=== PATIENT | female | born 1955 | race Caucasian/White ===

== ENCOUNTER → 2018-05-28 16:39 | Outpatient (CLI) | payer OTHER, SELFPAY ==
--- NOTE | 2018-05-28 16:44 | MM_ITS ---
MM Dig screening mamm BI w/CAD ORDERING PHYSICIAN : [facility] PATIENT AGE: 62 years GENDER: Female COMPARISON: May 2016, May. From the scanning INDICATION: ITS.REASON: SCREENING Family history. Maternal aunt & paternal aunts , with breast cancer [id number]. TECHNIQUE: Standard CC and MLO images were obtained. R2 CAD reviewed. . Additional actually cc view both breast included. FINDINGS: . Moderately dense and heterogeneous breast pattern. Which decreases sensitivity of mammography. However no suspicious new areas of concern either breast. Ultrasound can be useful compliment/augment to mammography in breast of increased density and particularly helpful if any palpable areas encountered. RIGHT BREAST: No new areas of significant concern Nodularity at the deep right breast cc view appears stable as does appearance LEFT BREAST: No new areas of significant concern. Metallic markers from previous percutaneous biopsy towards the superior left breast, 12:30 position.,. MLO view with some minimal nodularity but no significant new areas of concern. Minor features seen on today's study similar to the 2015 exam, and can be followed. In this same area again noting 9 mm round ovoid density which is been present since at least 2013.. M2 thousand 7 the patient had a 9 mm fibroadenoma in this region which was biopsied. Also cysts are seen at the central breast. Thus with these features appearing fairly stable follow-up would be reasonable. No significant new areas of additional concern. It follow-up in one year recommended on left. IMPRESSION: ... Stable mammogram No new findings of significant concern. Moderately dense heterogeneous breast somewhat limit mammography, but with no new areas of concern. BI-RADS Category: 2 Benign Finding(s) RECOMMENDED FOLLOW-UP: 1YR 1 YEAR FOLLOW-UP (A letter has been sent to the patient regarding results of the study.)
== END ==
PROVIDERS: PCP Nurse Practitioner Family; Visit Provider Internal Medicine Adolescent Medicine
DX: Z12.31 Encounter for screening mammogram for malignant neoplasm of breast (principal)
CPT/HCPCS: 77067

== ENCOUNTER → 2019-06-11 16:16 | Outpatient (CLI) | payer OTHER, SELFPAY ==
--- NOTE | 2019-06-11 16:21 | MM_ITS ---
PROCEDURE: MM DIG SCREENING MAMM BI W/CAD CLINICAL INDICATION: There is a history of breast cancer patient's maternal aunt and paternal aunt. There been previous 2 biopsies left breast for benign disease. The patient was difficult to position for standard views COMPARISON: [facility] DIG MAMM-SCREEN ESCOBAR from 05/30/2015 [facility] DIG MAMM-SCREEN ESCOBAR from 06/21/2016 [facility] MM Dig screening mamm BI w/CAD from 05/28/2018 TECHNIQUE: Standard CC and MLO images were obtained. R2 CAD reviewed. FINDINGS: Moderate scattered fibroglandular densities are seen throughout both breast. There are 2 biopsy clips left breast. There are stable benign-appearing nodular densities deep within both breasts.. There is no new or suspicious lesion in either breast and no suspicious microcalcifications. IMPRESSION: Moderate breast density with no suspicious lesions seen BI-RAD Category: 2 Benign Finding(s) FOLLOW-UP: 1YR 1 Year Follow-up (A letter has been sent to the patient regarding results of the study.) Dictated by: Dr. Yao Green MD 06/18/2019 08:[address] Yao Green MD in [place] 06/18/2019 08:30
== END ==
PROVIDERS: PCP Nurse Practitioner; Visit Provider Internal Medicine Adolescent Medicine
DX: Z12.31 Encounter for screening mammogram for malignant neoplasm of breast (principal)
CPT/HCPCS: 77067

== ENCOUNTER → 2020-06-14 12:36 | Outpatient (CLI) | payer MEDICARE, SELFPAY ==
--- NOTE | 2020-06-14 12:38 | MM_ITS ---
PROCEDURE: MM DIG SCREENING MAMM BI W/CAD Digital Breast Tomosynthesis Included CLINICAL INDICATION: SCREENING There is a history of breast cancer patient's maternal aunt and paternal aunt. There has been 2 previous biopsies left breast for benign disease. COMPARISON: MG [facility] DIG MAMM-SCREEN ESCOBAR from 06/21/2016 MG [facility] MM Dig screening mamm BI w/CAD from 05/28/2018 MG MM DIG SCREENING MAMM BI W/CAD from 06/11/2019 TECHNIQUE: Standard CC and MLO images and 3D Tomosynthesis was obtained. R2 CAD reviewed. FINDINGS: Moderate diffuse fibroglandular densities are seen in the central portions of both breast. There are 2 biopsy clips left breast. There is faint arterial calcification in each breast. There are 2 stable benign-appearing nodular densities subareolar region left breast. There is no suspicious lesion and no suspicious microcalcifications. IMPRESSION: Moderate breast density with no suspicious lesions seen BI-RAD Category: 2 Benign Finding(s) FOLLOW-UP: 1YR 1 Year Follow-up (A letter has been sent to the patient regarding results of the study.) Dictated by: Dr. Yao Green MD 06/15/2020 14:29 Dr. Yao Green MD in [place] 06/15/2020 14:29
== END ==
PROVIDERS: PCP Nurse Practitioner; Visit Provider Nurse Practitioner
DX: Z12.31 Encounter for screening mammogram for malignant neoplasm of breast (principal)
CPT/HCPCS: 77063; 77067

== ENCOUNTER → 2020-08-08 08:46 | Outpatient (CLI) | payer MEDICARE, SELFPAY ==
--- NOTE | 2020-08-08 08:50 | XR_ITS ---
PROCEDURE: XR DEXA AXIAL SKELETON CLINICAL HISTORY: ASYMPTOMATIC MENOPAUSAL STATE COMPARISON: No exams were available for comparison FINDINGS: The right hip BMD is 0.874 with a T-score of 0.2. The left hip BMD is 0.861 with a T-score of 0.1. The lumbar spine BMD is 1.037 with a T-score of -0.1. IMPRESSION: This patient is considered normal according to the World Health Organization criteria. Fracture risk is low. Based on these results a follow-up exam is recommended in 2 year. Dictated by: Danny Mon MD 08/09/2020 04:34 Danny Mon MD in [place] 08/09/2020 06:56
== END ==
PROVIDERS: PCP Internal Medicine Adolescent Medicine; Visit Provider Internal Medicine Adolescent Medicine
DX: Z13.820 Encounter for screening for osteoporosis (principal); Z78.0 Asymptomatic menopausal state
CPT/HCPCS: 77080

== ENCOUNTER → 2020-12-19 12:32 | Outpatient (CLI) | payer MEDICARE, SELFPAY ==
--- NOTE | 2020-12-19 12:57 | CA_ITS ---
APPROVED REPORT EXAM: Comprehensive 2D, Doppler, and color-flow Echocardiogram Modeling Teacher: ARACELI Loredo, RVS Ht: 5 ft 8 in Wt: 200lbs BSA: 2.04 BP: 120/80 mmHg Indications: Murmur, Dizziness and Vertigo Echo Enhancing Agent Comments: Extremely difficult exam due to breathing variations 2D Dimensions IVSd 0.95 cm LVEF (Visual) 45.10 % PWd 0.75 cm LA Volume 37.40 mL LVDd 3.95 cm LA Volume Index 18.30 mL/m2 (M/F) 16-34 LVDs 3.08 cm LVOT 1.58 cm (M/F) 1.5-2.5 M-Mode Dimensions LA Diam 3.73 cm (1.9-4.0) LVDd 4.00 cm (3.5-5.7) Ao Diam 2.91 cm (2.0-3.7) LVDs 2.62 cm (3.5-5.7) EF (Teich) 64.10% EPSs 0.50 cm FS 34.50% EDV (Teich) 70.00 mL TAPSE 1.49 (<1.7) ESV (Teich) 25.10 mL LV Diastology E Decel Time 330.00 (160-240 msec) E/A Ratio 0.60 MED E' 6.20 (< 7 cm/sec) MED A' 11.30 cm/s E'/MED E' Ratio 11.15 (>14) LAT E' 7.90 (<10 cm/sec) LAT A' 10.50 cm/s E/LAT E' Ratio 8.75 (>14) Aortic Valve AoV Peak Neville. 222.00 (50-130 cm/s) AO Peak GR. 19.70 mmHg AO Mean GR. 9.90 (<5 mmHg) AO VTI 44.78 (18-25 cm) Mitral Valve MV E Max Neville. 69.00 (40-130 cm/s) MV A Velocity 116.00 (40-130 cm/s) E/A Ratio 0.60 MV Decel. Time 330.00 (160-240 ms) MV PHT 97.00 ms Tricuspid Valve TR P. Velocity 225.00 cm/s RAP Estimate 10.00 mmHg RVSP 30.30 mmHg Left Ventricle Left atrium is mildly enlarged, left ventricle is normal size, mild concentric left ventricular hypertrophy, visually estimated ejection fraction 55% with no regional wall motion abnormality, grade 1 diastolic dysfunction seen without tissue Doppler evidence of raise left atrial pressure. Right Ventricle Right atrium and right ventricle are normal size and contractility. Aortic Valve Aortic valve is minimally thickened and fibrosed, mean gradient across aortic valve is 10 mmHg, valve area is 1.8 cm by represents mild aortic stenosis, there is no aortic insufficiency. Mitral Valve Mitral valve grossly normal, there is trace mitral regurgitation. Tricuspid Valve Tricuspid grossly normal, there is trace tricuspid regurgitation, tricuspid regurgitation (inadequate for calculation of the right ventricular systolic pressure. Pulmonic Valve Pulmonic valve is poorly visualized. Great Vessels Aortic root is normal size. Pericardium No significant pericardial effusion noted. Conclusion 1. Normal left ventricular size, mild concentric left ventricular hypertrophy, visually estimated ejection fraction 55% with no regional wall motion abnormality, grade 1 diastolic dysfunction seen without tissue Doppler evidence of raise left atrial pressure. 2. Trace mitral and tricuspid regurgitation. 3. No significant pericardial effusion noted. 4. Minimally thickened and calcified aortic valve with mild aortic stenosis, there is no aortic insufficiency. Electronically signed by : Ryan Aceves, 12/19/2020 22:01:45
--- NOTE | 2020-12-19 12:57 | CA_ITS ---
APPROVED REPORT Intake Specialist: JOSE Laterality: Bilateral Study Quality: Good Indications: Dizziness and Vertigo Doppler Spectral Velocity Analysis ECA (R) 113.00/16.50 cm/s ECA (L) 131.10/14.60 cm/s dICA (R) 82.90/21.90 cm/s dICA (L) 131.10/44.60 cm/s Jhonatan (R) 64.20/17.60 cm/s Jhonatan (L) 103.70/34.30 cm/s pICA (R) 55.10/15.50 cm/s pICA (L) 72.80/18.80 cm/s dCCA (R) 72.80/19.70 cm/s dCCA (L) 75.90/25.10 cm/s pCCA (R) 106.20/12.00 cm/s pCCA (L) 93.60/19.80 cm/s Vert (R) 34.80/11.20 cm/s Vert (L) 42.80/18.80 cm/s ICA/CCA 1.10 ICA/CCA 1.70 Findings Duplex evaluation demonstrates stenosis of the right proximal internal carotid artery <20% with PSV <140 cm/sec, EDV <100 cm/sec, and IC/CC Ratio <4.0. Duplex evaluation demonstrates antegrade flow of the bilateral Vertebral Arteries. Duplex evaluation demonstrates stenosis of the left proximal internal carotid artery <20%. Conclusion Duplex evaluation demonstrates stenosis of the right proximal internal carotid artery <20% with PSV <140 cm/sec, EDV <100 cm/sec, and IC/CC Ratio <4.0. Duplex evaluation demonstrates antegrade flow of the bilateral Vertebral Arteries. Duplex evaluation demonstrates stenosis of the left proximal internal carotid artery <20%. Electronically signed by : Danny Mon MD 12/19/2020 16:31:24
== END ==
PROVIDERS: PCP Nurse Practitioner Family; Visit Provider Nurse Practitioner Family
DX: R01.1 Cardiac murmur, unspecified (principal); R42 Dizziness and giddiness
CPT/HCPCS: 93306; 93880

== ENCOUNTER → 2021-01-12 11:27 | Outpatient (CLI) | payer MEDICARE, SELFPAY ==
[2021-01-12 12:13] LABS: Chloride 102 mmol/L (98-107); Potassium 4.2 mmoL/L (3.5-5.1); Sodium 140 mmol/L (136-145)
[2021-01-12 12:16] LABS: Anion Gap 14.2 mEq/L (5-15); Blood Urea Nitrogen 15 mg/dl (7-17); Calcium 9.4 mg/dl (8.4-10.2); Carbon Dioxide 28 mmol/L (22.0-30.0); Estimated Glomerular Filt Rate 55 ml/min (>60); GFR (African American) 67 ML/MIN (>60); Glucose 70 mg/dl (74-100)
[2021-01-12 12:24] LABS: NT Pro Brain Natriuretic Pep. 193 pg/mL (0-125)
== END ==
PROVIDERS: Visit Provider Internal Medicine Cardiovascular Disease
DX: E78.5 Hyperlipidemia, unspecified (principal); I10 Essential (primary) hypertension; I35.0 Nonrheumatic aortic (valve) stenosis; R00.2 Palpitations; R01.1 Cardiac murmur, unspecified; R06.00 Dyspnea, unspecified; R06.83 Snoring; R07.9 Chest pain, unspecified; R40.0 Somnolence; R53.83 Other fatigue; R93.1 Abnormal findings on diagnostic imaging of heart and coronary circulation; R94.31 Abnormal electrocardiogram [ECG] [EKG]
CPT/HCPCS: 36415; 80048; 83880; 93270

== ENCOUNTER → 2021-01-24 06:12 | Outpatient (CLI) | payer SELFPAY ==
--- NOTE | 2021-01-24 06:13 | CT_ITS ---
PROCEDURE: CT HEART W CALCIUM SCORE CLINICAL HISTORY: eval for cad COMPARISON: No exams were available for comparison TECHNIQUE: Axial images obtained with sagittal and coronal reformats. All CT scans at the facility use one or more dose reduction, viz: automated exposure control, ma/kV adjustment per patient size (including targeted exams where dose is matched to indication, i.e. head), or iterative reconstruction technique. FINDINGS: Coronary artery calcium score is 4. Minimal calcific plaque burden with low cardiovascular disease risk. There is minimal thickening of the pericardium anteriorly suggesting small pericardial effusion. There is a small hernia. Centrilobular and paraseptal emphysematous changes are noted. There is some minimal ground-glass attenuation within the lingula IMPRESSION: Minimal calcific plaque burden with low cardiovascular disease risk Dictated by: Danny Mon MD 01/24/2021 10:40 Danny Mon MD in [place] 01/24/2021 10:40
== END ==
PROVIDERS: PCP Nurse Practitioner Family; Visit Provider Internal Medicine Cardiovascular Disease
DX: Z13.6 Encounter for screening for cardiovascular disorders (principal); R07.9 Chest pain, unspecified; R06.00 Dyspnea, unspecified; R93.1 Abnormal findings on diagnostic imaging of heart and coronary circulation; R94.31 Abnormal electrocardiogram [ECG] [EKG]; I10 Essential (primary) hypertension; E78.5 Hyperlipidemia, unspecified; R01.1 Cardiac murmur, unspecified; R53.83 Other fatigue
CPT/HCPCS: 75571

== ENCOUNTER → 2021-01-24 06:21 | Outpatient (CLI) | payer MEDICARE, SELFPAY ==
--- NOTE | 2021-01-24 06:23 | NM_ITS ---
APPROVED REPORT Exam: Nuclear Stress Test Indication: Chest pain, Palpitations, Fatigue, HTN, High cholesterol, Family history Patient Location: Outpatient Stress Tech: Mariela Gold MT Tech:Fanny Pittman, ARRT, RT (R)(N) Ht: 5 ft 8 in Wt: 204 lbs Bra Size: 38D HR: 59 bpm BP: 140/75 mmHg BSA: 2.06 m2 BMI: 31.0 History: Chest pain, Palpitations, Fatigue, HTN, High cholesterol, Family history Procedure: Patient received a 0.4 mg of intravenous Lexiscan, resting heart rate 59 bpm, resting blood pressure 140/75 mmHg, with Lexiscan maximum heart rate achived was 83 bpm which is Less than 85 % of the maximum predicted heart rate and blood pressure was 128/68 mmHg. With Lexiscan, patient denied any complaint of chest pain. Electrocardiogram Resting electrocardiogram shows sinus rhythm right bundle branch block, with Lexiscan there is less than 1.[address] segment depression noted from the baseline EKG. The EKG portion of the Lexiscan is nondiagnostic. Cardiac Stress and Resting SPECT Images: Cardiac Stress and Resting SPECT images were obtained using technetium 99m Myoview 31.6 mCi stress and 9.96 mCi at rest. Gated SPECT for analysis of segmental wall motion and calculation of the ejection fraction also done. Cardiac stress and rest SPECT images show uniform myocardial activity without segmental perfusion abnormality, computer derived ejection fraction is over 65% with no regional wall motion abnormality, right ventricle is normal size and contractility. Conclusion: 1. The EKG portion of the Lexiscan is nondiagnostic. 2. No scintigraphic evidence of reversible ischemia seen, computer derived ejection fraction is over 65% with no regional wall motion abnormality, right ventricle is normal size and contractility. 3. Normal Lexiscan Myoview study. Electronically signed by : Ryan Aceves, 01/24/2021 20:26:49
--- NOTE | 2021-01-24 06:23 | CA_ITS ---
APPROVED REPORT Exam: Pharmacologic Technologist: mandi manning, Ht: 5 ft 8 in Wt: 202 lbs BSA: 2.05 m2 HR: 59 bpm BP: 140/75 mmHg Indications: CP, SOB Medical History Medications: Lisinopril,,,,, Alprazolam,,,,, Asa,,,,, ZYRTEC,,,,, PaROXETINE,,,,, OxYbutynin,,,,, Pravastain,,,,, Allergies: Codeine Cardiac Risk Factors: HTN, Hyperlipidemia, FHX of CAD Stress Test Details Test: LEXISCAN HR Resting HR: 56 bpm Max Heart Rate (APMHR): 154.599240 bpm Max HR Achieved: 85 bpm Target HR (85% APMHR): 130.410608 bpm % of APMHR: 55.19 Recovery HR: 77 bpm BP Resting BP: 140/75 mmHg Max BP: 140/75 mmHg Recovery BP: 121.0/64.0 mmHg ECG Resting ECG: Sinus bradycardia, RBBB Clinical Exercise duration: 04:00 min Highest Stage Achieved: Stress ECG Conclusion No symptoms. No arrhythmia or ectopy. No significant ST changes. Unremarkable Lexiscan stress. Images reported separately. Test Summary REST 04:18 . . 56 . 140/ 75 . . Stage 1 01:00 . . 75 . . . . Stage 2 01:00 . . 83 . 128/ 68 . . Stage 3 01:00 . . 83 . 128/ 65 . . Stage 4 01:00 . . 81 . 125/ 69 . Stop exercise at 04:00 RECOVERY 01:00 . . 78 . 121/ 64 . . RECOVERY 02:00 . . 72 . 121/ 64 . . RECOVERY 03:00 . . 72 . 127/ 68 . . RECOVERY 03:21 . . 72 . 127/ 68 . . Electronically signed by : Ryan Aceves, 01/24/2021 20:07:10
--- NOTE | 2021-01-24 08:45 | HMH.ITSHM ---
Current Home Medications as stated by this patient Rebeca Armendariz or customer success representative. []PRAVASTATIN PAROXETINE OXYBUTYNIN OMEPRAZOLE MULTIVITAMINS LISINOPRIL LEVOTHYROXINE VITAMIN D3 CETIRIZINE ASA ALPRAZOLAM
== END ==
PROVIDERS: PCP Nurse Practitioner Family; Visit Provider Internal Medicine Cardiovascular Disease
DX: E78.5 Hyperlipidemia, unspecified (principal); I10 Essential (primary) hypertension; I35.0 Nonrheumatic aortic (valve) stenosis; R00.2 Palpitations; R01.1 Cardiac murmur, unspecified; R06.00 Dyspnea, unspecified; R06.83 Snoring; R07.9 Chest pain, unspecified; R40.0 Somnolence; R53.83 Other fatigue; R93.1 Abnormal findings on diagnostic imaging of heart and coronary circulation; R94.31 Abnormal electrocardiogram [ECG] [EKG]
CPT/HCPCS: 78452; 93017; A9502; J2785

== ENCOUNTER → 2021-02-10 09:07 | Outpatient (CLI) | payer MEDICARE, SELFPAY | PROVIDERS: Visit Provider Urology | DX: N34.2 Other urethritis (principal); Z01.812 Encounter for preprocedural laboratory examination; Z20.822 Contact with and (suspected) exposure to COVID-19 | CPT/HCPCS: U0003 ==

== ENCOUNTER 2021-02-13 10:58 | Day surgery (SDC) | payer MEDICARE, SELFPAY ==
[2021-02-13 11:24] VITALS: BP 138/82; PULSE 66; RESP 18; TEMP 36.9; O2SAT 97; BMI 31.4
[2021-02-13 12:24] VITALS: BP 142/81; PULSE 62; RESP 20; O2SAT 96
[2021-02-13 12:25] VITALS: RESP 20
--- NOTE | 2021-02-13 15:42 | HMH.OPNOTE ---
Date of procedure: 02/13/21 Pre-op Diagnosis:: Urethral pain Post-op Diagnosis:: Urethral stenosis Procedure performed:: Cystoscopy with urethral dilation Surgeon:: Albin Burnett MD Anesthesia: local Estimated blood loss (mL): 0 Clinical Note:: Patient is a 65-year-old white female with several week history of pain with and without urination. Recent evaluation in the office showed a normal urinalysis and postvoid residual was 0. She presents for cystoscopic evaluation. Operative findings:: Bladder was within normal limits. The urethra was stenotic and was dilated tolerated well. Operative note:: Patient taken to the cystoscopy suite after informed consent was obtained. She was placed into the frog-leg position on the stretcher and prepped and draped in the standard surgical fashion. 2% lidocaine placed into the urethra and after 5 minutes the flexible 16 Jorge passed into the urethra and into the bladder. The bladder was examined in a systematic fashion. There is no evidence of mucosal abnormalities, stones, trabeculation or cellule formation. The ureteral orifices were in their normal anatomic position with clear efflux of urine. The bladder neck and urethra were within normal limits. The patient was then dilated with a 22 [place] female sound and there was significant resistance to passage of the sound and some mild discomfort. The urethra was dilated with the subsequent 24 and 26 [place] sound with less resistance. Patient tolerated the procedure well there are no complications. I will see her back in 3 weeks in follow-up. A prescription for Pyridium was given. Condition: stable Disposition: same day Specimens:: None Complications:: None
== END 2021-02-13 12:33 | disposition home or self-care (01) ==
LOC: OUTP 11:00
PROVIDERS: PCP Nurse Practitioner Family; Visit Provider Urology
PROC: 0TJB8ZZ Inspection of Bladder, Via Natural or Artificial Opening Endoscopic (ICD-10-PCS; CPT 52000; principal; 2021-02-13 12:00)
DX: N35.92 Unspecified urethral stricture, female (principal); E78.5 Hyperlipidemia, unspecified; I10 Essential (primary) hypertension; R01.1 Cardiac murmur, unspecified; E07.9 Disorder of thyroid, unspecified; Z82.49 Family history of ischemic heart disease and other diseases of the circulatory system; Z80.9 Family history of malignant neoplasm, unspecified; Z88.6 Allergy status to analgesic agent; Z79.899 Other long term (current) drug therapy; Z79.82 Long term (current) use of aspirin
CPT/HCPCS: 52281

== ENCOUNTER 2021-02-23 13:47 | Emergency (ER) | payer MEDICARE, SELFPAY ==
[2021-02-23 13:55] VITALS: BP 107/79; PULSE 92; RESP 16; TEMP 37.7; O2SAT 98; BMI 31.1
--- NOTE | 2021-02-23 14:08 | HMH.EDGENADL ---
ED Disposition Clinical Impression: Dysuria, Perianal pruritus Disposition: Home, Self-Care Condition on Discharge: Good Instructions: DI for Urinary Tract Infection (UTI), DI for Urinary Tract Infection in Children Referrals: Amy Ricketts [Primary Care Provider] - 3 days Albin Burnett MD [Staff Physician] - 7-14 days Time of Disposition: 15:27 - Critical Care Critical Care Time: No Attestation: On 02/23/21, the high probability of a clinically significant, sudden or life threatening deterioration of the following system(s) required my full and direct attention, intervention and personal management. The time I documented below is in addition to time spent performing reported procedures but includes the following listed in this critical care notation. Medical Decision Making - Medical Records Medical records reviewed: Yes: I reviewed the patient's medical records. - Marco Inquiry Pt receiving controlled substance: No Vital Signs: 02/23/21 13:55 Temperature 99.9 F H Temperature Source Oral Pulse Rate [Radial] 92 H Respiratory Rate 16 Blood Pressure [Right Arm] 107/79 L Blood Pressure Mean [Right Arm] 88 Blood Pressure Position [Right Arm] Sitting 02 Sat by Pulse Oximetry 98 Oxygen Delivery Method Room Air - Lab Data Lab results reviewed: Yes: I reviewed the patient's lab results. Lab Results 02/23/21 14:55: Urine Color Yellow, Urine Appearance Clear, Urine pH 6.0, Ur Specific Hartman 1.020, Urine Protein Trace, Urine Glucose (UA) Negative, Urine Ketones Trace, Urine Blood Trace-i, Urine Nitrate Negative, Urine Bilirubin 1+ A, Urine Urobilinogen >=8.0, Ur Leukocyte Esterase 1+ A Orders (Tests/Meds): ORDERS Category Date Time Status Urinalysis and Microscopic Stat Lab 02/23/21 14:55 Results Urine Culture Stat Micro 02/23/21 14:55 Received Medical Decision Narrative: 65yo F evaluated for dysuria. Patient is in no acute distress on initial evaluation. Visual exam of the area reveals no cutaneous findings to explain her pruritus. Patient is providing a urine sample that will be sent to the lab. Urinalysis with 1+ leuk esterase but otherwise not remarkable. Patient on antibiotics at this time. We will encourage her to continue her antibiotics and follow-up with Dr. Burnett. She also has a CT scan scheduled for next week. Patient is appropriate and stable for discharge home. General Adult HPI - General Chief complaint: Urogenital-Female Stated complaint: wallace when urinates Time Seen by Provider: 02/23/21 14:08 Mode of Arrival: Ambulatory Limitations: No Limitations Description of Symptoms (Recalled from ER Triage Doc. by RN): TO ED PVT CAR WITH C/O BURING WITH URINATION AND PAIN AROUND RECTUM PT STATES CURRENTLY ON 3RD COURSE OF ANTIBIOTICS FOR UTI. PT STATES NO CHANGE IN SYMPTOMS. - History of Present Illness HPI narrative: 65yo F presents the emergency department secondary to ongoing dysuria and urogenital itching. Patient reports she has been seen by Dr. Quiñones and on her third round of antibiotics. She reports undergoing a cystoscopy with Dr. Burnett without definitive diagnosis. Patient denies any new symptoms or worsening of her current symptoms. No fever or systemic signs of illness. - Related Data Home Medications Medication Instructions Recorded Confirmed alprazolam 0.5 mg tablet 0.25 mg PO TID tab 01/12/21 02/21/21 aspirin 81 mg tablet,delayed 81 mg PO DAILY 01/12/21 02/21/21 release cetirizine 10 mg tablet 10 mg PO DAILY PRN 01/12/21 02/21/21 cholecalciferol (vitamin D3) 1,250 1,250 mcg PO WEEKLY cap 01/12/21 02/21/21 mcg (50,000 unit) capsule lisinopril 5 mg tablet 5 mg PO DAILY tab 01/12/21 02/21/21 uoeejjzyrbag-Ti-tsos-minerals 18 1 tab PO DAILY tab 01/12/21 02/21/21 mg-0.4 mg tablet oxybutynin chloride 5 mg tablet 5 mg PO DAILY tab 01/12/21 02/21/21 paroxetine HCl 20 mg tablet 20 mg PO DAILY tab 01/12/21 02/21/21 levothyroxine 50 mcg tablet 25 mcg
[2021-02-23 15:00] LABS: Microscopic, Urine URINE MICROSCOPIC (MICROSCOPIC)
[2021-02-23 15:13] LABS: Appearance,Urine CLEAR (Clear); Blood, Urine TRACE-I (Negative); Color,Urine YELLOW (Yellow); Glucose,Urine (UA) Negative (Negative); Ketones,Urine TRACE (Negative); Leukocyte Esterase,Urine 1+ (Negative); Nitrate,Urine Negative (Negative); Protein,Urine TRACE (Negative); Urobilinogen,Urine >=8.0 EU/dl (0.2)
[2021-02-23 15:22] LABS: Bilirubin,Urine 1+ (Negative)
[2021-02-23 15:27] LABS: Bacteria,Urine 1+ /lpf
[2021-02-23 16:04] VITALS: BP 118/78; PULSE 78; RESP 16; TEMP 36.6; O2SAT 98
== END 2021-02-23 16:06 | disposition home or self-care (01) ==
PROVIDERS: Emergency Provider Family Medicine; PCP Nurse Practitioner Family
DX: L29.0 Pruritus ani (principal); R30.0 Dysuria; F41.8 Other specified anxiety disorders; E78.5 Hyperlipidemia, unspecified; I10 Essential (primary) hypertension; Z87.891 Personal history of nicotine dependence; Z88.5 Allergy status to narcotic agent
CPT/HCPCS: 81001; 87086; 99281

== ENCOUNTER → 2021-02-28 08:22 | Outpatient (CLI) | payer MEDICARE, SELFPAY ==
[2021-02-28 08:49] LABS: Chloride 104 mmol/L (98-107); Sodium 141 mmol/L (136-145)
[2021-02-28 08:50] LABS: Albumin Level 3.8 g/dl (3.5-5.0); Potassium 3.7 mmoL/L (3.5-5.1)
[2021-02-28 08:52] LABS: Anion Gap 12.7 mEq/L (5-15); Blood Urea Nitrogen 9 mg/dl (7-17); Carbon Dioxide 28 mmol/L (22.0-30.0); Estimated Glomerular Filt Rate 63 ml/min (>60); GFR (African American) 76 ML/MIN (>60)
[2021-02-28 08:53] LABS: Calcium 8.8 mg/dl (8.4-10.2); Glucose 109 mg/dl (74-100); Phosphorous 3.4 mg/dl (2.5-4.5)
--- NOTE | 2021-02-28 09:01 | CT_ITS ---
PROCEDURE: CT ABDOMEN PELVIS W CON CLINICAL INDICATION: LOWER ABD PAIN COMPARISON: CT ABDPELW CT ABD PELVIS W/ CONTRAST from 05/02/2016 TECHNIQUE: IV Contrast: 75ML Isovue 370 Oral Contrast None Axial images obtained with sagittal and coronal reformats. All CT scans at the facility use one or more dose reduction, viz: automated exposure control, ma/kV adjustment per patient size (including targeted exams where dose is matched to indication, i.e. head), or iterative reconstruction technique. FINDINGS: LOWER THORAX: There is minimal thickening of the pericardium. Hiatal hernia ABDOMEN & PELVIS: There is mild splenomegaly at 14 cm. Prior cholecystectomy. The liver, pancreas, and adrenal glands have an unremarkable appearance. Small right renal cyst noted in the upper pole 5 mm. Kidneys have an otherwise unremarkable appearance. No renal or ureteral calculi. There is a small ventral abdominal wall hernia slightly toward the right 3 cm above the umbilicus. This contains fat within the hernia sac. No evidence of appendicitis. There is correa colonic diverticulosis. There is minimal haziness of the pericolic fat in the sigmoid region in the lower pelvic area anteriorly. No abscess or perforation. No free fluid or localized fluid collections. Mild degenerative changes of the hips and lumbar spine. IMPRESSION: Pancolonic diverticulosis with minimal haziness of the pericolic fat in the sigmoid region which could be due to mild or early diverticulitis. Please correlate with clinical parameters. No abscess or perforation. Other nonacute findings as described above including small ventral abdominal wall hernia containing fat, mild splenomegaly and hiatal hernia Dictated by: Danny Mon MD 03/01/2021 12:07 Danny Mon MD in [place] 03/01/2021 12:07
== END ==
PROVIDERS: PCP Nurse Practitioner Family; Visit Provider Nurse Practitioner Family
DX: R10.30 Lower abdominal pain, unspecified (principal)
CPT/HCPCS: 36415; 74177; 80069; Q9967

== ENCOUNTER → 2021-03-17 13:09 | Outpatient (CLI) | payer MEDICARE, SELFPAY | PROVIDERS: Visit Provider Internal Medicine Gastroenterology | DX: Z01.812 Encounter for preprocedural laboratory examination (principal); Z20.822 Contact with and (suspected) exposure to COVID-19; Z12.11 Encounter for screening for malignant neoplasm of colon | CPT/HCPCS: C9803; U0003; U0005 ==

== ENCOUNTER 2021-03-20 09:33 | Day surgery (SDC) | payer MEDICARE, SELFPAY ==
[2021-03-15 12:40] VITALS: BMI 31.0
[2021-03-20 09:49] VITALS: BP 139/79; PULSE 95; RESP 18; TEMP 36.4; O2SAT 97
--- NOTE | 2021-03-20 10:07 | HMH.ANESCL ---
[facility] Anesthesia Checklist - Patient Identification Patient Identification: Verbal (Name & ) - Structural Data Admitted From: Home Planned Operative Procedure/s: colonoscopy Consent for Planned Operative Procedure(s) Verified: Yes Verified Documents: Surgical Consent - NPO Status Verified Time NPO: 04:00 - Chart Verification Results Verified: None - Anesthesia Plan Anesthesia Risk discussed: Yes ASA Class: III Anesthesia Type: General [facility] History Medical History: Reports:: Anxiety, Depression, Heart Murmur, Hyperlipidemia, Hypertension, Palpitations, Urinary Tract Infection Denies:: Cancer, Diabetes Mellitus Type 1, Diabetes Mellitus Type 2, Internal Pacemaker, MRSA, Seizures *Have you ever received a pneumonia vaccine?: No *Have you received a flu vaccine this season?: Yes Other Medical History: Reports: Thyroid Disease Anesthesia experience/problems:: no problems Other Surgeries: Yes: Cholecystectomy, Colonoscopy, Thyroidectomy, Other. No: Pacemaker Amputation: No Fractures: No - *Social History Last grade of school completed: High school graduate Smoking Status: Never smoker Alcohol Intake: never Alcohol Intake Frequency:: 0-2 drinks per day Substance Use Type: denies use *Occupational Status:: retired Housing: house Household Members: none *Travel in the last 8 weeks: None - Psychiatric History Pschychiatric History:: Reports:: Anxiety, Depression Family Hx:: Cancer
[2021-03-20 11:07] VITALS: O2SAT 96
--- NOTE | 2021-03-20 11:36 | HMH.PROC ---
[facility] Procedure Note Procedure Note:: Colonoscopy Procedure Report: Colonoscopy with cold snare polypectomy Endoscopist: Tim Paulino II, MD Referring physician: JANE Barros Date of Procedure: March 20, 2021 Equipment: Olympus 190 variable stiffness pediatric colonoscope Sedation: MAC sedation Indication: Mrs. Armendariz is a 65-year-old female who is here for follow-up screening colonoscopy. The patient's last colonoscopy was in 1997. She reports no abdominal pain, weight loss, change in her bowel habits or rectal bleeding. She reports no family history of colon cancer. She does have some chronic rectal pain possibly associated with constipation. She does take MiraLAX when necessary. Procedure: Prior to the procedure, a history and physical exam was performed, and patient's medications and allergies were reviewed. The risks, benefits and alternatives of the sedation and procedure were discussed with the patient. All questions were answered and informed consent was obtained. The patient was brought to the procedure room. Patient identification and proposed procedure were verified by the physician and the nurse. The patient was placed in a left lateral decubitus position and the scope was passed under direct vision. Throughout the procedure, the patient's blood pressure, pulse, and oxygen saturations were monitored continuously. The colonoscopy was accomplished without difficulty. The patient tolerated the procedure well. Findings: On digital rectal examination there was normal rectal tone. There were no external hemorrhoids. The colonoscope was introduced through the anal canal to the rectum and advanced to the cecum. The ileocecal valve and appendiceal orifice were identified. The scope was advanced a short distance into the ileum which appeared grossly normal. The scope was then withdrawn into the colon. There were 4 colon polyps (cecum x1 (4 mm), descending x2 (3 and 5 mm) and sigmoid x1 (4 mm)) which were all removed via cold snare polypectomy. There were extensively scattered diverticuli throughout the colon but more predominantly in the descending and sigmoid colon (LEFT colon). The rectum itself was normal. Upon retroflexion within the rectum there were grade 1-2 internal hemorrhoids. The preparation was excellent throughout with [place] Preparation Score of 9. The cecal time was 12 minutes Impression: 1. Diminutive colonic polyps x4 2. Extensive pandiverticulosis 3. Grade 1-2 internal hemorrhoids Plan: I will follow up the polyp pathology and recommend repeat colonoscopy again in 5 years based upon the polyp histology. I would encourage a fiber bowel regimen on a long-term daily maintenance basis.
[2021-03-20 11:41] VITALS: BP 123/75; PULSE 79; RESP 12; TEMP 36.3; O2SAT 93
[2021-03-20 11:51] VITALS: BP 142/83; PULSE 77; RESP 16; O2SAT 94
[2021-03-20 12:01] VITALS: BP 147/80; PULSE 77; RESP 16; O2SAT 95
[2021-03-20 12:11] VITALS: BP 140/88; PULSE 75; RESP 16; TEMP 36.3; O2SAT 97
== END 2021-03-20 12:13 | disposition home or self-care (01) ==
LOC: OUTP 09:34
PROVIDERS: PCP Nurse Practitioner Family; Visit Provider Internal Medicine Gastroenterology
PROC: 0DJD8ZZ Inspection of Lower Intestinal Tract, Via Natural or Artificial Opening Endoscopic (ICD-10-PCS; CPT 45378; principal; 2021-03-20 10:30)
DX: Z12.11 Encounter for screening for malignant neoplasm of colon (principal); K63.5 Polyp of colon; K57.32 Diverticulitis of large intestine without perforation or abscess without bleeding; K64.0 First degree hemorrhoids; E78.5 Hyperlipidemia, unspecified; I10 Essential (primary) hypertension; F41.9 Anxiety disorder, unspecified; F32.9 Major depressive disorder, single episode, unspecified; R01.1 Cardiac murmur, unspecified; R00.2 Palpitations; Z87.440 Personal history of urinary (tract) infections; Z80.9 Family history of malignant neoplasm, unspecified
CPT/HCPCS: 45385; 88305

== ENCOUNTER 2021-05-09 16:00 | Emergency (ER) | payer MEDICARE, SELFPAY ==
[2021-05-09 16:01] VITALS: BP 141/79; PULSE 81; RESP 18; O2SAT 98; BMI 30.2
[2021-05-09 17:54] VITALS: BP 141/79; PULSE 81; RESP 18; O2SAT 98; BMI 30.1
--- NOTE | 2021-05-09 17:55 | PC.NURSE ---
Went to look for pt, not able to find at this time, will continue to look
[2021-05-09 18:19] LABS: Apearance,Urine Clear (Clear); Bilirubin,Urine 1+ (Negative); Blood, Urine 1+ (Negative); Color,Urine Orange (Yellow); Glucose,Urine (UA) 1+ (Negative); Ketones,Urine 15 (Negative); Protein,Urine 1+ (Negative); Specific Gravity, Urine 1.015 (1.005-1.030); Urobilinogen,Urine >=8 EU/dl (0.2)
[2021-05-09 18:20] LABS: UTC Leukocyte Esterase,Urine 3+ (Negative); UTC Nitrate,Urine Positive (Negative)
--- NOTE | 2021-05-09 18:42 | HMH.EDUTC ---
[facility] [place] Clinical Impression: UTI (urinary tract infection) Qualifiers: Urinary tract infection type: site unspecified Hematuria presence: with hematuria Qualified Code(s): N39.0 - Urinary tract infection, site not specified Disposition: Home, Self-Care Condition on Discharge: Good Instructions: Urinary Tract Infection, DI for Urinary Tract Infection (UTI), Phenazopyridine, Nitrofurantoin Additional Instructions: *Increase fluids. Water not Soda or Tea *Start antibiotic immediately and be sure to take as ordered for the FULL length of time although you should start to see improvement over the next 48 hours *Pyridium as needed Remember this medication will turn your urine Grady. This is normal but it will stain what ever it gets on *You should not use Pyridium for more than 48 hours. If so , follow up with your primary physician to review urine culture and ensure that antibiotic is adequate for infection *Be SURE to follow up anytime for new or worsening symptoms with your family doctor. AND in 48 hours for urine culture results with your family doctor, if you do not have a doctor then you may call back to the [facility] for urine culture results and further treatment. We do recommend that you choose and establish care with a Primary Care Physician. AND follow up with them in 10-14 days to repeat UA to ensure infection is resolved and blood no longer present *Be sure to let your PCP know that we sent urine cultures from the [facility] so they can follow up to ensure that you area the on the correct antibiotic Call your doctor office and make appointment for 48 hours (2 days from today) to follow up and get the results of your urine culture and further treatment Follow up with Family Doctor first of next week to discuss medication and further treatment Prescriptions: Nitrofurantoin Monohyd/M-Cryst [Macrobid 100 mg Capsule] 100 mg PO BID 7 Days #14 cap Transmission Status: Pending to [employer] # Phenazopyridine HCl [Pyridium 200mg Tablet] 200 pow PO TID #6 tab Transmission Status: Pending to [employer] # Referrals: Amy Ricketts [Primary Care Provider] - As needed Time of Disposition: 18:52 Medical Decision Making - Marco Inquiry Pt receiving controlled substance: No Marco was queried for this patient: No Vital Signs: 05/09/21 16:01 05/09/21 17:54 Pulse Rate [Radial] 81 81 Respiratory Rate 18 18 Blood Pressure [Right Arm] 141/79 H 141/79 H Blood Pressure Mean [Right Arm] 99 99 02 Sat by Pulse Oximetry 98 98 Oxygen Delivery Method Room Air Room Air - Lab Data Lab results reviewed: Yes: I reviewed the patient's lab results. Lab Results 05/09/21 18:13: Urine Color Grady, Urine Appearance Clear, Urine pH 5.0, Ur Specific [place] 1.015, Urine Protein 1+, Urine Glucose (UA) 1+, Urine Ketones 15, Urine Blood 1+, Urine Nitrate Positive A, Urine Bilirubin 1+ A, Urine Urobilinogen >=8, Ur Leukocyte Esterase 3+ A Orders (Tests/Meds): ORDERS Category Date Time Status Urine Culture Stat Micro 05/09/21 18:13 [place] [facility] [place] - General Stated complaint: burning/itching in private area Time Seen by Provider: 05/09/21 18:42 Mode of Arrival: Ambulatory Source of Information: Patient Limitations: No Limitations Description of Symptoms (Recalled from Triage Doc. by RN): per triage for decision: to ed per pvt car with c/o constant vaginal burning into rectum x 2 months states seen by dr randle 1 month ago and seen by pcp last week given meds with no relief of symptoms. HEENT Symptoms (Recalled from RN notes): No Resp Symptoms (Recalled from RN notes): No Skin Symptoms (Recalled from RN notes): No MS Symptoms (Recalled from RN notes): No Functional Status (Recalled from RN notes): na - History of Present Illness Provider Complaint: Patient states that she has been having this issue for a couple months and has been on several different antibiotics and it will clear up then come back S
[2021-05-09 18:54] VITALS: BP 141/79; PULSE 81; RESP 18; TEMP 36.7; O2SAT 98
== END 2021-05-09 18:56 | disposition home or self-care (01) ==
LOC: ER 16:16 → UTC 16:17
PROVIDERS: Emergency Provider Nurse Practitioner; PCP Nurse Practitioner Family
DX: N30.00 Acute cystitis without hematuria (principal); I10 Essential (primary) hypertension; F41.8 Other specified anxiety disorders; E78.5 Hyperlipidemia, unspecified; Z88.5 Allergy status to narcotic agent
CPT/HCPCS: G0463; 81003; 87086; 99203

== ENCOUNTER → 2021-06-20 13:18 | Outpatient (CLI) | payer MEDICARE, SELFPAY ==
--- NOTE | 2021-06-20 13:20 | MM_ITS ---
PROCEDURE INFORMATION: Exam: MG Bilateral Screening 3D Mammography Exam date and time: 06/20/2021 1:20 PM Age: 65 years old Clinical indication: Encounter for screening mammogram for malignant neoplasm of breast . Family history of breast carcinoma. TECHNIQUE: Imaging protocol: Bilateral screening tomosynthesis and 2D mammography including computer-aided detection (CAD) when performed. COMPARISON: 1. MG MM DIG SCREENING MAMM BI W/CAD 06/14/2020 1:06 PM 2. MG MM DIG SCREENING MAMM BI W/CAD 06/11/2019 4:27 PM 3. MG SCBI MM Dig screening mamm BI w/CAD 05/28/2018 5:06 PM FINDINGS: MAMMOGRAPHY: Breast composition: The breasts are heterogeneously dense, which may obscure small masses. Mass: No suspicious masses. Architectural distortion: No suspicious distortion. Calcifications: No suspicious calcifications. Asymmetric density: None. Skin thickening: None. Axillary adenopathy: None. IMPRESSION: No mammographic evidence of malignancy. Annual screening is recommended unless otherwise clinically indicated. ASSESSMENT: BI-RADS Category 1: Negative
== END ==
PROVIDERS: PCP Nurse Practitioner Family; Visit Provider Nurse Practitioner Family
DX: Z12.31 Encounter for screening mammogram for malignant neoplasm of breast (principal)
CPT/HCPCS: 77063; 77067

== ENCOUNTER 2021-07-10 14:25 | Emergency (ER) | payer MEDICARE, SELFPAY ==
[2021-07-10 14:26] VITALS: BP 161/71; PULSE 89; RESP 17; O2SAT 98; BMI 30.4
--- NOTE | 2021-07-10 15:03 | HMH.EDUROGF ---
ED Disposition Clinical Impression: Vaginitis Qualifiers: Chronicity: acute Qualified Code(s): N76.0 - Acute vaginitis Disposition: Home, Self-Care Condition on Discharge: Good Instructions: DI for Vaginal Yeast Infection Prescriptions: Fluconazole 150 mg PO ONCE #1 tab Transmission Status: Pending to [employer] Referrals: José Soriano MD [Primary Care Provider] - - Critical Care Critical Care Time: No Attestation: On 07/10/21, the high probability of a clinically significant, sudden or life threatening deterioration of the following system(s) required my full and direct attention, intervention and personal management. The time I documented below is in addition to time spent performing reported procedures but includes the following listed in this critical care notation. Medical Decision Making - Medical Records Medical records reviewed: Yes: I reviewed the patient's medical records. - Marco Inquiry Pt receiving controlled substance: No Vital Signs: 07/10/21 14:26 Pulse Rate [Apical] 89 Respiratory Rate 17 Blood Pressure [Right Arm] 161/71 H Blood Pressure Mean [Right Arm] 101 02 Sat by Pulse Oximetry 98 - Lab Data Lab Results 07/10/21 15:02: Urine Color Yellow, Urine Appearance Clear, Urine pH 5.5, Ur Specific [place] 1.025, Urine Protein Negative, Urine Glucose (UA) Negative, Urine Ketones Negative, Urine Blood Negative, Urine Nitrate Negative, Urine Bilirubin Negative, Urine Urobilinogen 0.2, Ur Leukocyte Esterase Trace, Urine RBC None, Urine WBC 3-5, Ur Squamous Epith Cells 5-10, Urine Bacteria None, Urine Yeast Occasional Orders (Tests/Meds): ED MEDICATIONS Discontinued Medications Generic Name Dose Route Start Last Admin Trade Name Davy PRN Reason Stop Dose Admin Ibuprofen 800 mg 07/10/21 14:57 07/10/21 15:24 Ibuprofen 400 Mg Tablet PO 07/10/21 14:58 800 mg ONCE ONE Administration - Reevaluation(s) Time: 15:59 Reevaluation #1: Patient does have some contamination of urine, however there are some yeast cells. Will provide one-time fluconazole. She is to maintain her CAVALRY OFFICER for further evaluation and treatment which is tomorrow. Given strict return precautions. Verbalized understanding. Medical Decision Narrative: 65-year-old female presented to the emergency department with vaginal burning. The patient symptoms are consistent with early menopause. She is nontoxic-appearing and hemodynamically stable. Patient actually has follow-up with her primary CAVALRY OFFICER tomorrow morning. Urinalysis will be obtained. Female Urogenital HPI - General Chief complaint: Urogenital-Female Stated complaint: vaginal burning Time Seen by Provider: 07/10/21 14:30 Mode of Arrival: Ambulatory Limitations: No Limitations Description of Symptoms (Recalled from ER Triage Doc. by RN): C/O burning in her vaginal area x 1 month. Pt states she has been to see Dr Ramos for this issue and was perscribed medication but is not helping. Denies painful urination or hematuria. - History of Present Illness HPI Narrative: This is a 65-year-old female presented to the emergency department with some vaginal burning. Patient has had the symptoms for the last month or so. She is following up with her CAVALRY OFFICER for this, however she is concerned if not getting any better. The patient was placed on estrogen suppositories as well as antifungal. She states that the antifungal resolved the itching, she is still having some burning.no diarrhea. She denies any dysuria or hematuria. She not having any headache or change in vision. No focal weakness. No fevers or chills. No abdominal pain or vomiting. No diarrhea. No rectal pain. No chest pain or shortness of breath. - Related Data Home Medications Medication Instructions Recorded Confirmed alprazolam 0.5 mg tablet 0.25 mg PO TID tab 01/12/21 06/13/21 aspirin 81 mg tablet,delayed 81 mg PO DAILY 01/12/21 06/13/21 release cetirizi
[2021-07-10 15:06] LABS: Microscopic, Urine URINE MICROSCOPIC (MICROSCOPIC)
[2021-07-10 15:20] LABS: Appearance,Urine CLEAR (Clear); Bilirubin,Urine Negative (Negative); Blood, Urine Negative (Negative); Color,Urine YELLOW (Yellow); Glucose,Urine (UA) Negative (Negative); Ketones,Urine Negative (Negative); Leukocyte Esterase,Urine TRACE (Negative); Nitrate,Urine Negative (Negative); PH,Urine 5.5 (5.0-8.5); Protein,Urine Negative (Negative); Specific Gravity, Urine 1.025 (1.005-1.030); Urobilinogen,Urine 0.2 EU/dl (0.2)
[2021-07-10 15:46] LABS: Yeast,Urine Occasional /lpf
[2021-07-10 16:04] VITALS: BP 166/70; PULSE 70; RESP 16; TEMP 36.8; O2SAT 98
== END 2021-07-10 16:07 | disposition home or self-care (01) ==
PROVIDERS: Emergency Provider Emergency Medicine; PCP Internal Medicine Adolescent Medicine
DX: N76.0 Acute vaginitis (principal); I10 Essential (primary) hypertension; E78.5 Hyperlipidemia, unspecified; F41.8 Other specified anxiety disorders; Z79.899 Other long term (current) drug therapy
CPT/HCPCS: 81001; 99281

== ENCOUNTER → 2021-09-14 19:32 | Outpatient (CLI) | payer MEDICARE, SELFPAY | PROVIDERS: PCP Specialist; Visit Provider Internal Medicine Adolescent Medicine | DX: G47.33 Obstructive sleep apnea (adult) (pediatric) (principal); G47.36 Sleep related hypoventilation in conditions classified elsewhere | CPT/HCPCS: 95810 ==

== ENCOUNTER → 2021-09-19 10:45 | Outpatient (CLI) | payer MEDICARE, SELFPAY ==
--- NOTE | 2021-09-19 10:48 | CA_ITS ---
APPROVED REPORT EXAM: Comprehensive 2D, Doppler, and color-flow Echocardiogram Consumer Loan Specialist: Nhung Corbin CRT Ht: 5 ft 8 in Wt: 196lbs BSA: 2.03 BP: 135/80 mmHg Indications: , Murmur, Palpitations, Hyperlipidemia, Hypertension/HDD 2D Dimensions LVOT 2.05 cm (M/F) 1.5-2.5 M-Mode Dimensions RVDd 3.13 cm (0.9-2.6) LA Diam 3.77 cm (1.9-4.0) LVDd 4.50 cm (3.5-5.7) Ao Diam 3.73 cm (2.0-3.7) LVDs 2.13 cm (3.5-5.7) IVSd 1.49 cm (0.6-1.1) PWd 0.64 cm (0.6-1.1) EF (Teich) 83.90% FS 52.70% EDV (Teich) 92.40 mL TAPSE 3.39 (<1.7) ESV (Teich) 14.90 mL LV Diastology E Decel Time 370.00 (160-240 msec) E/A Ratio 0.67 MED E' 5.70 (< 7 cm/sec) MED A' 12.20 cm/s E'/MED E' Ratio 10.47 (>14) LAT E' 9.10 (<10 cm/sec) LAT A' 10.60 cm/s E/LAT E' Ratio 6.56 (>14) Aortic Valve LVOT Max 201.00 (70-110 cm/s) LVOT VTI 45.66 cm AoV Peak Neville. 201.00 (50-130 cm/s) AO Peak GR. 16.20 mmHg AO Mean GR. 9.40 (<5 mmHg) AO VTI 42.41 (18-25 cm) KESHIA (VTI) 3.55 (2.5-4.5 cm2) Mitral Valve MV A Velocity 89.00 (40-130 cm/s) E/A Ratio 0.67 MV Decel. Time 370.00 (160-240 ms) Pulmonary Valve PV Peak Velocity 114.00 (50-150 cm/s) Tricuspid Valve TR P. Velocity 247.00 cm/s RAP Estimate 10.00 mmHg RVSP 34.30 mmHg Left Ventricle Left atrium is mildly enlarged, left ventricle is normal size, mild concentric left ventricular hypertrophy, estimated ejection fraction 55% with no regional wall motion abnormality, grade 1 diastolic dysfunction seen without tissue Doppler evidence of raise left atrial pressure. Right Ventricle Right atrium and right ventricle are normal size and contractility. Aortic Valve Aortic valve is thickened and calcified without significant aortic stenosis or aortic insufficiency. Mitral Valve Mitral valve grossly normal, there is trace mitral regurgitation. Tricuspid Valve Tricuspid valve grossly normal, there is trace tricuspid regurgitation, tricuspid regurgitation jet velocity is inadequate for calculation of the right ventricular systolic pressure. Pulmonic Valve Pulmonic valve is poorly visualized. Great Vessels Aortic root is normal size. Inferior vena cava is poorly visualized. Pericardium No significant pericardial effusion noted. Conclusion 1. Mildly enlarged left ventricle normal left ventricular size, mild concentric left ventricular hypertrophy, visually estimated ejection fraction 55% with no regional wall motion abnormality, grade 1 diastolic dysfunction seen without tissue Doppler evidence of raise left atrial pressure. 2. Thickened and calcified aortic valve without aortic stenosis or aortic insufficiency. 3. Trace mitral and tricuspid regurgitation. 4. No significant pericardial effusion. 5. Inferior vena cava is poorly visualized. Electronically signed by : Ryan Aceves MD 09/19/2021 21:05:36
== END ==
PROVIDERS: PCP Internal Medicine Adolescent Medicine; Visit Provider Internal Medicine Adolescent Medicine
DX: R01.1 Cardiac murmur, unspecified (principal)
CPT/HCPCS: 93306

== ENCOUNTER 2021-10-17 18:28 | Emergency (ER) | payer MEDICARE, SELFPAY ==
[2021-10-17 19:22] VITALS: BP 143/83; PULSE 76; RESP 18; TEMP 36.9; O2SAT 96; BMI 30.4
[2021-10-17 19:31] LABS: Apearance,Urine Turbid (Clear); Color,Urine Dark Yellow (Yellow); PH,Urine 5.5 (5.0-8.5)
[2021-10-17 19:32] LABS: Bilirubin,Urine Negative (Negative); Blood, Urine Negative (Negative); Glucose,Urine (UA) Negative (Negative); Ketones,Urine Negative (Negative); Protein,Urine Negative (Negative); UTC Nitrate,Urine Negative (Negative); Urobilinogen,Urine 0.2 EU/dl (0.2)
[2021-10-17 19:33] LABS: UTC Leukocyte Esterase,Urine Trace (Negative)
--- NOTE | 2021-10-17 20:21 | HMH.EDUTC ---
[facility] Disposition Clinical Impression: UTI (urinary tract infection) Qualifiers: Urinary tract infection type: site unspecified Hematuria presence: without hematuria Qualified Code(s): N39.0 - Urinary tract infection, site not specified Disposition: Home, Self-Care Condition on Discharge: Good Instructions: Urinary Tract Infection, Urine Culture, DI for Urinary Tract Infection (UTI) Additional Instructions: Drink plenty of fluids. Take tylenol or ibuprofen for pain or fever. Take the medications as directed. Follow up with your regular doctor. GO TO THE ER FOR ANY WORSENING SYMPTOMS The pyridium will make your urine turn orange, this is an expected side effect. It will stain your clothes if it comes into contact with them. We will culture the urine. That will tell what bacteria is causing your infection and which antibiotics will treat it best. Sometimes the first antibiotic we prescribe turns out to not work against different bacteria. So, make sure you follow up within 3 days if you are not getting better. Prescriptions: Nitrofurantoin Monohyd/M-Cryst [Macrobid 100 mg Capsule] 100 mg PO BID 5 Days #10 cap Transmission Status: Received by [employer] Phenazopyridine HCl [Pyridium 200mg Tablet] 200 pow PO TID #6 tab Transmission Status: Received by [employer] Referrals: José Soriano MD [Primary Care Provider] - Time of Disposition: 20:23 Medical Decision Making - Medical Records Medical records reviewed: No: I reviewed the patient's medical records. - Marco Inquiry Pt receiving controlled substance: No Vital Signs: 10/17/21 19:22 10/17/21 20:27 Temperature 98.4 F 98.4 F Temperature Source Oral Pulse Rate 76 Pulse Rate [Left Radial] 76 Respiratory Rate 18 16 Blood Pressure 143/83 H Blood Pressure [Right Arm] 143/83 H Blood Pressure Mean [Right Arm] 103 02 Sat by Pulse Oximetry 96 - Lab Data Lab results reviewed: Yes: I reviewed the patient's lab results. Lab Results 10/17/21 19:30: Urine Color Dark yellow, Urine Appearance Turbid, Urine pH 5.5, Ur Specific [place] 1.030, Urine Protein Negative, Urine Glucose (UA) Negative, Urine Ketones Negative, Urine Blood Negative, Urine Nitrate Negative, Urine Bilirubin Negative, Urine Urobilinogen 0.2, Ur Leukocyte Esterase Trace Orders (Tests/Meds): ED MEDICATIONS Discontinued Medications Generic Name Dose Route Start Last Admin Trade Name Davy PRN Reason Stop Dose Admin Ceftriaxone Sodium 1 gm 10/17/21 19:54 10/17/21 20:09 Ceftriaxone 1gm Vial IM 10/17/21 19:55 1 gm ONCE ONE Administration Lidocaine HCl 0 ml 10/17/21 19:54 10/17/21 20:09 Lidocaine 1% 5ml Pf Vial IM 10/17/21 19:55 2 ml ONCE ONE Administration ORDERS Category Date Time Status Urine Culture Stat Micro 10/17/21 19:30 Ordered [facility] HPI - General Stated complaint: Possible UTI Time Seen by Provider: 10/17/21 20:00 Mode of Arrival: Ambulatory Source of Information: Patient Description of Symptoms (Recalled from Triage Doc. by RN): burning in vagina. started a long time ago. she sees meli thomas. has a bacteria up inside, used cream and it is still burning and had exams. doctor does not know what is wrong with her. HEENT Symptoms (Recalled from RN notes): No Resp Symptoms (Recalled from RN notes): No Skin Symptoms (Recalled from RN notes): No MS Symptoms (Recalled from RN notes): No Functional Status (Recalled from RN notes): wnl - History of Present Illness Provider Complaint: She c/o dysuria and low back pain for the past 2 days. She states that she has a UTI and she request a rocephin shot. - Related Data Home Medications Medication Instructions Recorded Confirmed aspirin 81 mg tablet,delayed 81 mg PO DAILY 01/12/21 08/31/21 release cetirizine 10 mg tablet 10 mg PO DAILY PRN 01/12/21 08/31/21 lisinopril 5 mg tablet 5 mg PO DAILY tab 01/12/21 08/31/21 levothyroxine 50 mcg tablet 2
[2021-10-17 20:27] VITALS: BP 143/83; PULSE 76; RESP 16; TEMP 36.9
== END 2021-10-17 20:29 | disposition home or self-care (01) ==
PROVIDERS: Emergency Provider Nurse Practitioner Family; PCP Internal Medicine Adolescent Medicine
DX: N30.00 Acute cystitis without hematuria (principal); F41.8 Other specified anxiety disorders; I10 Essential (primary) hypertension; E03.9 Hypothyroidism, unspecified; Z88.5 Allergy status to narcotic agent; Z79.899 Other long term (current) drug therapy
CPT/HCPCS: 81003; 87086; 96372; 99213; G0463; J0696

== ENCOUNTER → 2022-02-15 06:15 | Outpatient (CLI) | payer MEDICARE, SELFPAY ==
[2022-02-15 18:57] LABS: Basophils # 0.1 K/mm3 (0-0.2); Basophils % 1.3 % (0.1-2.0); Eosinophils # 0.2 K/mm3 (0.0-0.4); Hematocrit 41.9 % (37.0-47.0); Hemoglobin 13.1 g/dL (12.2-16.2); Lymphocytes # 1.5 K/mm3 (0.7-4.5); Lymphocytes % 25.4 % (10-50); Mean Corpuscular HGB Conc 31.2 g/dL (31.8-35.4); Mean Corpuscular Hemoglobin 28.9 pg (27.0-31.2); Mean Corpuscular Volume 92.4 fl (81-99); Mean Platelet Volume 8.7 fl (7.4-10.4); Monocytes # 0.4 K/mm3 (0.1-1.0); Monocytes % 7.2 % (1.7-9.3); Neutrophils # 3.6 K/mm3 (1.8-7.8); Neutrophils % 62.1 % (37.0-80.0); Platelet Count 324 K/mm3 (142-424); Red Blood Count 4.54 M/mm3 (4.20-5.40); White Blood Count 5.8 K/mm3 (4.8-10.8)
[2022-02-15 19:22] LABS: Alanine Aminotransferase 26 U/L (12-78); Albumin Level 4.4 g/dl (3.5-5.0); Albumin/Globulin Ratio 1.2 (1.1-1.8); Alkaline Phosphatase 102 U/L (38-126); Anion Gap 12.2 mEq/L (5-15); Aspartate Amino Transferase 50 U/L (14-36); Bilirubin,Total 0.5 mg/dl (0.2-1.3); Blood Urea Nitrogen 9 mg/dl (7-17); Calcium 9.4 mg/dl (8.4-10.2); Carbon Dioxide 27 mmol/L (22.0-30.0); Chloride 104 mmol/L (98-107); Estimated Glomerular Filt Rate 62 ml/min (>60); GFR (African American) 76 ML/MIN (>60); Globulin 3.6 g/dL (1.3-3.2); Glucose 165 mg/dl (74-100); Potassium 4.2 mmoL/L (3.5-5.1); Sodium 139 mmol/L (136-145)
[2022-02-15 19:34] LABS: Hemoglobin A1C 5.8 % (4.0-6.0)
[2022-02-15 19:52] LABS: Thyroid Stimulating Hormone 2.27 uIU/mL (0.465-4.68)
[2022-02-15 20:11] LABS: Vitamin B12 377 pg/mL (239-931)
== END ==
PROVIDERS: PCP Internal Medicine Adolescent Medicine; Visit Provider Internal Medicine Adolescent Medicine
DX: R53.81 Other malaise (principal); R53.83 Other fatigue; R73.03 Prediabetes; G47.33 Obstructive sleep apnea (adult) (pediatric)
CPT/HCPCS: 80053; 82607; 83036; 84443; 85025

== ENCOUNTER → 2022-03-08 06:19 | Outpatient (CLI) | payer MEDICARE, SELFPAY | PROVIDERS: PCP Internal Medicine Adolescent Medicine; Visit Provider Internal Medicine Adolescent Medicine | DX: R34 Anuria and oliguria (principal) | CPT/HCPCS: 87086 ==

== ENCOUNTER 2022-03-24 03:52 | Emergency (ER) | payer MEDICARE, SELFPAY ==
[2022-03-24] VITALS (7 sets, daily range): BP systolic 115–150; BP diastolic 51–98; PULSE 72–96; RESP 16; TEMP 36.5–36.6; O2SAT 96–98; BMI 31.9
--- NOTE | 2022-03-24 04:10 | ECG_ITS ---
APPROVED REPORT Exam: Resting ECG HR:87 bpm ECG Measurements Heart Rate 87 AXES WI 160 P 1 QRSd 169 QRS -53 QT 427 T 42 QTc 471 Conclusion SINUS RHYTHM RIGHT BUNDLE BRANCH BLOCK [120+ ms QRS DURATION, UPRIGHT V1, 40+ ms S IN I/aVL/V4/V5/V6] LEFT ANTERIOR FASCICULAR BLOCK [QRS AXIS <= -45, QR IN I, RS IN II] ABNORMAL ECG UNCONFIRMED REPORT Electronically signed by : Charles Hopkins MD 03/29/2022 16:06:55
--- NOTE | 2022-03-24 04:19 | CT_ITS ---
PROCEDURE INFORMATION: Exam: CT Head Without Contrast Exam date and time: 03/24/2022 4:45 AM Age: 66 years old Clinical indication: Dizziness; Additional info: Dizziness, confusion, diaphoretic TECHNIQUE: Imaging protocol: Computed tomography of the head without contrast. Radiation optimization: All CT scans at this facility use at least one of these dose optimization techniques: automated exposure control; mA and/or kV adjustment per patient size (includes targeted exams where dose is matched to clinical indication); or iterative reconstruction. COMPARISON: US CA CAROTID DUPLEX BI 12/19/2020 1:03 PM FINDINGS: Brain: Normal. No hemorrhage. Unremarkable white matter. No mass effect. Cerebral ventricles: No ventriculomegaly. Paranasal sinuses: Visualized sinuses are unremarkable. No fluid levels. Mastoid air cells: Visualized mastoid air cells are well aerated. Orbital cavities: There is asymmetry of the lenses consistent with right intraocular lens prosthesis. Bones/joints: Unremarkable. No acute fracture. Soft tissues: Unremarkable. IMPRESSION: No acute intracranial process evident.
[2022-03-24 04:52] LABS: Basophils # 0.1 K/mm3 (0-0.2); Basophils % 1.2 % (0.1-2.0); Chloride 97 mmol/L (98-107); Eosinophils # 0.5 K/mm3 (0.0-0.4); Eosinophils % 4.7 % (0.1-12.0); Hematocrit 42.7 % (37.0-47.0); Lymphocytes # 1.6 K/mm3 (0.7-4.5); Lymphocytes % 13.5 % (10-50); Mean Corpuscular HGB Conc 32.8 g/dL (31.8-35.4); Mean Corpuscular Volume 88.5 fl (81-99); Mean Platelet Volume 7.3 fl (7.4-10.4); Microscopic, Urine URINE MICROSCOPIC (MICROSCOPIC); Monocytes # 0.7 K/mm3 (0.1-1.0); Monocytes % 5.6 % (1.7-9.3); Neutrophils # 8.6 K/mm3 (1.8-7.8); Platelet Count 371 K/mm3 (142-424); Potassium 3.8 mmoL/L (3.5-5.1); Red Blood Count 4.83 M/mm3 (4.20-5.40); Red Cell Distribution Width 14.8 % (11.5-17.5); Sodium 139 mmol/L (136-145); White Blood Count 11.5 K/mm3 (4.8-10.8)
[2022-03-24 04:53] LABS: Appearance,Urine CLEAR (Clear); Blood, Urine Negative (Negative); Color,Urine YELLOW (Yellow); Glucose,Urine (UA) Negative (Negative); Ketones,Urine Negative (Negative); Leukocyte Esterase,Urine Negative (Negative); Nitrate,Urine Negative (Negative); Protein,Urine Negative (Negative); Specific Gravity, Urine >= 1.030 (1.005-1.030); Urobilinogen,Urine 0.2 EU/dl (0.2)
[2022-03-24 04:55] LABS: Anion Gap 17.8 mEq/L (5-15); Blood Urea Nitrogen 14 mg/dl (7-17); Carbon Dioxide 28 mmol/L (22.0-30.0); Creatinine Clearance Estimated 82 mL/min (50-200); Estimated Glomerular Filt Rate 62 ml/min (>60); GFR (African American) 76 ML/MIN (>60)
[2022-03-24 04:56] LABS: Bilirubin,Urine Negative (Negative); Calcium 9.1 mg/dl (8.4-10.2); Glucose 160 mg/dl (74-100)
--- NOTE | 2022-03-24 05:21 | PC.NURSE ---
PT DENIES DIZZINESS AND NAUSEA AT THIS TIME. WCM.
[2022-03-24 05:30] LABS: Troponin I < 0.01 ng/ml (0.00-0.034)
--- NOTE | 2022-03-24 05:38 | PC.NURSE ---
NO COMPLAINTS VOICED. SPRITE PROVIDED. BLANKETS OFFERED. FRIEND REMAINS AT BEDSIDE.
--- NOTE | 2022-03-24 06:13 | PC.NURSE ---
PT UPDATED. PO FLUIDS ENCOURAGED. PT DENIES DIZZINESS, NAUSEA AT THIS TIME.
--- NOTE | 2022-03-24 06:58 | PC.NURSE ---
PT DENIES DIZZINESS/NAUSEA AT THIS TIME. NO ACUTE DISTRESS NOTED.
--- NOTE | 2022-03-24 07:15 | HMH.EDDIZZ ---
Discharge Plan Disposition Patient Disposition: Home, Self-Care Chief Complaint: Dizziness Prescriptions Prescriptions: No Action lisinopril 5 mg tablet 5 mg PO DAILY Label Comments: TAKE 1 TABLET 1 TIME EACH DAY cetirizine [Zyrtec] 10 mg tablet 10 mg PO DAILY PRN (Reason: allergies) aspirin [Adult Low Dose Aspirin] 81 mg tablet,delayed release (DR/EC) 81 mg PO DAILY alprazolam 0.5 mg tablet 0.25 mg PO HS Qty: 30 0RF cholecalciferol (vitamin D3) 1,250 mcg (50,000 unit) capsule 50,000 unit PO WEEKLY Label Comments: TAKE 1 CAPSULE 1 TIME EACH WEEK paroxetine HCl 20 mg tablet 20 mg PO DAILY levothyroxine 50 mcg tablet 50 mcg PO DAILY 90 Days Qty: 90 0RF amitriptyline 50 mg tablet 100 mg PO DAILY rosuvastatin 20 mg tablet 20 mg PO DAILY Qty: 30 3RF omeprazole 40 MG capsule,delayed release(DR/EC) 40 mg PO DAILY furosemide 20 mg tablet 20 mg PO DAILY estradiol [Estrace] 0.01 % (0.1 mg/gram) cream 1 appful VAGINAL QHS Referrals Follow up/Referrals: Charles Hopkins MD [Primary Care Provider] - See instructions Clinical Impressions Clinical Impression: Dizziness Instructions Patient Instructions: Dizziness, Nonvertigo Discharge ED Provider: Esa Atkinson HPI General Chief Complaint: Dizziness Stated Complaint: clamy,numb hands,dry hives Time Seen by Provider: 03/24/22 07:15 Mode of Arrival: Ambulatory Source of Information: Patient and Medical Record Limitations: No Limitations Description of Symptoms (Recalled from ER Triage Doc. by RN): DIZZINESS SINCE YESTERDAY; WORSE THIS MORNING. PT REPORTS SHE NOW IS HAVING NAUSEA AND DRY HEAVES. PT REPORTS THAT SHE ALSO BEGAN TO SWEAT WHILE SHE IS DIZZY-. PATIENTS FRIEND REPORTS THAT PATIENT WAS ALSO CONFUSED. PT IS CURRENTLY A&O X 4- GCS 15 NIH 0. History of Present Illness HPI Narrative: pt with episode of dizzyness this am with diaphoresis and no syncope but no chest pain or card arrthymia - no loc - MD complaint: dizziness Onset (ago): hour(s) Timing: sudden onset and now resolved Description: lightheadedness History of similar episodes: No History of trauma: No Severity: moderate Associated symptoms: confusion and diaphoresis Related Data Home Medications Medication Instructions Recorded Confirmed aspirin 81 mg tablet,delayed 81 mg PO DAILY heart health 01/12/21 03/24/22 release (Adult Low Dose Aspirin) cetirizine 10 mg tablet (Zyrtec) 10 mg PO DAILY PRN allergies 01/12/21 03/24/22 lisinopril 5 mg tablet 5 mg PO DAILY High blood pressure 01/12/21 03/24/22 omeprazole 40 mg capsule,delayed 40 mg PO DAILY GERD 02/13/21 03/24/22 release cholecalciferol (vitamin D3) 1,250 50,000 unit PO WEEKLY vitamin d 01/18/22 03/24/22 mcg (50,000 unit) capsule deficiency paroxetine HCl 20 mg tablet 20 mg PO DAILY depression 01/18/22 03/24/22 amitriptyline 50 mg tablet 100 mg PO DAILY Depression 02/23/22 03/24/22 estradiol 0.01% (0.1 mg/gram) 1 appful vaginal QHS Supplement 03/24/22 03/24/22 vaginal cream (Estrace) furosemide 20 mg tablet 20 mg PO DAILY FLUID PILL 03/24/22 03/24/22 Previous Rx's Medication Instructions Recorded levothyroxine 50 mcg tablet 50 mcg PO DAILY thyroid 90 days 02/22/22 #90 tabs alprazolam 0.5 mg tablet 0.25 mg PO HS anxiety #30 tabs 03/01/22 rosuvastatin 20 mg tablet 20 mg PO DAILY Cholesterol #30 tabs 03/02/22 Allergies Allergy/AdvReac Type Severity Reaction Status Date / Time codeine [CODEINE] Allergy Mild Verified 03/08/22 13:56 PFSH PFS Medical History Abnormal electrocardiogram [ECG] [EKG] Aortic stenosis Diastolic dysfunction Dysuria Family history of ischemic heart disease GERD (gastroesophageal reflux disease) Heart murmur HLD (hyperlipidemia) HTN (hypertension) Normal colonoscopy Perianal pruritus UTI (urinary tract infection) Vaginitis Surgical Histor
--- NOTE | 2022-03-24 07:19 | PC.NURSE ---
Dr. Atkinson would like to check status of holter monitor, Respiratory does not have any available at this time. notified
[2022-03-24 07:24] LABS: Troponin I < 0.01 ng/ml (0.00-0.034)
--- NOTE | 2022-03-24 07:30 | PC.NURSE ---
RT present to place holter monitor on pt.
--- NOTE | 2022-03-24 07:57 | PC.NURSE ---
Pt ambulated to bathroom at this time. Staff present for standby assist. No c/o dizziness voiced.
== END 2022-03-24 08:46 | disposition home or self-care (01) ==
PROVIDERS: Emergency Provider Emergency Medicine; PCP Internal Medicine Adolescent Medicine
DX: R42 Dizziness and giddiness (principal)
CPT/HCPCS: 70450; 80048; 81001; 84484; 85025; 93005; 93225; 93226; 96360; 99284

== ENCOUNTER → 2022-07-02 16:23 | Outpatient (CLI) | payer MEDICARE, SELFPAY ==
--- NOTE | 2022-07-02 16:30 | XR_ITS ---
PROCEDURE INFORMATION: Exam: XR Lumbosacral Spine Exam date and time: 07/02/2022 4:30 PM Age: 66 years old Clinical indication: Other: Paresthsia in groin per her md chahal; Additional info: Paresthesia in groin TECHNIQUE: Imaging protocol: Radiologic exam of the lumbosacral spine. Views: 2 or 3 views. COMPARISON: CT ABDOMEN PELVIS W CON 02/28/2021 10:15 AM FINDINGS: Bones/joints: There is moderate disc space narrowing with mild uncovertebral spurring at the lumbosacral junction. Mild disc space narrowing and uncovertebral spurring are present at the L2-L3 disc level. Minimal uncovertebral spurring noted at the other lumbar levels. No vertebral body compression or subluxation seen. Soft tissues: Unremarkable. Vasculature: Moderate atherosclerotic calcification noted in the distal aorta. IMPRESSION: Stable degenerative changes of the lumbar spine. No acute abnormality
== END ==
PROVIDERS: PCP Family Medicine; Visit Provider Family Medicine
DX: R10.2 Pelvic and perineal pain (principal)
CPT/HCPCS: 72100

== ENCOUNTER → 2022-08-21 10:40 | Outpatient (CLI) | payer MEDICARE, SELFPAY ==
[2022-08-21 11:59] LABS: Anion Gap 7.3 mEq/L (5-15); Blood Urea Nitrogen 16 mg/dl (7-17); Calcium 9.2 mg/dl (8.4-10.2); Carbon Dioxide 30 mmol/L (22.0-30.0); Chloride 105 mmol/L (98-107); Estimated Glomerular Filt Rate 71 ml/min (>60); GFR (African American) 86 ML/MIN (>60); Glucose 109 mg/dl (74-100); Potassium 4.3 mmoL/L (3.5-5.1); Sodium 138 mmol/L (136-145)
== END ==
PROVIDERS: PCP Family Medicine; Visit Provider Nurse Practitioner Obstetrics & Gynecology
DX: Z01.419 Encounter for gynecological examination (general) (routine) without abnormal findings (principal)
CPT/HCPCS: 36415; 80048

== ENCOUNTER → 2022-08-31 07:30 | Outpatient (CLI) | payer MEDICARE, SELFPAY ==
--- NOTE | 2022-08-31 07:31 | MM_ITS ---
PROCEDURE INFORMATION: Exam: MG Bilateral Screening 3D Mammography Exam date and time: 08/31/2022 9:20 AM Age: 67 years old Clinical indication: Screening. A maternal aunt and a paternal aunt had breast cancer. History of benign left needle biopsies. TECHNIQUE: Imaging protocol: Bilateral Screening tomosynthesis and 2D mammography including computer-aided detection (CAD) when performed. COMPARISON: 1. MG MM DIG SCREENING MAMM BI W/CAD 06/20/2021 1:15 PM 2. MG MM DIG SCREENING MAMM BI W/CAD 06/14/2020 1:06 PM 3. MG MM DIG SCREENING MAMM BI W/CAD 06/11/2019 4:27 PM 4. MG SCBI MM Dig screening mamm BI w/CAD 05/28/2018 5:06 PM FINDINGS: MAMMOGRAPHY: Breast composition: The breasts are heterogeneously dense, which may obscure small masses. Mass: No suspicious mass. Architectural distortion: None. Calcifications: No suspicious calcifications. Asymmetric density: None. Skin thickening: None. Axillary adenopathy: None. Other: Left biopsy clips. IMPRESSION: No mammographic evidence of malignancy. Annual screening is recommended unless otherwise clinically indicated. ASSESSMENT: BI-RADS Category 2: Benign
--- NOTE | 2022-08-31 07:31 | CT_ITS ---
FINAL REPORT TECHNIQUE: Pre-and postcontrast axial imaging of the abdomen and pelvis was obtained.This study was performed with techniques to keep radiation doses as low as reasonably achievable, (ALARA). Individualized dose reduction technique using automated exposure control or adjustment of mA and/or kV according to the patient's size were employed. CLINICAL HISTORY: Abd mass, poss hernia COMPARISON: 02/28/2021 FINDINGS: The lung bases are clear. The liver is homogeneous. The gallbladder is absent. The spleen, adrenal glands, and pancreas are unremarkable. There is no hydronephrosis or solid renal mass. On precontrast imaging, no renal stones are identified. Abdominal GI tract is unremarkable. There is no lymphadenopathy or ascites. There is a ventral hernia just to the right of the midline above the umbilicus containing only fat. Hernia defect measures 2.1 cm. Findings are unchanged from prior. The uterus and ovaries are unremarkable. The appendix is normal. There is diverticulosis without evidence of diverticulitis. There is no lymphadenopathy or ascites. No acute osseous abnormalities identified. IMPRESSION: No acute intra-abdominal or intrapelvic abnormality. Stable right paramidline supraumbilical hernia containing only fat. Reviewed, Interpreted and Dictated by Katya Jj MD Transcribed by Sandy Vasquez Authenticated and [facility]
== END ==
PROVIDERS: PCP Family Medicine; Visit Provider Nurse Practitioner Obstetrics & Gynecology
DX: R19.00 Intra-abdominal and pelvic swelling, mass and lump, unspecified site (principal); Z12.31 Encounter for screening mammogram for malignant neoplasm of breast
CPT/HCPCS: 74178; 77063; 77067; Q9967

== ENCOUNTER → 2022-11-12 06:36 | Outpatient (CLI) | payer MEDICARE, SELFPAY ==
--- NOTE | 2022-11-12 06:37 | NM_ITS ---
APPROVED REPORT Exam: Nuclear Stress Test Indication: chest pain..soa..fatigue..palpitations..syncope Patient Location: Outpatient Stress Tech: Char Carpenter [place] Tech:Josefa Coy KULWINDERCoby RT (R)(N)(M) Ht: 5 ft 8 in Wt: 214 lbs Bra Size: 40c HR: 72 bpm BP: 155/83 mmHg BSA: 2.10 m2 TID: 1.24 BMI: 32.5 History: chest pain, dyspnea, fatigue, palpitations, syncope Procedure: Patient received 0.4 mg of intravenous Lexiscan, resting heart rate 72 bpm, resting blood pressure 155/83 mmHg, with Lexiscan maximum heart rate achieved was 86 bpm which is 85 % of the maximum predicted heart rate and blood pressure was 142/72 mmHg. With Lexiscan, patient denied any complaint of chest pain. The patient was unable to lay on her abdomen for prone images. Cardiac Stress and Resting SPECT Images: Cardiac Stress and Resting SPECT images were obtained using technetium 99m Myoview 30.9 mCi stress and 10.22 mCi at rest. Resting and stress images demonstrate no reversible defects, consistent with normal perfusion. David images demonstrate normal global and regional left ventricular function. Left ventricular ejection fraction is calculated at 70%. Conclusion: No evidence of ischemia. David images demonstrate normal global and regional left ventricular function. Left ventricular ejection fraction is calculated at 70%. Electronically signed by : Lorenza Arteaga, 11/12/2022 23:11:21
--- NOTE | 2022-11-12 06:37 | CA_ITS ---
APPROVED REPORT Exam: Pharmacologic Technologist: Char Carpenter Ht: 5 ft 8 in Wt: 209 lbs BSA: 2.08 m2 HR: 77 bpm BP: 128/62 mmHg Indications: Chest pain Medical History Medications: Omeprazole,,,,, Alprazolam,,,,, Levothyroxine,,,,, Aspirin,,,,, Gabapentin,,,,, Albuterol,,,,, ZYRTEC,,,,, Magnesium,,,,, EstraCE,,,,, Hydroxyzine,,,,, Mirtazapine,,,,, Metronidazole,,,,, Stress Test Details Test: LEXISCAN HR Resting HR: 74 bpm Max Heart Rate (APMHR): 152 bpm Max HR Achieved: 88 bpm Target HR (85% APMHR): 129 bpm % of APMHR: 58 Recovery HR: 77 bpm BP Resting BP: 155/83 mmHg Max BP: 155/83 mmHg Recovery BP: 128.0/62.0 mmHg ECG Resting ECG: Right bundle branch block ST Change: none Clinical Exercise duration: 04:01 min Highest Stage Achieved: Exercise capacity: n/a METs Stress ECG Conclusion Symptoms: Generalized weakness, mild Arrhythmias/Ectopy: None ST-T Changes: None Conclusion: No ischemic changes after regadenoson administration. Test Summary REST . . . . . . . Resting REST 14:53 . . 74 . 155/ 83 . . Stage 1 . . . . . . . Myoview Injected Stage 1 01:00 . . 84 . . . . Stage 2 01:00 . . 87 . . . . Stage 3 01:00 . . 84 . 142/ 72 . . Stage 4 01:00 . . 84 . 137/ 71 . . Stage 4 01:01 . . 84 . 137/ 71 . Stop exercise at 04:01 RECOVERY 01:00 . . 79 . 121/ 73 . . RECOVERY 02:00 . . 79 . 134/ 68 . . RECOVERY 03:00 . . 81 . 134/ 68 . . RECOVERY 03:36 . . 79 . 128/ 62 . . Electronically signed by : Lorenza Arteaga, 11/12/2022 22:53:58
== END ==
PROVIDERS: PCP Family Medicine; Visit Provider Physician Assistant
DX: E78.2 Mixed hyperlipidemia (principal); I10 Essential (primary) hypertension; I35.0 Nonrheumatic aortic (valve) stenosis; R07.89 Other chest pain; R94.31 Abnormal electrocardiogram [ECG] [EKG]
CPT/HCPCS: 78452; 93017; A9502; J2785

== ENCOUNTER → 2022-12-10 10:39 | Outpatient (CLI) | payer MEDICARE, SELFPAY ==
[2022-12-10 11:08] LABS: Basophils % 0.6 % (0.1-2.0); Eosinophils # 0.1 K/mm3 (0.0-0.4); Eosinophils % 2.3 % (0.1-12.0); Hematocrit 40.2 % (37.0-47.0); Hemoglobin 12.6 g/dL (12.2-16.2); Lymphocytes # 1.3 K/mm3 (0.7-4.5); Lymphocytes % 21.1 % (10-50); Mean Corpuscular HGB Conc 31.3 g/dL (31.8-35.4); Mean Corpuscular Hemoglobin 27.9 pg (27.0-31.2); Mean Corpuscular Volume 89.3 fl (81-99); Mean Platelet Volume 7.3 fl (7.4-10.4); Monocytes # 0.4 K/mm3 (0.1-1.0); Monocytes % 5.8 % (1.7-9.3); Neutrophils # 4.3 K/mm3 (1.8-7.8); Neutrophils % 70.2 % (37.0-80.0); Platelet Count 314 K/mm3 (142-424); Red Cell Distribution Width 16.1 % (11.5-17.5); White Blood Count 6.2 K/mm3 (4.8-10.8)
[2022-12-10 12:02] LABS: Chloride 103 mmol/L (98-107); Potassium 3.8 mmoL/L (3.5-5.1); Sodium 139 mmol/L (136-145)
[2022-12-10 12:05] LABS: Alanine Aminotransferase 34 U/L (12-78); Albumin Level 4.2 g/dl (3.5-5.0); Albumin/Globulin Ratio 1.4 (1.1-1.8); Alkaline Phosphatase 114 U/L (38-126); Anion Gap 15.8 mEq/L (5-15); Aspartate Amino Transferase 40 U/L (14-36); Bilirubin,Total 0.7 mg/dl (0.2-1.3); Blood Urea Nitrogen 13 mg/dl (7-17); Calcium 9.3 mg/dl (8.4-10.2); Carbon Dioxide 24 mmol/L (22.0-30.0); Estimated Glomerular Filt Rate 55 ml/min (>60); GFR (African American) 67 ML/MIN (>60); Globulin 3.1 g/dL (1.3-3.2); Glucose 125 mg/dl (74-100); Total Protein,Serum 7.3 g/dl (6.3-8.2)
== END ==
PROVIDERS: PCP Family Medicine; Visit Provider Nurse Practitioner Obstetrics & Gynecology
DX: R10.2 Pelvic and perineal pain (principal)
CPT/HCPCS: 36415; 80053; 85025

== ENCOUNTER → 2022-12-18 19:06 | Outpatient (CLI) | payer MEDICARE, SELFPAY ==
[2022-12-18 17:34] LABS: Thyroid Stimulating Hormone 2.77 uIU/mL (0.465-4.68)
== END ==
PROVIDERS: PCP Family Medicine; Visit Provider Family Medicine
DX: E03.9 Hypothyroidism, unspecified (principal)
CPT/HCPCS: 84443

== ENCOUNTER 2023-02-05 07:33 | Day surgery (SDC) | payer MEDICARE, SELFPAY ==
[2023-02-01 16:46] VITALS: BMI 33.0
[2023-02-05] VITALS (7 sets, daily range): BP systolic 121–155; BP diastolic 55–98; PULSE 71–79; RESP 16–18; TEMP 36.5; O2SAT 95–100
== END 2023-02-05 10:40 | disposition home or self-care (01) ==
PROVIDERS: PCP Family Medicine; Visit Provider Ophthalmology
DX: H25.812 Combined forms of age-related cataract, left eye (principal)
CPT/HCPCS: 66984; V2632

== ENCOUNTER 2023-02-09 07:30 | Emergency (ER) | payer MEDICARE, SELFPAY ==
[2023-02-09 07:43] VITALS: BP 164/74; PULSE 82; RESP 16; TEMP 36.8; O2SAT 98; BMI 33.0
[2023-02-09 08:00] VITALS: BP 158/82; PULSE 77; O2SAT 96
--- NOTE | 2023-02-09 08:02 | HMH.EDGENADL ---
Discharge Plan Disposition Patient Disposition: Home, Self-Care Condition: Good Prescriptions Prescriptions: New cefadroxil 500 mg capsule 500 mg PO BID 5 Days Qty: 10 0RF prednisolone acetate [Pred Forte] 1 % drops,suspension 1 drp ophthalmic (eye) QID 4 Days Qty: 10 0RF No Action aspirin [Adult Low Dose Aspirin] 81 mg tablet,delayed release (DR/EC) 81 mg PO DAILY bumetanide 1 mg tablet 1 mg PO DAILY PRN (Reason: fluid retention) Qty: 30 2RF cholecalciferol (vitamin D3) 1,250 mcg (50,000 unit) capsule 50,000 unit PO WEEKLY Patient Comments: TAKE 1 CAPSULE 1 TIME EACH WEEK cetirizine [Zyrtec] 10 mg tablet 10 mg PO DAILY PRN (Reason: allergies) 30 Days Qty: 30 2RF ondansetron 4 mg tablet,disintegrating 4 mg PO Q8H PRN (Reason: nausea and vomiting) Qty: 30 0RF alprazolam 0.5 mg tablet 0.5 mg PO HS Qty: 30 2RF mirtazapine 15 mg tablet 15 mg PO HS 30 Days Qty: 30 1RF magnesium oxide 400 mg (241.3 mg magnesium) tablet 400 mg PO DAILY levothyroxine 50 mcg tablet See Rx Instructions .ROUTE .COMPLEX Rx Instructions: TAKE 1 TABLET BY MOUTH EVERY MORNING ON AN EMPTY STOMACH FOR THYROID gabapentin 300 mg capsule 300 mg PO HS Rx Instructions: Take 1 tablet at bedtime. omeprazole 20 mg capsule,delayed release(DR/EC) 20 mg PO BID estradiol [Estrace] 0.01 % (0.1 mg/gram) cream 1 appful VAGINAL QHS Referrals Follow up/Referrals: Catalino Zuñiga MD [Primary Care Provider] - See instructions Activity Restrictions/Add. Instructions Additional Instructions/Restrictions: You have been given a prescription for an antibiotic, please complete the entire antibiotic course as prescribed. Additionally, you have been given a prescription for steroid eyedrops to assist with inflammation. Plan to follow-up with ophthalmology next week as scheduled. You can take Tylenol, ibuprofen as needed for pain control at home. Plan to follow-up outpatient with gynecology in March as scheduled. Should she develop any vision changes, worsening eye pain, nausea, vomiting, fever recommend that you return to the emergency department for further evaluation. Clinical Impressions Clinical Impression: Irritation of left eye, Acute UTI History of cataract surgery Qualifiers: Laterality: left Qualified Code(s): Z98.42 - Cataract extraction status, left eye Discharge ED Provider: Braxton Nguyen I General Adult HPI General Chief complaint: Eye Problems Stated complaint: post eye surgery pain, trouble urinating Time Seen by Provider: 02/09/23 07:33 Mode of Arrival: Ambulatory Source of Information: Patient Limitations: No Limitations Description of Symptoms (Recalled from ER Triage Doc. by RN): Presents via POV d/t multiple complaints. 1. S/P left eye implant after cataract removal on 02/12. Pt awoke with redness and eye aching this morning. Denies vision changes. 2. Pt concerned that she is not urinating a normal output x 4-5 mon. +Budesemide. Denies urinary sx (dysuria, frequency, urgency, fever). Pt reports she saw PCP, Dr. Zuñiga, last month with routine labs. History of Present Illness HPI narrative: Patient is a 59-year-old female with history of left cataract, surgery 02/05, aortic stenosis, GERD, hypertension, hyperlipidemia, cystocele presenting to the emergency department with left-sided eye pain and redness today. History was conducted with the patient at bedside. Patient reports that she has been symptomatic yesterday with some right-sided eye pain, which has now resolved and pain is now present within the left eye. She also reports left eye redness which is new today. She denies any recent fever, chills, cough, congestion, runny nose, any recent injuries to the eye since the surgery. She denies being discharged with any pain medications. Denies any vision changes within the left eye. Denies associated headache, chest pain, shortness of
[2023-02-09 08:04] LABS: Microscopic, Urine URINE MICROSCOPIC (MICROSCOPIC)
[2023-02-09 08:20] LABS: Appearance,Urine SL CLOUDY (Clear); Bilirubin,Urine Negative (Negative); Blood, Urine Negative (Negative); Color,Urine YELLOW (Yellow); Glucose,Urine (UA) Negative (Negative); Ketones,Urine Negative (Negative); Leukocyte Esterase,Urine 1+ (Negative); Nitrate,Urine Negative (Negative); Protein,Urine Negative (Negative)
[2023-02-09 08:31] VITALS: BP 130/59; PULSE 78; O2SAT 97
[2023-02-09 08:31] LABS: Bacteria,Urine 2+ /lpf
--- NOTE | 2023-02-09 08:52 | PC.NURSE ---
voicemail left for dr. luna
--- NOTE | 2023-02-09 08:57 | PC.NURSE ---
LUIS HERNANDEZ speaking with Dr. Zambrano
[2023-02-09 09:11] VITALS: BP 148/73; PULSE 68; RESP 17; TEMP 36.8; O2SAT 98
== END 2023-02-09 09:14 | disposition home or self-care (01) ==
PROVIDERS: Emergency Provider Emergency Medicine; PCP Family Medicine
DX: H57.12 Ocular pain, left eye (principal); G89.18 Other acute postprocedural pain; N39.0 Urinary tract infection, site not specified; I10 Essential (primary) hypertension; E78.5 Hyperlipidemia, unspecified; I35.0 Nonrheumatic aortic (valve) stenosis; K21.9 Gastro-esophageal reflux disease without esophagitis; R01.1 Cardiac murmur, unspecified
CPT/HCPCS: 81001; 87086; 99283

== ENCOUNTER 2023-02-12 01:23 | Emergency (ER) | payer MEDICARE, SELFPAY ==
[2023-02-12 01:26] VITALS: BP 173/85; PULSE 84; RESP 18; TEMP 36.6; O2SAT 98; BMI 33.0
[2023-02-12 01:38] LABS: Bilirubin,Urine Negative (Negative); Blood, Urine Negative (Negative); Color,Urine YELLOW (Yellow); Glucose,Urine (UA) Negative (Negative); Ketones,Urine Negative (Negative); Leukocyte Esterase,Urine 1+ (Negative); Microscopic, Urine URINE MICROSCOPIC (MICROSCOPIC); Nitrate,Urine Negative (Negative); Protein,Urine Negative (Negative); Urobilinogen,Urine 0.2 EU/dl (0.2)
[2023-02-12 01:39] LABS: Appearance,Urine Slightly Cloudy (Clear)
--- NOTE | 2023-02-12 01:42 | PC.NURSE ---
in room at this time talking with patient.
--- NOTE | 2023-02-12 01:45 | PC.NURSE ---
Bladder scan completed on patient. 0 ml residual after urination and emptying bladder. MD notified.
[2023-02-12 01:50] LABS: Bacteria,Urine 1+ /lpf
[2023-02-12 02:01] VITALS: BP 159/74; PULSE 76; O2SAT 96
--- NOTE | 2023-02-12 02:02 | HMH.EDGENADL ---
Discharge Plan Disposition Patient Disposition: Home, Self-Care Chief Complaint: PAIN Prescriptions Prescriptions: No Action aspirin [Adult Low Dose Aspirin] 81 mg tablet,delayed release (DR/EC) 81 mg PO DAILY bumetanide 1 mg tablet 1 mg PO DAILY PRN (Reason: fluid retention) Qty: 30 2RF cholecalciferol (vitamin D3) 1,250 mcg (50,000 unit) capsule 50,000 unit PO WEEKLY Patient Comments: TAKE 1 CAPSULE 1 TIME EACH WEEK cetirizine [Zyrtec] 10 mg tablet 10 mg PO DAILY PRN (Reason: allergies) 30 Days Qty: 30 2RF ondansetron 4 mg tablet,disintegrating 4 mg PO Q8H PRN (Reason: nausea and vomiting) Qty: 30 0RF alprazolam 0.5 mg tablet 0.5 mg PO HS Qty: 30 2RF mirtazapine 15 mg tablet 15 mg PO HS 30 Days Qty: 30 1RF levothyroxine 50 mcg tablet 50 mcg PO DAILY 30 Days Qty: 30 2RF magnesium oxide 400 mg (241.3 mg magnesium) tablet 400 mg PO DAILY gabapentin 300 mg capsule 300 mg PO HS Rx Instructions: Take 1 tablet at bedtime. omeprazole 20 mg capsule,delayed release(DR/EC) 20 mg PO BID estradiol [Estrace] 0.01 % (0.1 mg/gram) cream 1 appful VAGINAL QHS cefadroxil 500 mg capsule 500 mg PO BID 5 Days Qty: 10 0RF prednisolone acetate [Pred Forte] 1 % drops,suspension 1 drp ophthalmic (eye) QID 4 Days Qty: 10 0RF Referrals Follow up/Referrals: Catalino Zuñiga MD [Primary Care Provider] - See instructions Activity Restrictions/Add. Instructions Additional Instructions/Restrictions: Use 2 g of estrogen cream intravaginally daily. Call your family doctor to establish care for this visit to the emergency department and schedule follow-up within 48 hours to ensure improvement. Follow-up with your primary medical assistant dermatology to discuss pessary placement. Maintain follow-up with outside hospital gynecology in order to further manage prolapse symptoms. Clinical Impressions Clinical Impression: Vaginal burning, Atrophic vaginitis, Cystocele with incomplete uterovaginal prolapse Discharge ED Provider: Eladio Benoit General Adult HPI General Chief complaint: PAIN Stated complaint: Lower back pain down legs, not urinating good Time Seen by Provider: 02/12/23 01:25 Mode of Arrival: Ambulatory Source of Information: Patient Limitations: No Limitations Description of Symptoms (Recalled from ER Triage Doc. by RN): Pain in left lower lumbar radiating into bilateral legs. Pt denies any loss of control of bladder or bowels. States she is has decreased urination and rates pain 7/10 History of Present Illness HPI narrative: This is a 67-year-old female with history of numerous UTIs, cystocele, vaginal prolapse requiring intermittent pessary, chronic vaginitis for over 3 years presenting with vaginal burning. 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 Mild to moderate in intensity, constant. She states that she went to the restroom just prior to arrival and it was slower than I think it should have been, so she came to the emergency department for further evaluation. Patient also says that when she stands up, she feels like things fall out, and she has to push them back in with her fingers. She states that she has been using a small amount of vaginal estrogen cream every 2 days and is unsure if this is helping. Came to the emergency department couple days prior to arrival and was diagnosed with UTI, thinks the antibiotic has helped quite a bit, but still having burning. Denies saddle anesthesia, lower extremity deficits, back pain, trauma, bowel symptoms, or any other concerns. Related Data Home Medications Medication Instructions Recorded Confirmed aspirin 81 mg tablet,delayed 81 mg PO DAILY [facility] 01/12/21 02/05/23 release (Adult Low Dose Aspirin) cholecalciferol (vitamin D3) 1,250 50,000 unit PO WEEKLY vitamin d 01/18/22 02/05/23 mcg (50,000 unit) capsule deficienc
[2023-02-12 02:42] VITALS: BP 164/74; PULSE 80; RESP 16; TEMP 36.6; O2SAT 98
== END 2023-02-12 02:44 | disposition home or self-care (01) ==
LOC: ER 02:12 → 2ND 02:50
PROVIDERS: Emergency Provider Emergency Medicine; PCP Family Medicine
DX: N81.10 Cystocele, unspecified (principal); N81.4 Uterovaginal prolapse, unspecified; N76.1 Subacute and chronic vaginitis; M79.604 Pain in right leg; M79.605 Pain in left leg; I10 Essential (primary) hypertension; E78.5 Hyperlipidemia, unspecified; R01.1 Cardiac murmur, unspecified; K21.9 Gastro-esophageal reflux disease without esophagitis
CPT/HCPCS: 81001; 87086; 87088; 87186; 99283

== ENCOUNTER → 2023-02-15 23:27 | Outpatient (CLI) | payer MEDICARE, SELFPAY ==
[2023-02-15 17:18] LABS: Basophils # 0.1 K/mm3 (0-0.2); Basophils % 0.8 % (0.1-2.0); Eosinophils # 0.2 K/mm3 (0.0-0.4); Eosinophils % 2.2 % (0.1-12.0); Hematocrit 42.9 % (37.0-47.0); Hemoglobin 14.1 g/dL (12.2-16.2); Lymphocytes # 2.1 K/mm3 (0.7-4.5); Lymphocytes % 22.8 % (10-50); Mean Corpuscular HGB Conc 32.7 g/dL (31.8-35.4); Mean Corpuscular Hemoglobin 28.9 pg (27.0-31.2); Mean Corpuscular Volume 88.3 fl (81-99); Mean Platelet Volume 8.1 fl (7.4-10.4); Monocytes # 0.8 K/mm3 (0.1-1.0); Monocytes % 8.7 % (1.7-9.3); Neutrophils # 6.1 K/mm3 (1.8-7.8); Neutrophils % 65.5 % (37.0-80.0); Platelet Count 395 K/mm3 (142-424); Red Blood Count 4.86 M/mm3 (4.20-5.40); Red Cell Distribution Width 15.6 % (11.5-17.5); White Blood Count 9.4 K/mm3 (4.8-10.8)
[2023-02-15 18:00] LABS: Alanine Aminotransferase 27 U/L (12-78); Albumin Level 4.4 g/dl (3.5-5.0); Albumin/Globulin Ratio 1.3 (1.1-1.8); Alkaline Phosphatase 123 U/L (38-126); Anion Gap 14.5 mEq/L (5-15); Aspartate Amino Transferase 43 U/L (14-36); Bilirubin,Total 1.1 mg/dl (0.2-1.3); Blood Urea Nitrogen 16 mg/dl (7-17); Calcium 9.6 mg/dl (8.4-10.2); Carbon Dioxide 23 mmol/L (22.0-30.0); Chloride 106 mmol/L (98-107); Estimated Glomerular Filt Rate 62 ml/min (>60); GFR (African American) 75 ML/MIN (>60); Globulin 3.4 g/dL (1.3-3.2); Glucose 64 mg/dl (74-100); Magnesium 2.2 mg/dl (1.6-2.3); Potassium 4.5 mmoL/L (3.5-5.1); Sodium 139 mmol/L (136-145); Total Protein,Serum 7.8 g/dl (6.3-8.2)
[2023-02-15 18:30] LABS: Thyroid Stimulating Hormone 3.96 uIU/mL (0.465-4.68)
[2023-02-15 19:05] LABS: Vitamin B12 367 pg/mL (239-931)
[2023-02-15 19:07] LABS: Folate 8.11 ng/mL
== END ==
PROVIDERS: PCP Family Medicine; Visit Provider Nurse Practitioner Family
DX: R20.2 Paresthesia of skin (principal); I51.89 Other ill-defined heart diseases; R73.03 Prediabetes; Z79.899 Other long term (current) drug therapy
CPT/HCPCS: 80053; 82607; 82746; 83735; 84443; 85025

== ENCOUNTER 2023-03-04 17:30 | Emergency (ER) | payer MEDICARE, SELFPAY ==
--- NOTE | 2023-03-04 17:57 | EXP.UTC ---
Discharge Plan Disposition Patient Disposition: Home, Self-Care Condition: Good Prescriptions Prescriptions: New phenazopyridine [Pyridium] 200 mg tablet 200 mg PO Q8H 2 Days Qty: 6 0RF ciprofloxacin HCl [Cipro] 500 mg tablet 500 mg PO BID 7 Days Qty: 14 0RF methylprednisolone 4 mg Tablets,Dose Pack 4 mg PO DIRECTED Qty: 21 0RF No Action aspirin [Adult Low Dose Aspirin] 81 mg tablet,delayed release (DR/EC) 81 mg PO DAILY losartan 50 mg tablet 50 mg PO DAILY Qty: 30 2RF fluconazole [Diflucan] 150 mg tablet 150 mg PO Q3D 0 Days Qty: 2 0RF Rx Instructions: may repeat second dose 72 hrs after first dose if symptoms persist paroxetine HCl [Paxil] 20 mg tablet 20 mg PO DAILY Qty: 30 1RF bumetanide 1 mg tablet 1 mg PO DAILY PRN (Reason: fluid retention) Qty: 30 2RF cholecalciferol (vitamin D3) 1,250 mcg (50,000 unit) capsule 50,000 unit PO WEEKLY Patient Comments: TAKE 1 CAPSULE 1 TIME EACH WEEK cetirizine [Zyrtec] 10 mg tablet 10 mg PO DAILY PRN (Reason: allergies) 30 Days Qty: 30 2RF ondansetron 4 mg tablet,disintegrating 4 mg PO Q8H PRN (Reason: nausea and vomiting) Qty: 30 0RF alprazolam 0.5 mg tablet 0.5 mg PO HS Qty: 30 2RF levothyroxine 50 mcg tablet 50 mcg PO DAILY 30 Days Qty: 30 2RF magnesium oxide 400 mg (241.3 mg magnesium) tablet 400 mg PO DAILY gabapentin 300 mg capsule 300 mg PO HS Rx Instructions: Take 1 tablet at bedtime. omeprazole 20 mg capsule,delayed release(DR/EC) 20 mg PO BID estradiol [Estrace] 0.01 % (0.1 mg/gram) cream 1 appful VAGINAL QHS prednisolone acetate [Pred Forte] 1 % drops,suspension 1 drp ophthalmic (eye) QID 4 Days Qty: 10 0RF Referrals Follow up/Referrals: Catalino Zuñiga MD [Primary Care Provider] - See instructions Activity Restrictions/Add. Instructions Additional Instructions/Restrictions: Drink plenty of fluids. Take tylenol or ibuprofen for pain or fever. Take the medications as directed. Follow up with your regular doctor. GO TO THE ER FOR ANY WORSENING SYMPTOMS The pyridium will make your urine turn orange, this is an expected side effect. It will stain your clothes if it comes into contact with them. We will culture the urine. That will tell what bacteria is causing your infection and which antibiotics will treat it best. Sometimes the first antibiotic we prescribe turns out to not work against different bacteria. So, make sure you follow up within 3 days if you are not getting better. Clinical Impressions Clinical Impression: UTI (urinary tract infection), Left sided sciatica Instructions Patient Instructions: Urinary Tract Infection, Urine Culture, Phenazopyridine Discharge ED Provider: José Ennis [facility] HPI General Stated complaint: nausea, uti, hip pain Time Seen by Provider: 03/04/23 17:57 History of Present Illness Provider Complaint: She is here with complaints of low back pain that radiates down her left leg. She denies any injury or fall. She states that this pain began about 5 days ago. She has had low back pain with sciatica before. She also c/o dysuria and urinary frequency for the past 2 days also. Related Data Home Medications Medication Instructions Recorded Confirmed aspirin 81 mg tablet,delayed 81 mg PO DAILY heart health 01/12/21 03/05/23 release (Adult Low Dose Aspirin) cholecalciferol (vitamin D3) 1,250 50,000 unit PO WEEKLY vitamin d 01/18/22 03/05/23 mcg (50,000 unit) capsule deficiency estradiol 0.01% (0.1 mg/gram) 1 appful vaginal QHS hormones 02/01/23 03/05/23 vaginal cream (Estrace) gabapentin 300 mg capsule 300 mg PO HS sleep 02/01/23 03/05/23 magnesium oxide 400 mg (241.3 mg 400 mg PO DAILY Supplement 02/01/23 03/05/23 magnesium) tablet omeprazole 20 mg capsule,delayed 20 mg PO BID gerd 02/01/23 03/05/23 release Previous Rx's Medication Instructions Record
[2023-03-04 18:02] VITALS: BP 137/51; PULSE 93; RESP 18; TEMP 36.8; O2SAT 100; BMI 33.0
[2023-03-04 18:03] LABS: Microscopic, Urine URINE MICROSCOPIC (MICROSCOPIC)
[2023-03-04 18:47] VITALS: BP 137/51; PULSE 93; RESP 18; TEMP 36.8
[2023-03-04 19:20] LABS: Appearance,Urine Slightly Cloudy (Clear); Color,Urine Yellow (Yellow); Specific Gravity, Urine <= 1.005 (1.005-1.030)
[2023-03-04 19:21] LABS: Bacteria,Urine 2+ /lpf; Bilirubin,Urine Negative (Negative); Blood, Urine Trace (Negative); Glucose,Urine (UA) Negative (Negative); Ketones,Urine Negative (Negative); Leukocyte Esterase,Urine 3+ (Negative); Nitrate,Urine Negative (Negative); Protein,Urine Negative (Negative); RBC,Urine Occasional #/hpf (0-3); Squamous Epithelial Cell,Urine 20-50 #/hpf (0-5)
== END 2023-03-04 19:07 | disposition home or self-care (01) ==
PROVIDERS: Emergency Provider Nurse Practitioner Family; PCP Family Medicine
DX: N39.0 Urinary tract infection, site not specified (principal); M54.32 Sciatica, left side; K21.9 Gastro-esophageal reflux disease without esophagitis; E78.5 Hyperlipidemia, unspecified; I11.0 Hypertensive heart disease with heart failure; I50.30 Unspecified diastolic (congestive) heart failure; I35.0 Nonrheumatic aortic (valve) stenosis
CPT/HCPCS: 81001; 87086; 96372; 99212; 99214; G0463; J0696

== ENCOUNTER → 2023-03-15 15:00 | Outpatient (CLI) | payer MEDICARE, SELFPAY | PROVIDERS: PCP Family Medicine; Visit Provider Family Medicine | DX: R30.0 Dysuria (principal) | CPT/HCPCS: 87086 ==

== ENCOUNTER → 2023-04-30 08:45 | Outpatient (CLI) | payer MEDICARE, SELFPAY ==
[2023-04-30 17:03] LABS: Chloride 106 mmol/L (98-107)
[2023-04-30 17:04] LABS: Potassium 4.4 mmoL/L (3.5-5.1); Sodium 138 mmol/L (136-145)
[2023-04-30 17:06] LABS: Alanine Aminotransferase 34 U/L (12-78); Anion Gap 9.4 mEq/L (5-15); Aspartate Amino Transferase 46 U/L (14-36); Blood Urea Nitrogen 10 mg/dl (7-17); Carbon Dioxide 27 mmol/L (22.0-30.0); Estimated Glomerular Filt Rate 71 ml/min (>60); GFR (African American) 86 ML/MIN (>60)
[2023-04-30 17:07] LABS: Albumin Level 4.2 g/dl (3.5-5.0); Albumin/Globulin Ratio 1.1 (1.1-1.8); Alkaline Phosphatase 65 U/L (38-126); Bilirubin,Total 0.7 mg/dl (0.2-1.3); Calcium 9.2 mg/dl (8.4-10.2); Chol/HDL Ratio 4.4 (1-3.5); Cholesterol 192 mg/dl (140-200); Globulin 3.8 g/dL (1.3-3.2); Glucose 121 mg/dl (74-100); HDL Cholesterol 44 mg/dl (40-60); Triglycerides 191 mg/dl (30-150); VLDL Cholesterol 38 mg/dL (0-40)
[2023-04-30 17:18] LABS: Direct LDL Cholesterol 104.03 mg/dL (100-129)
[2023-04-30 21:03] LABS: Hemoglobin A1C 5.2 % (4.0-6.0)
== END ==
PROVIDERS: PCP Family Medicine; Visit Provider Nurse Practitioner Family
DX: R73.03 Prediabetes (principal); E78.5 Hyperlipidemia, unspecified; I10 Essential (primary) hypertension
CPT/HCPCS: 80053; 80061; 83036

== ENCOUNTER → 2023-05-31 08:42 | Outpatient (CLI) | payer MEDICARE, SELFPAY ==
[2023-06-02 14:56] LABS: FSH 42.1 mIU/mL (25.8-134.8)
== END ==
PROVIDERS: PCP Family Medicine; Visit Provider Family Medicine
DX: R23.2 Flushing (principal)
CPT/HCPCS: 83001

== ENCOUNTER 2023-08-01 23:12 | Outpatient (CLI) | payer MEDICARE, SELFPAY | END 2023-08-01 23:59 | PROVIDERS: PCP Family Medicine; Visit Provider Family Medicine | DX: R30.0 Dysuria (principal); B96.89 Other specified bacterial agents as the cause of diseases classified elsewhere; M54.59 Other low back pain | CPT/HCPCS: 87086 ==

== ENCOUNTER 2023-08-22 18:42 | Outpatient (CLI) | payer MEDICARE, SELFPAY ==
[2023-08-22 16:25] LABS: Basophils % 0.7 % (0.1-2.0); Eosinophils # 0.1 K/mm3 (0.0-0.4); Eosinophils % 1.2 % (0.1-12.0); Hematocrit 40.9 % (37.0-47.0); Hemoglobin 13.3 g/dL (12.2-16.2); Lymphocytes # 1.7 K/mm3 (0.7-4.5); Lymphocytes % 28.2 % (10-50); Mean Corpuscular HGB Conc 32.6 g/dL (31.8-35.4); Mean Corpuscular Hemoglobin 29.4 pg (27.0-31.2); Mean Corpuscular Volume 90.3 fl (81-99); Mean Platelet Volume 8.1 fl (7.4-10.4); Monocytes # 0.6 K/mm3 (0.1-1.0); Monocytes % 10.4 % (1.7-9.3); Neutrophils # 3.5 K/mm3 (1.8-7.8); Neutrophils % 59.6 % (37.0-80.0); Platelet Count 295 K/mm3 (142-424); Red Blood Count 4.53 M/mm3 (4.20-5.40); Red Cell Distribution Width 15.4 % (11.5-17.5); White Blood Count 5.9 K/mm3 (4.8-10.8)
[2023-08-22 16:28] LABS: Anion Gap 11.1 mEq/L (5-15); Blood Urea Nitrogen 11 mg/dl (7-17); Calcium 9.4 mg/dl (8.4-10.2); Carbon Dioxide 32 mmol/L (22.0-30.0); Chloride 101 mmol/L (98-107); Estimated Glomerular Filt Rate 62 ml/min (>60); GFR (African American) 75 ML/MIN (>60); Glucose 81 mg/dl (74-100); Potassium 4.1 mmoL/L (3.5-5.1); Sodium 140 mmol/L (136-145)
== END 2023-08-22 23:59 ==
LOC: LAB.DROPOF 18:42
PROVIDERS: PCP Family Medicine; Visit Provider Family Medicine
DX: R60.9 Edema, unspecified (principal)
CPT/HCPCS: 80048; 85025

== ENCOUNTER 2023-09-02 13:09 | Outpatient (CLI) | payer MEDICARE, SELFPAY ==
--- NOTE | 2023-09-02 13:09 | MM_ITS ---
PROCEDURE INFORMATION: Exam: MG Bilateral Screening 3D Mammography Exam date and time: 09/02/2023 1:05 PM Age: 68 years old Clinical indication: Screening. A maternal aunt and a paternal aunt had breast cancer. History of benign left needle biopsies. TECHNIQUE: Imaging protocol: Bilateral Screening tomosynthesis and 2D mammography including computer-aided detection (CAD) when performed. COMPARISON: 1. MG MM DIG SCREENING MAMM BI W/CAD 08/31/2022 9:20 AM 2. MG MM DIG SCREENING MAMM BI W/CAD 06/20/2021 1:15 PM 3. MG MM DIG SCREENING MAMM BI W/CAD 06/14/2020 1:06 PM 4. MG MM DIG SCREENING MAMM BI W/CAD 06/11/2019 4:27 PM FINDINGS: MAMMOGRAPHY: Breast composition: The breasts are heterogeneously dense, which may obscure small masses. Mass: No suspicious mass. Architectural distortion: None. Calcifications: No suspicious calcifications. Asymmetric density: None. Skin thickening: None. Axillary adenopathy: None. IMPRESSION: No mammographic evidence of malignancy. Annual screening is recommended unless otherwise clinically indicated. ASSESSMENT: BI-RADS Category 1: Negative
== END 2023-09-02 23:59 ==
LOC: RAD 13:09
PROVIDERS: PCP Family Medicine; Visit Provider Family Medicine
DX: Z12.31 Encounter for screening mammogram for malignant neoplasm of breast (principal)
CPT/HCPCS: 77063; 77067

== ENCOUNTER 2023-09-19 01:08 | Emergency (ER) | payer MEDICARE, SELFPAY ==
[2023-09-19 01:09] VITALS: BP 143/87; PULSE 80; RESP 18; TEMP 36.7; O2SAT 96; BMI 32.5
--- NOTE | 2023-09-19 01:10 | HMH.EDGENADL ---
Discharge Plan Disposition Patient Disposition: Home, Self-Care Prescriptions Prescriptions: No Action aspirin [Adult Low Dose Aspirin] 81 mg tablet,delayed release (DR/EC) 81 mg PO DAILY cetirizine [Zyrtec] 10 mg tablet 10 mg PO DAILY PRN (Reason: allergies) 30 Days Qty: 30 2RF bumetanide 1 mg tablet 1 mg PO DAILY PRN (Reason: edema) Patient Comments: TAKE 1 TABLET 1 TIME EACH DAY NEEDED FOR FLUID RETENTION estradiol 0.01 % (0.1 mg/gram) cream 1 g vaginal estradiol 0.5 mg tablet 0.5 mg PO DAILY Qty: 30 2RF levothyroxine 50 mcg tablet 50 mcg PO DAILY 30 Days Qty: 30 2RF losartan 50 mg tablet 50 mg PO DAILY Qty: 30 2RF alprazolam 0.5 mg tablet 0.5 mg PO HS Qty: 30 2RF magnesium oxide 400 mg (241.3 mg magnesium) tablet 400 mg PO DAILY gabapentin 300 mg capsule 300 mg PO HS Rx Instructions: Take 1 tablet at bedtime. omeprazole 20 mg capsule,delayed release(DR/EC) 20 mg PO BID Referrals Follow up/Referrals: Catalino Zuñiga MD [Primary Care Provider] - See instructions Activity Restrictions/Add. Instructions Additional Instructions/Restrictions: Please follow-up with your primary care provider. Please return to the emergency department if you develop any new or worsening symptoms or become concerned for your health. Clinical Impressions Clinical Impression: Dysuria Back pain Qualifiers: Back pain location: low back pain Chronicity: chronic Back pain laterality: bilateral Instructions Patient Instructions: DI for Urinary Tract Infection (UTI), DI for Urinary Tract Infection in Children Discharge ED Provider: Flynn Contreras General Adult HPI General Chief complaint: Urogenital-Female Stated complaint: pain in back and legs, dizziness Time Seen by Provider: 09/19/23 01:10 History of Present Illness HPI narrative: 68-year-old female with history of anxiety, numerous medical comorbidities presents with multiple complaints. She reports that she started having low back pain with radiation down bilateral legs. She reports that this has happened before but this feels somewhat different. She denies any numbness, weakness, denies any urinary retention, bowel incontinence. She denies any recent trauma or illness. She denies any history of cancer. She denies any fever. Patient also reports some burning in her groin area, worse with urination. The symptoms have been going on on and off for months. She reports that she was treated for a urinary tract infection last month. Related Data Home Medications Medication Instructions Recorded Confirmed aspirin 81 mg tablet,delayed 81 mg PO DAILY heart health 01/12/21 08/22/23 release (Adult Low Dose Aspirin) gabapentin 300 mg capsule 300 mg PO HS sleep 02/01/23 08/22/23 magnesium oxide 400 mg (241.3 mg 400 mg PO DAILY Supplement 02/01/23 08/22/23 magnesium) tablet omeprazole 20 mg capsule,delayed 20 mg PO BID gerd 02/01/23 08/22/23 release bumetanide 1 mg tablet 1 mg PO DAILY PRN edema 07/22/23 08/22/23 estradiol 0.01% (0.1 mg/gram) 1 g vaginal 08/22/23 08/22/23 vaginal cream Previous Rx's Medication Instructions Recorded cetirizine 10 mg tablet (Zyrtec) 10 mg PO DAILY PRN allergies 30 12/28/22 days #30 tabs estradiol 0.5 mg tablet 0.5 mg PO DAILY #30 tabs 06/06/23 levothyroxine 50 mcg tablet 50 mcg PO DAILY hypothyroidism 30 06/17/23 days #30 tabs losartan 50 mg tablet 50 mg PO DAILY #30 tabs 06/17/23 alprazolam 0.5 mg tablet 0.5 mg PO HS anxiety #30 tabs 09/09/23 Allergies Allergy/AdvReac Type Severity Reaction Status Date / Time sulfamethoxazole Allergy Intermediate Hives Verified 09/19/23 01:24 [From Bactrim] trimethoprim [From Bactrim] Allergy Intermediate Hives Verified 09/19/23 01:24 codeine [CODEINE] Allergy Mild Gastrointestinal Verified 09/19/23 01:24 Upset PFSH [facility] Disclaimer: The information contained in this section may have been updated after the patient was seen, as this information can be updated by other users. Medical History Abnormal electrocardiogram [ECG] [EKG] Aortic stenosis Diastolic dysfunction Dysuria Family history of ischemic heart disease GERD (gastroesophageal reflux disease) Grief Heart murmur HLD (hyperlipidemia) Hot flashes HTN (hypertension) Normal colonoscopy Perianal pruritus UTI (urinary tract infection) Vaginitis Surgical History Hx laparoscopic cholecystectomy Hx of hysterectomy Family History Other No significant family history Social History Smoking Status: Never smoker second hand exposure: No alcohol intake: never substance use type: denies use current occupational status: retired Travel in the last 8 weeks: None household members: none housing: house current occupational exposures/hazards: No caffeine: Yes ROS Obtained: Yes All systems reviewed & no additional complaints except as documented Physical Exam General General appearance: alert and in no apparent distress Head Head exam: atraumatic and normocephalic Eye Eye exam: Present normal appearance, PERRL and EOMI ENT ENT exam: Present normal oropharynx and normal external ear exam Neck Neck exam: Present normal inspection and full ROM Chest Chest inspection: Present normal inspection and symmetric chest wall rise; Absent tenderness Respiratory Respiratory exam: Present normal lung sounds bilaterally; Absent respiratory distress Cardiovascular Cardiovascular exam: Present regular rate and normal rhythm Abdominal Exam Abdominal exam: Present soft; Absent distention, tenderness or guarding Extremities Exam Extremities exam: Present normal inspection; Absent edema or joint swelling Back Exam Back exam: Present normal inspection and tenderness (Mild tenderness over the SI joints bilaterally, no CVA tenderness) Neurological Exam Neurological exam: Present alert and oriented X3; Absent motor sensory deficit Psychiatric Psychiatric exam: Present normal affect and normal mood Skin Skin exam: Present warm, dry and normal color Lymphatic Lymphatic Findings: no adenopathy Medical Decision Making Medical Records Medical records reviewed: Yes I reviewed the patient's medical records. Marco Inquiry Pt receiving controlled substance: No Marco was queried for this patient: No Vital Signs: 09/19/23 01:09 09/19/23 02:37 Temperature 98.0 F 98.0 F Temperature Source Oral Oral Pulse Rate 84 Pulse Rate [Left] 80 Respiratory Rate 18 18 Blood Pressure 145/81 H Blood Pressure [Right Arm] 143/87 H Blood Pressure Mean [Right Arm] 105 Blood Pressure Source [Right Arm] Automatic Cuff Blood Pressure Position [Right Arm] Sitting 02 Sat by Pulse Oximetry 96 Oxygen Delivery Method Room Air Room Air Lab Data Lab results reviewed: Yes I reviewed the patient's lab results. Lab Results 09/19/23 01:19: Urine Color Yellow, Urine Appearance Clear, Urine pH 6.5, Ur Specific [place] <= 1.005, Urine Protein Negative, Urine Glucose (UA) Negative, Urine Ketones Negative, Urine Blood Negative, Urine Nitrate Negative, Urine Bilirubin Negative, Urine Urobilinogen 0.2, Ur Leukocyte Esterase Negative, Urine RBC None, Urine WBC Occasional, Ur Squamous Epith Cells 3-5, Urine Bacteria Trace Orders (Tests/Meds): ED MEDICATIONS Discontinued Medications Generic Name Dose Route Start Last Admin Trade Name Davy PRN Reason Stop Dose Admin Acetaminophen 1,000 mg 09/19/23 01:33 09/19/23 01:42 Acetaminophen 500mg Tab PO 09/19/23 01:34 1,000 mg ONCE ONE Administration Lidocaine 1 each 09/19/23 01:33 09/19/23 01:42 Lidocaine 5% Transdermal Patch TP 09/19/23 01:34 1 each ONCE ONE Administration ORDERS Category Date Time Status UA [Urinalysis and Microscopic] Stat Lab 09/19/23 01:19 Completed Medical Decision Narrative: 68-year-old female with extensive history as reported above presents with multiple complaints including back/leg pain, chronic burning with urination. History was obtained interactive discussion with patient, chart review. On arrival, patient is [afebrile, hemodynamically stable, satting appropriately, alert, oriented x4, GCS 15], moving all extremities spontaneously. Full physical exam performed and significant for mild SI tenderness bilaterally, no CVA tenderness, no abdominal tenderness, normal strength and sensation of the bilateral lower extremities, no reported urinary retention or bowel incontinence. Differential includes but is not limited to arthritis, sciatica, spinal cord pathology, UTI, pyelonephritis. Patient was given p.o. Tylenol, lidocaine patch for symptomatic management and correction of underlying abnormalities. Workup initiated including UA. On re-evaluation, patient [remains afebrile, HD stable.] Laboratory workup independently interpreted by me and significant for urine that is nitrite negative with no significant WBCs, 1+ bacteria. I reviewed the patient's prior urinary results, her most recent urine culture showed only mixed urogenital andrew.. Spinal imaging was considered, but deemed unnecessary due to history and physical exam. Given patient history, exam and workup, patient's presentation most likely represents acute on chronic dysuria without acute urinary tract infection, likely musculoskeletal back pain. We will await urine culture results to determine antibiotic necessity. Patient was discharged in stable condition with return precautions. Procedures Risk/Benefits of Procedure(s) Were Explained: Yes Critical Care Critical Care Time Critical Care Time: No
[2023-09-19 01:41] LABS: Appearance,Urine CLEAR (Clear); Bilirubin,Urine Negative (Negative); Blood, Urine Negative (Negative); Color,Urine YELLOW (Yellow); Glucose,Urine (UA) Negative (Negative); Ketones,Urine Negative (Negative); Leukocyte Esterase,Urine Negative (Negative); Microscopic, Urine URINE MICROSCOPIC (MICROSCOPIC); Nitrate,Urine Negative (Negative); PH,Urine 6.5 (5.0-8.5); Protein,Urine Negative (Negative); Specific Gravity, Urine <= 1.005 (1.005-1.030); Urobilinogen,Urine 0.2 EU/dl (0.2)
[2023-09-19] MEDS: ACETAMINOPHEN 500MG TAB 1000 MG PO (01:42)
[2023-09-19] MEDS: LIDOCAINE 5% TRANSDERMAL PATCH 1 EACH TP (01:42)
[2023-09-19 01:53] LABS: Bacteria,Urine Trace /lpf; WBC,Urine Occasional #/hpf (0-3)
[2023-09-19 02:37] VITALS: BP 145/81; PULSE 84; RESP 18; TEMP 36.7; O2SAT 95
== END 2023-09-19 02:37 | disposition home or self-care (01) ==
PROVIDERS: Emergency Provider Emergency Medicine; PCP Family Medicine
DX: R30.0 Dysuria (principal); M54.50 Low back pain, unspecified; M79.604 Pain in right leg; M79.605 Pain in left leg; R42 Dizziness and giddiness; I35.0 Nonrheumatic aortic (valve) stenosis; K21.9 Gastro-esophageal reflux disease without esophagitis; R01.1 Cardiac murmur, unspecified; E78.5 Hyperlipidemia, unspecified; I10 Essential (primary) hypertension
CPT/HCPCS: 81001; 99283

== ENCOUNTER 2023-10-22 18:00 | Outpatient (CLI) | payer MEDICARE, SELFPAY | END 2023-10-22 23:59 | disposition home or self-care (01) | LOC: LAB.DROPOF 10-23 07:52 | PROVIDERS: PCP Family Medicine; Visit Provider Family Medicine | DX: R30.0 Dysuria (principal) | CPT/HCPCS: 87086 ==

== ENCOUNTER 2023-10-29 18:00 | Outpatient (CLI) | payer MEDICARE, SELFPAY | END 2023-10-29 23:59 | disposition home or self-care (01) | LOC: LAB.DROPOF 10-30 12:56 | PROVIDERS: PCP Family Medicine; Visit Provider Family Medicine | DX: R33.9 Retention of urine, unspecified (principal); B96.89 Other specified bacterial agents as the cause of diseases classified elsewhere | CPT/HCPCS: 87086 ==

== ENCOUNTER 2023-12-09 16:08 | Outpatient (CLI) | payer MEDICARE, SELFPAY ==
[2023-12-09 15:54] LABS: Microscopic, Urine URINE MICROSCOPIC (MICROSCOPIC)
[2023-12-09 16:48] LABS: Appearance,Urine CLEAR (Clear); Bilirubin,Urine Negative (Negative); Blood, Urine Negative (Negative); Color,Urine YELLOW (Yellow); Glucose,Urine (UA) Negative (Negative); Ketones,Urine Negative (Negative); Leukocyte Esterase,Urine Negative (Negative); Nitrate,Urine Negative (Negative); Protein,Urine Negative (Negative); Specific Gravity, Urine 1.015 (1.005-1.030); Urobilinogen,Urine 0.2 EU/dl (0.2)
[2023-12-09 17:04] LABS: WBC,Urine Occasional #/hpf (0-3)
[2023-12-09 17:05] LABS: Bacteria,Urine Trace /lpf
[2023-12-19 14:27] LABS: Atopobium vaginae Low - 0 Score (.); BVAB2 Low - 0 Score (.); Candida albicans NAA Negative (Negative); Candida glabrata Negative (Negative); Chlamydia Trachomatis NAA Negative (Negative); HSV 1 NAA Negative (Negative); HSV 2 NAA Negative (Negative); Megasphaera 1 Low - 0 Score (.); Neisseria gonorrhoeae NAA Negative (Negative); Trich vag NAA Negative (Negative)
== END 2023-12-09 23:59 | disposition home or self-care (01) ==
LOC: LAB.DROPOF 16:09
PROVIDERS: PCP Urology; Visit Provider Urology
DX: N39.0 Urinary tract infection, site not specified (principal); N89.8 Other specified noninflammatory disorders of vagina
CPT/HCPCS: 81001; 87086; 87491; 87529; 87563; 87591; 87661; 87798; 87801

== ENCOUNTER 2024-01-06 13:13 | Outpatient (CLI) | payer MEDICARE, SELFPAY ==
--- NOTE | 2024-01-06 13:13 | US_ITS ---
FINAL REPORT CLINICAL HISTORY: .post void residual -- utis FINDINGS: RENAL ULTRASOUND Ultrasound images of the kidneys were obtained. The right kidney measures 11.3 cm in length. It is normal echogenicity. There is no hydronephrosis. The left kidney measures 11.8 cm in length. It is normal echogenicity. There is no hydronephrosis. The spleen measures at the upper limits of normal at 13 cm. IMPRESSION: Normal renal ultrasound. Borderline splenomegaly. Reviewed, Interpreted and Dictated by Wood Vaughn III, MD Transcribed by Telma Rob Authenticated and [facility]
--- NOTE | 2024-01-06 13:13 | US_ITS ---
FINAL REPORT CLINICAL HISTORY: UTI FINDINGS: ULTRASOUND URINARY BLADDER Limited sonographic images of the urinary bladder were obtained. The volume of the filled bladder is 371.44 mL. Postvoid bladder volume is 13.6 mL. Bilateral ureteral jets are noted. IMPRESSION: Small postvoid residual. Reviewed, Interpreted and Dictated by Wood Vaughn III, MD Transcribed by Telma Rob Authenticated and [facility]
== END 2024-01-06 23:59 | disposition home or self-care (01) ==
LOC: RAD 13:13
PROVIDERS: PCP Family Medicine; Visit Provider Urology
DX: N39.0 Urinary tract infection, site not specified (principal)
CPT/HCPCS: 76770; 76857

== ENCOUNTER 2024-01-24 10:24 | Outpatient (CLI) | payer MEDICARE, SELFPAY ==
--- NOTE | 2024-01-24 10:25 | CA_ITS ---
APPROVED REPORT EXAM: Comprehensive 2D, Doppler, and color-flow Echocardiogram Nylon Hot Wire Cutter: Nimco Oswald, ARACELI, RVS Ht: 5 ft 8 in Wt: 214lbs BSA: 2.10 BP: 127/75 mmHg Indications: Reported , DD, CP, Murmur, HTN, HLD, Abn EKG, GERD 2D Dimensions IVSd 0.93 cm F: 0.6-1.0 LVEF (Visual) 86.30 % PWd 0.76 cm F: 0.6 - 1.0 LA Volume 56.50 mL LVDd 5.54 cm F: 3.9 - 5.3 LA Volume Index [id number] mL/m2 (M/F) 16-34 LVDs 2.42 cm F: 2.2 - 3.5 EF AP4 57.40 % Left Atrium 3.33 cm F: 2.7 - 3.8 GL Strain -15.7 % M-Mode Dimensions LA Diam 3.85 cm (1.9-4.0) LVDd 5.11 cm (3.5-5.7) LVDs 2.99 cm (3.5-5.7) EF (Teich) 72.10% EPSs 0.36 cm FS 41.50% EDV (Teich) 124.40 mL ESV (Teich) 34.70 mL LV Diastology E Decel Time 260 (160-240 msec) E/A Ratio 0.99 MED A' 11.60 cm/s LAT A' 8.60 cm/s Aortic Valve KESHIA Index 1.20 cm2/m2 AoV Peak Neville. 267.0 (50-130 cm/s) AO Peak GR. 28.40 mmHg AO Mean GR. 17.30 (<5 mmHg) AO VTI 60.7 (18-25 cm) KESHIA (VTI) 2.57 (2.5-4.5 cm2) Mitral Valve MV A Velocity 98.0 (40-130 cm/s) E/A Ratio 0.99 Pulmonary Valve PV Peak Velocity 93.0 (50-150 cm/s) Tricuspid Valve TR P. Velocity 222.00 cm/s RAP Estimate 10.00 mmHg RVSP 29.70 mmHg Left Ventricle The left ventricle is normal size. The left ventricular systolic function is hyperdynamic. There is marked increase in LV wall thickness. IVSD 1.7 cm. There is LVOT obstruction present at rest (peak gradient at rest 45 mmHg) and with Valsalva (peak gradient with Valsalva 65 mmHg). No regional wall motion abnormalities are noted. Diastolic function is indeterminate. LVEF is 70%. Right Ventricle The right ventricle is normal size. The right ventricular systolic function is normal. Atria The left atrium size is normal. The right atrium size is normal. There is no Doppler evidence of interatrial shunt. Aortic Valve The aortic valve is mildly thickened. There is no aortic valvular stenosis. No aortic regurgitation. Mitral Valve Systolic anterior motion of the mitral valve leaflets is present. Septal contact is noted. No evidence of mitral valve stenosis. Trace mitral regurgitation. Tricuspid Valve The tricuspid valve leaflets are thin and pliable. Trace tricuspid regurgitation. There is insufficient TR jet to estimate RVSP. Pulmonic Valve The pulmonary valve is normal in structure. Trace pulmonic regurgitation. Great Vessels The aortic root is normal in size. The ascending aorta is not well-visualized. IVC is normal in size and collapses >50% with inspiration. Pericardium There is no pericardial effusion. Other Information Study Quality: Fair Conclusion Normal biventricular systolic function. Marked asymmetric increase in LV wall thickness (IVSd 1.7 cm) with presence of LVOT obstruction at rest (peak gradient 45 mmHg) and with Valsalva (peak gradient 65 mmHg). Systolic anterior motion (TOMMY) of the MV with septal contact. No significant valvular stenosis or regurgitation. Of note, the patient had previously reported to have aortic stenosis, however the increased gradient is likely due to LVOT obstruction, not valvular . 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 Further evaluation with cardiac MRI (HCM protocol) is recommended. Electronically signed by : Lorenza Arteaga MD 01/26/2024 23:46:31
== END 2024-01-24 23:59 | disposition home or self-care (01) ==
LOC: RT 10:25
PROVIDERS: PCP Nurse Practitioner Family; Visit Provider Physician Assistant
DX: I51.89 Other ill-defined heart diseases (principal); I35.0 Nonrheumatic aortic (valve) stenosis; R60.9 Edema, unspecified
CPT/HCPCS: 93306

== ENCOUNTER 2024-03-04 15:06 | Outpatient (CLI) | payer MEDICARE, SELFPAY | END 2024-03-04 23:59 | disposition home or self-care (01) | LOC: RT 15:09 | PROVIDERS: PCP Nurse Practitioner Family; Visit Provider Nurse Practitioner | DX: R00.0 Tachycardia, unspecified (principal) | CPT/HCPCS: 93270 ==

== ENCOUNTER 2024-03-24 13:53 | Outpatient (RCR) | payer MEDICARE, SELFPAY | END 2024-04-14 16:56 | disposition home or self-care (01) | LOC: PT 13:53 | PROVIDERS: Visit Provider Nurse Practitioner Family | DX: M72.2 Plantar fascial fibromatosis (principal) | CPT/HCPCS: 97163 ==

== ENCOUNTER 2024-05-18 10:47 | Outpatient (CLI) | payer MEDICARE, SELFPAY ==
--- NOTE | 2024-05-18 10:55 | CA_ITS ---
APPROVED REPORT EXAM: Comprehensive 2D, Doppler, and color-flow Echocardiogram Visual [employer] Instructor: Nadya Haskins RVT Ht: 5 ft 8 in Wt: 211lbs BSA: 2.09 BP: 131/64 mmHg Indications: HOCM,HTN,FATIGUE,HLD 2D Dimensions IVSd 1.88 cm F: 0.6-1.0 LVEF (Visual) 76.90 % PWd 1.51 cm F: 0.6 - 1.0 LA Volume 42.10 mL LVDd 3.12 cm F: 3.9 - 5.3 LA Volume Index 20.14 mL/m2 (M/F) 16-34 LVDs 1.74 cm F: 2.2 - 3.5 M-Mode Dimensions LA Diam 4.17 cm (1.9-4.0) TAPSE 2.43 (<1.7) LV Diastology E Decel Time 233 (160-240 msec) E/A Ratio 1.0 Aortic Valve KESHIA Index 0.71 cm2/m2 AoV Peak Neville. 310.0 (50-130 cm/s) AO Peak GR. 38.50 mmHg AO Mean GR. 22.10 (<5 mmHg) AO VTI 67.8 (18-25 cm) KESHIA (VTI) 1.52 (2.5-4.5 cm2) Mitral Valve MV E Max Neville. 104.0 (40-130 cm/s) MV A Velocity 101.0 (40-130 cm/s) E/A Ratio 1.03 MV PHT 68.0 ms Pulmonary Valve PV Peak Velocity 87.0 (50-150 cm/s) Left Ventricle Known history of HCM. The left ventricle is normal size. The left ventricular systolic function is hyperdynamic. There is marked increase in LV wall thickness. IVSD is 1.6 cm. There is presence of LVOT obstruction at rest. Resting peak gradient is 38 mmHg. Peak gradient with Valsalva maneuver is 55 mmHg. There is normal LV segmental wall motion. Diastolic function is indeterminate. LVEF is 70%. Right Ventricle The right ventricle is mildly dilated. The right ventricular systolic function is normal. Atria The left atrium is mildly dilated. The right atrium is mildly dilated. There is no Doppler evidence of interatrial shunt. Aortic Valve The aortic valve is mildly thickened. There is no aortic valvular stenosis. Trace aortic regurgitation. Mitral Valve There is systolic anterior motion of the mitral valve leaflets. Septal contact is present. The mitral valve leaflets are mildly thickened. Mild mitral regurgitation. No evidence of mitral valve stenosis. Tricuspid Valve The tricuspid valve leaflets are thin and pliable. Mild tricuspid regurgitation. RVSP is 15-20 mmHg. Pulmonic Valve The pulmonary valve is normal in structure. Trace pulmonic regurgitation. Great Vessels The aortic root is normal in size. The ascending aorta is normal in size. IVC is normal in size and collapses >50% with inspiration. Pericardium There is no pericardial effusion. Other Information Study Quality: Fair Conclusion Known history of HCM with resting LVOT obstruction. Hyperdynamic LV systolic function (LVEF 70%). Marked increase in LV wall thickness. IVSD is 1.6 cm. TOMMY with septal contact. LVOT obstruction at rest (peak gradient 38 mmHg ) and with Valsalva maneuver (peak gradient 55 mmHg). Mild RV dilation with normal RV function. Mild MR, mild TR. Electronically signed by : Lorenza Arteaga MD 05/25/2024 00:25:58
== END 2024-05-18 23:59 | disposition home or self-care (01) ==
LOC: RT 10:49
PROVIDERS: PCP Physician Assistant Surgical; Visit Provider Physician Assistant
DX: I42.1 Obstructive hypertrophic cardiomyopathy (principal)
CPT/HCPCS: 93306

== ENCOUNTER 2024-05-25 10:38 | Outpatient (CLI) | payer MEDICARE, SELFPAY | END 2024-05-25 23:59 | disposition home or self-care (01) | LOC: RT 10:41 | PROVIDERS: PCP Nurse Practitioner Family; Visit Provider Physician Assistant | DX: I48.0 Paroxysmal atrial fibrillation (principal); I42.1 Obstructive hypertrophic cardiomyopathy | CPT/HCPCS: 93270 ==

== ENCOUNTER 2024-06-03 08:48 | Outpatient (CLI) | payer MEDICARE, SELFPAY ==
--- NOTE | 2024-06-03 08:52 | CA_ITS ---
APPROVED REPORT EXAM: Limited 2D Echocardiogram Road Passenger Firer: Nadya Haskins RVT Ht: 5 ft 8 in Wt: 215lbs BSA: 2.11 BP: 175/67 mmHg Indications: HOCM,RECHECK LVOT GRADIENTS SINCE MED INCREASE,HTN M-Mode Dimensions RVDd 3.01 cm (0.9-2.6) LVDd 4.90 cm (3.5-5.7) LVDs 2.93 cm (3.5-5.7) IVSd 1.36 cm (0.6-1.1) PWd 0.76 cm (0.6-1.1) EF (Teich) 70.70% FS 40.20% EDV (Teich) 112.80 mL ESV (Teich) 33.00 mL Aortic Valve KESHIA Index 0.91 cm2/m2 AoV Peak Neville. 243.0 (50-130 cm/s) AO Peak GR. 23.60 mmHg AO Mean GR. 14.60 (<5 mmHg) AO VTI 57.0 (18-25 cm) KESHIA (VTI) 1.97 (2.5-4.5 cm2) Other Information Study Quality: Fair Conclusion This is a limited TTE to evaluate for LVOT gradients. Limited windows were obtained. The left ventricle is normal in size. There is marked increase LV wall thickness. The LV systolic function is hyperdynamic. There is systolic anterior motion (TOMMY) with septal contact. There is LVOT obstruction present at rest, with resting peak gradient of 38-40 mmHg. LVEF is 70%. Compared to prior study from 05/15/2024, the LVOT gradient is overall unchanged. Electronically signed by : Lorenza Arteaga MD 06/04/2024 11:21:31
== END 2024-06-03 23:59 | disposition home or self-care (01) ==
LOC: RT 08:49
PROVIDERS: PCP Nurse Practitioner Family; Visit Provider Physician Assistant
DX: I42.1 Obstructive hypertrophic cardiomyopathy (principal); I35.0 Nonrheumatic aortic (valve) stenosis; I48.0 Paroxysmal atrial fibrillation; I11.9 Hypertensive heart disease without heart failure; R94.31 Abnormal electrocardiogram [ECG] [EKG]
CPT/HCPCS: 93308

== ENCOUNTER 2024-07-29 14:32 | Outpatient (CLI) | payer MEDICARE, SELFPAY ==
--- NOTE | 2024-07-29 14:42 | XR_ITS ---
FINAL REPORT TECHNIQUE: Bone densitometry calculations of the lumbar spine and left hip were obtained. CLINICAL HISTORY: SCREENING COMPARISON: 08/08/2020 FINDINGS: Using L1-4, the bone mineral density of the spine is 1.075 g/cm2, corresponding to T-score of 0.3. Using the left hip, the bone mineral density of the femoral neck is 0.825 g/cm2, corresponding to a T-score of -0.2. Using the right hip, the bone mineral density of the femoral neck is 0.923 g/cm?, corresponding to a T-score of 0.7. NOTE: T-score: Standard deviation compared with peak bone mass of young adult mean. *Following the recommendations of the International Society of Bone densitometry, classification of hip BMD is based on the lower of two T-scores; total hip or femoral neck. IMPRESSION: Normal bone mineral density of the lumbar spine and bilateral hips. Reviewed, Interpreted and Dictated by Kan Farris MD Transcribed by Tequila Medina Authenticated and . [facility]
== END 2024-07-29 23:59 | disposition home or self-care (01) ==
LOC: RAD 14:35
PROVIDERS: PCP Nurse Practitioner Family; Visit Provider Nurse Practitioner Family
DX: Z13.820 Encounter for screening for osteoporosis (principal)
CPT/HCPCS: 77080

== ENCOUNTER 2024-08-21 12:39 | Outpatient (CLI) | payer MEDICARE, SELFPAY ==
--- NOTE | 2024-08-21 12:42 | CA_ITS ---
APPROVED REPORT EXAM: Limited 2D Echocardiogram Dust Sampler: Nadya Haskins RVT Ht: 5 ft 8 in Wt: 213lbs BSA: 2.10 BP: 135/64 mmHg Indications: HOCM,EVALUATE LVOT,PT ON MED FOR HOCM,HTN,HLD,FATIGUE 2D Dimensions IVSd 2.13 cm F: 0.6-1.0 LVEF (Visual) 70.60 % PWd 1.67 cm F: 0.6 - 1.0 LVDd 2.79 cm F: 3.9 - 5.3 LVDs 1.72 cm F: 2.2 - 3.5 M-Mode Dimensions LA Diam 4.19 cm (1.9-4.0) LV Diastology E Decel Time 250 (160-240 msec) E/A Ratio 0.7 Aortic Valve KESHIA Index 0.85 cm2/m2 AoV Peak Neville. 279.0 (50-130 cm/s) AO Peak GR. 31.20 mmHg AO Mean GR. 19.90 (<5 mmHg) AO VTI 62.6 (18-25 cm) KESHIA (VTI) 1.82 (2.5-4.5 cm2) Mitral Valve MV E Max Neville. 66.0 (40-130 cm/s) MV A Velocity 98.0 (40-130 cm/s) E/A Ratio 0.68 MV PHT 73.0 ms Other Information Study Quality: Fair Conclusion This is a limited TTE to evaluate for LVOT obstruction in the setting of known obstructive HCM (with ongoing up titration of pharmacologic therapy). Limited windows were obtained. The left ventricle is normal in size. There is increased LV wall thickness. There is systolic anterior motion present. Septal contact is noted. There is LVOT obstruction present at rest with peak gradient measuring up to 45-50 mmHg. With Valsalva, LVOT gradient further increases to up to 85-90 mmHg. Compared to prior study from 05/2024, the LVOT gradient is overall unchanged. In the setting of unchanged LVOT gradient, further management with either myosin inhibitor (e.g. mavacamten) vs. early referral for septal reduction therapies (e.g. alcohol septal ablation or myectomy) is suggested. Electronically signed by : Lorenza Arteaga MD 08/24/2024 00:12:32
== END 2024-08-21 23:59 | disposition home or self-care (01) ==
LOC: RT 12:40
PROVIDERS: PCP Nurse Practitioner Family; Visit Provider Internal Medicine
DX: I42.1 Obstructive hypertrophic cardiomyopathy (principal)
CPT/HCPCS: 93308

== ENCOUNTER 2024-09-04 15:04 | Outpatient (CLI) | payer MEDICARE, SELFPAY ==
--- NOTE | 2024-09-04 15:09 | MM_ITS ---
PROCEDURE INFORMATION: Exam: MG Bilateral Screening 3D Mammography Exam date and time: 09/04/2024 3:13 PM Age: 69 years old Clinical indication: Screening examination TECHNIQUE: Imaging protocol: Bilateral Screening tomosynthesis and 2D mammography including computer-aided detection (CAD) when performed. COMPARISON: 1. MG MM DIG SCREENING MAMM BI W/CAD 09/02/2023 1:05 PM 2. MG MM DIG SCREENING MAMM BI W/CAD 08/31/2022 9:20 AM FINDINGS: MAMMOGRAPHY: Breast composition: The breasts are heterogeneously dense, which may obscure small masses. Mass: Questioned 0.6 cm mass lower outer right breast middle depth. Architectural distortion: None. Calcifications: No suspicious calcifications. Asymmetric density: None. Skin thickening: None. Axillary adenopathy: None. IMPRESSION: Questioned subcentimeter right breast mass.Recommend right breast diagnostic mammogram including spot compression views of the right breast in the CC and MLO projections, a full 90 degree lateral view, and right breast ultrasound for further evaluation. ASSESSMENT: BI-RADS Category 0: Incomplete- Need Additional Imaging Evaluation.
== END 2024-09-04 23:59 | disposition home or self-care (01) ==
LOC: RAD 15:04
PROVIDERS: PCP Nurse Practitioner Family; Visit Provider Nurse Practitioner Family
DX: Z12.31 Encounter for screening mammogram for malignant neoplasm of breast (principal)
CPT/HCPCS: 77063; 77067

== ENCOUNTER 2024-09-16 14:17 | Outpatient (CLI) | payer MEDICARE, SELFPAY ==
--- NOTE | 2024-09-16 14:23 | MM_ITS ---
PROCEDURE INFORMATION: Exam: US Right Breast, Complete MG Right Diagnostic Breast Tomosynthesis Exam date and time: 09/16/2024 2:59 PM Age: 69 years old Clinical indication: Patient recalled on the basis of a screening mammogram for further evaluation; Right breast; mass TECHNIQUE: Imaging protocol: Complete ultrasound of all four quadrants of the right breast and the retroareolar regions, including ultrasound of the axilla when performed. Right Diagnostic tomosynthesis and 2D mammography including computer-aided detection (CAD) when performed. Unilateral or bilateral exam. COMPARISON: MG MM DIG MAMM DX UNILAT RT CAD 09/16/2024 2:48 PM FINDINGS: MAMMOGRAPHY: Breast composition: The breast is heterogeneously dense, which may obscure small masses (based on the most recent screening mammogram report). Breast mammogram findings: Digital diagnostic spot compression views of the right breast and 90 degree lateral view of the right breast demonstrate a fat containing an apparent intramammary lymph node in the posterior right lateral breast measuring 0.4 cm in greatest dimension. ULTRASOUND: Breast ultrasound findings: Sonographic images of the right breast including the retroareolar region, all 4 quadrants and the axilla do not demonstrate any solid masses. Few scattered subcentimeter cysts are noted. No architectural distortion or acoustical shadowing. No skin thickening or axillary adenopathy. IMPRESSION: No mammographic or sonographic evidence of malignancy. Annual bilateral mammographic screening is recommended unless otherwise clinically indicated. ASSESSMENT: BI-RADS Category 2: Benign.
== END 2024-09-16 23:59 | disposition home or self-care (01) ==
LOC: RAD 14:18
PROVIDERS: PCP Nurse Practitioner Family; Visit Provider Nurse Practitioner Family
DX: R92.8 Other abnormal and inconclusive findings on diagnostic imaging of breast (principal)
CPT/HCPCS: 76641; 77061; 77065; G0279

== ENCOUNTER 2024-11-11 08:51 | Outpatient (CLI) | payer MEDICARE, SELFPAY ==
--- NOTE | 2024-11-11 08:58 | CA_ITS ---
APPROVED REPORT EXAM: Comprehensive 2D, Doppler, and color-flow Echocardiogram Civil Attorney: Erica Cabrera RT(R) Ht: 5 ft 8 in Wt: 217lbs BSA: 2.12 BP: 150/72 mmHg Indications: abn EKG, PAF, HTN, hyperlipidemia, family history of HD, DD, alcohol ablation 10/09/24, HOCM, AICD placed after ablation AV block, LVOT obstruction 2D Dimensions LVEF (Zelaya's) 58.30 % F: 54 - 74 LV Volume 123.40 mL F: 46 - 106 LV Volume Index 58.2 mL/m2 F: 29 - 61 LA Volume 30.30 mL LA Volume Index 14.29 mL/m2 (M/F) 16-34 EF AP4 59.70 % EF AP2 54.0 % EF BP 58.3 % GL Strain -17.2 % M-Mode Dimensions RVDd 4.12 cm (0.9-2.6) LA Diam 4.17 cm (1.9-4.0) LVDd 4.59 cm (3.5-5.7) LVDs 3.31 cm (3.5-5.7) IVSd 0.98 cm (0.6-1.1) PWd 0.98 cm (0.6-1.1) EF (Teich) 54.00% FS 27.90% EDV (Teich) 96.80 mL ESV (Teich) 44.50 mL LV Diastology E Decel Time 227 (160-240 msec) E/A Ratio 1.0 Aortic Valve KESHIA Index 1.14 cm2/m2 AoV Peak Neville. 177.0 (50-130 cm/s) AO Peak GR. 12.50 mmHg AO Mean GR. 6.10 (<5 mmHg) AO VTI 40.1 (18-25 cm) KESHIA (VTI) 2.48 (2.5-4.5 cm2) Mitral Valve MV E Max Neville. 103.0 (40-130 cm/s) MV A Velocity 107.0 (40-130 cm/s) E/A Ratio 0.96 MV PHT 66.0 ms Tricuspid Valve TR P. Velocity 214.00 cm/s Left Ventricle Known history of HCM. The left ventricle is normal size. The left ventricular systolic function is normal. The left ventricular ejection fraction is within the normal range. There is increased LV wall thickness. There is no evidence of LVOT obstruction at rest or with Valsalva. There is hypokinesis of the basal septal LV wall, consistent with prior history of alcohol septal ablation. Diastolic function is indeterminate. LVEF is 65-70%. Right Ventricle The right ventricle is mildly dilated. The right ventricular systolic function is normal. Atria The left atrium is mildly dilated. The right atrium is mildly dilated. There is no Doppler evidence of interatrial shunt. Aortic Valve Aortic valve is mildly thickened. There is no aortic valvular stenosis. Trace aortic regurgitation. Mitral Valve The mitral valve is normal in structure. Cordal TOMMY is present. No evidence of valvular TOMMY or septal contact. No evidence of mitral valve stenosis. Mild to moderate mitral regurgitation. Tricuspid Valve The tricuspid valve leaflets are thin and pliable. Mild tricuspid regurgitation. RVSP is 20-25 mmHg. Pulmonic Valve The pulmonary valve is normal in structure. Trace pulmonic regurgitation. Great Vessels The aortic root is normal in size. IVC is normal in size and collapses >50% with inspiration. Pericardium There is no pericardial effusion. Other Information Study Quality: Fair Conclusion Known history of HCM, s/p alcohol septal ablation [ASA] (10/09/2024). Normal biventricular systolic function (LVEF 65-70%). Cordal TOMMY. No valvular TOMMY or septal contact. No evidence of LVOT obstruction at rest or with Valsalva. Mild RV dilation. Mild to moderate MR. Mild TR. Compared to prior study pre-ASA from 08/21/2024, the basal septal thickness is thinner. The resolution of LVOT obstruction at rest and with Valsalva is new. Electronically signed by : Lorenza Arteaga MD 11/14/2024 22:02:57
== END 2024-11-11 23:59 | disposition home or self-care (01) ==
LOC: RT 08:51
PROVIDERS: PCP Nurse Practitioner Family; Visit Provider Internal Medicine
DX: I08.1 Rheumatic disorders of both mitral and tricuspid valves (principal); I42.1 Obstructive hypertrophic cardiomyopathy; I48.0 Paroxysmal atrial fibrillation; E78.5 Hyperlipidemia, unspecified; R94.31 Abnormal electrocardiogram [ECG] [EKG]; R93.1 Abnormal findings on diagnostic imaging of heart and coronary circulation; Z95.810 Presence of automatic (implantable) cardiac defibrillator; Z98.890 Other specified postprocedural states
CPT/HCPCS: 93306

== ENCOUNTER 2024-12-02 14:53 | Outpatient (CLI) | payer MEDICARE, SELFPAY ==
[2024-12-02 15:35] LABS: Basophils # 0.1 K/mm3 (0-0.2); Basophils % 1.1 % (0.1-2.0); Eosinophils # 0.2 Kmm3 (0.0-0.4); Eosinophils % 2.4 % (0.1-12.0); Hematocrit 39.6 % (37.0-47.0); Hemoglobin 12.1 g/dL (12.2-16.2); Immature Granulocytes # 0.01 10^3uL; Immature Granulocytes % 0.2 %; Lymphocytes # 1.8 K/mm3 (0.7-4.5); Lymphocytes % 28.8 % (10-50); Mean Corpuscular HGB Conc 30.6 g/dL (31.8-35.4); Mean Corpuscular Hemoglobin 27.8 pg (27.0-31.2); Mean Platelet Volume 9.9 fl (7.4-10.4); Monocytes # 0.6 K/mm3 (0.1-1.0); Monocytes % 9.6 % (1.7-9.3); Neutrophils # 3.7 K/mm3 (1.8-7.8); Neutrophils % 57.9 % (37.0-80.0); Nucleated Red Blood Cells # 0 10^3/uL; Nucleated Red Blood Cells % 0 %; Platelet Count 315 K/mm3 (142-424); Red Blood Count 4.35 M/mm3 (4.20-5.40); Red Cell Distribution Width 15.4 % (11.5-17.5); Red Cell Distribution Width-SD 51.4 fL; White Blood Count 6.4 K/mm3 (4.8-10.8)
[2024-12-02 16:14] LABS: Alanine Aminotransferase 20 U/L (12-78); Albumin Level 4.6 g/dl (3.5-5.0); Alkaline Phosphatase 80 U/L (38-126); Anion Gap 11.3 mEq/L (5-15); Aspartate Amino Transferase 31 U/L (14-36); Bilirubin,Direct 0.2 mg/dl (0.0-0.4); Bilirubin,Indirect 0.5 mg/dL (0.0-0.9); Bilirubin,Total 0.7 mg/dl (0.2-1.3); Bilirubin,Unconjugated 0.5 mg/dL (0.0-1.1); Blood Urea Nitrogen 13 mg/dl (7-17); Calcium 9.5 mg/dl (8.4-10.2); Carbon Dioxide 30 mmol/L (22.0-30.0); Chloride 105 mmol/L (98-107); Chol/HDL Ratio 3.3 (1-3.5); Cholesterol 150 mg/dl (140-200); Estimated Glomerular Filt Rate 62 ml/min (>60); GFR (African American) 75 ML/MIN (>60); Glucose 93 mg/dl (74-100); HDL Cholesterol 45 mg/dl (40-60); Potassium 4.3 mmoL/L (3.5-5.1); Sodium 142 mmol/L (136-145); Total Protein,Serum 7.7 g/dl (6.3-8.2); Triglycerides 146 mg/dl (30-150); VLDL Cholesterol 29 mg/dL (0-40)
[2024-12-02 16:25] LABS: Direct LDL Cholesterol 67.29 mg/dL (100-129)
[2024-12-02 16:30] LABS: Free T4 (Free Thyroxine) 1.03 ng/dl (0.78-2.19)
[2024-12-02 16:45] LABS: Thyroid Stimulating Hormone 3.38 uIU/mL (0.465-4.68)
== END 2024-12-02 23:59 | disposition home or self-care (01) ==
LOC: LAB 14:54
PROVIDERS: PCP Nurse Practitioner Family; Visit Provider Internal Medicine
DX: I10 Essential (primary) hypertension (principal); R53.83 Other fatigue; R42 Dizziness and giddiness
CPT/HCPCS: 36415; 80048; 80061; 80076; 83735; 84439; 84443; 85025

== ENCOUNTER 2024-12-15 10:12 | Outpatient (CLI) | payer MEDICARE, SELFPAY ==
--- OUTSIDE RECORDS SUMMARY | 2024-10-21 14:11 | XMS_ITS | Encounter Summary ---
Author Organization Healthcare Address [address] [place] [address] Care Team Providers Care Slipper Maker Name Role Phone Caryn Guevara APRN Primary Care Provider Encounter Details Date Type Department Care Team (Latest Contact Info) Description 10/21/2024 2:11 PM EDT - 10/21/2024 11:59 PM EDT Hospital Encounter Cardiac Imaging [address] [place] [address] Pacemaker Discharge Disposition: Home or Self Care Social History Tobacco Use Types Packs/Day Years Used Date Smoking Tobacco: Never Smokeless Tobacco: Never Alcohol Use Standard Drinks/Week Comments Never 0 (1 standard drink = 0.6 oz pur e alcohol) Humiliation, Afraid, Rape, and Kick questionnair e Answer Date Recorded Within the last year, have y ou been afraid of your partner or ex-partner? No 10/12/2024 Within the last year, have y ou been humiliated or emotionally abused in other ways by your partner or ex-partner? No Within the last year, have y ou been kicked, hit, slapped, or otherwise physically hurt by your partner or ex-partner? No 10/12/2024 Within the last year, have y ou been raped or forced to have any kind of sexual activity by your partner or ex-partner? No 10/12/2024 PHQ-2 Answer Date Recorded Patient Health Questionnaire-2 Score 0 09/09/2024 Hunger Vital Sign Answer Date Recorded Within the past 12 months, y ou worried that your food would run out before you got the money to buy more. Never true 10/13/19 25 Within the past 12 months, t he food you bought just didn't last and you didn't have money to get more. Never true 10/12/2024 PRAPARE - Transportation Answer Date Re corded In the past 12 months, has l ack of transportation kept you from medical appointments or from getting medications? No 09/29 In the past 12 months, has l ack of transportation kept you from meetings, work, or from getting things needed for daily living? No 10/12/2024 PHQ-9 Answer Date Recorded Patient Health Questionnaire-9 Score 0 09/09/2024 Housing Stability Vital Sign Answer Jose e Recorded In the last 12 months, was t here a time when you were not able to pay the mortgage or rent on time? No 10/12/2024 Number of Times Moved in the Last Year Not on fi le 10/12/2024 At any time in the past 12 m [facility], were you homeless or living in a intermediate (including now)? No 10/12/2024 Utilities Answer Date Recorded In the past 12 months has th e electric, gas, oil, or water company threatened to shut off services in your home? No 10/12/2024 Comments Unknown Sex and Gender Information Value Date Recorded Sex Assigned at Not on file Legal Sex Female 7:41 PM EDT Gender Identity Not on file Sexual Orientation Not on file documented as of this encounter Medications at Time of Discharge ALPRAZolam (Xanax) 0.5 MG tablet 1 tablet. 09/07/2024 aspirin 81 MG EC tablet Take 1 tablet by mouth daily. atorvastatin (Lipitor) 20 MG tablet 1 tablet. 07/16/2024 cetirizine (ZyrTEC) 10 MG tablet Take 1 tablet by mouth daily as needed for allergies. DULoxetine (Cymbalta) [address] capsule Take 1 capsule by mouth daily. 04/09/2024 estradiol (Estrace) 1 MG tablet Take 1 tablet by mouth daily. 08/27/2024 fluticasone (Flonase) 50 MCG/ACT nasal spray SPRAY 1 TIME IN EACH NOSTRIL 1 TIME EACH DAY 02/14/2024 lactase (Lactaid) 3000 units tablet Take by mouth every morning. levothyroxine (Synthroid, Levoxyl) 50 MCG tablet Take 1 tablet by mouth daily. 06/19/2024 losartan (Cozaar) 50 MG tablet take 1 tablet 1 time each day 06/20/2024 Melatonin 10 MG chewable tablet Chew 10 mg nightly. memantine (Namenda) 5 MG tablet take 1 tablet 2 times each day 06/10/2024 METAMUCIL FIBER PO Take by mouth. Probiotic Product (ALIGN DUALBIOTIC PO) Take by mouth. spironolactone (Aldactone) 25 MG tablet Take 1 tablet by mouth. MWF 06/01/2024 clopidogrel (Plavix) 75 MG tablet Take 1 tablet by mouth daily. 41 tablet 10/14/2024 11/11/2024 metoprolol succinate XL (Toprol-XL) 50 MG 24 hr tablet Take 1 tablet by mouth daily. Do not crush or chew. 30 tablet 10/14/2024 11/11/2024 documented as of this encounter Plan of Treatment Upcoming Encounters Date Type Department Care Team (Late st Contact Info) Description 01/13/2025 2:30 PM EDT Office Visit [facility] [address] [place] [address] Patrice Gómez MD [address] [place] [address] documented as of this encounter Procedures Procedure Name Priority Date/Time Associated Diagnosis Comments CARDIAC DEVICE CHECK - INCISION CHECK Routine 10/21/2024 3:44 PM EDT Pacemaker documented in this encounter Results * Cardiac Device Check - Incision Check (10/21/2024 3:44 PM EDT) Anatomical Region Laterality Modality Other Narrative 10/21/2024 4:46 PM EDT Patient in the device clinic for an incision check. Incision appears well healed with well approximated wound edges. Wound care and restrictions discussed with patient who verbalized understanding. Direct device clinic contact information shared with patient today. Patient welcome back in device clinic as needed. Home monitor verified to be working. us Patrice Gómez MD CV IMPLANTABLE CARDIAC DEVICE P ROCEDURES Final Result documented in this encounter Visit Diagnoses Diagnosis Pacemaker Cardiac pacemaker in situ documented in this encounter Additional Health Concerns Assessment Noted Time PHQ-9 Depression Total Score: 0 09/10/19 25 8:35 AM EDT A fall risk assessment has been complete d for the patient 09/09/2024 8:22 AM EDT A Body Mass Index follow-up plan has been documented for the patient 10/13/2024 2:34 PM EDT documented as of this encounter Care Teams Slipper Maker Relationship Specialty Start Date End Date Caryn Guevara APRN [address] [place] [address] PCP - General 09/09/24 documented as of this encounter
--- OUTSIDE RECORDS SUMMARY | 2024-12-15 10:16 | XMS_ITS | Encounter Summary ---
Author Organization Healthcare Address [address] [place] [address] Care Team Providers Care Oil Refinery Operator Name Role Phone Caryn Guevara APRN Primary Care Provider [phone] Encounter Details Date Type Department Care Team (Late st Contact Info) Description 10/12/2024 Lab Requisition [facility] [address] [place] [address] Alberto Ford MD [address] [facility] [address] [place] [address] Encounter for general adult medical examination without abnormal findings Social History Tobacco Use Types Packs/Day Years [...] the money to buy more. Never true 04/14/20 25 Within the past 12 months, t [...] any time in the past 12 m [facility], were you homeless or living in a longterm (including now)? No 10/12/2024 Utilities Answer Date [...] on file documented as of this encounter Plan of Treatment Upcoming Encounters Date Type Department Care Team (Late st Contact Info) Description 01/13/2025 2:30 PM EDT Office Visit [facility] [place] [facility] [address] [place] [address] Patrice Gómez MD [address] [place] [address] documented as of this encounter Procedures Procedure Name Priority Date/Time Associated Diagnosis Comments MULTI DRUG RESISTANCE TEST Routine 10/12/2024 Encounter for general adult medical examination without abnormal findings documented in this encounter Results * Multi Drug Resistance Test (10/12/2024) Culture No growth at day 1 10/13/2024 8:58 AM EDT [facility] Swab (Nares and Ayanna Rectal) 10/12/2024 10/12/2024 12:04 PM EDT us Alberto Ford MD LAB MICROBIOLOGY - GEN ERAL ORDERABLES Final Result [facility] [address] [place] [address] documented in this encounter Visit Diagnoses Diagnosis Encounter for general adult medical examination without abnormal findings documented in this encounter Additional Health Concerns Assessment Noted Time PHQ-9 Depression Total Score: 0 09/10/19 8:35 AM EDT A fall risk assessment has been complete d for the patient 09/09/2024 8:22 AM EDT A Body Mass Index follow-up plan has been documented for the patient 10/13/2024 2:34 PM EDT documented as of this encounter Care Teams Oil Refinery Operator Relationship Specialty Start Date End Date Caryn Guevara, WORKFORCE MANAGEMENT COORDINATOR [address] [place] [address] PCP - General 09/09/24 documented as of this encounter
--- OUTSIDE RECORDS SUMMARY | 2024-12-15 10:16 | XMS_ITS | Referral Summary ---
Author Organization [facility] Address [address] [place] [address] Care Team Providers Care Wireline Supervisor Name Role Phone Catalino Zuñiga MD Primary Care Provider [phone] Allergies Active Allergy Reactions Criticality Noted Date Comments Codeine Other (See Comments) 03/07/2023 Disoriented Medications ALPRAZolam (XANAX) 0.5 MG tablet Take 1 tablet (0.5 mg total) by mouth nightly. 3 Active gabapentin (NEURONTIN) 300 MG capsule Take 1 capsule (300 mg total) by mouth nightly. 3 Active levothyroxine (SYNTHROID, LEVOTHROID) 50 MCG tablet Take 1 tablet (50 mcg total) by mouth Every morning on an empty stomach. 3 Active losartan (COZAAR) 50 MG tablet Take 1 tablet (50 mg total) by mouth in the morning. 3 Active estradioL (ESTRACE) 0.01 % (0.1 mg/gram) vaginal cream Place 2 g vaginally daily. Active bumetanide (BUMEX) 1 MG tablet Take 1 tablet (1 mg total) by mouth daily as needed. 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 Anxiety 05/07/2023 Hyperlipidemia 05/07/2023 Overview (05/07/2023): hx of Hypertension 05/07/2023 MORALES on CPAP 05/07/2023 Overview (05/07/2023): occasional use Sleep apnea 05/07/2023 Thyroid disease 05/07/2023 Uterine prolapse 05/07/2023 Resolved Problems Problem Noted Date Diagnosed Date Resolved Date Heart murmur 05/07/2023 05/07/2023 Overview (05/07/2023): no chest pain Social History Tobacco Use Types Packs/Day Years Used Date Smoking Tobacco: Former Cigarettes Q uit: 1997 Smokeless Tobacco: Never Alcohol Use Standard Drinks/Week Comments Never 0 (1 standard drink = 0.6 oz pur e alcohol) PRAPARE - Transportation Answer Date Re corded In the past 12 months, has l ack of transportation kept you from medical appointments or from getting medications? No 05/07/2023 Lack of Transportation (Non-Medical) Not on file 05/07/2023 Housing Stability Vital Sign Answer Jose e Recorded In the last 12 months, was t here a time when you were not able to pay the mortgage or rent on time? No 05/07/2023 In the last 12 months, how many places have you lived? 1 05/07/2023 In the last 12 months, was t here a time when you did not have a steady place to sleep or slept in a intermediate (including now)? No 05/07/2023 Interpersonal Safety Answer Date Record ed Family or friends hurt you Not on file 07/18 Family or friends insult you Not on file Family or friends threaten you Not on file 0 07/18/2023 Family or friends scream or curse at you Not on file 07/18/2023 Housing Stability Answer Date Recorded Living situation today Not on file Living situation problems Not on file 2023 Food Insecurity Answer Date Recorded Food run out past 12 months Not on file 07/01 Food did not last past 12 months Not on file 07/18/2023 Employment Answer Date Recorded Help finding and keeping a job Not on file 0 07/18/2023 Family and Community Support Answer Joes e Recorded Help with Day to Day Activities Not on file 07/18/2023 Feeling Lonely or Isolated Not on file 07/18 Educational Attainment Answer Date James rded Speak language other than Singaporean at home Not on file 07/18/2023 Want help with school or training Not on file 07/18/2023 Depression Answer Date Recorded PHQ-2 Risk Not on file 07/18/2023 Disabilities Answer Date Recorded Difficulty concentrating Not on file 024 Difficulty doing errands alone Not on file 0 07/18/2023 Substance Use Answer Date Recorded Used prescription meds for non-medical reasons N ot on file 07/18/2023 Used illegal drugs past 12 months Not on file 07/18/2023 Comments No Sex and Gender Information Value Date Recorded Sex Assigned at Not on file Legal Sex Female 5:40 PM CDT Gender Identity Not on file Sexual Orientation Not on file Last Filed Vital Signs Vital Sign Reading Time Taken Comments Blood Pressure 134/84 05/09/2023 8:00 AM EST Pulse 68 05/09/2023 8:00 AM EST Temperature 36.7 C (98 F) 05/09/2023 8:00 AM EST Respiratory Rate 18 05/09/2023 8:00 AM EST Oxygen Saturation 95% 05/09/2023 8:00 AM EST Inhaled Oxygen Concentration - - Weight 97.1 kg (214 lb) 05/07/2023 10:29 AM EST Height 172.7 cm (5' 8 ) 05/07/2023 10:29 AM EST Body Mass Index 32.54 05/07/2023 10:29 AM EST Plan of Treatment Not on file Insurance [employer] MEDICARE HMO Advance Directives For more information, please contact: [phone] * Full Code (Latest Code Status on File) Date Activated Date Inactivated Comments 05/07/2023 12:58 PM 05/09/2023 11:38 AM * Full Code Date Activated Date Inactivated Comments 05/07/2023 9:16 AM 05/07/2023 12:58 PM Care Teams Wireline Supervisor Relationship Specialty Start Date End Date Catalino Zuñiga MD [address] [place] [address] PCP - General Family Medicine 03/07/23
--- OUTSIDE RECORDS SUMMARY | 2024-12-15 10:16 | XMS_ITS | Clinical Summary ---
Author Organization [employer] [facility] [employer] Address [address] [place] [address] Care Team Providers Care Marble Coper Name Role Phone Catalino Zuñiga MD Primary Care Provider [phone] Allergies Active Allergy Reactions Criticality Noted Date [...] place to sleep or slept in a usp (including now)? No 05/07/2023 Interpersonal Safety Answer [...] 0 07/18/2023 Family and Community Support Answer Jose e Recorded Help with Day to Day Activities Not on file 07/18/2023 Feeling Lonely or Isolated Not on file 07/18 Educational Attainment Answer Date James rded Speak language other than Togolese at home Not on file 07/18/2023 Want [...] 05/07/2023 10:29 AM EST Plan of Treatment Health Maintenance Due Date Last Done Comments CT Colonography 1954 Colonoscopy 1955 Colorectal Cancer Screening 1954 DXA SCAN 1954 FOBT/FIT 1954 Fit-DNA (Cologuard) 1955 Sigmoidoscopy 1954 Depression Screening (12+) 1966 Hepatitis C Screening 1972 Shingles Vaccine (Zoster) (1 of 2) 2004 Breast Cancer Screening 06/01/2019 06/01/2017, 06/01 DTAP/TDAP/TD VACCINES (3 - T d or Tdap) 03/15/2020 03/15/2010, 03/20/1999 Medicare Initial AWV G0438 12/31/2023 COVID-19 VACCINE (2023-2 5 season) 2024 03/20/2022, 01/19/2022, 03/02/2021, Additional history exists Tobacco Cessation Counseling and Screening (12+) 05/07/2024 05/07/2023 Falls Risk Screening 07/01/2024 Influenza Vaccine (Season Ended) 2025 04/16/2023, 03/22/2021, 04/22/2020, Additional history exists Respiratory Syncytial Virus (RSV) Adult or (1 - 1-dose 75+ series) 2029 Pneumococcal 50+ years Completed 04/29/2023 Insurance [employer] MEDICARE HMO Advance Directives For more information, please contact: [phone] * Full Code (Latest Code Status on File) Date Activated Date Inactivated Comments 05/07/2023 12:58 PM 05/09/2023 11:38 AM * Full Code Date Activated Date Inactivated Comments 05/07/2023 9:16 AM 05/07/2023 12:58 PM Care Teams Marble Coper Relationship Specialty Start Date End Date Catalino Zuñiga MD [address] [place] [address] PCP - General Family Medicine 03/07/23
--- OUTSIDE RECORDS SUMMARY | 2024-12-15 10:16 | XMS_ITS | Encounter Summary ---
Author Organization [facility] Address [address] [place] [address] Care Team Providers Care Eligibility Technician Name Role Phone Catalino Zuñiga MD Primary Care Provider Ryann Caryn Bartlett IVANA Primary Care Provider [phone] Encounter Details Date Type Department Care Team (Late st Contact Info) Description 02/19/[address] [facility] [address] [place] [address] Raymon Abel MD [address] [place] [address] Social History Tobacco Use Types Packs/Day Years Used Date Smoking Tobacco: Never Assessed Comments Unknown Sex and Gender Information Value Date Recorded Sex Assigned at Not on file Legal Sex Female 7:41 PM EDT Gender Identity Not on file Sexual Orientation Not on file documented as of this encounter Functional Status * Calculated C-SSRS Risk Score (Lifetime/Recent) Answer Date of Assessment Author No Risk Indicated 02/19/2023 3:35 AM EDT Rossy Glover RN * Question Answer Date of Assessment Author 1. Wish to be (Past 1 Month) No 02/19/2023 3:35 AM EDT Rossy Glover RN 2. Non-Specific Active Suici chapincito Thoughts (Past 1 Month) No 02/19/2023 3:35 AM EDT Sonia Glover RN 6. Suicidal Behavior (Lifetime) No 3:35 AM EDT Rossy Glover RN documented as of this encounter Plan of Treatment Upcoming Encounters Date Type Department Care Team (Late st Contact Info) Description 01/13/2025 2:30 PM EDT Office Visit [facility] [address] [place] [address] Patrice Gómez MD [address] [place] [address] documented as of this encounter Visit Diagnoses Not on filedocumented in this encounter Care Teams Eligibility Technician Relationship Specialty Start Date End Date Catalino Zuñiga MD PCP - General Family Medicine 02/19/23 09/08/24 Caryn Guevara, IVANA [address] [place] [address] PCP - General 09/09/24 documented as of this encounter
--- OUTSIDE RECORDS SUMMARY | 2024-12-15 10:16 | XMS_ITS | Clinical Summary ---
Author Organization [facility] Address [address] [place] [address] Phone Care Team Providers Care Metal Window Frame Maker Name Role Phone Unavailable Primary Care Provider Unavailabl e Social History Tobacco Use Types Packs/Day Years Used Date Smoking Tobacco: Never Assessed Comments Unknown Sex and Gender Information Value Date Recorded Sex Assigned at Not on file Legal Sex Female 12:00 PM EST Gender Identity Not on file Sexual Orientation Not on file Plan of Treatment Health Maintenance Due Date Last Done Comments Annual Wellness Exam 1957 Hepatitis C Screening 1972 DTaP/TDaP/Td (1 - Tdap) 1973 Cologuard 1999 Colon Cancer Screening 1999 Colonoscopy 1999 FIT 1999 Sigmoidoscopy 1999 Virtual Colonography 1999 Pneumococcal Vaccine 50+ (1 of 1 - PCV) 2004 Zoster (1 of 2) 2004 Breast Cancer Screening 06/01/2019 06/01/2017 Bone Density Screening 2019 COVID-19 Vaccine (2023-2 5 season) 2024 Influenza Vaccine (Season Ended) 2025 Hepatitis B Vaccine Aged Out No longe r eligible based on patient's age to complete this topic Meningococcal B Vaccine Aged Out No l onger eligible based on patient's age to complete this topic Procedures Procedure Name Priority Date/Time Associated Diagnosis Comments MM MOBILE MAMMO DIGITAL SCREEN W CAD ESCOBAR Routine 06/01/2017 12:28 PM EST Encounter for screening mammogram for malignant neoplasm of breast from Last 3 Months or Most Recently Relevant to Health Maintenance Results * MM MOBILE MAMMO DIGITAL SCREEN W CAD ESCOBAR (06/01/2017 12:28 PM EST) Anatomical Region Laterality Modality Breast Mammography 06/05/2017 8:43 AM EST Impressions 06/06/2017 7:19 AM EST : Negative ([id number]) ~ RECOMMENDATION: Routine screening mammogram in 1 year. ~ DISCLAIMER * Any patient with a palpable abnormality, unexplained by breast imaging, should be managed on clinical basis by the attending physician. * Breast imaging has a false negative rate of 15%. * The patient was notified by mail of the results of this examination. *The patient's information was entered into a reminder system with a target due date for the next mammogram. The mammogram was reviewed by a Radiologist and CAD. Narrative 06/06/2017 7:19 AM EST Procedure:MM MOBILE MAMMO DIGITAL SCREEN W CAD ESCOBAR ~ Reason for exam: screening, asymptomatic. ~ MM MOBILE MAMMO DIGITAL SCREEN W CAD ESCOBAR Bilateral CC and MLO view(s) were taken. The breast tissue is heterogeneously dense. This may lower the sensitivity of mammography. There are multiple less than 1 cm benign-appearing round densities with obscured margins in the 12 o'clock left breast, there are associated with biopsy clips from prior biopsy. These are stable from outside films. ~ Compared with prior studies, the most recent being outside studies from [facility] dated 06-21-16, 05-30-15 and 04-20-14. ~ Lory Rahman APRN IMG MAMMOGRAPHY ORDERABLES Final Result from Last 3 Months or Most Recently Relevant to Health Maintenance Insurance [facility] [id number]
--- OUTSIDE RECORDS SUMMARY | 2024-12-15 10:16 | XMS_ITS | Encounter Summary ---
Author Organization [employer] [facility] [employer] Address [address] [place] [address] Care Team Providers Care Hand Drawer In Helper Name Role Phone Catalino Zuñiga MD Primary Care Provider [phone] Reason for Referral * Other (Routine) - Closed Specialty Diagnoses / Procedures Referred By Marisabel t Referred To Contact Diagnoses Essential hypertension Procedures ECG 12 lead Devan Horner MD [address] [place] [address] [place] [address] Phone: tel: fax: Referral ID Status Reason Start Date Expiration Date Visits Re quested Visits Authorized [id number] Closed 05/06/2023 11/02/2023 1 1 * Diagnostic X-Ray (Routine) - Closed Specialty Diagnoses / Procedures Referred By Marisabel fontanez Referred To Contact Diagnoses Essential hypertension Procedures XR chest 2 views Devan Horner MD [address] [place] [address] [place] [address] Phone: tel: fax: Referral ID Status Reason Start Date Expiration Date Visits Re quested Visits Authorized [id number] Closed 05/06/2023 11/02/2023 1 1 Encounter Details Date Type Department Care Team (Late st Contact Info) Description 05/06/2023 Surgery Prep [facility] Surgery [address] [place] [phone] Devan Horner MD [address] [place] [address] [address] [place] [id number] Incompetence of pubocervical tissue (Primary Dx); Essential hypertension Social History Tobacco Use Types Packs/Day Years [...] place to sleep or slept in a long term (including now)? No 05/07/2023 Comments No Sex and Gender Information Value Date Recorded Sex Assigned at Not on file Legal Sex Female 5:40 PM CDT Gender Identity Not on file Sexual Orientation Not on file COVID-19 Exposure Response Date Recorded In the last 10 days, have yo u been in contact with someone who was confirmed or suspected to have Coronavirus/COVID-19? No / Unsure 05/07/2023 10:10 AM EST documented as of this encounter Plan of Treatment Not on file documented as of this encounter Procedures Procedure Name Priority Date/Time Associated Diagnosis Comments TYPE AND SCREEN ([place] BKR) Routine 05/06/2023 10:52 AM EST Incompetence of pubocervical tissue documented in this encounter Results * Type and Screen (05/06/2023 10:52 AM EST) ABO/Rh A POSITIVE 05/06/2023 11:07 AM EST [facility] [place] Antibody Screen NEGATIVE 05/06/2023 11:07 AM [facility] ([place]) HISTCHK HIST CHECK PERFORMED 05/06/2023 11:07 AM [facility] ([place]) Blood Venipuncture / Unknown 05/06/2023 10:52 AM EST 05/06/2023 11:04 AM EST us Devan Horner MD [facility] TEST ORDERABLES Edited Result - Final [facility] ([place]) [address] [place] [address], [facility] [phone] * (ABNORMAL) Basic Metabolic Panel (05/06/2023 10:52 AM EST) Sodium 139 136 - 145 meq/L 05/06/2023 11:07 AM [facility] Potassium 4.0 3.5 - 5.1 meq/L 05/06/2023 11:07 AM [facility] Chloride 105 98 - 107 meq/L 05/06/2023 11:07 AM [facility] CO2 29 21 - 32 meq/L 05/06/2023 11:07 AM [facility] Anion Gap 9(L) 11 - 22 05/06/2023 11:07 AM [facility] BUN 8 7 - 18 mg/dL 05/06/2023 11:07 AM [facility] Creatinine 1.01 0.55 - 1.10 mg/dL 05/06/2023 11:07 AM [facility] BUN/Creatinine 8 05/06/2023 11:07 AM [facility] Glucose 108(H) 70 - 99 mg/dL 05/06/2023 11:07 AM [facility] Calcium 9.1 8.5 - 10.1 mg/dL 05/06/2023 11:07 AM [facility] Osmolality Calc 276.4 11:07 AM [facility] eGFR (mL/min/1.73m2) >60 >=60 mL/min/1.7 3m2 05/06/2023 11:07 AM [facility] Comment:eGFR of <60 suggests chronic kidney disease if found over a 3 month period of time. eGFR <15 indicates renal failure. Blood Venipuncture / Unknown 05/06/2023 10:52 AM EST 05/06/2023 10:56 AM EST us Devan Horner MD LAB BLOOD ORDERABLES Final Resu lt [facility] [address] [phone] * (ABNORMAL) CBC with automated diff (05/06/2023 10:52 AM EST) WBC 4.7(L) 4.8 - 10.8 K/ L 05/06/2023 11:16 AM [facility] RBC 4.66 3.50 - 5.20 M/ L 05/06/2023 11:16 AM [facility] Hemoglobin 13.5 11.7 - 15.8 GM/DL 05/06/2023 11:16 AM [facility] Hematocrit 41.8 35.0 - 47.0 % 05/06/2023 11:16 AM [facility] MCV 90 81 - 101 fL 05/06/2023 11:16 AM [facility] MCH 29.0 27.0 - 34.0 pg 05/06/2023 11:16 AM [facility] MCHC 32.3 32.0 - 36.0 GM/DL 05/06/2023 11:16 AM [facility] RDW 15.4(H) 11.5 - 14.5 % 05/06/2023 11:16 AM [facility] Platelets 271 150 - 400 K/CU MM 05/06/2023 11:16 AM [facility] MPV 9.7 9.4 - 12.4 fL 05/06/2023 11:16 AM [facility] Nucleated Red Blood Cell 0.0 0 - 0.2 % 05/06/2023 11:16 AM [facility] % Neutros 52 37 - 80 % 05/06/2023 11:16 AM [facility] % Lymphs 30 10 - 50 % 05/06/2023 11:16 AM [facility] % Monos 12 5 - 13 % 05/06/2023 11:16 AM [facility] % Eos 5 0 - 7 % 05/06/2023 11:16 AM [facility] % Baso 1 0 - 3 % 05/06/2023 11:16 AM [facility] NRBC Absolute 0.00 0 - 0.12 K/ul 05/06/2023 11:16 AM [facility] # Neutros 2.46 2.00 - 6.90 K/ L 05/06/2023 11:16 AM [facility] # Lymphs 1.41 0.60 - 3.40 K/ L 05/06/2023 11:16 AM [facility] # Monos 0.55 0.00 - 0.90 K/ L 05/06/2023 11:16 AM [facility] # Eos 0.25 0.00 - 0.70 K/ L 05/06/2023 11:16 AM [facility] # Baso 0.04 0.00 - 0.20 K/ L 05/06/2023 11:16 AM [facility] Immature Granulocytes-Re lative 0.20(H) 0.00 - 0.00 % 05/06/2023 11:16 AM [facility] # IG 0.01(H) 0.00 - 0.00 K/uL 05/06/2023 11:16 AM [facility] Blood Venipuncture / Unknown 05/06/2023 10:52 AM EST 05/06/2023 10:57 AM [facility] - 05/06/2023 11:16 AM EST When CBC w/ Auto Diff is ordered the lab will add a Manual Differential as a quality check at no additional charge if: Lymphocytes greater than seventy five percent with normal or increased WBC Monocytes greater than Fifteen percent Basophil greater than four percent Bands >10% or several immature myeloids are seen on scan Blast? Flag noted Atypical Lymph flag noted us Devan Horner MD LAB BLOOD ORDERABLES Final Resu lt [facility] [address] [place] [address] [phone] * XR chest 2 views (05/06/2023 10:33 AM EST) Anatomical Region Laterality Modality Chest X-Ray 05/06/2023 11:3 4 AM EST Impressions 05/06/2023 12:04 PM EST No acute cardiopulmonary process. Images reviewed, interpreted, and dictated by Kan Farris MD Narrative 05/06/2023 12:04 PM EST Name: REBECA HERRERA : 1955 TWO VIEW CHEST HISTORY: Preop. COMPARISON: None. FINDINGS: The heart is normal in size. The mediastinum is unremarkable. The lungs are clear. There is no pneumothorax. The osseous structures are unremarkable. Procedure Note Kan Farris MD - 05/06/2023 Name: REBECA HERRERA : 1955 TWO VIEW CHEST HISTORY: Preop. COMPARISON: None. FINDINGS: The heart is normal in size. The mediastinum is unremarkable. The lungs are clear. There is no pneumothorax. The osseous structures are unremarkable. IMPRESSION: No acute cardiopulmonary process. Images reviewed, interpreted, and dictated by Kan Farris MD us Devan Horner MD IMG DIAGNOSTIC IMAGING ORDERABL ES Final Result documented in this encounter Visit Diagnoses Diagnosis Incompetence of pubocervical tissue- Primary Essential hypertension Unspecified essential hypertension Essential hypertension Unspecified essential hypertension documented in this encounter Care Teams Hand Drawer In Helper Relationship Specialty Start Date End Date Catalino Zuñiga MD [address] [place] [address] PCP - General Family Medicine 03/07/23 documented as of this encounter
--- OUTSIDE RECORDS SUMMARY | 2024-12-15 10:17 | XMS_ITS | Clinical Summary ---
Author Organization [facility] Address [address] [place] [address] Care Team Providers Care Events Manager Name Role Phone Caryn Guevara APRN Primary Care Provider [phone] Allergies Active Allergy Reactions Criticality Noted Date Comments Codeine Dizziness Low 02/19/2023 Medications aspirin 81 MG EC tablet Take 1 tablet by mouth daily. Active ALPRAZolam (Xanax) 0.5 MG tablet 1 tablet. 09/07/2024 Active atorvastatin (Lipitor) 20 MG tablet 1 tablet. 07/16/2024 Active DULoxetine (Cymbalta) [address] capsule Take 1 capsule by mouth daily. 04/09/2024 Active estradiol (Estrace) 1 MG tablet Take 1 tablet by mouth daily. 08/27/2024 Active fluticasone (Flonase) 50 MCG/ACT nasal spray SPRAY 1 TIME IN EACH NOSTRIL 1 TIME EACH DAY 02/14/2024 Active levothyroxine (Synthroid, Levoxyl) 50 MCG tablet Take 1 tablet by mouth daily. 06/19/2024 Active losartan (Cozaar) 50 MG tablet take 1 tablet 1 time each day 06/20/2024 Active memantine (Namenda) 5 MG tablet take 1 tablet 2 times each day 06/10/2024 Active spironolactone (Aldactone) 25 MG tablet Take 1 tablet by mouth. MWF 06/01/2024 Active Melatonin 10 MG chewable tablet Chew 10 mg nightly. Active METAMUCIL FIBER PO Take by mouth. Active lactase (Lactaid) 3000 units tablet Take by mouth every morning. Active Probiotic Product (ALIGN DUALBIOTIC PO) Take by mouth. Active cetirizine (ZyrTEC) 10 MG tablet Take 1 tablet by mouth daily as needed for allergies. Active clopidogrel (Plavix) 75 MG tablet Take 1 tablet by mouth daily. 90 tablet 11/11/2024 Active metoprolol succinate XL (Toprol-XL) 50 MG 24 hr tablet Take 1 tablet by mouth daily. Do not crush or chew. 90 tablet 11/11/2024 Active Active Problems Problem Noted Date Diagnosed Date HOCM (hypertrophic obstructive cardiomyopathy) 0 09/09/2024 Encounters Date Type Department Care Team Description [facility] [place] [facility] [address] 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 [address] [place] [address] Patrice Gómez MD Pacemaker (Multi) Insertion [22889 (CPT )] 10/12/2024 Lab Requisition [facility] [address] [place] [address] Alberto Ford MD Encounter for general adult medical examination without abnormal findings 10/11/2024 Travel 10/09/2024 10:30 AM EDT - 10/09/2024 12:30 PM EDT 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 [address] [place] [address] Patrice Gómez MD Septal Ablation w/Alcohol and Temporary Pacemaker Insertion [06565 (CPT )] 10/09/2024 8:44 AM EDT - 10/13/2024 3:12 PM EDT Hospital Encounter [facility] Inpatient [address] [place] [address] Patrice Gómez MD Haigh, Peter J, MD HOCM (hypertrophic obstructive cardiomyopathy) ([facility]) Discharge Disposition: Home or Self Care 10/09/2024 Travel 09/18/2024 7:30 AM EDT - 09/18/2024 11:59 PM EDT Hospital Encounter Cardiac Imaging [address] [place] [address] HOCM (hypertrophic obstructive cardiomyopathy) ([facility]) Discharge Disposition: Home or Self Care 09/18/2024 Telephone [place] [facility] [place] [facility] [address] [place] [address] Patrice Gómez MD 09/18/2024 Travel from Last 3 Months Immunizations Immunization Administration Dates Next Due Influenza, High-dose, Split Virus, Trivalent, Injectable, preservative free 04/09/2024 Influenza, high-dose, quadrivalent 04/16/2023 Influenza, injectable, quadrivalent 04/22/2020,1 Influenza, injectable, quadrivalent, preservativ e free 05/08/2022,04/14/2019 Influenza, recombinant, quad rivalent, injectable, preservative free 03/22/2021 Influenza, seasonal, injectable 04/26/2016 Pneumococcal 20-frida Conj Vaccine 04/29/2023 Rsvpref, Recombinant, Protein Subunit, Adjuvent 04/09/2024 TD (adult), 2 Lf tetanus tox oid, preservative free, adsorbed 03/20/1999 Tdap 07/15/2024,03/15/2010 Zoster, Recombinant 07/15/2024,04/23/2024 Family History Medical History Relation Name Comments Heart disease Father Relation Name Status Comments Father Social History Tobacco Use Types Packs/Day Years Used Date Smoking Tobacco: Never Smokeless Tobacco: Never Tobacco Cessation:Counseling Given: Not Answered Alcohol Use Standard Drinks/Week Comments Never 0 [...] any time in the past 12 [facility], were you homeless or living in a [facility] (including now)? No 10/12/2024 Utilities Answer Date [...] Sign Reading Time Taken Comments Blood Pressure 124/60 10/13/2024 1:00 PM EDT Pulse 78 10/13/2024 1:00 PM EDT Temperature 36.8 C (98.2 F) 10/13/2024 8:00 AM EDT Respiratory Rate 12 10/13/2024 1:00 PM EDT Oxygen Saturation 95% 10/13/2024 1:00 PM EDT Inhaled Oxygen Concentration - - Weight 97.5 kg (214 lb 15.2 oz) 10/13/2024 5:58 AM EDT Height 172.7 cm (5' 8 ) 10/09/2024 9:13 AM EDT Body Mass Index 32.68 10/09/2024 9:13 AM EDT Plan of Treatment Upcoming Encounters Date Type Department Care Team (Late st Contact Info) Description 01/13/2025 2:30 PM EDT Office Visit [place] [facility] [place] [address] [place] [address] Patrice Gómez MD [address] [place] [address] Health Maintenance Due Date Last Done Comments [facility]-Bone Density Scan 1954 [facility]-Hepatitis C Screening 1955 [facility]-Medicare Annual Wellness (AWV) 1955 [facility]-/Child/Adol SDOH Screenings 1954 CT Colonography 1999 Colonoscopy 1999 FIT-DNA 1999 FIT 1999 FOBT 1999 Sigmoidoscopy 1999 [facility]-Colorectal Cancer Screening 1999 [facility]-Breast Cancer Screening 06/01/2019 06/01/2017 [id number] Vaccine ( season) 2024 03/20/2022, 01/19/2022, 03/02/2021, Additional history exists [facility]- SDOH Screenings 04/13/2025 [facility]-Adult SDOH Screenings 04/13/2025 10/12/2024 [facility]-Depression Screening 09/09/2025 09/09/2024, 08/29 [facility]-DTaP,Tdap,and Td Vaccines (3 - Td or Tdap) 07/15/2034 07/15/2024, 03/15/2010, 03/20/1999 [facility]-Pneumococcal Vaccine: 50+ Years Completed 04/29/2023 [facility]-Influenza Vaccine Completed 04/09/2024 , 04/16/2023, 05/08/2022, Additional history exists [facility]-RSV Vaccine: 60+ Years or Completed 04/09/2024 [facility]-Zoster Vaccines Completed 07/15/2024, [facility]-Obesity Intervention Completed 09/09/2024, 08/29 HPV Vaccines Aged Out No longer eligi ble based on patient's age to complete this topic [facility]-HIB Vaccines Aged Out No longer e ligible based on patient's age to complete this topic [facility]-Hepatitis A Vaccines Aged Out No longer eligible based on patient's age to complete this topic [facility]-IPV Vaccines Aged Out No longer e ligible based on patient's age to complete this topic [facility]-Rotavirus Vaccines Aged Out No lo nger eligible based on patient's age to complete this topic Medical Devices Implanted Type Area Librarian Special Library Device Identifier Shelf Expiration Date Model / Serial / Lot Pacemaker Icd Hollis - [id number] Implanted:Qty: 1 on 10/12/2024 by Patrice Gómez MD at [facility] [employer] [facility]-[id number] 05/30/2026 [id number] / [id number] / [id number] Lead Pacing Ultipace 52cm - [id number] Implanted:Qty: 1 on 10/12/2024 by Patrice Gómez MD at [facility] [employer] [facility]-[id number] 07/31/2027 [id number] / [id number] / [id number] Lead Defib Durata Sj4 7122q/65 - [id number] Implanted:Qty: 1 on 10/12/2024 by Patrice Gómez MD at [facility] [employer] [facility]-[id number] 06/30/2027 [id number]/65 / [id number] / [id number] Procedures Procedure Name Priority Date/Time Associated Diagnosis Comments CARDIAC DEVICE CHECK - INCISION CHECK Routine 10/21/2024 3:44 PM EDT Pacemaker XR CHEST 1 VIEW Routine 10/13/2024 8:52 AM EDT PACEMAKER (MULTI) INSERTION Routine 10/12/2024 2:56 PM EDT HOCM (hypertrophic obstructive cardiomyopathy) (CMS/HCC) BASIC METABOLIC PANEL, PLASMA Routine 10/12/2024 8:30 AM EDT CBC WITH AUTO DIFFERENTIAL Routine 10/12/2024 8:30 AM EDT MULTI DRUG RESISTANCE TEST Routine 10/12/2024 Encounter for general adult medical examination without abnormal findings MAGNESIUM, PLASMA Routine 10/11/2024 9:0 3 AM EDT COMPREHENSIVE METABOLIC PANEL, PLASMA Routine 10/11/2024 9:03 AM EDT CBC WITH AUTO DIFFERENTIAL Routine 10/11/2024 9:03 AM EDT BLOOD CULTURE (AEROBIC/ANAEROBIC SET) Routine 10/11/2024 9:03 AM EDT BLOOD CULTURE (AEROBIC/ANAEROBIC SET) Routine 10/11/2024 9:03 AM EDT URINALYSIS MICROSCOPIC FOR UA REFLEX Routine 10/11/2024 9:02 AM EDT URINE MARQUEZ PANEL Routine 10/11/2024 9:0 2 AM EDT URINALYSIS WITH REFLEX MICROSCOPIC Routine 10/11/2024 9:02 AM EDT URINALYSIS WITH REFLEX MICROSCOPIC AND CULTURE Routine 10/11/2024 9:02 AM EDT XR CHEST 1 VIEW Routine 10/11/2024 9:00 AM EDT BASIC METABOLIC PANEL, PLASMA Routine 10/10/2024 1:28 AM EDT CBC W/O DIFFERENTIAL Routine 10/10/2024 1:28 AM EDT ECG ADULT STAT 10/09/2024 5:53 PM EDT SEPTAL ABLATION W/ALCOHOL AND TEMPORARY PACEMAKER INSERTION Routine 10/09/2024 4:09 PM EDT HOCM (hypertrophic obstructive cardiomyopathy) (CMS/HCC) PROTHROMBIN TIME(PT) / INR Routine 10/09/2024 4:02 PM EDT APTT Routine 10/09/2024 4:02 PM EDT GRICELDA AURIS SURVEILLANCE BY PCR Routine 10/09/2024 3:57 PM EDT MULTI DRUG RESISTANCE TEST Routine 10/09/2024 3:57 PM EDT ECHO, ADULT TRANSTHORACIC LIMITED W/ CONTRAST Routine 10/09/2024 1:50 PM EDT POCT ACT UNSOLICITED RESULTS Routine 10/09/2024 12:59 PM EDT MAGNESIUM, PLASMA Add-On 10/09/2024 12: 02 PM EDT BASIC METABOLIC PANEL, PLASMA STAT 10/09/2024 12:02 PM EDT CBC W/O DIFFERENTIAL STAT 10/09/2024 12:02 PM EDT POCT CREATININE ISTAT UNSOLICITED RESULTS Routine 10/09/2024 9:24 AM EDT ECHO, ADULT EXERCISE STRESS TEST Routine 09/18/2024 8:32 AM EDT HOCM (hypertrophic obstructive cardiomyopathy) (CMS/HCC) from Last 3 Months Results * Cardiac Device Check - Incision [...] IMPLANTABLE CARDIAC DEVICE P ROCEDURES Final Result * XR Chest 1 View (10/13/2024 8:52 AM EDT) Only the most recent of2 resultswithin the time period is included. Anatomical Region Laterality Modality Chest Digital Radiogra phy Impressions 10/13/2024 10:27 AM EDT Interval placement of left sided AICD, otherwise stable exam. No pneumothorax. CRITICAL RESULT: No. COMMUNICATION: Per this written report. By electronically signing this report, I, the attending physician, attest that I have personally reviewed the images/data for the above examination(s) and agree with the final edited report. Drafted by MARITZA Garcia on 10/13/2024 10:11 AM Final report signed by Truong Macedo MD on 10/13/2024 10:27 AM Narrative 10/13/2024 10:27 AM EDT CLINICAL INDICATION: s/p pacemaker TECHNIQUE: XR CHEST 1 VIEW COMPARISON: October 11, 2024 FINDINGS: Interval placement left-sided AICD and removal of previously seen transvenous pacer. Cardiac silhouette and mediastinal contours are stable. No pneumothorax. No new pulmonary opacities. Procedure Note Truong Macedo MD - 10/13/2024 CLINICAL INDICATION: s/p pacemaker TECHNIQUE: XR CHEST 1 VIEW COMPARISON: October 11, 2024 FINDINGS: Interval placement left-sided AICD and removal of previously seentransvenous pacer. Cardiac silhouette and mediastinal contours arestable. No pneumothorax. No new pulmonary opacities. IMPRESSION: Interval placement of left sided AICD, otherwise stable exam. Nopneumothorax. CRITICAL RESULT: No. COMMUNICATION: Per this written report. By electronically signing this report, I, the attending physician, attestthat I have personally reviewed the images/data for the aboveexamination(s) and agree with the final edited report. Drafted by MARITZA Garcia on 10/13/2024 10:11 AM Final report signed by Truong Macedo MD on 10/13/2024 10:27 AM Patrice Gómez MD IMG XR PROCEDURES Final Result * PACEMAKER (MULTI) INSERTION (10/12/2024 2:56 PM EDT) Anatomical Region Laterality Modality Cardiac Electrop hysiology Narrative 10/13/2024 3:59 PM EDT CONCLUSIONS: 1. Successful dual chamber ICD implant. RECOMMENDATIONS: 1. Wound inspection and device interrogation in 1-2 weeks. Procedure Details PROCEDURES PERFORMED: 1. Permanent dual chamber ICD implant. INDICATIONS: 1. 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 PROCEDURE DESCRIPTION: The procedure, risks, benefits and alternatives were discussed and informed consent was obtained. The patient was taken to the electrophysiology laboratory in the fasting state and sedated with intravenous midazolam and fentanyl. The anterior chest was prepped, draped and anesthetized with 1% lidocaine. The left axillary vein was punctured and two guidewires were inserted. An incision was made below the puncture and a subcutaneous pocket was formed between the fat and the pectoralis fascia. The guidewires were tunneled to the pocket and sheaths were placed. The RV lead was inserted and positioned on the apical RV septum. The fixation screw was extended. The RA pace-sense lead was positioned in the RA appendage and the fixation screw was extended. Sensing, pacing and impedance values were measured and found to be acceptable. The sheaths were removed and the leads were anchored to the pectoralis fascia. The pulse generator was connected and the system was placed into the pocket. The pulse generator was anchored to the chest wall. The pocket was irrigated with antibiotic solution and the wound was closed in three layers. Dermabond was applied as a sterile dressing. Fluoroscopy was performed to confirm proper lead positions and absence of complications. All sponge and needle counts were correct. The temporary pacing catheter was removed from the right neck. Sedation was discontinued and the patient was observed until awake. Final device programming was performed. The patient was returned to recovery in stable condition with no complications. CONCLUSIONS: 1. Successful dual chamber ICD implant. RECOMMENDATIONS: 1. Wound inspection and device interrogation in 1-2 weeks. us Patrice Gómez MD CV ELECTROPHYSIOLOGY PROCEDURES Final Result * (ABNORMAL) CBC and differential (10/12/2024 8:30 AM EDT) Only the most recent of2 resultswithin the time period is included. WBC Count 7.93 3.70 - 10.30 10*3/uL LAB HEMATOLOGY METHOD 10/12/2024 8:55 AM EDT [facility] RBC Count 4.27 3.90 - 5.20 10*6/uL LAB HEMATOLOGY METHOD 10/12/2024 8:55 AM EDT [facility] HGB 12.5 11.2 - 15.7 g/dL LAB HEMATOLOGY METHOD 10/12/2024 8:55 AM EDT [facility] HCT 38.1 34.0 - 45.0 % LAB HEMATOLOGY METHOD 10/12/2024 8:55 AM EDT [facility] Platelet Count 251 155 - 369 10*3/uL LAB HEMATOLOGY METHOD 10/12/2024 8:55 AM EDT [facility] MCV 89 79 - 98 fL LAB HEMATOLOGY METHOD 10/12/2024 8:55 AM EDT [facility] MCH 29.3 26.0 - 32.0 pg LAB HEMATOLOGY METHOD 10/12/2024 8:55 AM EDT [facility] MCHC 32.8 30.7 - 35.5 g/dL LAB HEMATOLOGY METHOD 10/12/2024 8:55 AM EDT [facility] RDW 15.1(H) 11.5 - 14.5 % LAB HEMATOLOGY METHOD 10/12/2024 8:55 AM EDT [facility] MPV 9.6 8.8 - 12.5 fL LAB HEMATOLOGY METHOD 10/12/2024 8:55 AM EDT [facility] nRBC 0.0 <=0.0 per 100 WBCs LAB HEMATOLOGY METHOD 10/12/2024 8:55 AM EDT [facility] Differential Type Automated LAB HEMATOLOGY METHOD 10/12/2024 8:55 AM EDT [facility] Neutrophils % 63 % LAB HEMATOLOGY METHOD 10/12/2024 8:55 AM EDT [facility] Lymphocytes % 22 % LAB HEMATOLOGY METHOD 10/12/2024 8:55 AM EDT [facility] Monocytes % 11 % LAB HEMATOLOGY METHOD 10/12/2024 8:55 AM EDT [facility] Eosinophils % 3 % LAB HEMATOLOGY METHOD 10/12/2024 8:55 AM EDT [facility] Basophils % 1 % LAB HEMATOLOGY METHOD 10/12/2024 8:55 AM EDT [facility] Immature Granulocytes % 0 % LAB HEMATOLOGY METHOD 10/12/2024 8:55 AM EDT [facility] Neutrophils Absolute 4.99 1.60 - 6.10 10*3/uL LAB HEMATOLOGY METHOD 10/12/2024 8:55 AM EDT [facility] Lymphocytes Absolute 1.74 1.20 - 3.90 10*3/uL LAB HEMATOLOGY METHOD 10/12/2024 8:55 AM EDT [facility] Monocytes Absolute 0.89 0.30 - 0.90 10*3/uL LAB HEMATOLOGY METHOD 10/12/2024 8:55 AM EDT [facility] Eosinophils Absolute 0.24 0.00 - 0.50 10*3/uL LAB HEMATOLOGY METHOD 10/12/2024 8:55 AM EDT [facility] Basophils Absolute 0.04 0.00 - 0.10 10*3/uL LAB HEMATOLOGY METHOD 10/12/2024 8:55 AM EDT [facility] Immature Granulocytes Absolute 0.03 0.00 - 0.06 10*3/uL LAB HEMATOLOGY METHOD 10/12/2024 8:55 AM EDT [facility] Blood Venous blood specimen / Unknown Venipuncture / Unknown 10/12/2024 8:30 AM EDT 10/12/2024 8:46 AM EDT Narrative [facility] - 10/12/2024 8:55 AM EDT Therapeutic decision making should be based on absolute values, rather than percentages. us Rick Verdin MD LAB BLOOD ORDERABLES Final Resu lt [facility] [address] [place] [address] * (ABNORMAL) Basic Metabolic Panel, Plasma (10/12/2024 8:30 AM EDT) Only the most recent of3 resultswithin the time period is included. Glucose, Plasma 108(H) 74 - 99 mg/dL 10/12/2024 9:16 AM EDT [facility] BUN, Plasma 11 8 - 23 mg/dL 10/12/2024 9:16 AM EDT [facility] Creatinine, Plasma 0.72 0.60 - 1.10 mg/dL 10/12/2024 9:16 AM EDT [facility] BUN/Creatinine Ratio 15 10/12/2024 9:16 AM EDT [facility] Sodium, Plasma 138 136 - 145 mmol/L 10/12/2024 9:16 AM EDT [facility] Potassium, Plasma 4.1 3.6 - 4.9 mmol/L 10/12/2024 9:16 AM EDT [facility] Chloride, Plasma 105 97 - 107 mmol/L 10/12/2024 9:16 AM EDT [facility] CO2, Plasma 23 22 - 29 mmol/L 10/12/2024 9:16 AM EDT [facility] Anion Gap 10 6 - 16 mmol/L 10/12/2024 9:16 AM EDT [facility] Total Calcium, Plasma 8.8(L) 8.9 - 10.2 mg/dL 10/12/2024 9:16 AM EDT [facility] eGFRcr 90.1 mL/min/1.7 3m*2 10/12/2024 9:16 AM EDT [facility] Comment:Reported eGFRcr in m L/min/1.73m2 is based the CKD-EPI 2020 equation that does not use a race coefficient. Blood Venous blood specimen / Unknown Venipuncture / Unknown 10/12/2024 8:30 AM EDT 10/12/2024 8:45 AM EDT us Rick Verdin MD LAB BLOOD ORDERABLES Final Resu lt [facility] [address] [place] [address] * Multi Drug Resistance Test (10/12/2024) Only the most recent of2 resultswithin the time period is included. Culture No growth at day 1 10/13/2024 8:58 AM EDT [facility] Swab (Nares and Ayanna Rectal) 10/12/2024 10/12/2024 12:04 PM EDT us Alberto Ford MD LAB MICROBIOLOGY - GEN ERAL ORDERABLES Final Result Performing Organization Address City/[facility]/ZIP Co de Phone Number [facility] [address] [place] [address] * Blood Culture (Aerobic/Anaerobet Set) (10/11/2024 9:03 AM EDT) Only the most recent of2 resultswithin the time period is included. Culture No growth at day 5 ADAL 10/16/2024 11:02 AM EDT [facility] Blood Structure of left hand / Unknown Venipuncture / Unknown 10/11/2024 9:03 AM EDT 10/11/2024 9:49 AM EDT us Rick Verdin MD LAB MICROBIOLOGY - GENERAL ORDE RABLES Final Result Performing Organization Address [facility] [place] [address] * Magnesium, Plasma (10/11/2024 9:03 AM EDT) Only the most recent of2 resultswithin the time period is included. Magnesium, Plasma 2.3 1.9 - 2.4 mg/dL 10/11/2024 9:46 AM EDT [facility] Blood Venous blood specimen / Unknown Venipuncture / Unknown 10/11/2024 9:03 AM EDT 10/11/2024 9:17 AM EDT us Rick Verdin MD LAB BLOOD ORDERABLES Final Resu lt Performing Organization Address City/[facility]/[place] [address] * (ABNORMAL) Comprehensive Metabolic Panel, Plasma (10/11/2024 9:03 AM EDT) [facility] Signature Glucose, Plasma 113(H) 74 - 99 mg/dL 10/11/2024 9:46 AM EDT [facility] BUN, Plasma 12 8 - 23 mg/dL 10/11/2024 9:46 AM EDT [facility] Creatinine, Plasma 0.77 0.60 - 1.10 mg/dL 10/11/2024 9:46 AM EDT [facility] BUN/Creatinine Ratio 16 10/11/2024 9:46 AM EDT [facility] Sodium, Plasma 139 136 - 145 mmol/L 10/11/2024 9:46 AM EDT [facility] Potassium, Plasma 3.8 3.6 - 4.9 mmol/L 10/11/2024 9:46 AM EDT [facility] Chloride, Plasma 105 97 - 107 mmol/L 10/11/2024 9:46 AM EDT [facility] CO2, Plasma 23 22 - 29 mmol/L 10/11/2024 9:46 AM EDT [facility] Anion Gap 11 6 - 16 mmol/L 10/11/2024 9:46 AM EDT [facility] Total Calcium, Plasma 8.4(L) 8.9 - 10.2 mg/dL 10/11/2024 9:46 AM EDT [facility] Total Protein 6.6 6.3 - 7.9 g/dL 10/11/2024 9:46 AM EDT [facility] Albumin, Plasma 3.8 3.5 - 5.2 g/dL 10/11/2024 9:46 AM EDT [facility] AST, Plasma 104(H) 10 - 35 U/L 10/11/2024 9:46 AM EDT [facility] ALT, Plasma 23 10 - 35 U/L 10/11/2024 9:46 AM EDT [facility] Alkaline Phosphatase, Plasma 95 46 - 142 U/L 10/11/2024 9:46 AM EDT [facility] Total Bilirubin, Plasma 1.0 0.2 - 1.1 mg/dL 10/11/2024 9:46 AM EDT [facility] eGFRcr 83.1 mL/min/1.7 3m*2 10/11/2024 9:46 AM EDT [facility] Comment:Reported eGFRcr in m L/min/1.73m2 is based the CKD-EPI 2020 equation that does not use a race coefficient. Blood Venous blood specimen / Unknown Venipuncture / Unknown 10/11/2024 9:03 AM EDT 10/11/2024 9:17 AM EDT us Rick Verdin MD LAB BLOOD ORDERABLES Final Resu lt Performing Organization Address [facility] de Phone Number [facility] [address] [place] [address] * Urine Marquez Panel (10/11/2024 9:02 AM EDT) Extra Reflex urine culture not indicated 10/11/2024 11:01 AM EDT [facility] Urine Urine specimen obtained by clean catch procedure / Unknown Non-blood Collection / Unknown 10/11/2024 9:02 AM EDT 10/11/2024 9:47 AM EDT us Rick Verdin MD LAB URINE ORDERABLES Final Resu lt Performing Organization Address [facility] de Phone Number [facility] [address] [place] [address] * Urinalysis Microscopic Examination (10/11/2024 9:02 AM EDT) Urine Urine specimen obtained by clean catch procedure / Unknown Non-blood Collection / Unknown 10/11/2024 9:02 AM EDT 10/11/2024 9:17 AM EDT us Rick Verdin MD LAB URINE ORDERABLES Final Resu lt Performing Organization Address [facility] [facility] Co de Phone Number [facility] [address] [place] [address] * (ABNORMAL) Urinalysis with reflex microscopic (Culture NOT Included) (10/11/2024 9:02 AM EDT) Color, Urine Yellow LAB URINALYSIS - AUTOMATED METHOD 10/11/2024 9:30 AM EDT [facility] Clarity, Urine Clear LAB URINALYSIS - AUTOMATED METHOD 10/11/2024 9:30 AM EDT [facility] Spec [place], Urine 1.027 1.005 - 1.030 LAB URINALYSIS - AUTOMATED METHOD 10/11/2024 9:30 AM EDT [facility] pH, Urine 5.5 5.0 - 8.0 LAB URINALYSIS - AUTOMATED METHOD 10/11/2024 9:30 AM EDT [facility] Protein, Urine Trace(A) Negative mg/dL LAB URINALYSIS - AUTOMATED METHOD 10/11/2024 9:30 AM EDT [facility] Glucose, Urine Negative Negative mg/dL LAB URINALYSIS - AUTOMATED METHOD 10/11/2024 9:30 AM EDT [facility] Ketones, Urine Trace(A) Negative mg/dL LAB URINALYSIS - AUTOMATED METHOD 10/11/2024 9:30 AM EDT [facility] Blood, Urine Large(A) Negative LAB URINALYSIS - AUTOMATED METHOD 10/11/2024 9:30 AM EDT [facility] Bilirubin, Urine Negative Negative LAB URINALYSIS - AUTOMATED METHOD 10/11/2024 9:30 AM EDT [facility] Urobilinogen, Urine 1.0 0.2 to 1.0 mg/dL LAB URINALYSIS - AUTOMATED METHOD 10/11/2024 9:30 AM T [facility] Leukocytes, Urine Small(A) Negative LAB URINALYSIS - AUTOMATED METHOD 10/11/2024 9:30 AM EDT [facility] Nitrite, Urine Negative Negative LAB URINALYSIS - AUTOMATED METHOD 10/11/2024 9:30 AM T [facility] RBC, Urine 31 - 50(A) 0 to 3 /HPF LAB URINALYSIS - AUTOMATED METHOD 10/11/2024 9:30 AM T [facility] WBC, Urine 6 - 10(A) 0 to 5 /HPF LAB URINALYSIS - AUTOMATED METHOD 10/11/2024 9:30 AM EDT [facility] Squamous Epithelial Cells 0 - 2 0 to 5 /HPF LAB URINALYSIS - AUTOMATED METHOD 10/11/2024 9:30 AM EDT [facility] Hyaline Casts 0 - 2 0 to 5 /LPF LAB URINALYSIS - AUTOMATED METHOD 10/11/2024 9:30 AM EDT [facility] Bacteria, Urine Negative Negative LAB URINALYSIS - AUTOMATED METHOD 10/11/2024 9:30 AM EDT [facility] Urine Urine specimen obtained by clean catch procedure / Unknown Non-blood Collection / Unknown 10/11/2024 9:02 AM EDT 10/11/2024 9:17 AM EDT us Rick Verdin MD LAB URINE ORDERABLES Final Resu lt [facility] [address] [place] [address] * (ABNORMAL) CBC W/O Differential (10/10/2024 1:28 AM EDT) Only the most recent of2 resultswithin the time period is included. WBC Count 10.11 3.70 - 10.30 10*3/uL LAB HEMATOLOGY METHOD 10/10/2024 1:43 AM EDT [facility] RBC Count 3.90 3.90 - 5.20 10*6/uL LAB HEMATOLOGY METHOD 10/10/2024 1:43 AM EDT [facility] HGB 11.3 11.2 - 15.7 g/dL LAB HEMATOLOGY METHOD 10/10/2024 1:43 AM EDT [facility] HCT 35.1 34.0 - 45.0 % LAB HEMATOLOGY METHOD 10/10/2024 1:43 AM EDT [facility] Platelet Count 283 155 - 369 10*3/uL LAB HEMATOLOGY METHOD 10/10/2024 1:43 AM EDT [facility] MCV 90 79 - 98 fL LAB HEMATOLOGY METHOD 10/10/2024 1:43 AM EDT [facility] MCH 29.0 26.0 - 32.0 pg LAB HEMATOLOGY METHOD 10/10/2024 1:43 AM EDT [facility] MCHC 32.2 30.7 - 35.5 g/dL LAB HEMATOLOGY METHOD 10/10/2024 1:43 AM EDT [facility] RDW 15.2(H) 11.5 - 14.5 % LAB HEMATOLOGY METHOD 10/10/2024 1:43 AM EDT [facility] MPV 9.7 8.8 - 12.5 fL LAB HEMATOLOGY METHOD 10/10/2024 1:43 AM EDT [facility] nRBC 0.0 <=0.0 per 100 WBCs LAB HEMATOLOGY METHOD 10/10/2024 1:43 AM EDT [facility] Blood Venous blood specimen / Unknown Venipuncture / Unknown 10/10/2024 1:28 AM EDT 10/10/2024 1:33 AM EDT Rick Verdin MD LAB BLOOD ORDERABLES Final Resu lt [facility] [address] [place] [address] * ECG Adult (10/09/2024 5:53 PM EDT) EKG DIAGNOSIS CLASS Abnormal MUSE ECG Ventricular Rate 80 BPM MUSE ECG Atrial Rate 79 BPM MUSE ECG QRSD Interval 176 ms MUSE ECG QT Interval 488 ms MUSE ECG QTC Interval 562 ms MUSE ECG R [place] -80 degrees MUSE ECG T Wave [place] 101 degrees MUSE ECG Diagnosis Ventricular-p aced rhythm MUSE ECG Diagnosis Abnormal ECG MUSE ECG Diagnosis MUSE ECG Diagnosis Confirmed by Valente Evans ([id number]) on 10/10/2024 7:32:03 PM MUSE ECG 10/09/2024 5:53 PM EDT 10/10/2024 7:32 PM EDT us Rick Verdin MD ECG ORDERABLES Final Result MUSE ECG * SEPTAL ABLATION W/ALCOHOL AND TEMPORARY PACEMAKER INSERTION (10/09/2024 4:09 PM EDT) Anatomical Region Laterality Modality Other Narrative 10/10/2024 10:54 AM EDT CONCLUSIONS: 1. Mild diffuse coronary atherosclerosis with no hemodynamically significant obstructions. 2. Hypertrophic cardiomyopathy with severe PVC provoked left ventricular outflow tract obstruction. 3. Successful alcohol septal ablation with near complete resolution of left ventricular outflow tract gradient. 4. 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 Continue temporary pacing via right internal jugular pacing wire RECOMMENDATIONS: 1. Observation in the CCU. Assess need for permanent pacing after 24 hours 2. Continue beta-sanjeev therapy. 3. Dual anti-platelet therapy for 4-6 weeks, followed by single anti-platelet therapy with low-dose aspirin 4. Post ablation echocardiogram. 5. Follow-up in the cardiology outpatient clinic in 4-6 weeks with echocardiogram at that time. 6. Results and recommendations were communicated to the inpatient CCU Team. Procedure Details PROCEDURES PERFORMED: 1. Selective coronary arteriography. 2. Transseptal left heart catheterization. 3. Alcohol septal ablation. 4. Insertion of temporary transvenous pacing catheter. INDICATIONS: 1. Hypertrophic cardiomyopathy with severe, symptomatic left ventricular outflow tract obstruction. PROCEDURE DESCRIPTION: The procedure risks benefits and alternatives were discussed and informed consent was obtained. The patient was taken to the catheterization laboratory in the fasting state. A timeout protocol was observed. Sterile conditions were maintained. The right and left femoral areas and the right neck were prepped and draped. Local anesthesia was obtained with 1% lidocaine. Percutaneous vascular access was obtained under ultrasound guidance. Sheaths were placed in the right and left common femoral veins and the right common femoral artery. Selective coronary arteriography was performed using 6 [place] FR4 catheters. Diffuse noncritical coronary artery disease was identified. A temporary transvenous pacing catheter was placed via the left common femoral vein. A 10 [place] intracardiac echo (ICE) catheter was inserted. Transseptal puncture was performed under ICE guidance. The patient with anticoagulated with unfractionated heparin and ACT levels were maintained above 300 seconds. Baseline left ventricular-aortic pressure gradient data were recorded. Pressure gradient 200 mmHg with left ventricular systolic pressure is in excess of 300 mmHg (Excess of 350 mmHg after provocation PVC) were recorded. A large 1st septal real estate financial analyst artery was accessed with a 6 [place] EBU 3.5 guide catheter, a 0.014 in whisper guidewire, and a 2.0 x 8 mm balloon. Cardioplegia solution was infused during monitoring of the pressure gradient and transthoracic echocardiogram. This indicated a marked reduction in gradient and good localization to the basal interventricular septum, with intact atrioventricular conduction. The vessel was then ablated with 1.6 mL alcohol. The pressure gradient was reduced to less than 10 mmHg as determined by transthoracic echocardiography and intracardiac pressure recordings. AV block ensued during alcohol injection. The temporary transvenous pacemaker was moved to the right internal jugular vein for temporary pacing. The femoral sheaths were removed. The arterial puncture site was closed with a Perclose suture. The venous puncture sites were closed with perclose suture. Sedation was discontinued and the patient was observed until stable. He was returned to recovery in good condition with no apparent complications. CONCLUSIONS: 1. Mild diffuse coronary atherosclerosis with no hemodynamically significant obstructions. 2. Hypertrophic cardiomyopathy with severe PVC provoked left ventricular outflow tract obstruction. 3. Successful alcohol septal ablation with near complete resolution of left ventricular outflow tract gradient. 4. 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 Continue temporary pacing via right internal jugular pacing wire RECOMMENDATIONS: 1. Observation in the CCU. Assess need for permanent pacing after 24 hours 2. Continue beta-sanjeev therapy. 3. Dual anti-platelet therapy for 4-6 weeks, followed by single anti-platelet therapy with low-dose aspirin 4. Post ablation echocardiogram. 5. Follow-up in the cardiology outpatient clinic in 4-6 weeks with echocardiogram at that time. 6. Results and recommendations were communicated to the inpatient CCU Team. Hemodynamic Data Pressures Phase: Resting Aortic AO: 90/65 (75) mmHg us Patrice Gómez MD CV CARDIAC CATH PROCEDURES Hillary cano Result * (ABNORMAL) APTT (10/09/2024 4:02 PM EDT) aPTT 88(H) 25 - 35 sec LAB COAGULATION METHOD 10/09/2024 4:51 PM EDT [facility] Blood Venous blood specimen / Unknown Venipuncture / Unknown 10/09/2024 4:02 PM EDT 10/09/2024 4:11 PM EDT us Rick Verdin MD LAB BLOOD ORDERABLES Final Resu lt [facility] [address] [place] [address] * Protime-INR (10/09/2024 4:02 PM EDT) Prothrombin Time 14.1 12.0 - 14.3 sec LAB COAGULATION METHOD 10/09/2024 4:51 PM EDT [facility] INR 1.1 0.9 - 1.1 LAB COAGULATION METHOD 10/09/2024 4:51 PM EDT [facility] Blood Venous blood specimen / Unknown Venipuncture / Unknown 10/09/2024 4:02 PM EDT 10/09/2024 4:11 PM EDT Narrative [facility] - 10/09/2024 4:51 PM EDT OPTIMAL INR RANGES FOR PATIENT ON ORAL ANTICOAGULANT THERAPY Prevention of venous thromboembolism INR 2.0 to 3.0 In patients with heart disease: Atrial fibrillation INR 2.0 to 3.0 Valvular heart disease INR 2.0 to 3.0 Tissue heart valves INR 2.0 to 3.0 Mechanical prosthetic valves INR 2.5 to 3.5 Prevention of recurrent MS INR 2.5 to 3.5 us Rick Verdin MD LAB BLOOD ORDERABLES Final Resu lt Performing Organization Address [facility]/ZIP Co de Phone Number [facility] [address] [place] [address] * Gricelda auris Surveillance by PCR (10/09/2024 3:57 PM EDT) Gricelda auris PCR Result Not Detected Not Detected 10/11/2024 7:06 AM EDT [facility] Swab (Axilla and Groin) Non-blood Collection / Unknown 10/09/2024 3:57 PM EDT 10/09/2024 4:24 PM EDT Narrative [facility] - 10/11/2024 7:06 AM EDT This PCR assay was developed and its performance characteristics determined by [facility] as appropriate for clinical purposes. This assay has not been cleared or approved by the FDA, but is performed in a CLIA regulated laboratory that is qualified to perform high-complexity testing. us Rick Verdin MD LAB MICROBIOLOGY - GENERAL ORDE [facility] Final Result Performing Organization Address [facility]/[place] [address] * ECHO, ADULT TRANSTHORACIC LIMITED W/ CONTRAST (10/09/2024 1:50 PM EDT) Pathologist [facility] BSA 2.17 m2 HARSH ISCV Height 172.7 HARSH ISCV Weight 98.0 HARSH ISCV Anatomical Region Laterality Modality Echocardiography Narrative 10/09/2024 4:11 PM EDT Pericardium: No pericardial effusion. Left Ventricle Patient underwent alcohol septal ablation today. Peak gradient at rest prior to ablation of 38 mmHg. No appreciable flow acceleration afterwards, but unable to measure a gradient. Proximal septal is echobright after ablation (normal finding). Pericardium No pericardial effusion. Study Details A limited transthoracic echocardiogram using limited 2D imaging was performed. During the study the apical and parasternal view was captured. Definity contrast was used during the study. Height: 172.7 cm. Weight: 98.0 kg. BSA: 2.11 m2. us Patrice Gómez MD CV ECHO PROCEDURES Final Result * POCT ACT (10/09/2024 12:59 PM EDT) [facility] ACT (Low Range) 289 65 - 400 seconds 10/13/2024 11:34 AM EDT [facility] Box Press Operator ID Bala Wilson 10/13/2024 11:34 AM EDT HEALTHCARE LAB ACT Device ID [id number] 10/13/2024 11:34 AM EDT [facility] Comment 10/13/2024 11:34 AM EDT [facility] Comment: ACT performed by staff at point of care. Results are reported immediately to the physician or primary caregiver. The activated clotting time is performed on patients with diverse clinical characteristics and treatment histories. Therefore, expected values are variable and results must be interpreted in the context of each individual patient. Whole Blood Venous blood specimen / Unknown 10/09/2024 12:59 PM EDT 10/13/2024 11:34 AM EDT us Patrice Gómez MD LAB POINT OF CARE TE ST DOCKED DEVICE UNSOLICITED RESULTS Final Result [facility] [address] [facility] [address] [place] [address] * POCT creatinine (10/09/2024 9:24 AM EDT) Pathologist [facility] Creatinine, Point of Care 1.0 0.6 - 1.1 mg/dL 10/09/2024 9:28 AM EDT HEALTHCARE LAB POCT eGFR 61 mL/min/1. 73m*2 10/09/2024 9:28 AM EDT HEALTHCARE LAB Box Press Operator ID Elizabeth Putnam 10/09/2024 9:28 AM EDT HEALTHCARE LAB Device ID [id number] 10/09/2024 9:28 AM EDT HEALTHCARE LAB Comment 10/09/2024 9:28 AM EDT [facility] Comment:Testing performed on i-STAT at the point of care. Reported eGFRcr in mL/min/1.73m2 is based the CKD-EPI 2020 equation that does not use a race coefficient. Blood Venous blood specimen / Unknown 10/09/2024 9:24 AM EDT 10/09/2024 9:28 AM EDT us Patrice Gómez MD LAB POINT OF CARE TE ST DOCKED DEVICE UNSOLICITED RESULTS Final Result [facility]ALTH[facility] [address] LAB [address] [place] [address] * ECHO, ADULT EXERCISE STRESS TEST (09/18/2024 8:32 AM EDT) Pathologist [facility] Target HR 128 bpm ISCV MUSE MPHR 150 bpm ISCV MUSE Exercise duration (min) 2 min ISCV MUSE % of Max Predicted HR 81 % ISCV MUSE Peak HR 122 bpm ISCV MUSE Exercise duration (sec) 42 sec ISCV MUSE Peak METS 4.6 METS ISCV MUSE Pressure Product 31,720.0 ISCV MUSE Resting HR 64 bpm ISCV MUSE Resting SPO2 94 ISCV MUSE Peak SPO2 94 ISCV MUSE Baseline Systolic BP 141 ISCV MUSE Baseline Diastolic BP 62 ISCV MUSE Peak BP Systolic 260 mmHg ISCV MUSE Peak BP Diastolic 46 mmHg ISCV MUSE Recovery One Min HR 110 bpm ISCV MUSE BSA 2.11 m2 ISCV MUSE Height 172.7 ISCV MUSE Weight 98.0 ISCV MUSE Anatomical Region Laterality Modality Echocardiography , Echocardiography Addenda Addendum by Patrice Matt MD on 09/18/2024 11:21 AM EDT The study is an abnormal exercise stress echocardiogram with no evidence of myocardial ischemia at the HR achieved but with evidence of LVOT obstruction. An LVOT gradient of ~85 mmHg was obtained during pre-exercise imaging. A LVOT gradient of ~118 mmHg was obtained during post-exercise imaging. Mild to moderate mitral valve regurgitation was obtained during both pre and post exercise imaging. Poor exercise tolerance (4.6 METs). Study Details A limited transthoracic echocardiogram using limited 2D, color flow Doppler and limited spectral Doppler imaging was performed. A stress echocardiogram was performed. Height: 172.7 cm. Weight: 98.0 kg. BSA: 2.11 m2. Stress Findings An exercise stress test was performed. The exercise stress test using a Brandon protocol was performed. The patient exercised for 2 min and 42 sec. Reached stage 1 of the protocol. Achieved a peak of 4.6 METS. The patient had a maximal heart rate of 122 bpm (81% of the MPHR: 150 bpm). The patient's baseline blood pressure was 141/62, and changed to 260/46 with peak exercise. The patient did not reach target heart rate. The heart rate recovery at 1 minute is abnormal (=<12bpm). The patient had hypertensive BP response to exercise. Overall, the patient's functional capacity was poor for their age and gender.The patient experienced no chest pain, discomfort, or anginal equivalent. The test was stopped because the patient experienced fatigue. Stress ECG Baseline ECG: The baseline ECG shows normal sinus rhythm, right bundle branch block and normal axis. Baseline ECG shows no ST segment deviation. Stress and Recovery ECG: ST segment changes occurred that did not meet ischemic criteria. A rare premature atrial contraction presented during stress. Arrhythmias during recovery were rare premature atrial contractions and a single premature ventricular contraction. ECG Conclusion: No ischemic ST segment changes occurred with stress. The stress test was performed under direct supervision of the reading rubber down. Study Impression The study is an abnormal exercise stress echocardiogram with no evidence of myocardial ischemia but with evidence of LVOT obstruction. An LVOT gradient of ~85 mmHg was obtained during pre-exercise imaging. A LVOT gradient of ~118 mmHg was obtained during post-exercise imaging. Mild to moderate mitral valve regurgitation was obtained during both pre and post exercise imaging. Echo Baseline Stress The left ventricular cavity is small. The left ventricular systolic function is hyperdynamic at baseline. The baseline-stress echo showed normal wall motion. Echo Peak Stress The left ventricular cavity is small at peak-stress. The left ventricular systolic function is hyperdynamic at peak stress. The peak-stress echo showed normal wall motion which was hyperdynamic compared to baseline. Study Recommendation There is no recent study available for direct [id number] comparison. Wall Scoring Baseline Score Index: 1.00 The left ventricular wall motion is globally hyperkinetic. Wall Scoring Peak Stress Score Index: 1.00 The left ventricular wall motion is globally hyperkinetic. us Patrice Gómez MD CV ECHO PROCEDURES Edited Resul t - Final from Last 3 Months Insurance [facility] MEDICARE Advance Directives * Full Code (Latest Code Status on File) Date Activated Date Inactivated Comments 10/09/2024 1:49 PM 10/13/2024 5:12 PM Care Teams Events Manager Relationship Specialty Start Date End Date Caryn Guevara APRN [address] [place] [address] PCP - General 09/09/24
--- OUTSIDE RECORDS SUMMARY | 2024-12-15 10:17 | XMS_ITS | Encounter Summary ---
Author Organization Healthcare Address [address] [place] [address] Care Team Providers Care Board Finisher Name Role Phone Caryn Guevara CAROUSEL ATTENDANT Primary Care Provider [phone] Reason for Visit * Reason Onset Date Comments Med Refill 11/11/2024 Encounter Details Date Type Department Care Team (Late st Contact Info) Description 11/11/2024 Refill [facility] [place] [address] [facility] [place] [address] Patrice Gómez MD [address] [place] [address] Social History Tobacco Use Types Packs/Day Years [...] any time in the past 12 m [facility], were you homeless or living in a fci (including now)? No 10/12/2024 Utilities Answer Date [...] Description 01/13/2025 2:30 PM EDT Office Visit [facility] [place] [address] [facility] [place] [address] Patrice Gómez MD [address] [place] [address] documented as of this encounter Visit Diagnoses Not on filedocumented in this encounter Additional Health Concerns Assessment Noted Time PHQ-9 Depression Total Score: 0 09/10/19 25 8:35 AM EDT A fall risk assessment has been complete d for the patient 09/09/2024 8:22 AM EDT A Body Mass Index follow-up plan has been documented for the patient 10/13/2024 2:34 PM EDT documented as of this encounter Care Teams Board Finisher Relationship Specialty Start Date End Date Caryn Guevara APRN [address] [place] [address] PCP - General 09/09/24 documented as of this encounter
--- OUTSIDE RECORDS SUMMARY | 2024-12-15 10:17 | XMS_ITS | Encounter Summary ---
Author Organization Healthcare Address [address] [place] [address] Care Team Providers Care Manager Of Care Name Role Phone Caryn Guevara APRN Primary Care Provider Encounter Details Date Type Department Care Team (Latest Contact Info) Description 10/21/2024 Travel Social History Tobacco Use Types Packs/Day Years [...] any time in the past 12 m [facility], were you homeless or living in a group home (including now)? No 10/12/2024 Utilities Answer Date [...] Description 01/13/2025 2:30 PM EDT Office Visit [facility] [place] [address] [facility] [place] [address] Patrice Gómez MD [address] [place] [id number] documented as of this encounter Visit Diagnoses [...] documented as of this encounter Care Teams Manager Of Care Relationship Specialty Start Date End Date Caryn Guevara APRN [address] [place] [address] PCP - General 09/09/24 documented as of this encounter
[2024-12-15 11:42] LABS: Basophils # 0.1 K/mm3 (0-0.2); Basophils % 0.7 % (0.1-2.0); Eosinophils # 0.2 Kmm3 (0.0-0.4); Eosinophils % 2.6 % (0.1-12.0); Hematocrit 37.2 % (37.0-47.0); Hemoglobin 11.9 g/dL (12.2-16.2); Immature Granulocytes # 0.02 10^3uL; Immature Granulocytes % 0.3 %; Lymphocytes # 1.5 K/mm3 (0.7-4.5); Lymphocytes % 21.2 % (10-50); Mean Corpuscular Hemoglobin 28.7 pg (27.0-31.2); Mean Corpuscular Volume 89.6 fl (81-99); Mean Platelet Volume 9.4 fl (7.4-10.4); Monocytes # 0.6 K/mm3 (0.1-1.0); Monocytes % 8.5 % (1.7-9.3); Neutrophils # 4.6 K/mm3 (1.8-7.8); Neutrophils % 66.7 % (37.0-80.0); Nucleated Red Blood Cells # 0 10^3/uL; Nucleated Red Blood Cells % 0 %; Platelet Count 294 K/mm3 (142-424); Red Blood Count 4.15 M/mm3 (4.20-5.40); Red Cell Distribution Width 15.1 % (11.5-17.5); Reticulocyte % (Auto) 2.1 % (0.9-3.2); White Blood Count 6.9 K/mm3 (4.8-10.8)
[2024-12-15 12:06] LABS: Lactate Dehydrogenase 266 U/L (313-618)
[2024-12-15 12:50] LABS: Iron 61 ug/dL (37-170)
[2024-12-15 12:57] LABS: Vitamin B12 462 pg/mL (239-931)
[2024-12-15 12:59] LABS: Total Iron Binding Capacity 365 ug/dL (265-497)
[2024-12-15 13:26] LABS: Ferritin 70.4 ng/ml (11.1-264)
[2024-12-16 11:33] LABS: Haptoglobin 123 mg/dL (37-355)
== END 2024-12-15 23:59 | disposition home or self-care (01) ==
LOC: LAB 10:12
PROVIDERS: PCP Nurse Practitioner Family; Visit Provider Internal Medicine Medical Oncology
DX: D64.9 Anemia, unspecified (principal)
CPT/HCPCS: 36415; 82607; 82728; 82746; 83010; 83540; 83550; 83615; 85025; 85044; 86880

== ENCOUNTER 2024-12-30 14:31 | Outpatient (CLI) | payer MEDICARE, SELFPAY ==
--- NOTE | 2024-12-30 14:30 | CA_ITS ---
FINAL REPORT TECHNIQUE: extremity venous duplex was performed with augmentation and compression. CLINICAL HISTORY: Left lower extremity edema FINDINGS: Proper flow is seen throughout the deep venous system. There is no evidence of deep venous thrombosis. IMPRESSION: No evidence of left lower extremity deep venous thrombosis or SVT. Reviewed, Interpreted and Dictated by Kan Farris MD Transcribed by Melvi White Authenticated and [facility]
--- OUTSIDE RECORDS SUMMARY | 2024-12-30 14:35 | XMS_ITS | Encounter Summary ---
Author Organization Healthcare Address [address] [place] [address] Care Team Providers Care Silverware Washer Name Role Phone Catalino Zuñiga MD Primary Care Provider Caryn Robertson APRN Primary Care Provider [phone] Encounter Details Date Type Department Care Team (Late st Contact Info) Description 02/19/2023 Ophth Exam [facility] [address] [place] [address] Raymon Abel MD [address] [place], [place] [id number] Social History Tobacco Use Types Packs/Day Years [...] 6. Suicidal Behavior (Lifetime) No 3:35 AM APRILT Rossy Glover RN documented as of this encounter Plan of Treatment Upcoming Encounters Date Type Department Care Team (Late st Contact Info) Description 01/13/2025 2:30 PM EDT Office Visit [facility] [place] [address] [facility] [place] [address] Patrice Gómez MD [address] [place] [address] documented as of this encounter Visit Diagnoses Not on filedocumented in this encounter Care Teams Silverware Washer Relationship Specialty Start Date End Date Catalino Zuñiga MD PCP - General Family Medicine 02/19/23 09/08/24 Caryn Guevara APRN [address] [place] [address] PCP - General 09/09/24 documented as of this encounter
--- OUTSIDE RECORDS SUMMARY | 2024-12-30 14:35 | XMS_ITS | Clinical Summary ---
Author Organization [facility] Address [address] [place] [address] Phone Care Team Providers Care Rubber Tile Floor Layer Name Role Phone Unavailable Primary Care Provider [...] Impressions 06/06/2017 7:19 AM EST : Negative ([id number]) ~ RECOMMENDATION: Routine screening mammogram in 1 [...] the most recent being outside studies from [facility] dated 06-21-16, 05-30-15 and 04-20-14. ~ Lory Rahman APRN IMG MAMMOGRAPHY ORDERABLES Final Result from Last 3 Months or Most Recently Relevant to Health Maintenance Insurance [facility] [id number]
--- OUTSIDE RECORDS SUMMARY | 2024-12-30 14:35 | XMS_ITS | Encounter Summary ---
Author Organization [employer] ([place], [place], [place], [place]) Address [address] [place] [address] Care Team Providers Care Lokie Engineer Name Role Phone Catalino Zuñiga MD Primary Care Provider [phone] Reason for Referral * Other (Routine) - Closed Specialty Diagnoses / Procedures Referred By Contac t Referred To Contact Diagnoses Essential hypertension Procedures ECG 12 lead Devan Horner MD [address] [place] [address] [place] [address] Phone: tel: fax: Referral ID Status Reason Start Date Expiration Date Visits Re quested Visits Authorized [id number] Closed 05/06/2023 11/02/2023 1 1 * Diagnostic X-Ray (Routine) - Closed Specialty Diagnoses / Procedures Referred By Contorlando fontanez Referred To Contact Diagnoses Essential hypertension Procedures XR chest 2 views Devan Horner MD [address] [place] [address] [address] [place] [address] Phone: tel: fax: Referral ID Status Reason Start Date Expiration Date Visits Re quested Visits Authorized [id number] Closed 05/06/2023 11/02/2023 1 1 Encounter Details Date Type Department Care Team (Late st Contact Info) Description 05/06/2023 Surgery [facility] BENEFITS ANALYST Surgery [address] [place] [id number] Devan Horner MD [address] [place] [address] [place] [address] [place] [address] Incompetence of pubocervical tissue (Primary Dx); Essential [...] of Transportation (Non-Medical) Not on file 05/07/2023 Comments No Sex and Gender Information [...] Date/Time Associated Diagnosis Comments TYPE AND SCREEN ([place] B[facility]) Routine 05/06/2023 10:52 AM EST Incompetence of pubocervical tissue documented in this encounter Results * Type and Screen (05/06/2023 10:52 AM EST) ABO/Rh A POSITIVE 05/06/2023 11:07 AM EST [facility] BLOOD [facility] ([place] Antibody Screen NEGATIVE 05/06/2023 11:07 AM EST [facility] BLOOD [facility] [place] HISTCHK HIST CHECK PERFORMED 05/06/2023 11:07 AM EST [facility] ([place]) Blood Venipuncture / Unknown 05/06/2023 10:52 AM EST 05/06/2023 11:04 AM EST us Devan Horner MD [facility] BLOOD BANK TEST ORDERABLES Edited Result - Final [facility] - [facility]LOOD [facility]ANK ([place]) [address] [place] [address], [facility] [phone] * (ABNORMAL) Basic Metabolic Panel (05/06/2023 10:52 AM EST) Sodium 139 136 - 145 meq/L 05/06/2023 11:07 AM [facility] Potassium 4.0 3.5 - 5.1 meq/L 05/06/2023 11:07 AM [facility] Chloride 105 98 - 107 meq/L 05/06/2023 11:07 AM [facility] CO2 29 21 - 32 meq/L 05/06/2023 11:07 AM [facility] Anion Gap 9(L) 05/06/2023 11:07 AM [facility] BUN 8 7 - 18 mg/dL 05/06/2023 11:07 AM [facility] Creatinine 1.01 0.55 - 1.10 mg/dL 05/06/2023 11:07 AM [facility] BUN/Creatinine 8 05/06/2023 11:07 AM [facility] Glucose 108(H) 70 - 99 mg/dL 05/06/2023 11:07 AM [facility] Calcium 9.1 8.5 - 10.1 mg/dL 05/06/2023 11:07 AM [facility] Osmolality Calc 276.4 11:07 AM [facility] eGFR (mL/min/1.73m2) >60 >=60 mL/min/1.7 3m2 05/06/2023 11:07 AM [facility] Comment:eGFR of <60 suggests chronic kidney disease if found over a 3 month period of time. eGFR <15 indicates renal failure. Blood Venipuncture / Unknown 05/06/2023 10:52 AM EST 05/06/2023 10:56 AM EST us Devan Horner MD LAB BLOOD ORDERABLES Final Resu lt [facility] [address] [id number], [facility] [phone] * (ABNORMAL) CBC with automated diff (05/06/2023 10:52 AM EST) WBC 4.7(L) 4.8 - 10.8 K/ L 05/06/2023 11:16 AM [facility] RBC 4.66 3.50 - 5.20 M/ L 05/06/2023 11:16 AM [facility] Hemoglobin 13.5 11.7 - 15.8 GM/DL 05/06/2023 11:16 AM [facility] Hematocrit 41.8 35.0 - 47.0 % 05/06/2023 11:16 AM [facility] MCV 90 81 - 101 fL 05/06/2023 11:16 AM [facility] MCH 29.0 27.0 - 34.0 pg 05/06/2023 11:16 AM [facility] MCHC 32.3 32.0 - 36.0 GM/DL 05/06/2023 11:16 AM [facility] RDW 15.4(H) 11.5 - 14.5 % 05/06/2023 11:16 AM [facility] Platelets 271 150 - 400 K/CU MM 05/06/2023 11:16 AM [facility] MPV 9.7 9.4 - 12.4 fL 05/06/2023 11:16 AM [facility] Nucleated Red Blood Cell 0.0 0 - 0.2 % 05/06/2023 11:16 AM [facility] % Neutros 52 37 - 80 % 05/06/2023 11:16 AM [facility] % Lymphs 30 10 - 50 % 05/06/2023 11:16 AM [facility] % Monos 12 5 - 13 % 05/06/2023 11:16 AM EST [facility] % Eos 5 0 - 7 % 05/06/2023 11:16 AM [facility] % Baso 1 0 - 3 % 05/06/2023 11:16 AM [facility] NRBC Absolute 0.00 0 - 0.12 K/ul 05/06/2023 11:16 AM [facility] # Neutros 2.46 2.00 - 6.90 K/ L 05/06/2023 11:16 AM [facility] # Lymphs 1.41 0.60 - 3.40 K/ L 05/06/2023 11:16 AM [facility] # Monos 0.55 0.00 - 0.90 K/ L 05/06/2023 11:16 AM [facility] # Eos 0.25 0.00 - 0.70 K/ L 05/06/2023 11:16 AM [facility] # Baso 0.04 0.00 - 0.20 K/ L 05/06/2023 11:16 AM [facility] Immature Granulocytes-Re lative 0.20(H) 0.00 - 0.00 % 05/06/2023 11:16 AM [facility] # IG 0.01(H) 0.00 - 0.00 K/uL 05/06/2023 11:16 AM [facility] Blood Venipuncture / Unknown 05/06/2023 10:52 AM EST 05/06/2023 10:57 AM EST Narrative [facility] - 05/06/2023 11:16 AM EST When [...] MD LAB BLOOD ORDERABLES Final Resu lt [facility] [address] [id number], [facility] [phone] * XR chest 2 views (05/06/2023 10:33 [...] hypertension documented in this encounter Care Teams Lokie Engineer Relationship Specialty Start Date End Date Catalino Zuñiga MD [address] [place] [address] [place] [address] PCP - General Family Medicine 03/07/23 documented as of this encounter
--- OUTSIDE RECORDS SUMMARY | 2024-12-30 14:35 | XMS_ITS | Clinical Summary ---
Author Organization [employer] ([place], [place], [place], [place]) Address [address] [place] [address] Care Team Providers Care Vice President Regulatory Name Role Phone Catalino Zuñiga MD Primary Care Provider [phone]- [phone] Allergies Active Allergy Reactions Criticality Noted Date [...] of Transportation (Non-Medical) Not on file 05/07/2023 Food Insecurity Answer Date Recorded Food run [...] Date James rded Speak language other than French at home Not on file 07/18/2023 Want help with school or training Not on file 07/18/2023 Substance Use Answer Date Recorded Used [...] Medicare Initial AWV [id number] 12/31/2023 COVID-19 VACCINE (6 - 2023-2 5 season) 2024 03/20/2022, 01/19/2022, 03/02/2021, Additional history exists Tobacco Cessation Counseling and Screening (12+) 05/07/2024 05/07/2023 Falls Risk Screening 07/01/2024 Influenza Vaccine (Season Ended) 2025 04/16/2023, 03/22/2021, 04/22/2020, Additional history exists Respiratory Syncytial Virus (RSV) Adult or (1 - 1-dose 75+ series) 2029 Pneumococcal 50+ years Completed 04/29/2023 Insurance [place] [id number] [employer] MED[employer] HMO Advance Directives For more information, please contact: [phone] * Full Code (Latest Code Status on File) Date Activated Date Inactivated Comments 05/07/2023 12:58 PM 05/09/2023 11:38 AM * Full Code Date Activated Date Inactivated Comments 05/07/2023 9:16 AM 05/07/2023 12:58 PM Care Teams Vice President Regulatory Relationship Specialty Start Date End Date Catalino Zuñiga MD [address] [place] [address] PCP - General Family Medicine 03/07/23
--- OUTSIDE RECORDS SUMMARY | 2024-12-30 14:35 | XMS_ITS | Encounter Summary ---
Author Organization [facility] Address [address] [place] [address] Care Team Providers Care Mold Technician Name Role Phone Caryn Guevara BUFFING AND SUEDING MACHINE OPERATOR Primary Care Provider [phone] Encounter Details Date Type Department Care Team (Late st Contact Info) Description 10/12/2024 Lab Requisition [facility] [address] [place] [address] Alberto Ford MD [address] [facility] [address] [place] [address] Encounter for general adult medical [...] any time in the past 12 m [facility], were you homeless or living in a usp (including now)? No 10/12/2024 Utilities Answer Date [...] Description 01/13/2025 2:30 PM EDT Office Visit [facility] [address] [facility] [place] [address] Patrice Gómez MD [address] [place] [address] documented as of this encounter Procedures Procedure Name Priority Date/Time Associated Diagnosis Comments MULTI DRUG RESISTANCE TEST Routine 10/12/2024 Encounter for general adult medical examination without abnormal findings documented in this encounter Results * Multi Drug Resistance Test (10/12/2024) Culture No growth at day 1 10/13/2024 8:58 AM EDT [facility] Swab (Nares and Ayanna Rectal) 10/12/2024 10/12/2024 12:04 PM EDT us Alberto Ford MD LAB MICROBIOLOGY - GEN ERAL ORDERABLES Final Result [facility] [address] [place] [address] documented in this encounter Visit Diagnoses Diagnosis [...] documented as of this encounter Care Teams Mold Technician Relationship Specialty Start Date End Date Caryn Guevara, IVANA [address] [place] [address] PCP - General 09/09/24 documented as of this encounter
--- OUTSIDE RECORDS SUMMARY | 2024-12-30 14:35 | XMS_ITS | Referral Summary ---
Author Organization [employer] ([place], [place], [place], [place]) Address [address] [place] [address] Care Team Providers Care Manager In Training Name Role Phone Catalino Zuñiga MD Primary Care Provider [phone]- [phone] Allergies Active Allergy Reactions Criticality Noted Date [...] Date James rded Speak language other than [place] at home Not on file 07/18/2023 Want [...] Advance Directives For more information, please contact: [phone] * Full Code (Latest Code Status on File) Date Activated Date Inactivated Comments 05/07/2023 12:58 PM 05/09/2023 11:38 AM * Full Code Date Activated Date Inactivated Comments 05/07/2023 9:16 AM 05/07/2023 12:58 PM Care Teams Manager In Training Relationship Specialty Start Date End Date Catalino Zuñiga MD [address] [place] [address] PCP - General Family Medicine 03/07/23
--- OUTSIDE RECORDS SUMMARY | 2024-12-30 14:36 | XMS_ITS | Clinical Summary ---
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 [place] [address] Patrice Gómez MD 10/21/2024 2:11 PM EDT - 10/21/2024 11:59 PM EDT Hospital Encounter Cardiac Imaging [address] [place] [address] Pacemaker Discharge Disposition: Home or Self Care 10/21/2024 Travel 10/14/2024 Telephone Cardiac Imaging [address] [place] [address] Estrella Danya 10/13/2024 Travel 10/12/2024 12:45 PM EDT Anesthesia Event Cardiac Rn Documentation [address] [place] [id number] Yeison Love MD Ash, Emily L, CRNA, [facility] 10/12/2024 11:42 AM EDT - 10/12/2024 1:42 PM EDT Surgery Cardiac Rn Documentation [address] [place] [address] Patrice Gómez MD Pacemaker (Multi) Insertion [[id number] (CPT )] 10/12/2024 Lab Requisition [facility] [address] [place] [address] Alberto Ford MD Encounter for general adult medical examination without abnormal findings 10/11/2024 Travel 10/09/2024 10:30 AM EDT - 10/09/2024 12:30 PM EDT Surgery Cardiac Rn Documentation [address] [place] [address] Patrice Gómez MD Septal Ablation w/Alcohol and Temporary Pacemaker Insertion [[id number] (CPT )] 10/09/2024 8:44 AM EDT - 10/13/2024 3:12 PM EDT Hospital Encounter [facility] A Inpatient [address] [place] [address] Patrice Gómez MD Haigh, Peter J, MD HOCM (hypertrophic obstructive cardiomyopathy) ([facility]) Discharge Disposition: Home or Self Care 10/09/2024 Travel from Last 3 Months Immunizations Immunization [...] any time in the past 12 m [facility], were you homeless or living in a fpc (including now)? No 10/12/2024 Utilities Answer Date [...] Description 01/13/2025 2:30 PM EDT Office Visit [facility] [place] [facility] [address] [place] [address] Patrice Gómez MD [address] [place] [address] Health Maintenance Due Date Last Done Comments [facility]-Bone Density Scan 1954 [facility]-Hepatitis C Screening 1954 [facility]-Medicare Annual Wellness (AWV) 1955 [facility]-Infant/Child/Adol SDOH Screenings 1954 CT Colonography 1999 Colonoscopy 1999 FIT-DNA 1999 FIT 1999 FOBT 1999 Sigmoidoscopy 1999 [facility]-Colorectal Cancer Screening 1999 [facility]-Breast Cancer Screening 06/01/2019 06/01/2017 [id number] Vaccine ( season) 2024 03/20/2022, 01/19/2022, 03/02/2021, Additional history exists [facility]-Influenza Vaccine (#1) 03/01/202504/09, 04/16/2023, 05/08/2022, Additional history exists [facility]- SDOH Screenings 04/13/2025 [facility]-Adult SDOH Screenings 04/13/2025 10/12/2024 [facility]-Depression Screening 09/09/2025 09/09/2024, 08/29 [facility]-DTaP,Tdap,and Td Vaccines (3 - Td or Tdap) 07/15/2034 07/15/2024, 03/15/2010, 03/20/1999 [facility]-Pneumococcal Vaccine: 50+ Years Completed 04/29/2023 [facility]-RSV Vaccine: 60+ Years or Completed 04/09/2024 [...] this topic Medical Devices Implanted Type Area Plaster Molder Device Identifier Shelf Expiration Date Model / Serial / Lot Pacemaker Icd [address] - [id number] Implanted:Qty: 1 on 10/12/2024 by Patrice Gómez MD at [facility] [employer] [facility]-[id number] 05/30/2026 [id number] / [id number] / [id number] Lead Pacing Ultipace 52cm - [id number] Implanted:Qty: 1 on 10/12/2024 by Patrice Gómez MD at [facility] [employer] [facility]-[id number] 07/31/2027 [id number] / [id number] / [id number] Lead Defib Durata Sj4 [id number]/65 - [id number] Implanted:Qty: 1 on 10/12/2024 by Patrice Gómez MD at [facility] [employer] [facility]-[id number] 06/30/2027 [id number]/65 / [id number] / [id number] Procedures Procedure Name Priority Date/Time Associated Diagnosis [...] AM EDT URINE MARQUEZ PANEL Routine 10/11/2024 9:02 AM EDT URINALYSIS WITH REFLEX MICROSCOPIC Routine [...] UNSOLICITED RESULTS Routine 10/09/2024 9:24 AM EDT from Last 3 Months Results * Cardiac [...] of2 resultswithin the time period is included. Pathologist [facility] WBC Count 7.93 3.70 - 10.30 10*3/uL LAB HEMATOLOGY METHOD 10/12/2024 8:55 AM EDT [facility] RBC Count 4.27 3.90 - 5.20 10*6/uL LAB HEMATOLOGY METHOD 10/12/2024 8:55 AM EDT [facility] HGB 12.5 11.2 - 15.7 g/dL LAB HEMATOLOGY METHOD 10/12/2024 8:55 AM EDT [facility] HCT 38.1 34.0 - 45.0 % LAB HEMATOLOGY METHOD 10/12/2024 8:55 AM EDT [facility] Platelet Count 251 155 - 369 10*3/uL LAB HEMATOLOGY METHOD 10/12/2024 8:55 AM EDT [facility] MCV 89 79 - 98 fL LAB HEMATOLOGY METHOD 10/12/2024 8:55 AM EDT [facility] MCH 29.3 26.0 - 32.0 pg LAB HEMATOLOGY METHOD 10/12/2024 8:55 AM EDT [facility] MCHC 32.8 30.7 - 35.5 g/dL LAB HEMATOLOGY METHOD 10/12/2024 8:55 AM EDT [facility] RDW 15.1(H) 11.5 - 14.5 % LAB HEMATOLOGY METHOD 10/12/2024 8:55 AM EDT [facility] MPV 9.6 8.8 - 12.5 fL LAB HEMATOLOGY METHOD 10/12/2024 8:55 AM EDT [facility] nRBC 0.0 <=0.0 per 100 WBCs LAB HEMATOLOGY METHOD 10/12/2024 8:55 AM EDT [facility] Differential Type Automated LAB HEMATOLOGY METHOD 10/12/2024 8:55 AM EDT [facility] Neutrophils % 63 % LAB HEMATOLOGY METHOD 10/12/2024 8:55 AM EDT [facility] Lymphocytes % 22 % LAB HEMATOLOGY METHOD 10/12/2024 8:55 AM EDT [facility] Monocytes % 11 % LAB HEMATOLOGY METHOD 10/12/2024 8:55 AM EDT [facility] Eosinophils % 3 % LAB HEMATOLOGY METHOD 10/12/2024 8:55 AM EDT [facility] Basophils % 1 % LAB HEMATOLOGY METHOD 10/12/2024 8:55 AM EDT [facility] Immature Granulocytes % 0 % LAB HEMATOLOGY METHOD 10/12/2024 8:55 AM EDT [facility] Neutrophils Absolute 4.99 1.60 - 6.10 10*3/uL LAB HEMATOLOGY METHOD 10/12/2024 8:55 AM EDT [facility] Lymphocytes Absolute 1.74 1.20 - 3.90 10*3/uL LAB HEMATOLOGY METHOD 10/12/2024 8:55 AM EDT [facility] Monocytes Absolute 0.89 0.30 - 0.90 10*3/uL LAB HEMATOLOGY METHOD 10/12/2024 8:55 AM EDT [facility] Eosinophils Absolute 0.24 0.00 - 0.50 10*3/uL LAB HEMATOLOGY METHOD 10/12/2024 8:55 AM EDT [facility] Basophils Absolute 0.04 0.00 - 0.10 10*3/uL LAB HEMATOLOGY METHOD 10/12/2024 8:55 AM EDT [facility] Immature Granulocytes Absolute 0.03 0.00 - 0.06 10*3/uL LAB HEMATOLOGY METHOD 10/12/2024 8:55 AM EDT [facility] Blood Venous blood specimen / Unknown Venipuncture / Unknown 10/12/2024 8:30 AM EDT 10/12/2024 8:46 AM EDT Narrative [facility] - 10/12/2024 8:55 AM EDT Therapeutic decision making should be based on absolute values, rather than percentages. us Rick Verdin MD LAB BLOOD ORDERABLES Final Resu lt [facility] [address] [place] [address] * (ABNORMAL) Basic Metabolic Panel, Plasma (10/12/2024 8:30 AM EDT) Only the most recent of3 resultswithin the time period is included. Glucose, Plasma 108(H) 74 - 99 mg/dL 10/12/2024 9:16 AM EDT [facility] BUN, Plasma 11 8 - 23 mg/dL 10/12/2024 9:16 AM EDT [facility] Creatinine, Plasma 0.72 0.60 - 1.10 mg/dL 10/12/2024 9:16 AM EDT [facility] BUN/Creatinine Ratio 15 10/12/2024 9:16 AM EDT [facility] Sodium, Plasma 138 136 - 145 mmol/L 10/12/2024 9:16 AM EDT [facility] Potassium, Plasma 4.1 3.6 - 4.9 mmol/L 10/12/2024 9:16 AM EDT [facility] Chloride, Plasma 105 97 - 107 mmol/L 10/12/2024 9:16 AM EDT [facility] CO2, Plasma 23 22 - 29 mmol/L 10/12/2024 9:16 AM EDT [facility] Anion Gap 10 6 - 16 mmol/L 10/12/2024 9:16 AM EDT [facility] Total Calcium, Plasma 8.8(L) 8.9 - 10.2 mg/dL 10/12/2024 9:16 AM EDT [facility] eGFRcr 90.1 mL/min/1.7 3m*2 10/12/2024 9:16 AM EDT [facility] Comment:Reported eGFRcr in m L/min/1.73m2 is based the CKD-EPI 2020 equation that does not use a race coefficient. Blood Venous blood specimen / Unknown Venipuncture / Unknown 10/12/2024 8:30 AM EDT 10/12/2024 8:45 AM EDT us Rick Verdin MD LAB BLOOD ORDERABLES Final Resu lt Performing Organization Address City/[facility]/ZIP Co de Phone Number [facility] [address] [place] [address] * Multi Drug Resistance Test (10/12/2024) Only the most recent of2 resultswithin the time period is included. Culture No growth at day 1 10/13/2024 8:58 AM EDT [facility] Swab (Nares and Ayanna Rectal) 10/12/2024 10/12/2024 12:04 PM EDT us Alberto Ford MD LAB MICROBIOLOGY - GEN ERAL ORDERABLES Final Result Performing Organization Address City/[facility]/ZIP Co de Phone Number [facility] [address] [place] [address] * Blood Culture (Aerobic/Anaerobet Set) (10/11/2024 9:03 AM EDT) Only the most recent of2 resultswithin the time period is included. [facility] Culture No growth at day 5 ADAL 10/16/2024 11:02 AM EDT [facility] Blood Structure of left hand / Unknown Venipuncture / Unknown 10/11/2024 9:03 AM EDT 10/11/2024 9:49 AM EDT Rick Verdin MD LAB MICROBIOLOGY - [facility]AL [facility]DE [facility] Final Result Performing Organization Address City/[facility]/ZIP Co de Phone Number [facility] [address] [place] [address] * Magnesium, Plasma (10/11/2024 9:03 AM EDT) Only the most recent of2 resultswithin the time period is included. [facility] Magnesium, Plasma 2.3 1.9 - 2.4 mg/dL 10/11/2024 9:46 AM EDT [facility] Blood Venous blood specimen / Unknown Venipuncture / Unknown 10/11/2024 9:03 AM EDT 10/11/2024 9:17 AM EDT us Rick Verdin MD LAB BLOOD ORDERABLES Final Resu lt [facility] [address] [place] [address] * (ABNORMAL) Comprehensive Metabolic Panel, Plasma (10/11/2024 9:03 AM EDT) Glucose, Plasma 113(H) 74 - 99 mg/dL 10/11/2024 9:46 AM EDT [facility] BUN, Plasma 12 8 - 23 mg/dL 10/11/2024 9:46 AM EDT [facility] Creatinine, Plasma 0.77 0.60 - 1.10 mg/dL 10/11/2024 9:46 AM EDT [facility] BUN/Creatinine Ratio 16 10/11/2024 9:46 AM EDT [facility] Sodium, Plasma 139 136 - 145 mmol/L 10/11/2024 9:46 AM EDT [facility] Potassium, Plasma 3.8 3.6 - 4.9 mmol/L 10/11/2024 9:46 AM EDT [facility] Chloride, Plasma 105 97 - 107 mmol/L 10/11/2024 9:46 AM EDT [facility] CO2, Plasma 23 22 - 29 mmol/L 10/11/2024 9:46 AM EDT [facility] Anion Gap 11 6 - 16 mmol/L 10/11/2024 9:46 AM EDT [facility] Total Calcium, Plasma 8.4(L) 8.9 - 10.2 mg/dL 10/11/2024 9:46 AM EDT [facility] Total Protein 6.6 6.3 - 7.9 g/dL 10/11/2024 9:46 AM EDT [facility] Albumin, Plasma 3.8 3.5 - 5.2 g/dL 10/11/2024 9:46 AM EDT [facility] AST, Plasma 104(H) 10 - 35 U/L 10/11/2024 9:46 AM EDT [facility] ALT, Plasma 23 10 - 35 U/L 10/11/2024 9:46 AM EDT [facility] Alkaline Phosphatase, Plasma 95 46 - 142 U/L 10/11/2024 9:46 AM EDT [facility] Total Bilirubin, Plasma 1.0 0.2 - 1.1 mg/dL 10/11/2024 9:46 AM EDT [facility] eGFRcr 83.1 mL/min/1.7 3m*2 10/11/2024 9:46 AM EDT [facility] Comment:Reported eGFRcr in m L/min/1.73m2 is based the CKD-EPI 2020 equation that does not use a race coefficient. Blood Venous blood specimen / Unknown Venipuncture / Unknown 10/11/2024 9:03 AM EDT 10/11/2024 9:17 AM EDT us Rick Verdin MD LAB BLOOD ORDERABLES Final Resu lt Performing Organization Address [facility] Co de Phone Number [facility] [address] [place] [address] * Urine Marquez Panel (10/11/2024 9:02 AM EDT) Extra Reflex urine culture not indicated 10/11/2024 11:01 AM EDT [facility] Urine Urine specimen obtained by clean catch procedure / Unknown Non-blood Collection / Unknown 10/11/2024 9:02 AM EDT 10/11/2024 9:47 AM EDT us Rick Verdin MD LAB URINE ORDERABLES Final Resu lt Performing Organization Address [facility] Co de Phone Number [facility] [address] [place] [address] * Urinalysis Microscopic Examination (10/11/2024 9:02 AM EDT) Urine Urine specimen obtained by clean catch procedure / Unknown Non-blood Collection / Unknown 10/11/2024 9:02 AM EDT 10/11/2024 9:17 AM EDT us Rick Verdin MD LAB URINE ORDERABLES Final Resu lt Performing Organization Address [facility] de Phone Number [facility] [address] [place] [address] * (ABNORMAL) Urinalysis with reflex microscopic (Culture NOT Included) (10/11/2024 9:02 AM EDT) Color, Urine Yellow LAB URINALYSIS - AUTOMATED METHOD 10/11/2024 9:30 AM EDT [facility] Clarity, Urine Clear LAB URINALYSIS - AUTOMATED METHOD 10/11/2024 9:30 AM EDT [facility] Spec [place], Urine 1.027 1.005 - 1.030 LAB URINALYSIS - AUTOMATED METHOD 10/11/2024 9:30 AM EDT [facility] pH, Urine 5.5 5.0 - 8.0 LAB URINALYSIS - AUTOMATED METHOD 10/11/2024 9:30 AM EDT [facility] Protein, Urine Trace(A) Negative mg/dL LAB URINALYSIS - AUTOMATED METHOD 10/11/2024 9:30 AM EDT [facility] Glucose, Urine Negative Negative mg/dL LAB URINALYSIS - AUTOMATED METHOD 10/11/2024 9:30 AM EDT [facility] Ketones, Urine Trace(A) Negative mg/dL LAB URINALYSIS - AUTOMATED METHOD 10/11/2024 9:30 AM EDT [facility] Blood, Urine Large(A) Negative LAB URINALYSIS - AUTOMATED METHOD 10/11/2024 9:30 AM EDT [facility] Bilirubin, Urine Negative Negative LAB URINALYSIS - AUTOMATED METHOD 10/11/2024 9:30 AM EDT [facility] Urobilinogen, Urine 1.0 0.2 to 1.0 mg/dL LAB URINALYSIS - AUTOMATED METHOD 10/11/2024 9:30 AM EDT [facility] Leukocytes, Urine Small(A) Negative LAB URINALYSIS - AUTOMATED METHOD 10/11/2024 9:30 AM EDT [facility] Nitrite, Urine Negative Negative LAB URINALYSIS - AUTOMATED METHOD 10/11/2024 9:30 AM EDT [facility] RBC, Urine 31 - 50(A) 0 to 3 /HPF LAB URINALYSIS - AUTOMATED METHOD 10/11/2024 9:30 AM EDT [facility] WBC, Urine 6 - 10(A) 0 to 5 /HPF LAB URINALYSIS - AUTOMATED METHOD 10/11/2024 9:30 AM T [facility] Squamous Epithelial Cells 0 - 2 0 to 5 /HPF LAB URINALYSIS - AUTOMATED METHOD 10/11/2024 9:30 AM EDT [facility] Hyaline Casts 0 - 2 0 to 5 /LPF LAB URINALYSIS - AUTOMATED METHOD 10/11/2024 9:30 AM EDT [facility] Bacteria, Urine Negative Negative LAB URINALYSIS - AUTOMATED METHOD 10/11/2024 9:30 AM T [facility] Urine Urine specimen obtained by clean catch procedure / Unknown Non-blood Collection / Unknown 10/11/2024 9:02 AM EDT 10/11/2024 9:17 AM EDT us Rick Verdin MD LAB URINE ORDERABLES Final Resu lt [facility] [address] [place] [address] * (ABNORMAL) CBC W/O Differential (10/10/2024 1:28 AM EDT) Only the most recent of2 resultswithin the time period is included. WBC Count 10.11 3.70 - 10.30 10*3/uL LAB HEMATOLOGY METHOD 10/10/2024 1:43 AM EDT [facility] RBC Count 3.90 3.90 - 5.20 10*6/uL LAB HEMATOLOGY METHOD 10/10/2024 1:43 AM EDT [facility] HGB 11.3 11.2 - 15.7 g/dL LAB HEMATOLOGY METHOD 10/10/2024 1:43 AM EDT [facility] HCT 35.1 34.0 - 45.0 % LAB HEMATOLOGY METHOD 10/10/2024 1:43 AM EDT [facility] Platelet Count 283 155 - 369 10*3/uL LAB HEMATOLOGY METHOD 10/10/2024 1:43 AM EDT [facility] MCV 90 79 - 98 fL LAB HEMATOLOGY METHOD 10/10/2024 1:43 AM EDT [facility] MCH 29.0 26.0 - 32.0 pg LAB HEMATOLOGY METHOD 10/10/2024 1:43 AM EDT [facility] MCHC 32.2 30.7 - 35.5 g/dL LAB HEMATOLOGY METHOD 10/10/2024 1:43 AM EDT [facility] RDW 15.2(H) 11.5 - 14.5 % LAB HEMATOLOGY METHOD 10/10/2024 1:43 AM EDT [facility] MPV 9.7 8.8 - 12.5 fL LAB HEMATOLOGY METHOD 10/10/2024 1:43 AM EDT [facility] nRBC 0.0 <=0.0 per 100 WBCs LAB HEMATOLOGY METHOD 10/10/2024 1:43 AM EDT [facility] Blood Venous blood specimen / Unknown Venipuncture / Unknown 10/10/2024 1:28 AM EDT 10/10/2024 1:33 AM EDT us Rick Verdin MD LAB BLOOD ORDERABLES Final Resu lt [facility] [address] [place] [address] * ECG Adult (10/09/2024 5:53 PM EDT) EKG DIAGNOSIS CLASS Abnormal MUSE ECG Ventricular Rate 80 BPM MUSE ECG Atrial Rate 79 BPM MUSE ECG QRSD Interval 176 ms MUSE ECG QT Interval 488 ms MUSE ECG QTC Interval 562 ms MUSE ECG R Pel[place] -80 degrees MUSE ECG T Wave Pelican 101 degrees MUSE ECG Diagnosis Ventricular-p aced rhythm MUSE ECG Diagnosis Abnormal ECG MUSE ECG Diagnosis MUSE ECG Diagnosis Confirmed by Valente Evans ([id number]) on 10/10/2024 7:32:03 PM MUSE ECG 10/09/2024 5:53 PM EDT 10/10/2024 7:32 PM EDT us Rick Verdin MD ECG ORDERABLES Final Result Performing Organization Address City/[facility]/ZIP Co de Phone Number MUSE ECG * SEPTAL ABLATION W/ALCOHOL AND [...] Selective coronary arteriography was performed using 6 Greek FR4 catheters. Diffuse noncritical coronary artery disease was identified. A temporary transvenous pacing catheter was placed via the left common femoral vein. A 10 Greek intracardiac echo (ICE) catheter was inserted. Transseptal [...] PVC) were recorded. A large 1st septal department chairperson artery was accessed with a 6 Greek EBU 3.5 guide catheter, a 0.014 in [...] LAB COAGULATION METHOD 10/09/2024 4:51 PM EDT [facility] Blood Venous blood specimen / Unknown Venipuncture / Unknown 10/09/2024 4:02 PM EDT 10/09/2024 4:11 PM EDT us Rick Verdin MD LAB BLOOD ORDERABLES Final Resu lt [facility] [address] [place] [address] * Protime-INR (10/09/2024 4:02 PM EDT) Prothrombin Time 14.1 12.0 - 14.3 sec LAB COAGULATION METHOD 10/09/2024 4:51 PM EDT [facility] INR 1.1 0.9 - 1.1 LAB COAGULATION METHOD 10/09/2024 4:51 PM EDT [facility] Blood Venous blood specimen / Unknown Venipuncture / Unknown 10/09/2024 4:02 PM EDT 10/09/2024 4:11 PM EDT Narrative [facility] - 10/09/2024 4:51 PM EDT OPTIMAL INR RANGES FOR PATIENT ON ORAL ANTICOAGULANT THERAPY Prevention of venous thromboembolism INR 2.0 to 3.0 In patients with heart disease: Atrial fibrillation INR 2.0 to 3.0 Valvular heart disease INR 2.0 to 3.0 Tissue heart valves INR 2.0 to 3.0 Mechanical prosthetic valves INR 2.5 to 3.5 Prevention of recurrent [place] INR 2.5 to 3.5 Rick Verdin MD LAB BLOOD ORDERABLES Final Resu lt Performing Organization Address [facility] [place] [address] * Gricelda auris Surveillance by PCR (10/09/2024 3:57 PM EDT) Pathologist [facility] Gricelda auris PCR Result Not Detected Not Detected 10/11/2024 7:[address] [facility] Swab (Axilla and Groin) Non-blood Collection / Unknown 10/09/2024 3:57 PM EDT 10/09/2024 4:24 PM EDT Narrative [facility] - 10/11/2024 7:06 AM EDT This PCR assay was developed and its performance characteristics determined by [facility] as appropriate for clinical purposes. This assay has not been cleared or approved by the FDA, but is performed in a CLIA regulated laboratory that is qualified to perform high-complexity testing. Rick eVrdin MD LAB MICROBIOLOGY - GENERAL ORDE [facility] Final Result Performing Organization Address [facility] [place] [address] * ECHO, ADULT TRANSTHORACIC LIMITED W/ CONTRAST (10/09/2024 1:50 PM EDT) Pathologist [facility] BSA 2.17 m2 HARSH ISCV Height 172.7 [...] * POCT ACT (10/09/2024 12:59 PM EDT) ACT (Low Range) 289 65 - 400 seconds 10/13/2024 11:34 AM EDT [facility] Kindergarten Instructional Assistant ID Bala Wilson 10/13/2024 11:34 AM EDT HEALTHCARE LAB ACT Device ID [id number] 10/13/2024 11:34 AM EDT [facility]ALTH[facility]ARE [facility] Comment 10/13/2024 11:34 AM EDT [facility] Comment: ACT performed by staff at [...] 12:59 PM EDT 10/13/2024 11:34 AM EDT Patrice Gómez MD LAB POINT OF CARE TE ST DOCKED DEVICE UNSOLICITED RESULTS Final Result Performing Organization Address City/State/[facility] Co de Phone Number [facility] [address] LAB [address] [place] [address] * POCT creatinine (10/09/2024 9:24 AM EDT) Creatinine, Point of Care 1.0 0.6 - 1.1 mg/dL 10/09/2024 9:28 AM EDT [facility] POCT eGFR 61 mL/min/1. 73m*2 10/09/2024 9:28 AM EDT [facility] Kindergarten Instructional Assistant ID Elizabeth Putnam 10/09/2024 9:28 AM EDT [facility] Device ID [id number] 10/09/2024 9:28 AM EDT [facility] Comment 10/09/2024 9:28 AM EDT [facility] Comment:Testing performed on i-STAT at the point of care. Reported eGFRcr in mL/min/1.73m2 is based the CKD-EPI 2020 equation that does not use a race coefficient. Blood Venous blood specimen / Unknown 10/09/2024 9:24 AM EDT 10/09/2024 9:28 AM EDT us Patrice Gómez MD LAB POINT OF CARE TE ST DOCKED DEVICE UNSOLICITED RESULTS Final Result [facility] [address] [place], [place] [id number] [place] [address] LAB [address] [place] [address] from Last 3 Months Insurance [facility] MEDICARE Advance Directives * Full Code (Latest Code Status on File) Date Activated Date Inactivated Comments 10/09/2024 1:49 PM 10/13/2024 5:12 PM Care Teams [employer] Relationship Specialty Start Date End Date Caryn Guevara APRN [address] [place] [address] PCP - General 09/09/24
--- OUTSIDE RECORDS SUMMARY | 2024-12-30 14:36 | XMS_ITS | Encounter Summary ---
Author Organization Healthcare Address [address] [place] [address] Care Team Providers Care Table Maker Name Role Phone Caryn Guevara IVANA Primary Care Provider [phone] Reason for Visit * Reason Onset Date Comments Med Refill 11/11/2024 Encounter Details Date Type Department Care Team (Late st Contact Info) Description 11/11/2024 Refill [facility] [place] [address] [facility] [place] [address] Patrice Gómez MD [address] [place] [id number] Social History Tobacco Use Types Packs/Day Years [...] any time in the past 12 m [facility], were you homeless or living in a penitentiary (including now)? No 10/12/2024 Utilities Answer Date [...] Description 01/13/2025 2:30 PM EDT Office Visit [facility] [place] [address] [facility] [address] [facility] [place] [address] Patrice Gómez MD [address] [place] [address] documented as of this encounter Visit Diagnoses [...] documented as of this encounter Care Teams Table Maker Relationship Specialty Start Date End Date Caryn Guevara APRN [address] [place] [address] PCP - General 09/09/24 documented as of this encounter
== END 2024-12-30 23:59 | disposition home or self-care (01) ==
LOC: RT 14:32
PROVIDERS: PCP Nurse Practitioner Family; Visit Provider Internal Medicine
DX: I42.1 Obstructive hypertrophic cardiomyopathy (principal); I10 Essential (primary) hypertension; I48.0 Paroxysmal atrial fibrillation; E78.2 Mixed hyperlipidemia; R60.0 Localized edema
CPT/HCPCS: 93971

== ENCOUNTER 2025-02-02 16:42 | Emergency (ER) | payer MEDICARE, SELFPAY ==
--- OUTSIDE RECORDS SUMMARY | 2024-10-03 17:30 | XMS_ITS ---
Author Organization [facility] Address [address] [place] [address] Care Team Providers Care Pet Resort Concierge Name Role Phone Charles Hopkins Primary Care [...] Active Encounters Encounter Location Date Provider Diagnosis [facility] [address] [place] [address] 10/03/2024 Provider Migration Plan Of Treatment Medication Medication Name Sig Start Date Stop Date Notes Levothyroxine Sodium 50 MCG 1 tab(s) ora lly once a day; Duration: 30 day(s) Progress Notes * Rebeca BURKETT CDOB:[birth year] (69 yo F)Acc No.[id number]:10/03/2024 Patient: Sterling FEROZLUISRebeca Provider: Leisa pollock Migration :1955 A ge:69 Y S ex:Female Date:10/03/2024 Address:[address] [place] [phone] Pcp:Charles Hopkins Subjective: * Chief Complaints: * [...] Electronic signature of Jay staley Migration on 02/02/2025 at 04:50 PM EDT Sign off status: Pending * Provider: Leisa pollock Migration Date: 0 10/03/2024 Generated for Demetrius kirby/Miya/Drew on: 0 02/02/2025 04:50 PM EDT
--- OUTSIDE RECORDS SUMMARY | 2025-01-13 14:30 | XMS_ITS | Encounter Summary ---
Author Organization Healthcare Address [address] [place] [address] Care Team Providers Care Security Associate Name Role Phone Caryn Guevara IVANA Primary Care Provider [phone] Reason for Visit * Reason Comments Follow-up Encounter Details Date Type Department Care Team (Late st Contact Info) Description 01/13/2025 2:30 PM EDT Office Visit [facility] [place] [address] [facility] [place] [address] Patrice Gómez MD [address] [place] [address] HOCM (hypertrophic obstructive cardiomyopathy) (CMS/HCC) (Primary Dx); AV block, complete (CMS/HCC) Social History Tobacco Use Types Packs/Day Years [...] Date Recorded Patient Health Questionnaire-2 Score 0 01/13/2025 Hunger Vital Sign Answer Date Recorded Within [...] Date Recorded Patient Health Questionnaire-9 Score 0 01/13/2025 Housing Stability Vital Sign Answer Jose e Recorded In the last 12 months, was t here a time when you were not able to pay the mortgage or rent on time? No 10/12/2024 Number of Times Moved in the Last Year Not on fi le 10/12/2024 At any time in the past 12 m [facility], were you homeless or living in a halfway (including now)? No 10/12/2024 Utilities Answer Date [...] on file documented as of this encounter Last Filed Vital Signs Vital Sign Reading Time Taken Comments Blood Pressure 114/71 01/13/2025 2:12 PM EDT Pulse 66 01/13/2025 2:12 PM EDT Temperature - - Respiratory Rate - - Oxygen Saturation 95% 01/13/2025 2:12 PM EDT Inhaled Oxygen Concentration - - Weight 101 kg (223 lb 5.2 oz) 01/13/2025 2:12 PM EDT Height 172.7 cm (5' 8 ) 01/13/2025 2:12 PM EDT Body Mass Index 33.96 01/13/2025 2:12 PM EDT documented in this encounter Functional Status * Over the past 2 weeks, how often have you been bothered by any of the following problems? Question Answer Date of Assessment Author Little interest or pleasure in doing things Not at all 01/13/2025 2:12 PM EDT Avelina Lindsay Feeling down, depressed, or hopeless Not at all 01/13/2025 2:12 PM EDT Avelina Lindsay Patient Health Questionnaire -2 Score 0 01/13/2025 2:12 PM EDT Avelina Lindsay * Question Answer Date of Assessment Author Trouble falling or staying asleep, or sleeping too much Not at all 01/13/2025 2:12 PM EDT Avelina Lindsay Feeling tired or having atif le energy Not at all 01/13/2025 2:12 PM EDT Avelina Lindsay Poor appetite or overeating Not at all 01/13/2025 2: 12 PM EDT Avelina Lindsay Feeling bad about yourself - or that you are a failure or have let yourself or your family down Not at all 01/13/2025 2:12 PM EDT Avelina Davey Trouble concentrating on thi ngs, such as reading the newspaper or watching television Not at all 01/13/2025 2:12 PM EDT Avelina Lindsay Moving or speaking so slowly that other people could have noticed? Or the opposite - being so fidgety or restless that you have been moving around a lot more than usual. Not at all 01/13/2025 2:12 PM Avelina Field Thoughts that you would be better off or hurting yourself in some way Not at all 01/13/2025 2:12 PM EDT Avelina Lindsay Patient Health Questionnaire -9 Score 0 01/13/2025 2:12 PM APRILT Avelina Lindsay * If you checked off any problems on this questionnaire so far, Question Answer Date of Assessment Author How difficult have these problems made it for you to do your work, take care of things at home, or get along with other people? Not difficult at all 01/13/2025 2:12 PM EDT Avelina Lindsay documented as of this encounter Miscellaneous Notes * Patient Instructions - Loreto Serrano APRN - 01/13/2025 2:30 PM EDT Continue aspirin and clopidogrel (Plavix) through 04/10/25. Then, STOP clopidogrel and continue lowdose aspirin 81mg indefinitely. * Progress Notes - Loreto Serrano APRN - 01/13/2025 2:30 PM EDT Images from the original note were not included. Cardiology Clinic Note Date of Visit 01/13/25 Patient Rebeca Armendariz [address] [id number] PCP Caryn Guevara, IVANA SUBJECTIVE History of Present Illness Today Dr. Gómez and I saw Rebeca Armendariz, a 69 y.o. female at the [facility] [place] for follow up after hospitalization. PMH: HOCM s/p alcohol septal ablation 10/09/24 c/b AVB now s/p PPM 10/12/24, HTN, HLD, and GERD. Ms. Armendariz reports that she feels much better since her alcohol septal ablation. She has not experienced chest pain, dyspnea, dizziness/lightheadedness or syncope. She continues to follow closely with Dr. Arteaga in [place] and last saw them last week. He lowered her metoprolol at that time due to reports of fatigue. Problem List[1] Past Medical History Past Medical History[2] Past Surgical History Surgical History[3] Family History Family History[4] Social History Social History[5] Current Medications Current Medications[6] Allergies Allergies[7] The following portions of the chart were reviewed this encounter and updated as appropriate: Tobacco Allergies Meds Problems Med Hx Surg Hx Fam Hx Review of Systems 14 Point ROS reviewed and is otherwise negative except as per HPI. OBJECTIVE Vitals Visit Vitals BP 114/71 Pulse 66 Ht 1.727 m (5' 8 ) Wt 101 kg (223 lb 5.2 oz) SpO2 95% BMI 33.96 kg/m?? Physical Exam Physical Exam Vitals reviewed. Constitutional: General: She is not in acute distress. Appearance: She is obese. HENT: Head: Normocephalic. Neck: Vascular: No carotid bruit. Cardiovascular: Rate and Rhythm: Normal rate and regular rhythm. Pulses: Normal pulses. Heart sounds: S1 normal and S2 normal. No murmur heard. No gallop. Pulmonary: Effort: Pulmonary effort is normal. No respiratory distress. Breath sounds: Normal breath sounds. Musculoskeletal: Right lower leg: No edema. Left lower leg: No edema. Skin: General: Skin is warm and dry. Neurological: Mental Status: She is alert and oriented to person, place, and time. Psychiatric: Mood and Affect: Mood normal. Behavior: Behavior normal. Diagnostics Echo, Adult Transthoracic (TTE) Limited Result Date: 10/09/2024 Pericardium: No pericardial effusion. Device Interrogation Overview [employer]ist: Nichole[employer] Device type: dual chamber pacemaker Device mode: DDD Lower rate: 60 Upper rate: 120 Battery: 8.5 years RA % pacin % Pacin.75 Volts @ 0.5 ms Sensin.1 mV Impedance: 480 Ohms RV % pacin % Pacin.625 Volts @ 0.5 ms Sensing: >12.0 mV Impedance: 500 Ohms Shock impedance: 65 Ohms Charge time: 8 sec Tachy Rx VT1: 150 VT2: 181 VF: 240 Episodes Multiple SVT, longest 5 minutes Changes: Yes Enabled VIP and morphology Notes I personally performed and interpreted the results of this device interrogation with [email or web address] rep. Lab Review Lab Results Component Value Date/Time WBC 7.93 10/12/2024 0830 RBC 4.27 10/12/2024 0830 HGB 12.5 10/12/2024 0830 HCT 38.1 10/12/2024 0830 Lab Results Component Value Date/Time GLUCOSE 108 (H) 10/12/2024 0830 BUN 11 10/12/2024 0830 CREATININE 0.72 10/12/2024 0830 NA 138 10/12/2024 0830 K 4.1 10/12/2024 0830 CL 105 10/12/2024 0830 Lab Results Component Value Date/Time AST 104 (H) 10/11/2024 0903 ALT 23 10/11/2024 0903 ALKPHOS 95 10/11/2024 0903 No results found for: CHOL , LDL , LDLCALC , HDL , TRIG No results found for: HGBA1C No results found for: TSH , FREET4 ASSESSMENT AND PLAN Visit Diagnoses and Orders 1. HOCM (hypertrophic obstructive cardiomyopathy) (CMS/HCC) 2. AV block, complete (CMS/HCC) Discussion Summary The patient's cardiac evaluation was discussed with Dr. Gómez who agrees with the plan. HOCM with LVOT obstruction - s/p alcohol septal ablation 10/09/24 c/b AVB s/p ICD 10/12/24 -CMR 01/2024 revealed EF 69%, asymmetric increase in LVH up to 16 mm in the basal septal wall, TOMMY of MV leaflets with septal contact is present, LVOT obstruction at rest is likely present, no CMR evidence of myocardial scarring, infarction, or necrosis - TTE 10/2024 showed EF 65-70% and no evidence of LVOT obstruction at rest or with Valsalva, chordalSAM and LAE - Negative genetic testing - Continues on metoprolol succinate 25mg - Continue DAPT through 04/10/25, then ASA lifelong - Continue routine follow up with local rodent exterminator AVB - following alcohol septal ablation - s/p dual chamber ICD 10/12/24 - Device interrogated today showing reduced device utilization. [email or web address] rep enable VIP and morphology monitoring - Will transfer remote monitoring to local rodent exterminator LE edema - minimal LE edema noted on exam - Continues on spironolactone 25mg - Advised patient to avoid added salt, elevate legs when possible and wear compression socks - Follow up with local rodent exterminator Continue routine follow up with local cardiology. Follow up with Dr. Dalia QUINTERO. Jessica Serrano APRN I personally spent a total of 35 minutes on this encounter. This time includes face to face with patient, counseling, discussion and/or coordination of care, and documentation. [1] Patient Active Problem List Diagnosis HOCM (hypertrophic obstructive cardiomyopathy) (CMS/HCC) [2] Past Medical History: Diagnosis Date Hypertension [3] History reviewed. No pertinent surgical history. [4] Family History Problem Relation Name Age of Onset Heart disease Father [5] Social History Tobacco Use Smoking status: Never Smokeless tobacco: Never Substance Use Topics Alcohol use: Never Drug use: Never [6] Current Outpatient Medications: ALPRAZolam (Xanax) 0.5 MG tablet, 1 tablet. (Patient taking differently: Take 1 tablet by mouth at night as needed for sleep or anxiety.), Disp: , Rfl: aspirin 81 MG EC tablet, Take 1 tablet by mouth daily., Disp: , Rfl: clopidogrel (Plavix) 75 MG tablet, Take 1 tablet by mouth daily., Disp: 90 tablet, Rfl: 0 estradiol (Estrace) 0.1 MG/GM vaginal cream, Insert 2 g into the vagina daily., Disp: , Rfl: estradiol (Estrace) 1 MG tablet, Take 1 tablet by mouth daily., Disp: , Rfl: fluticasone (Flonase) 50 MCG/ACT nasal spray, SPRAY 1 TIME IN EACH NOSTRIL 1 TIME EACH DAY, Disp: ,Rfl: levothyroxine (Synthroid, Levoxyl) 50 MCG tablet, Take 1 tablet by mouth daily., Disp: , Rfl: losartan (Cozaar) 50 MG tablet, take 1 tablet 1 time each day, Disp: , Rfl: memantine (Namenda) 5 MG tablet, take 1 tablet 2 times each day (Patient taking differently: Take 2tablets by mouth daily.), Disp: , Rfl: metoprolol succinate XL (Toprol-XL) 25 MG 24 hr tablet, Take 1 tablet by mouth daily., Disp: , Rfl: omeprazole (PriLOSEC) [address] capsule, Take 1 capsule by mouth as needed., Disp: , Rfl: rosuvastatin (Crestor) 5 MG tablet, Take 1 tablet by mouth nightly., Disp: , Rfl: spironolactone (Aldactone) 25 MG tablet, Take 1 tablet by mouth. [facility], Disp: , Rfl: traZODone (Desyrel) 50 MG tablet, Take 1 tablet by mouth nightly., Disp: , Rfl: cetirizine (ZyrTEC) 10 MG tablet, Take 1 tablet by mouth daily as needed for allergies. (Patient not taking: Reported on 01/13/2025), Disp: , Rfl: lactase (Lactaid) 3000 units tablet, Take by mouth every morning. (Patient not taking: Reported on 01/13/2025), Disp: , Rfl: metoprolol succinate XL (Toprol-XL) 50 MG 24 hr tablet, Take 1 tablet by mouth daily. Do not crush or chew. (Patient not taking: Reported on 01/13/2025), Disp: 90 tablet, Rfl: 0 Probiotic Product (ALIGN DUALBIOTIC PO), Take by mouth. (Patient not taking: Reported on 01/13/2025), Disp: , Rfl: [7] Allergies Allergen Reactions Codeine Dizziness documented in this encounter Plan of Treatment Not on file documented as of this encounter Visit Diagnoses Diagnosis HOCM (hypertrophic obstructive cardiomyopathy) (CMS/HCC)- Primary Hypertrophic obstructive cardiomyopathy AV block, complete (CMS/HCC) documented in this encounter Additional Health Concerns Assessment Noted Time PHQ-9 Depression Total Score: 0 01/14/20 2:12 PM EDT A fall risk assessment has been complete d for the patient 01/13/2025 2:13 PM EDT A Body Mass Index follow-up plan has been documented for the patient 01/13/2025 3:29 PM EDT documented as of this encounter Care Teams Security Associate Relationship Specialty Start Date End Date Caryn Guevara APRN [address] [place] [address] PCP - General 09/09/24 documented as of this encounter
--- OUTSIDE RECORDS SUMMARY | 2025-01-13 16:25 | XMS_ITS | Encounter Summary ---
Author Organization Healthcare Address [address] [place] [address] Care Team Providers Care Note Taker Name Role Phone Caryn Guevara IVANA Primary Care Provider [phone] Encounter Details Date Type Department Care Team (Latest Contact Info) Description 01/13/2025 4:25 PM EDT - 01/13/2025 11:59 PM EDT Hospital Encounter Cardiac Imaging [address] [place] [address] ICD (implantable cardioverter-defibr illator) in place Discharge [...] any time in the past 12 m [facility], were you homeless or living in a half-way (including now)? No 10/12/2024 Utilities Answer Date Recorded In the past 12 months has th e [employer], gas, oil, or water [employer] threatened to shut off services in your [...] Modality Other Narrative 01/14/2025 12:57 PM EDT [facility] EP - Device Clinic Remote CIED [...] documented as of this encounter Care Teams Note Taker Relationship Specialty Start Date End Date Caryn Guevara APRN [address] [place] [address] PCP - General 09/09/24 documented as of this encounter
[2025-02-02] VITALS (8 sets, daily range): BP systolic 128–161; BP diastolic 58–71; PULSE 71–79; RESP 14–18; TEMP 36.4–36.6; O2SAT 95–98; BMI 34.9
--- NOTE | 2025-02-02 16:49 | ECG_ITS ---
APPROVED REPORT Exam: Resting ECG HR:74 bpm ECG Measurements Heart Rate 74 AXES [place] 205 P 62 QRSd 165 QRS -70 QT 427 T 55 QTc 454 Conclusion Normal sinus rhythm, no acute ST or T wave changes concerning for ischemia, unchanged from prior Electronically signed by : Claudette Ferris, 02/03/2025 00:16:12
--- OUTSIDE RECORDS SUMMARY | 2025-02-02 16:50 | XMS_ITS | Referral Summary ---
Author Organization [employer] ([place], [place], [place], [place]) Address [address] [place] [address] Care Team Providers Care Solution Design And Analysis Manager Name Role Phone Catalino Zuñiga MD Primary Care Provider [phone] Allergies Active Allergy Reactions Criticality Noted Date [...] Date James rded Speak language other than Venezuelan at home Not on file 07/18/2023 Want [...] Advance Directives For more information, please contact: [phone] * Full Code (Latest Code Status on File) Date Activated Date Inactivated Comments 05/07/2023 12:58 PM 05/09/2023 11:38 AM * Full Code Date Activated Date Inactivated Comments 05/07/2023 9:16 AM 05/07/2023 12:58 PM Care Teams Solution Design And Analysis Manager Relationship Specialty Start Date End Date Catalino Zuñiga MD [address] [place] [address] PCP - General Family Medicine 03/07/23
--- OUTSIDE RECORDS SUMMARY | 2025-02-02 16:50 | XMS_ITS | Encounter Summary ---
Author Organization Healthcare Address [address] [place] [address] Care Team Providers Care Livestock Auctioneer Name Role Phone Catalino Zuñiga MD Primary Care Provider Caryn Robertson APRN Primary Care Provider [phone] Encounter Details Date Type Department Care Team (Late st Contact Info) Description 02/19/2023 Ophth Exam [facility] [address] [place] [address] Raymon Abel MD [address] [place] [address] Social History Tobacco Use Types Packs/Day [...] on filedocumented in this encounter Care Teams Livestock Auctioneer Relationship Specialty Start Date End Date Catalino Zuñiga MD PCP - General Family Medicine 02/19/23 09/08/24 Caryn Guevara APRN [address] [place] [address] PCP - General 09/09/24 documented as of this encounter
--- OUTSIDE RECORDS SUMMARY | 2025-02-02 16:50 | XMS_ITS | Encounter Summary ---
Author Organization Healthcare Address [address] [place] [address] Care Team Providers Care Bike Designer Name Role Phone Caryn Guevara IVANA Primary Care Provider [phone] Encounter Details Date Type Department Care Team (Late st Contact Info) Description 01/13/2025 Telephone Cardiac Imaging [address] [place] [address] Danya De La Rosa Social History Tobacco Use Types Packs/Day Years [...] any time in the past 12 m [facility], were you homeless or living in a senior care (including now)? No 10/12/2024 Utilities Answer Date [...] things Not at all 01/13/2025 2:12 PM APRILT [place] Feeling down, depressed, or hopeless [...] usual. Not at all 01/13/2025 2:12 PM APRILT Avelina Lindsay Thoughts that you would be better off [...] Not difficult at all 01/13/2025 2:12 PM APRILT Avelina Lindsay documented as of this encounter Miscellaneous Notes * Telephone Encounter - Danya De La Rosa - 01/13/2025 3:35 PM EDT Device Clinic called 01/15 to f/u with reminder of transfer to enroll in their clinic. We spoke [facility]div[facility] and they bulk picker remotes. Cardiology notified device clinic 01/13 patient would like to transfer [facility] remotes to Dr. Fausto Arteaga's office at [facility] Specialty Clinic: [phone]. We called [facility] with notification we changed Randal status: transferred to another clinic. Call [facility] Heart device clinic at [phone] for assistance. Thank you. documented in this encounter Plan of Treatment Not on file documented as of this encounter Visit Diagnoses Not on filedocumented in this encounter Additional Health Concerns Assessment Noted Time PHQ-9 Depression Total Score: 0 01/14/20 25 2:12 PM EDT A fall risk assessment has been complete d for the patient 01/13/2025 2:13 PM EDT A Body Mass Index follow-up plan has been documented for the patient 01/13/2025 3:29 PM EDT documented as of this encounter Care Teams Bike Designer Relationship Specialty Start Date End Date Caryn Guevara APRN [address] [place] [address] PCP - General 09/09/24 documented as of this encounter
--- OUTSIDE RECORDS SUMMARY | 2025-02-02 16:50 | XMS_ITS ---
Laboratory report Created on: January 19, 2025 KALYANI BURKETT : 1955 Sex: Female Author Name MELLISSA ALICIA Organization Unknown PROBLEMS Problems List Code Description E03.9 R53.83 E78.5 RESULTS Laboratory Orders Date Order Code Test 2025-01-13 [id number] TSH+FREE T4 2025-01-13 [id number] CBC WITH DIFFERE NTIAL/PLATELET 2025-01-13 [id number] COMP. METABOLIC PANEL (14) 2025-01-13 [id number] LIPID PANEL Laboratory Results Date LOINC Test Value Unit Reference Range Interpre tation 2025-01-13 02105-1 TSH 2.67 UIU/ML 0.450-4.500 2025-01-13 3024-7 T4,FREE(DIRECT) 1.06 NG/DL 0.82-1.77 2025-01-13 6690-2 WBC 5.5 X10E3/UL 3.4-10.8 2025-01-13 789-8 RBC 4.25 X10E6/UL 3.77-5.28 2025-01-13 718-7 HEMOGLOBIN 11.7 G/DL 11.1-15.9 2025-01-13 4544-3 HEMATOCRIT 39.7 % 34.0-46.6 2025-01-13 787-2 MCV 93 FL 79-97 2025-01-13 785-6 MCH 27.5 PG 26.6-33.0 2025-01-13 786-4 MCHC 29.5 G/DL 31.5-35.7 L 2025-01-13 788-0 RDW 14.8 % 11.7-15.4 2025-01-13 777-3 PLATELETS 303 X10E3/UL 212-136 0844-07-16 770-8 NEUTROPHILS 64 % 2025-01-13 736-9 LYMPHS 26 % 2025-01-13 5905-5 MONOCYTES 7 % 2025-01-13 713-8 EOS 2 % 2025-01-13 706-2 BASOS 1 % 2025-01-13 751-8 NEUTROPHILS (ABSOLUTE) 3.5 X10E3/UL 1.4-7.0 2025-01-13 731-0 LYMPHS (ABSOLUTE) 1.4 X10E3/UL 0.7-3.1 2025-01-13 742-7 MONOCYTES(ABSOLUTE) .4 X10E3/UL 0.1-0.9 2025-01-13 711-2 EOS (ABSOLUTE) .1 X10E3/UL 0.0-0.4 2025-01-13 704-7 BASO (ABSOLUTE) .1 X10E3/UL 0.0-0.2 2025-01-13 95711-5 IMMATURE GRANULOCYTES 0 % 2025-01-13 92785-8 IMMATURE GRANS (ABS) 0 X10E3/UL 0.0-0.1 2025-01-13 2345-7 GLUCOSE 115 MG/DL 70-99 H 2025-01-13 3094-0 BUN 11 MG/DL 8-27 2025-01-13 2160-0 CREATININE .97 MG/DL 0.57-1.00 2025-01-13 73423-7 EGFR 63 ML/MIN/1.7 3 >59 2025-01-13 3097-3 BUN/CREATININE RATIO 11 12-28 L 2025-01-13 2951-2 SODIUM 140 MMOL/L 060-501 1329-07-16 2823-3 POTASSIUM 4.2 MMOL/L 3.5-5.2 2025-01-13 2075-0 CHLORIDE 101 MMOL/L 96-106 2025-01-13 2028-9 CARBON DIOXIDE, TOTAL 24 MMOL/L 20-29 2025-01-13 34487-4 CALCIUM 9.4 MG/DL 8.7-10.3 2025-01-13 2885-2 PROTEIN, TOTAL 7.2 G/DL 6.0-8.5 2025-01-13 1751-7 ALBUMIN 4.5 G/DL 3.9-4.9 2025-01-13 81823-4 GLOBULIN, TOTAL 2.7 G/DL 1.5-4.5 2025-01-13 1975-2 BILIRUBIN, TOTAL .5 MG/DL 0.0-1.2 2025-01-13 6768-6 ALKALINE PHOSPHATASE 86 IU/L 44-121 2025-01-13 1920-8 AST (SGOT) 24 IU/L 0-40 2025-01-13 1742-6 ALT (SGPT) 18 IU/L 0-32 2025-01-13 2093-3 CHOLESTEROL, TOTAL 140 MG/DL 988-051 4181-07-16 2571-8 TRIGLYCERIDES 146 MG/DL 0-149 2025-01-135-9 HDL CHOLESTEROL 44 MG/DL >39 2025-01-13 20420-3 VLDL CHOLESTEROL TRENT 25 MG/DL 5-40 2025-01-13 72040-1 LDL CHOL CALC ([facility]) 71 MG/DL 0-99
--- OUTSIDE RECORDS SUMMARY | 2025-02-02 16:50 | XMS_ITS | Clinical Summary ---
Author Organization [employer] ([place], [place], [place], [place]) Address [address] [place] [address] Care Team Providers Care Integration Lead Name Role Phone Catalino Zuñiga MD Primary Care Provider [phone] Allergies Active Allergy Reactions Criticality Noted Date [...] Date James rded Speak language other than [place]omean at home Not on file 07/18/2023 Want [...] 05/07/2023 Falls Risk Screening 07/01/2024 Influenza Vaccine (#1) 2025 3, 03/22/2021, 04/22/2020, Additional history exists Respiratory Syncytial Virus (RSV) Adult or (1 - 1-dose 75+ series) 2029 Pneumococcal 50+ years Completed 04/29/2023 Insurance [place] [id number] [employer] MEDICARE HMO Advance Directives For more information, please contact: [phone] * Full Code (Latest Code Status on File) Date Activated Date Inactivated Comments 05/07/2023 12:58 PM 05/09/2023 11:38 AM * Full Code Date Activated Date Inactivated Comments 05/07/2023 9:16 AM 05/07/2023 12:58 PM Care Teams Integration Lead Relationship Specialty Start Date End Date Catalino Zuñiga MD [address] [place] [address] PCP - General Family Medicine 03/07/23
--- OUTSIDE RECORDS SUMMARY | 2025-02-02 16:50 | XMS_ITS | Clinical Summary ---
Author Organization [facility] Address [address] [place] [address] Care Team Providers Care Telephone Station Installer Name Role Phone Caryn Guevara IVANA Primary Care Provider [phone] Allergies Active Allergy Reactions Criticality Noted Date Comments Codeine Dizziness Low 02/19/2023 Medications aspirin 81 MG EC tablet Take 1 tablet by mouth daily. Active ALPRAZolam (Xanax) 0.5 MG tablet 1 tablet. 5 Active estradiol (Estrace) 1 MG tablet Take 1 tablet by mouth daily. 5 Active fluticasone (Flonase) 50 MCG/ACT nasal spray SPRAY 1 TIME IN EACH NOSTRIL 1 TIME EACH DAY 4 Active levothyroxine (Synthroid, Levoxyl) 50 MCG tablet Take 1 tablet by mouth daily. 4 Active losartan (Cozaar) 50 MG tablet take 1 tablet 1 time each day 4 Active memantine (Namenda) 5 MG tablet take 1 tablet 2 times each day 4 Active spironolactone (Aldactone) 25 MG tablet Take 1 tablet by mouth. MWF 4 Active lactase (Lactaid) 3000 units tablet Take by mouth every morning. Active Probiotic Product (ALIGN DUALBIOTIC PO) Take by mouth. Active cetirizine (ZyrTEC) 10 MG tablet Take 1 tablet by mouth daily as needed for allergies. Active clopidogrel (Plavix) 75 MG tablet Take 1 tablet by mouth daily. 90 tablet 5 Active metoprolol succinate XL (Toprol-XL) 50 MG 24 hr tablet Take 1 tablet by mouth daily. Do not crush or chew. 90 tablet 5 Active Additional Information Patient not taking.Reported on 01/13/2025 traZODone (Desyrel) 50 MG tablet Take 1 tablet by mouth nightly. Active metoprolol succinate XL (Toprol-XL) 25 MG 24 hr tablet Take 1 tablet by mouth daily. 5 Active omeprazole (PriLOSEC) [address] capsule Take 1 capsule by mouth as needed. Active estradiol (Estrace) 0.1 MG/GM vaginal cream Insert 2 g into the vagina daily. 5 Active rosuvastatin (Crestor) 5 MG tablet Take 1 tablet by mouth nightly. Active atorvastatin (Lipitor) 20 MG tablet 1 tablet. 5 025 Discontinu ed(Per Patient Report) DULoxetine (Cymbalta) [address] capsule Take 1 capsule by mouth daily. 4 025 Discontinu ed(Per Patient Report) Melatonin 10 MG chewable tablet Chew 10 mg nightly. 025 Discontinu ed(Per Patient Report) METAMUCIL FIBER PO Take by mouth. 025 Discontinu ed(Per Patient Report) Active Problems Problem Noted Date Diagnosed Date HOCM (hypertrophic obstructive cardiomyopathy) 0 09/09/2024 Encounters Date Type Department Care Team Description 01/13/2025 4:25 PM EDT - 01/13/2025 11:59 PM EDT Hospital Encounter Cardiac Imaging [address] [place] [address] ICD (implantable cardioverter-defibri llator) in place Discharge Disposition: Home or Self Care 01/13/2025 2:30 PM EDT Office Visit [facility] [place] [address] [place] [address] Patrice Gómez MD HOCM (hypertrophic obstructive cardiomyopathy) (CMS/HCC) (Primary Dx); AV block, complete (CMS/HCC) 01/13/2025 Telephone Cardiac Imaging [address] [place] [address] Danya De La Rosa 01/13/2025 Travel 11/11/2024 [facility] [place] [address] [place] [address] Patrice Gómez MD from Last 3 Months Immunizations Immunization Administration [...] any time in the past [address] [facility], were you homeless or living [...] Pulse 66 01/13/2025 2:12 PM EDT Temperature 36.8 C (98.2 F) 10/13/2024 8:00 AM EDT Respiratory Rate 12 10/13/2024 1:00 PM EDT Oxygen Saturation 95% 01/13/2025 2:12 PM EDT Inhaled Oxygen Concentration - - Weight 101 kg (223 lb 5.2 oz) 01/13/2025 2:12 PM EDT Height 172.7 cm (5' 8 ) 01/13/2025 2:12 PM EDT Body Mass Index 33.96 01/13/2025 2:12 PM EDT Plan of Treatment Health Maintenance Due Date Last Done Comments [facility]-Bone Density Scan 1955 [facility]-Hepatitis C Screening 1955 [facility]-Medicare Annual Wellness (AWV) 1955 [facility]-/Child/Adol SDOH Screenings 1955 [address] Colonography 1999 Colonoscopy 1999 FIT-DNA 1999 FIT 1999 FOBT 1999 Sigmoidoscopy 1999 [facility]-Colorectal Cancer Screening 1999 [facility]-Breast Cancer Screening 06/01/2019 06/01/2017 [id number] Vaccine ( season) 2024 03/20/2022, 01/19/2022, 03/02/2021, Additional history exists [facility]-Influenza Vaccine (#1) 03/01/202504/09, 04/16/2023, 05/08/2022, Additional history exists [facility]- SDOH Screenings 04/13/2025 [facility]-Adult SDOH Screenings 04/13/2025 10/12/2024 [facility]-Depression Screening 01/13/2026 01/13/2025, 12/29 [facility]-DTaP,Tdap,and Td Vaccines (3 - Td or Tdap) 07/15/2034 07/15/2024, 03/15/2010, 03/20/1999 [facility]-Pneumococcal Vaccine: 50+ Years Completed 04/29/2023 [facility]-RSV Vaccine: 60+ Years or Completed 04/09/2024 [facility]-Zoster Vaccines Completed 07/15/2024, [facility]-Obesity Intervention Completed 025, 09/09/2024, 09/09/2024 HPV Vaccines Aged Out No longer eligi [...] this topic Medical Devices Implanted Type Area Traffic Inspector Device Identifier Shelf Expiration Date Model / Serial / Lot Pacemaker Icd [address] - [id number] Implanted:Qty: 1 on 10/12/2024 by Patrice Gómez MD at [facility] [employer] [facility]-[id number] 05/30/2026 [id number] / [id number] / [id number] Lead Pacing Ultipace 52cm - [id number] Implanted:Qty: 1 on 10/12/2024 by Patrice Gómez MD at [facility] [employer] [facility]-[id number] 07/31/2027 [id number] / [id number] / [id number] Lead Defib Durata Sj4 7122q/65 - [id number] Implanted:Qty: 1 on 10/12/2024 by Patrice Gómez MD at [facility] [employer] [facility]-[id number] 06/30/2027 7122Q/65 / [id number] / [id number] Procedures Procedure Name Priority Date/Time Associated Diagnosis Comments CARDIAC DEVICE CHECK - REMOTE - ICD Routine 01/13/2025 5:28 PM EDT ICD (implantable cardioverter-defibr illator) in place from Last 3 Months Results * CARDIAC DEVICE CHECK - REMOTE - ICD (01/13/2025 5:28 PM EDT) BSA 2.2 m2 PACEART Anatomical Region Laterality Modality Other Narrative 01/14/2025 12:57 PM EDT [facility] - Device Clinic Remote CIED [...] in Media for further details us Bernie Grayson Ryland HEATH CV IMPLANTABLE CARDIAC DEV ICE PROCEDURES Final Result from Last 3 Months Insurance [facility] [place] [address] Advance Directives * Full Code (Latest Code Status on File) Date Activated Date Inactivated Comments 10/09/2024 1:49 PM 10/13/2024 5:12 PM Care Teams Telephone Station Installer Relationship Specialty Start Date End Date Caryn Guevara APRN [address] [place] [address] PCP - General 09/09/24
--- OUTSIDE RECORDS SUMMARY | 2025-02-02 16:50 | XMS_ITS | Patient Health Record ---
Author Organization [facility] Address [address] [place] [address] Care Team Providers Care Tearoom Hostess Name Role Phone Charles Hopkins Primary Care Provider Migration, Provider Unavailable Unavailable Allergies No Known Allergies Reason For Referral No Information Medications Medication SIG (Take, Route, Frequency, Duration) Notes Start Date End Date Status Levothyroxine Sodium 50 MCG 1 tab(s) orally once a day; Duration: 30 day(s) Active Aspirin 81 MG 1 tab(s) orally once a day; Duration: 30 day(s) Active Estradiol 0.1 MG/GM as directed intravaginally 3 times a week; Duration: 30 day(s) Active Vitamin D3 1250 MCG 1 CAP(S) ORALLY ONCE A WEEK; Duration: 30 DAY(S) *Please review and pick correct strength-formulat ion from Keep Me Certified options. If intended option is not shown, discontinue and re-order from Quick Search* Active Lisinopril 5 MG 1 tab(s) orally once a day; Duration: 90 days Active Omeprazole 20 MG 1 cap(s) orally once a day; Duration: 30 day(s) 11/23/2021 Active Magnesium Oxide 400 MG 1 tab(s) orally twice daily; Duration: 30 days 10/31/2021 Active ZOFRAN *Please review for potential replacement [...] a day; Duration: 30 day(s) 07/31/2021 Active Crestor 20 MG 1 tab(s) orally once a day; Duration: 30 day(s) 07/03/2021 Active Social History Tobacco Use: Social History Observation Description Date Details (start date - stop date) Former Smoker NA - NA Smoking: Question Answer Notes Are you a: former smoker How long has it been since you last smoked? > 10 years Section Notes: recently passed with cancer recently passed with cancer recently passed with cancer recently passed with cancer recently passed with cancer recently passed with cancer recently passed with cancer recently passed with cancer recently passed with cancer recently passed with cancer Problems Problem Type SNOMED Code ICD Code Onset Dates Problem Status W/U Status Risk Notes Problem Allergic rhinitis (69354755) Other allergic rhinitis (J30.89) Active confirmed Problem Anxiety (61502337) Anxiety (F41.9) Active confirmed Problem Essential hypertension (21212017) Essential hypertension (I10) Active confirmed Problem Seasonal allergy (324989446) Seasonal allergies (J30.2) Active confirmed Problem Acquired hypothyroidism (094929617) Acquired hypothyroidism (E03.9) Active confirmed Problem Insomnia disorder related to another mental disorder (96551676) Psychophysiological insomnia (F51.04) Active confirmed Problem Obstructive sleep apnea syndrome (90348265) MORALES (obstructive sleep apnea) (G47.33) Active confirmed Problem Movement disorder (50705504) Movement disorder (G25.9) Active confirmed Problem Akathisia (257016333) Akathisia (G25.71) Active confirmed Encounters Encounter Location Date Provider Diagnosis [facility] PED SERGIO [address] [place] [address] 10/03/2024 Provider Migration Plan Of Treatment Pending Test Test Name Order Date Urinalysis 09/22/2021 C-CMP 08/01/2020 C-LIPID PANEL 08/01/2020 C-THYROID PROFILE 08/01/2020 M-Thyroid Stimulating Hormone 07/10/2021 Insurance Providers Payer Name Payer Address Payer Phone Subscriber Number Group Number Insured Name Patient Relationship to Insured Coverage Start Date Coverage End Date [employer] Medicare Advantage [address] [address] [place] [address] [phone] [id number] Rebeca Armendariz Self - patient is the insured Medications Administered Medication Instructions Date of Administration Dosage Notes Dexamethasone 4mg Injection 12/07/2021 4 mg Medical (General) History Medical History History ICD Code Hypothyroidism HLD HTN MORALES Murmur with aortic calcification Surgical History Surgery Date(Month/Year) cholecystectomy hemorrhoidectomy right eye Hospitalization History Reason Date(Month/Year) above
--- OUTSIDE RECORDS SUMMARY | 2025-02-02 16:50 | XMS_ITS | Encounter Summary ---
Author Organization Healthcare Address [address] [place] [address] Care Team Providers Care Internet Programmer Name Role Phone Caryn Guevara IVANA Primary Care Provider [phone] Encounter Details Date Type Department Care Team (Latest Contact Info) Description 01/13/2025 Travel Social History Tobacco Use Types Packs/Day [...] were you homeless or living in a correction (including now)? No 10/12/2024 Utilities Answer Date [...] usual. Not at all 01/13/2025 2:12 PM EDT Avelina Lindsay Thoughts that you would be better off or hurting yourself in some way Not at all 01/13/2025 2:12 PM EDT Avelina Lindsay Patient Health Questionnaire -9 Score 0 01/13/2025 2:12 PM EDT Avelina Lindsay * If you checked off any problems on this questionnaire so far, Question Answer Date of Assessment Author How difficult have these problems made it for you to do your work, take care of things at home, or get along with other people? Not difficult at all 01/13/2025 2:12 PM EDT Avelina Lindsay documented as of this encounter Plan of [...] documented as of this encounter Care Teams Internet Programmer Relationship Specialty Start Date End Date Caryn Guevara APRN [address] [place] [address] PCP - General 09/09/24 documented as of this encounter
--- OUTSIDE RECORDS SUMMARY | 2025-02-02 16:50 | XMS_ITS | Encounter Summary ---
Author Organization [employer] ([place], [place], [place], [place]) Address [address] [place] [address] Care Team Providers Care Manager Test Name Role Phone Catalino Zuñiga MD Primary Care Provider [phone] Reason for Referral * Other (Routine) - Closed Specialty Diagnoses / Procedures Referred By Contac t Referred To Contact Diagnoses Essential hypertension Procedures ECG 12 lead Devan Horner MD [address] [place] [address] [place] [address] Phone: tel: fax: Referral ID Status Reason Start Date Expiration Date Visits Re quested Visits Authorized [id number] Closed 05/06/2023 11/02/2023 1 1 * Diagnostic X-Ray (Routine) - Closed Specialty Diagnoses / Procedures Referred By Contorlando fontanez Referred To Contact Diagnoses Essential hypertension Procedures XR chest 2 views Devan Horner MD [address] [place] [address] [place] [address] Phone: tel: fax: Referral ID Status Reason Start Date Expiration Date Visits Re quested Visits Authorized [id number] Closed 05/06/2023 11/02/2023 1 1 Encounter Details Date Type Department Care Team (Late st Contact Info) Description 05/06/2023 Surgery [facility] SUPERVISOR FABRICATION DEPARTMENT Surgery [address] [place] [address] Devan Horner MD [address] [place] [address] [place] [address] [place] [address] Incompetence of pubocervical tissue (Primary [...] ABO/Rh A POSITIVE 05/06/2023 11:07 AM EST [facility] BLOOD [facility] ([place]) Antibody Screen NEGATIVE 05/06/2023 11:07 AM EST [facility] BLOOD [facility] ([place]) HISTCHK HIST CHECK PERFORMED 05/06/2023 11:07 AM EST [facility] ([place]) Blood Venipuncture / Unknown 05/06/2023 10:52 AM EST 05/06/2023 11:04 AM EST us Devan Horner MD [facility] BLOOD BANK TEST ORDERABLES Edited Result - Final [facility] ([place]) [address] [place] [address], [facility] [phone] * (ABNORMAL) Basic Metabolic Panel (05/06/2023 10:52 [...] MD LAB BLOOD ORDERABLES Final Resu lt [facility] [address] [id number], [facility] [phone] * (ABNORMAL) CBC with automated diff (05/06/2023 [...] - 13 % 05/06/2023 11:16 AM EST [facility] % Eos 5 0 [...] AM EST 05/06/2023 10:57 AM EST Narrative [facility] - 05/06/2023 11:16 AM [...] BLOOD ORDERABLES Final Resu lt [facility] [address] [id number], [facility] [phone] * XR chest 2 views (05/06/2023 10:33 [...] hypertension documented in this encounter Care Teams Manager Test Relationship Specialty Start Date End Date Catalino Zuñiga MD [address] [place] [address] PCP - General Family Medicine 03/07/23 documented as of this encounter
--- OUTSIDE RECORDS SUMMARY | 2025-02-02 16:51 | XMS_ITS | Encounter Summary ---
Author Organization Healthcare Address [address] [place] [address] Care Team Providers Care Contract Preparer Name Role Phone Caryn Guevara APRN Primary Care Provider [phone] Encounter Details Date Type Department Care Team (Late st Contact Info) Description 10/12/2024 Lab Requisition [facility] [address] [place] [address] Alberto Ford MD [address] [facility] [address] [place] [address] Encounter for general adult medical [...] any time in the past 12 m [facility], were you homeless or living in a [...] at day 1 10/13/2024 8:58 AM EDT [facility] Swab (Nares and Ayanna Rectal) 10/12/2024 10/12/2024 12:04 PM EDT us Alberto Ford MD LAB MICROBIOLOGY - GEN ERAL ORDERABLES Final Result [facility] [address] [place] [address] documented in this encounter Visit Diagnoses Diagnosis [...] documented as of this encounter Care Teams Contract Preparer Relationship Specialty Start Date End Date Caryn Guevara, [place] [address] [place] [address] PCP - General 09/09/24 documented as of this encounter
--- OUTSIDE RECORDS SUMMARY | 2025-02-02 16:51 | XMS_ITS | Clinical Summary ---
Author Organization [facility] Address [address] [place] [address] Phone Care Team Providers Care Mexican Food Maker Name Role Phone Unavailable Primary Care [...] Vaccine (2023-2 5 season) 2024 Influenza Vaccine (#1) 2025 Hepatitis B Vaccine Aged Out No [...] Impressions 06/06/2017 7:19 AM EST : Negative ([id number]) ~ RECOMMENDATION: Routine screening mammogram in 1 [...] the most recent being outside studies from [facility] dated 06-21-16, 05-30-15 and 04-20-14. ~ Lory Rahman APRN IMG MAMMOGRAPHY ORDERABLES Final Result from Last 3 Months or Most Recently Relevant to Health Maintenance Insurance [facility] [id number]
--- NOTE | 2025-02-02 17:01 | XR_ITS ---
PROCEDURE INFORMATION: Exam: XR Chest Exam date and time: 02/02/2025 5:08 PM Age: 69 years old Clinical indication: Other: Flutters TECHNIQUE: Imaging protocol: Radiologic exam of the chest. Views: 1 view. COMPARISON: MR CARDIAC WO/W CON 02/25/2024 12:22 PM FINDINGS: Tubes, catheters and devices: Dual chamber pacemaker/cardioverter in appropriate position with lead tips in the right atrium and right ventricle. Airway: Airways are patent. Lungs: Lungs are clear. Pleural spaces: No pleural effusions or pneumothorax. Heart/Mediastinum: Moderate cardiomegaly. Vasculature: Calcified aortic knob. Bones/joints: No acute skeletal abnormality or aggressive osseous lesion. Soft tissues: No acute soft tissue findings. IMPRESSION: No acute thoracic pathology.
--- NOTE | 2025-02-02 17:08 | ED_ITS ---
<Statement entered by Claudette Ferris DO - 02/03/25 00:22> I was consulted by the AYAAN, and we discussed the complexity of problems being addressed. I approve the treatment and management plan for this patient's care in the emergency department, thus performing a substantial portion of the medical decision making. Claudette Ferris DO Discharge Plan Disposition Patient Disposition: Home, Self-Care Prescriptions Prescriptions: No Action aspirin [Adult Low Dose Aspirin] 81 mg tablet,delayed release (DR/EC) 81 mg PO DAILY memantine 5 mg tablet 5 mg PO ONCE Patient Comments: TAKE 1 TABLET 1 TIME EACH DAY AT BEDTIME FOR 7 DAYS. THEN, TAKE 1 TABLET 2 TIMES EACH DAY rosuvastatin 5 mg tablet 5 mg PO DAILY Patient Comments: TAKE ONE TABLET BY MOUTH EVERY DAY AT BEDTIME FOR cholesterol estradiol [Vagifem] 10 mcg tablet 10 mcg vaginal .COMPLEX 30 Days Qty: 30 5RF Rx Instructions: 10 mcg vaginally daily x 2 weeks and then twice weekly; duloxetine 30 mg capsule,delayed release(DR/EC) 30 mg PO ONCE Patient Comments: TAKE 1 CAPSULE 1 TIME EACH DAY cetirizine 10 mg tablet 10 mg PO DAILY PRN psyllium husk [Metamucil] 0.4 gram capsule 0.4 g PO DAILY spironolactone [Aldactone] 25 mg tablet 25 mg PO .COMPLEX Qty: 30 2RF Rx Instructions: 25 mg orally on Saturday, saturday and fridays; omeprazole 20 mg capsule,delayed release(DR/EC) 20 mg PO DAILY PRN Patient Comments: TAKE 1 CAPSULE 1 TIME EACH DAY NEEDED terconazole 0.8 % cream 1 appful vaginal HS 3 Days Qty: 20 0RF boric acid 600 mg suppository vaginal clopidogrel 75 mg tablet 75 mg PO ONCE estradiol [Estrace] 0.01 % (0.1 mg/gram) cream 1 appful vaginal DAILY Qty: 42.5 6RF Rx Instructions: Daily finger technique as I described to the patient and then three times weekly thereafter metoprolol succinate 25 mg tablet extended release 24 hr 12.5 mg PO QDAY Qty: 90 3RF cranberry 500 mg capsule 500 mg PO BID Rx Instructions: administer with meals Fiber Gummies 1.7 gram tablet,chewable 1.7 g PO DAILY alprazolam 0.5 mg tablet 0.5 mg PO HS Qty: 30 2RF losartan 50 mg tablet See Rx Instructions .ROUTE .COMPLEX Qty: 30 2RF Dose Instruction: TAKE 1 TABLET 1 TIME EACH DAY Rx Instructions: TAKE 1 TABLET 1 TIME EACH DAY levothyroxine 50 mcg tablet 50 mcg PO DAILY 30 Days Qty: 30 2RF Referrals Follow up/Referrals: Caryn Guevara APRN [Primary Care Provider, Medical] - See instructions Activity Restrictions/Add. Instructions Additional Instructions/Restrictions: Continue taking medications. Follow-up with your putty glazer and your primary care doctor. If you have any more problems or concerns please return to the ED. Clinical Impressions Clinical Impression: Palpitations Instructions Patient Instructions: DI for Palpitations Print Language Print Language: Slovak Discharge ED Provider: Claudette Ferris General Adult HPI <Tila Olivas (ED), IVANA - Last Filed: 02/02/25 21:55> General Chief complaint: Arrhythmia/Palpitations Stated complaint: Dr Ismael Nguyen flutters with pace maker Time Seen by Provider: 02/02/25 16:45 Mode of Arrival: Ambulatory Source of Information: Patient Description of Symptoms (Recalled from ER Triage Doc. by RN): pt reports laying in bed last night and felt her heart might have fluttered for a second. had a pace maker/def placed about 3 months ago. also started on seroquel 2 weeks ago. she states she is not sleeping. History of Present Illness HPI narrative: 69-year-old female presents to the ED today for complaint of fluttering that started last night. She was sent by her doctor today. She does have a pacemaker defibrillator that was placed 3 months ago. She was also not sleeping and her doctor started her on Seroquel 2 weeks ago. Patient does have history of obstructive cardiomyopathy which was treated with an ablation as an the pacer defibrillator was placed due to worsening of her condition. Patient does not wear her CPAP at night and says that she has brain fog from not wearing it. She knows that she should wear it. Patient also is asking me if she has anything wrong with her kidneys or if she is dehydrated. She gives me a list of fluids that she has been drinking. She also has some mild swelling in bilateral lower extremities. She tells me that she does not take her fluid pill as she should. Patient has significant history of hyperlipidemia, A-fib, gastric reflux, hypertension, aortic stenosis, diastolic dysfunction, obstructive cardiomyopathy and anemia. Related Data Home Medications ?Medication ?Instructions ?Recorded ?Confirmed aspirin 81 mg tablet,delayed 81 mg PO DAILY heart heal th 01/12/21 12/30/24 release (Adult Low Dose Aspirin) cetirizine 10 mg tablet 10 mg PO DAILY PRN 01/21/24 12/30/24 psyllium husk 0.4 gram capsule 0.4 g PO DAILY 01/21/24 12/30/24 (Metamucil) omeprazole 20 mg capsule,delayed 20 mg PO DAILY PRN 12/30/24 release duloxetine 30 mg capsule,delayed 30 mg PO ONCE 4 12/30/24 release memantine 5 mg tablet 5 mg PO ONCE 06/17/24 boric acid 600 mg vaginal mg vaginal 11/05/24 12/30/24 suppository rosuvastatin 5 mg tablet 5 mg PO DAILY 11/11/2412/30 clopidogrel 75 mg tablet 75 mg PO ONCE 12/02/2412/30 cranberry 500 mg capsule 500 mg PO BID 12/15/2412/30 inulin 1.7 gram chewable tablet 1.7 g PO DAILY 5 12/30/24 (Fiber Gummies) Previous Rx's ?Medication ?Instructions ?Recorded alprazolam 0.5 mg tablet 0.5 mg PO HS anxiety #30 tab s 09/09/23 losartan 50 mg tablet See Rx Instructions .Route 0 12/23/23 .COMPLEX #30 tabs levothyroxine 50 mcg tablet 50 mcg PO DAILY hypothyroi dism 30 12/25/23 days #30 tabs spironolactone 25 mg tablet 25 mg PO .COMPLEX #30 tabs 01/21/24 (Aldactone) terconazole 0.8 % vaginal cream 1 appful vaginal HS 3 days #20 05/25/24 grams estradiol 0.01% (0.1 mg/gram) 1 appful vaginal DAILY # 42.5 grams 11/16/24 vaginal cream (Estrace) estradiol 10 mcg vaginal tablet 10 mcg vaginal .COMPLE X 30 days 12/07/24 (Vagifem) #30 tabs metoprolol succinate 25 mg 12.5 mg (1/2 x 25 mg) PO QD AY #90 12/30/24 tablet,extended release 24 hr tabs Allergies Allergy/AdvReac Type Severity Reaction Status Date / Time sulfamethoxazole (From Allergy Intermediate Hives Verified 12/30/24 13:30 Bactrim) trimethoprim (From Bactrim) Allergy Intermediate Hives Verified 12/30/24 13:30 codeine (CODEINE) Allergy Mild Gastrointestinal Verified 12/30/24 13:30 Upset [facility] <Tila Olivas (ED), SHELLFISH HARVESTER - Last Filed: 02/02/25 21:55> PFS Disclaimer: The information contained in this section may have been updated after the patient was seen, as this information can be updated by other users. Medical History (Updated 02/02/25 @ 20:17 by Tila Olivas (ED), SHELLFISH HARVESTER) Mixed hyperlipidemia History of pacemaker Paroxysmal A-fib Edema Hot flashes Grief Normal colonoscopy Vaginitis Abnormal electrocardiogram [ECG] [EKG] UTI (urinary tract infection) Perianal pruritus Dysuria GERD (gastroesophageal reflux disease) Family history of ischemic heart disease Heart murmur HLD (hyperlipidemia) HTN (hypertension) Aortic stenosis Diastolic dysfunction Surgical History History of heart surgery Hx of hysterectomy Hx laparoscopic cholecystectomy Family History Other No significant family history Social History Smoking Status: Never smoker second hand exposure: No alcohol intake: never substance use type: denies use current occupational status: retired Travel in the last 8 weeks?: Inside the [place] household members: none housing: house current occupational exposures/hazards: No caffeine: Yes Have you lived/traveled outside [place] in past 30 days?: No Contact w/someone who lives/traveled outside US past 30 days?: No Exposure to someone with infectious disease in past 14 days?: No Do you have a fever (greater than 100.4 F or 38 C)?: No Have you tested positive for COVID-19?: No Exposed to someone with COVID-19 in past 14 days?: No Do you have a sore throat?: No Do you have a cough?: No Do you have any weakness?: No Do you have any diarrhea?: No Are you experiencing any unusual bleeding?: No Do you have any muscle aches/pain?: No Do you have any abdominal pain?: No Are you experiencing loss of taste or smell?: No Other Medical History Have you received the Flu Vaccine for this season: No Have you received the Pneumonia Vaccine: Yes <Tila Bayronjaquelin (ED), SHELLFISH HARVESTER - Last Filed: 02/02/25 21:55> ROS Obtained: Yes Systems reviewed as appropriate & no additional complaints except as documented Constitutional Constitutional: Reports as per HPI Physical Exam <Tila Olivas (ED), SHELLFISH HARVESTER - Last Filed: 02/02/25 21:55> General General appearance: alert and in no apparent distress Head Head exam: normocephalic Eye Eye exam: Present PERRL ENT ENT exam: Present mucous membranes moist Neck Neck exam: Present trachea midline Respiratory Respiratory exam: Present normal lung sounds bilaterally Cardiovascular Cardiovascular exam: Present regular rate, normal rhythm, normal heart sounds, +S1 and +S2 Abdominal Exam Abdominal exam: Present soft and normal bowel sounds Extremities Exam Extremities exam: Present normal inspection, normal capillary refill and edema (Mild lower extremity edema) Back Exam Back exam: Present full ROM Neurological Exam Neurological exam: Present alert and oriented X3 Psychiatric Psychiatric exam: Present anxious Skin Skin exam: Present warm and dry Medical Decision Making <Tila Olivas (ED), SHELLFISH HARVESTER - Last Filed: 02/02/25 21:55> Medical Records Screening: Per USPSTF and CDC recommendations, given the prevalence of disease in our region, it is our hospital?s policy to screen for HIV and viral Hepatitis for all patients aged 18 and over and those with ongoing risk factors. Marco Inquiry Pt receiving controlled substance: No Marco was queried for this patient: No Vital Signs: 02/02/25 16:55 02/02/25 17:00 02/02/25 17:30 Temperature 97.7 F Temperature Source Oral Pulse Rate 74 Pulse Rate [Right] 79 Respiratory Rate 18 17 16 Blood Pressure 128/64 132/58 L Blood Pressure [Right Arm] 147/65 H Blood Pressure Mean [Right Arm] 92 Blood Pressure Position 02 Sat by Pulse Oximetry 98 95 Oxygen Delivery Method Room Air 02/02/25 18:00 02/02/25 18:30 02/02/25 19:30 Temperature Temperature Source Pulse Rate 72 72 Pulse Rate [Right] Respiratory Rate 15 17 14 Blood Pressure 140/68 143/71 H 151/66 H Blood Pressure [Right Arm] Blood Pressure Mean [Right Arm] Blood Pressure Position 02 Sat by Pulse Oximetry 98 98 Oxygen Delivery Method 02/02/25 20:01 02/02/25 20:29 Temperature 97.8 F 97.6 F Temperature Source Oral Pulse Rate 71 71 Pulse Rate [Right] Respiratory Rate 16 16 Blood Pressure 161/68 H 161/68 H Blood Pressure [Right Arm] Blood Pressure Mean [Right Arm] Blood Pressure Position Supine 02 Sat by Pulse Oximetry 98 Oxygen Delivery Method Room Air Lab Data Lab Results 02/02/25 16:55: WBC 8.4, RBC 4.45, Hgb 12.4, Hct 39.5, MCV 88.8, MCH 27.9, MCHC 31.4 L, RDW 15.3, Plt Count 332, MPV 9.5, Neut % (Auto) 69.4, Lymph % (Auto) 20.0, [place] % (Auto) 7.4, Eos % (Auto) 2.0, Baso % (Auto) 0.8, Neut # (Auto) 5.9, Lymph # (Auto) 1.7, [place] # (Auto) 0.6, Eos # (Auto) 0.2, Baso # (Auto) 0.1, Sodium 138, Potassium 4.0, Chloride 103, Carbon Dioxide 29, Anion Gap 10.0, BUN 14, Creatinine 0.80, Estimated Creat Clear 84, Estimated GFR 71, Est GFR ( Amer) 86, Glucose 132 H, Calcium 9.9, Magnesium 2.4 H, Total Bilirubin 0.6, AST 34, ALT 20, Alkaline Phosphatase 94, Troponin I < 0.01, NT-Pro-B Natriuret Pep 177 H, Total Protein 8.1, Albumin 4.0, Globulin 4.1 H, A lbumin/Globulin Ratio 1.0 L, Lipase 231, TSH 3.21 02/02/25 19:06: Urine Color Yellow, Urine Appearance Clear, Urine pH 7.0, Ur Specific [place] 1.010, Urine Protein Negative, Urine Glucose (UA) Negative, Urine Ketones Negative, Urine Blood Negative, Urine Nitrate Negative, Urine Bilirubin Negative, Urine Urobilinogen 0.2, Ur Leukocyte Esterase Negative, Urine RBC None, Urine WBC 3-5, Ur Squamous Epith Cells 3-5, Urine Bacteria Trace 02/02/25 16:55 02/02/25 16:55 Orders (Tests/Meds): ED MEDICATIONS Discontinued Medications Generic Name Dose Route Start Last Admin Trade Name Davy PRN Reason Stop Dose Admin Sodium Chloride 1,000 mls @ 500 mls/hr 02/02/25 18:00 02/02/25 18:07 Sod Chlor 0.9% 1000ml Bag IV 03/04/25 17:59 500 mls/hr .Q2H REHANA Administration ORDERS Category Date Time Status Chest XR -- portable [XR chest portable] Stat Exams 02/02/25 17:01 Completed BNP [NT Pro Brain Natriuretic Pep.] Stat Lab 02/02/25 16:55 Completed CBC [Complete Blood Count Auto Diff] Stat Lab 02/02/25 16:55 Completed Comprehensive Metabolic Panel Stat Lab 02/02/25 16:55 Completed Lipase Stat Lab 02/02/25 16:55 Completed Magnesium Stat Lab 02/02/25 16:55 Completed TSH [Thyroid Stimulating Hormone] Stat Lab 02/02/25 16:55 Completed Trop I [Troponin I] Stat Lab 02/02/25 16:55 Completed Urinalysis and Microscopic Stat Lab 02/02/25 19:06 Completed HEART Score History (anamnesis): Slightly suspicious ECG: Non-specific disturbance Age: >65 years Risk factors: 3 or more risk factors Troponin: </= normal limit HEART Score: 5 Medical Decision Narrative: patient is a 69-year-old female presenting to the emergency department for evaluation of heart flutters since last night. Patient is hemodynamically stable and nontoxic-appearing upon arrival, afebrile. Differential diagnosis includes ACS, anxiety, among others. Workup will be conducted with hematologic labs, specific imaging. Initial inventions include crystalloid bolus. Initial workup reviewed by me hematologic labs are remarkable for normal troponin, normal electrolytes. Imaging informally interpreted by me and remarkable for nothing acute. Formal imaging read remarkable for nothing acute. Upon repeat evaluation patient's pain is improved. We are waiting on a urinalysis and did safe to DC patient. <Claudette Ferris, DO - Last Filed: 02/03/25 00:22> Vital Signs: 02/02/25 16:55 02/02/25 17:00 02/02/25 17:30 Temperature 97.7 F Temperature Source Oral Pulse Rate 74 Pulse Rate [Right] 79 Respiratory Rate 18 17 16 Blood Pressure 128/64 132/58 L Blood Pressure [Right Arm] 147/65 H Blood Pressure Mean [Right Arm] 92 Blood Pressure Position 02 Sat by Pulse Oximetry 98 95 Oxygen Delivery Method Room Air 02/02/25 18:00 02/02/25 18:30 02/02/25 19:30 Temperature Temperature Source Pulse Rate 72 72 Pulse Rate [Right] Respiratory Rate 15 17 14 Blood Pressure 140/68 143/71 H 151/66 H Blood Pressure [Right Arm] Blood Pressure Mean [Right Arm] Blood Pressure Position 02 Sat by Pulse Oximetry 98 98 Oxygen Delivery Method 02/02/25 20:01 02/02/25 20:29 Temperature 97.8 F 97.6 F Temperature Source Oral Pulse Rate 71 71 Pulse Rate [Right] Respiratory Rate 16 16 Blood Pressure 161/68 H 161/68 H Blood Pressure [Right Arm] Blood Pressure Mean [Right Arm] Blood Pressure Position Supine 02 Sat by Pulse Oximetry 98 Oxygen Delivery Method Room Air Lab Data Lab Results 02/02/25 16:55: WBC 8.4, RBC 4.45, Hgb 12.4, Hct 39.5, MCV 88.8, MCH 27.9, MCHC 31.4 L, RDW 15.3, Plt Count 332, MPV 9.5, Neut % (Auto) 69.4, Lymph % (Auto) 20.0, [place] % (Auto) 7.4, Eos % (Auto) 2.0, Baso % (Auto) 0.8, Neut # (Auto) 5.9, Lymph # (Auto) 1.7, [place] # (Auto) 0.6, Eos # (Auto) 0.2, Baso # (Auto) 0.1, Sodium 138, Potassium 4.0, Chloride 103, Carbon Dioxide 29, Anion Gap 10.0, BUN 14, Creatinine 0.80, Estimated Creat Clear 84, Estimated GFR 71, Est GFR ( Amer) 86, Glucose 132 H, Calcium 9.9, Magnesium 2.4 H, Total Bilirubin 0.6, AST 34, ALT 20, Alkaline Phosphatase 94, Troponin I < 0.01, NT-Pro-B Natriuret Pep 177 H, Total Protein 8.1, Albumin 4.0, Globulin 4.1 H, A lbumin/Globulin Ratio 1.0 L, Lipase 231, TSH 3.21 02/02/25 19:06: Urine Color Yellow, Urine Appearance Clear, Urine pH 7.0, Ur Specific [place] 1.010, Urine Protein Negative, Urine Glucose (UA) Negative, Urine Ketones Negative, Urine Blood Negative, Urine Nitrate Negative, Urine Bilirubin Negative, Urine Urobilinogen 0.2, Ur Leukocyte Esterase Negative, Urine RBC None, Urine WBC 3-5, Ur Squamous Epith Cells 3-5, Urine Bacteria Trace Orders (Tests/Meds): ED MEDICATIONS Discontinued Medications Generic Name Dose Route Start Last Admin Trade Name Freq PRN Reason Stop Dose Admin Sodium Chloride 1,000 mls @ 500 mls/hr 02/02/25 18:00 02/02/25 18:07 Sod Chlor 0.9% 1000ml Bag IV 03/04/25 17:59 500 mls/hr .Q2H REHANA Administration ORDERS Category Date Time Status Chest XR -- portable [XR chest portable] Stat Exams 02/02/25 17:01 Completed BNP [NT Pro Brain Natriuretic Pep.] Stat Lab 02/02/25 16:55 Completed CBC [Complete Blood Count Auto Diff] Stat Lab 02/02/25 16:55 Completed Comprehensive Metabolic Panel Stat Lab 02/02/25 16:55 Completed Lipase Stat Lab 02/02/25 16:55 Completed Magnesium Stat Lab 02/02/25 16:55 Completed TSH [Thyroid Stimulating Hormone] Stat Lab 02/02/25 16:55 Completed Trop I [Troponin I] Stat Lab 02/02/25 16:55 Completed Urinalysis and Microscopic Stat Lab 02/02/25 19:06 Completed HEART Score HEART Score: 5 Medical Decision Narrative: patient is a 69-year-old female presenting to the emergency department for evaluation of heart flutters since last night. Patient is hemodynamically stable and nontoxic-appearing upon arrival, afebrile. Differential diagnosis includes ACS, anxiety, among others. Workup will be conducted with hematologic labs, specific imaging. Initial inventions include crystalloid bolus. Initial workup reviewed by me hematologic labs are remarkable for normal troponin, normal electrolytes. Imaging informally interpreted by me and remarkable for nothing acute. Formal imaging read remarkable for nothing acute. Upon repeat evaluation patient's pain is improved. UA showed no evidence of infection. At this time, I felt the patient was appropriate for discharge home. Return precautions were discussed. Critical Care <Tila Olivas (APRIL), SHELLFISH HARVESTER - Last Filed: 02/02/25 21:55> Critical Care Time Critical Care Time: No
[2025-02-02 17:26] LABS: Hematocrit 39.5 % (37.0-47.0); Hemoglobin 12.4 g/dL (12.2-16.2); Immature Granulocytes % 0.4 %; Mean Corpuscular HGB Conc 31.4 g/dL (31.8-35.4); Mean Corpuscular Hemoglobin 27.9 pg (27.0-31.2); Mean Corpuscular Volume 88.8 fl (81-99); Nucleated Red Blood Cells % 0 %; Platelet Count 332 K/mm3 (142-424); Red Blood Count 4.45 M/mm3 (4.20-5.40); Red Cell Distribution Width-SD 50.2 fL; White Blood Count 8.4 K/mm3 (4.8-10.8)
[2025-02-02 17:31] LABS: Albumin Level 4.0 g/dl (3.5-5.0); Chloride 103 mmol/L (98-107); Potassium 4.0 mmoL/L (3.5-5.1); Sodium 138 mmol/L (136-145)
[2025-02-02 17:34] LABS: Alanine Aminotransferase 20 U/L (12-78); Albumin/Globulin Ratio 1.0 (1.1-1.8); Alkaline Phosphatase 94 U/L (38-126); Anion Gap 10.0 mEq/L (5-15); Aspartate Amino Transferase 34 U/L (14-36); Bilirubin,Total 0.6 mg/dl (0.2-1.3); Carbon Dioxide 29 mmol/L (22.0-30.0); Globulin 4.1 g/dL (1.3-3.2); Lipase 231 U/L (23-300); Total Protein,Serum 8.1 g/dl (6.3-8.2)
[2025-02-02 17:35] LABS: Calcium 9.9 mg/dl (8.4-10.2); Glucose 132 mg/dl (74-100); Magnesium 2.4 mg/dl (1.6-2.3)
[2025-02-02 17:44] LABS: NT Pro Brain Natriuretic Pep. 177 pg/mL (0-125)
[2025-02-02 17:59] LABS: Troponin I < 0.01 ng/ml (0.00-0.034)
[2025-02-02 18:06] LABS: Thyroid Stimulating Hormone 3.21 uIU/mL (0.465-4.68)
[2025-02-02] MEDS: 0.9 % SODIUM CHLORIDE 1000ML 1,000 ML 500 ML IV (18:07)
[2025-02-02 18:46] LABS: Blood Urea Nitrogen 14 mg/dl (7-17); Creatinine Clearance Estimated 84 mL/min (50-200); Creatinine,Serum 0.80 mg/dl (0.52-1.04); Estimated Glomerular Filt Rate 71 ml/min (>60); GFR (African American) 86 ML/MIN (>60)
[2025-02-02 19:11] LABS: Microscopic, Urine URINE MICROSCOPIC (MICROSCOPIC)
[2025-02-02 19:30] LABS: Bilirubin,Urine Negative (Negative); Color,Urine YELLOW (Yellow); Glucose,Urine (UA) Negative (Negative); Ketones,Urine Negative (Negative); Leukocyte Esterase,Urine Negative (Negative); PH,Urine 7.0 (5.0-8.5); Protein,Urine Negative (Negative); Specific Gravity, Urine 1.010 (1.005-1.030); Urobilinogen,Urine 0.2 EU/dl (0.2)
[2025-02-02 20:07] LABS: Bacteria,Urine Trace /lpf
== END 2025-02-02 20:33 | disposition home or self-care (01) ==
PROVIDERS: Nurse Practitioner; Emergency Provider Student in an Organized Health Care Education/Training Program; PCP Nurse Practitioner Family
DX: R00.2 Palpitations (principal); R60.0 Localized edema; E78.5 Hyperlipidemia, unspecified; I10 Essential (primary) hypertension; I48.0 Paroxysmal atrial fibrillation; I35.0 Nonrheumatic aortic (valve) stenosis; Z95.0 Presence of cardiac pacemaker
CPT/HCPCS: 71045; 80053; 81001; 83690; 83735; 83880; 84443; 84484; 85025; 93005; 96360; 96361; 99285; J7030

== ENCOUNTER 2025-02-18 13:10 | Emergency (ER) | payer MEDICARE, SELFPAY ==
--- OUTSIDE RECORDS SUMMARY | 2024-10-03 17:30 | XMS_ITS ---
Author Organization [facility] Address [address] [place] [address] Care Team Providers Care Shake Backboard Notcher Name Role Phone Charles Hopknis Primary Care Provider [phone] Migration, Provider Unavailable Unavailable REASON FOR VISIT [...] Active Encounters Encounter Location Date Provider Diagnosis [facility] [address] [place] [address] 10/03/2024 Provider Migration Plan Of Treatment Medication Medication Name Sig Start Date Stop Date Notes Levothyroxine Sodium 50 MCG 1 tab(s) ora lly once a day; Duration: 30 day(s) Progress Notes * Rebeca BURKETT CDOB:[birth year] (69 yo F)Acc No.[id number]:10/03/2024 Patient: Sterling FEROZLUISRebeca Provider: Leisa pollock Migration :1955 A ge:69 Y S ex:Female Date:10/03/2024 Address:[address] [place] [phone] Pcp:Charles Hopkins Subjective: * Chief Complaints: * [...] Electronic signature of Jay staley Migration on 02/18/2025 at 01:42 PM EDT Sign off status: Pending * Provider: Leisa pollock Migration Date: 0 10/03/2024 Generated for Demetrius kirby/Miya/Drew on: 0 02/18/2025 01:42 PM EDT
--- OUTSIDE RECORDS SUMMARY | 2025-01-13 14:30 | XMS_ITS | Encounter Summary ---
Author Organization Healthcare Address [address] [place] [address] Care Team Providers Care Media Sales Consultant Name Role Phone Caryn Guevara IVANA Primary Care Provider [phone] Reason for Visit * Reason Comments Follow-up Encounter Details Date Type Department Care Team (Late st Contact Info) Description 01/13/2025 2:30 PM EDT Office Visit [facility] [place] [address] [facility] [place] [address] Patrice Gómez MD [address] [place] [address] HOCM (hypertrophic obstructive cardiomyopathy) (CMS/HCC) [...] any time in the past 12 m [facility], were you homeless or living in a [...] of Visit 01/13/25 Patient Rebeca Armendariz [address] [id number] PCP Caryn Guevara, IVANA SUBJECTIVE History of Present Illness Today Dr. Gómez and I saw Reebca Armendariz, a 69 y.o. female at the [facility] [place] for follow up after hospitalization. PMH: HOCM s/p alcohol septal ablation 10/09/24 c/b AVB now s/p PPM 10/12/24, HTN, HLD, and GERD. Ms. Armendariz reports that she feels much better since her alcohol septal ablation. She has not experienced chest pain, dyspnea, dizziness/lightheadedness or syncope. She continues to follow closely with Dr. Arteaga in [place] and last saw them last week. He [...] Pericardium: No pericardial effusion. Device Interrogation Overview Clothing Supervisor: [employer]ole[employer] Device type: dual chamber pacemaker [...] the results of this device interrogation with [employer] rep. Lab Review Lab Results Component Value [...] - Continue routine follow up with local risk and insurance consultant AVB - following alcohol septal ablation - s/p dual chamber ICD 10/12/24 - Device interrogated today showing reduced device utilization. [employer] rep enable VIP and morphology monitoring - Will transfer remote monitoring to local risk and insurance consultant LE edema - minimal LE edema noted on exam - Continues on spironolactone 25mg - Advised patient to avoid added salt, elevate legs when possible and wear compression socks - Follow up with local risk and insurance consultant Continue routine follow up with local cardiology. [...] MG tablet, Take 1 tablet by mouth. [facility], Disp: , Rfl: traZODone (Desyrel) 50 MG [...] documented as of this encounter Care Teams Media Sales Consultant Relationship Specialty Start Date End Date Caryn Guevara APRN [address] [place] [address] PCP - General 09/09/24 documented as of this encounter
--- OUTSIDE RECORDS SUMMARY | 2025-01-13 16:25 | XMS_ITS | Encounter Summary ---
Author Organization Healthcare Address [address] [place] [address] Care Team Providers Care Technical Illustrator Name Role Phone Caryn Guevara IVANA Primary Care Provider [phone] Encounter Details Date Type Department Care Team (Latest Contact Info) Description 01/13/2025 4:25 PM EDT - 01/13/2025 11:59 PM EDT Hospital Encounter Cardiac Imaging [address] [place] [address] ICD (implantable cardioverter-defibr illator) in place Discharge Disposition: Home or Self Care Social [...] any time in the past 12 m [facility], were you homeless or living in a residential (including now)? No 10/12/2024 Utilities Answer Date Recorded In the past 12 months has th e [employer], gas, oil, or water [employer] threatened to shut off services in your home? No 10/12/2024 Comments Unknown Sex and Gender Information Value Date Recorded Sex Assigned at Not on file Legal Sex Female 7:41 PM EDT Gender Identity Not on file Sexual Orientation Not on file documented as of this encounter Functional Status * Over the past 2 weeks, how often have you been bothered by any of the following problems? Question Answer Date of Assessment Author Little interest or pleasure in doing things Not at all 01/13/2025 2:12 PM Avelina Field Feeling down, depressed, or hopeless Not at all 01/13/2025 2:12 PM APRILT Avelina Lindsay Patient Health Questionnaire -2 Score 0 01/13/2025 2:12 PM Avelina Field * Question Answer Date of Assessment Author Trouble falling or staying asleep, or sleeping too much Not at all 01/13/2025 2:12 PM Avelina Field Feeling tired or having atif le energy Not at all 01/13/2025 2:12 PM EDAvelina Mancia Poor appetite or overeating Not at all 01/13/2025 2: 12 PM Avelina Field Feeling bad about yourself - or that you are a failure or have let yourself or your family down Not at all 01/13/2025 2:12 PM EDT Avelina Davey Trouble concentrating on thi ngs, such as reading the newspaper or watching television Not at all 01/13/2025 2:12 PM Avelina Field Moving or speaking so slowly that other people could have noticed? Or the opposite - being so fidgety or restless that you have been moving around a lot more than usual. Not at all 01/13/2025 2:12 PM Avelina Field Thoughts that you would be better off or hurting yourself in some way Not at all 01/13/2025 2:12 PM Avelina Field Patient Health Questionnaire -9 Score 0 01/13/2025 2:12 PM Avelina Field * If you checked off any problems on this questionnaire so far, Question Answer Date of Assessment Author How difficult have these problems made it for you to do your work, take care of things at home, or get along with other people? Not difficult at all 01/13/2025 2:12 PM Avelina Field documented as of this encounter Medications at Time of Discharge ALPRAZolam (Xanax) 0.5 MG tablet 1 tablet. 09/07/2024 aspirin 81 MG EC tablet Take 1 tablet by mouth daily. cetirizine (ZyrTEC) 10 MG tablet Take 1 tablet by mouth daily as needed for allergies. clopidogrel (Plavix) 75 MG tablet Take 1 tablet by mouth daily. 90 tablet 11/11/2024 estradiol (Estrace) 0.1 MG/GM vaginal cream Insert 2 g into the vagina daily. 11/16/2024 estradiol (Estrace) 1 MG tablet Take 1 [...] 1 tablet 1 time each day 06/20/2024 memantine (Namenda) 5 MG tablet take 1 tablet 2 times each day 06/10/2024 metoprolol succinate XL (Toprol-XL) 25 MG 24 hr tablet Take 1 tablet by mouth daily. 12/30/2024 metoprolol succinate XL (Toprol-XL) 50 MG 24 hr tablet Take 1 tablet by mouth daily. Do not crush or chew. 90 tablet 11/11/2024 omeprazole (PriLOSEC) [address] capsule Take 1 capsule by mouth as needed. 12/18/2024 Probiotic Product (ALIGN DUALBIOTIC PO) Take by mouth. rosuvastatin (Crestor) 5 MG tablet Take 1 tablet by mouth nightly. 10/28/2024 spironolactone (Aldactone) 25 MG tablet Take 1 tablet by mouth. MWF 06/01/2024 traZODone (Desyrel) 50 MG tablet Take 1 tablet by mouth nightly. 01/13/2025 documented as of this encounter Plan of Treatment Not on file documented as of this encounter Procedures Procedure Name Priority Date/Time Associated Diagnosis Comments CARDIAC DEVICE CHECK - REMOTE - ICD Routine 01/13/2025 5:28 PM EDT ICD (implantable cardioverter-defibr illator) in place documented in this encounter Results * CARDIAC DEVICE CHECK - REMOTE - ICD (01/13/2025 5:28 PM EDT) BSA 2.2 m2 PACEART Anatomical Region Laterality Modality Other Narrative 01/14/2025 12:57 PM EDT [facility] EP - Device Clinic Remote CIED Report Name: Rebeca Armendariz Date: 01/14/2025 : 1955 Age: 69 y.o. Reporting period: Reporting period is the last 91 days, with at least 30 days of remote monitoring. Interim reports, if any, reviewed and addressed previously; see remote alert entries for more details. Most recent report, dated 01/14/2025, analysis and summary as follows: Device: Nichole dual chamber ICD Permanent Programming Mode : DDD LRL: 60 bpm MTR: 120 bpm Tachy Zones : VT-1 150 bpm VT 181 bpm VF > 240 bpm Available measurements within normal limits. See attached report. Pacing Percentage: Atrial: 10 % Ventricular: 96 % Battery: Service time remainin.3-8.7 years Presenting rhythm: Presenting rhythm is atrial sensed with ventricular paced response. Evaluation: Demonstrates appropriate sensing: Yes Demonstrates pacing capture: Yes Arrhythmias: No new arrhythmia of significance since last CIED evaluation. Summary: CIED functioning as expected, with given programming and data. See copy of vendor report in Media for further details us Bernie Marcelino APRN CV IMPLANTABLE CARDIAC DEV ICE PROCEDURES Final Result documented in this encounter Visit Diagnoses Diagnosis ICD (implantable cardioverter-defibrillator) in place documented in this encounter Additional Health Concerns Assessment Noted Time PHQ-9 Depression Total Score: 0 01/14/20 2:12 PM EDT A fall risk assessment has been complete d for the patient 01/13/2025 2:13 PM EDT A Body Mass Index follow-up plan has been documented for the patient 01/13/2025 3:29 PM EDT documented as of this encounter Care Teams Technical Illustrator Relationship Specialty Start Date End Date Caryn Guevara APRN [address] [place] [address] PCP - General 09/09/24 documented as of this encounter
--- NOTE | 2025-02-18 12:50 | ECG_ITS ---
APPROVED REPORT Exam: Resting ECG HR:68 bpm ECG Measurements Heart Rate 68 AXES WI 219 P 34 QRSd 171 QRS -50 QT 453 T 9 QTc 470 Conclusion SINUS RHYTHM WITH FIRST DEGREE AV BLOCK LEFT AXIS DEVIATION [QRS AXIS < -30] RIGHT BUNDLE BRANCH BLOCK [120+ ms QRS DURATION, UPRIGHT V1, 40+ ms S IN I/aVL/V4/V5/V6] ABNORMAL ECG UNCONFIRMED REPORT Electronically signed by : José Ramos, 02/18/2025 15:58:58
[2025-02-18 13:15] VITALS: BP 149/85; PULSE 78; RESP 18; TEMP 36.6; O2SAT 98; BMI 35.6
[2025-02-18 13:30] VITALS: BP 180/87; PULSE 68; O2SAT 97
[2025-02-18 13:30] LABS: Albumin Level 4.8 g/dl (3.5-5.0); Chloride 108 mmol/L (98-107); Potassium 4.0 mmoL/L (3.5-5.1); Sodium 140 mmol/L (136-145)
--- NOTE | 2025-02-18 13:30 | ED_ITS ---
<Statement entered by Makenzie Ramos MD - 02/18/25 15:53> I was consulted by the AYAAN, and we discussed the complexity of the problems being addressed. I approved the treatment and management plan for this patient's care in the emergency department, thus performing a substantive portion of the medical decision making. Makenzie Ramos MD, KRUPA, FACEP Discharge Plan Disposition Patient Disposition: Home, Self-Care Condition: Good Prescriptions Prescriptions: No Action aspirin [Adult Low Dose Aspirin] 81 mg tablet,delayed release (DR/EC) 81 mg PO DAILY memantine 5 mg tablet 5 mg PO ONCE Patient Comments: TAKE 1 TABLET 1 TIME EACH DAY AT BEDTIME FOR 7 DAYS. THEN, TAKE 1 TABLET 2 TIMES EACH DAY rosuvastatin 5 mg tablet 5 mg PO DAILY Patient Comments: TAKE ONE TABLET BY MOUTH EVERY DAY AT BEDTIME FOR cholesterol estradiol [Vagifem] 10 mcg tablet 10 mcg vaginal .COMPLEX 30 Days Qty: 30 5RF Rx Instructions: 10 mcg vaginally daily x 2 weeks and then twice weekly; duloxetine 30 mg capsule,delayed release(DR/EC) 30 mg PO ONCE Patient Comments: TAKE 1 CAPSULE 1 TIME EACH DAY cetirizine 10 mg tablet 10 mg PO DAILY PRN psyllium husk [Metamucil] 0.4 gram capsule 0.4 g PO DAILY spironolactone [Aldactone] 25 mg tablet 25 mg PO .COMPLEX Qty: 30 2RF Rx Instructions: 25 mg orally on Saturday, saturday and fridays; omeprazole 20 mg capsule,delayed release(DR/EC) 20 mg PO DAILY PRN Patient Comments: TAKE 1 CAPSULE 1 TIME EACH DAY NEEDED terconazole 0.8 % cream 1 appful vaginal HS 3 Days Qty: 20 0RF boric acid 600 mg suppository vaginal clopidogrel 75 mg tablet 75 mg PO ONCE estradiol [Estrace] 0.01 % (0.1 mg/gram) cream 1 appful vaginal DAILY Qty: 42.5 6RF Rx Instructions: Daily finger technique as I described to the patient and then three times weekly thereafter metoprolol succinate 25 mg tablet extended release 24 hr 12.5 mg PO QDAY Qty: 90 3RF cranberry 500 mg capsule 500 mg PO BID Rx Instructions: administer with meals Fiber Gummies 1.7 gram tablet,chewable 1.7 g PO DAILY alprazolam 0.5 mg tablet 0.5 mg PO HS Qty: 30 2RF losartan 50 mg tablet See Rx Instructions .ROUTE .COMPLEX Qty: 30 2RF Dose Instruction: TAKE 1 TABLET 1 TIME EACH DAY Rx Instructions: TAKE 1 TABLET 1 TIME EACH DAY levothyroxine 50 mcg tablet 50 mcg PO DAILY 30 Days Qty: 30 2RF sodium,potassium,mag sulfates [Suprep Bowel Prep Kit] 17.5-3.13-1.6 gram recon soln See Rx Instructions PO .COMPLEX Qty: 354 0RF Rx Instructions: DILUTE; drink full amount early evening before AND next morning at least 4-5 hr before procedure; follow w 960 mL water PO Referrals Follow up/Referrals: Provider,Referral, [Referring, Medical] - See instructions Tim Paulino II, MD [Staff Physician, Gastroenterology] - See instructions Bala Tatum MD [Staff Physician, Cardiology] - See instructions Activity Restrictions/Add. Instructions Additional Instructions/Restrictions: Please return to the emergency department with any worsening signs or symptoms, please take all your medication as prescribed, recommend good intake with fluids, please follow-up with PCP, it analyst and GI doctor in the upcoming days. Clinical Impressions Clinical Impression: Episodic lightheadedness Instructions Patient Instructions: DI for Dizziness-Nonvertigo Print Language Print Language: Setswana Discharge ED Provider: Makenzie Ramos General Adult HPI General Chief complaint: Dizziness Stated complaint: Lihtheaded Time Seen by Provider: 02/18/25 13:15 Mode of Arrival: Ambulatory Source of Information: Patient Description of Symptoms (Recalled from ER Triage Doc. by RN): Patient presents to ED with c/o dizziness and lightheadedness. Patient also reports recent dysuria and states she is not urinating well . History of Present Illness HPI narrative: 69-year-old female presents the emergency department with vague complaints such as fatigue, malaise, lightheadedness, foul-smelling urine , decreased urinary frequency, that started today, however patient is somewhat of a poor historian, and states that she had had symptoms previously the last couple of days, denies any true presyncopal or syncopal event, no vertiginous type symptoms such as the room spinning . Admits to subjective fever and chills that been going on for quite some time, denies any chest pain or shortness of breath, but does state I had some heartburn a couple days ago , denies any abdominal pain, but is quite concerned about an area of her abdomen, where she has had what sounds her previous hernia, she tells me that is hernia don't you think? , She denies any nausea true abdominal pain, constipation no diarrhea no melena no hematochezia, but does tell me I did have some blood in my stool a few weeks ago. I have a colonoscopy scheduled at the end of the month with Dr. Paulino. Do think that they will let me drive home from that? After some redirection, patient states that she does not have any active hematochezia, does state that she has a history of what sounds like hemorrhoids, she does not really admit to any dysuria, no hematuria, no hematemesis, patient is a non-smoker, denies any alcohol or drug use other past medical history is consistent with MAKSIM, MDD, rectocele, MORALES, atrophic vaginitis, aortic stenosis, hypertension, hyperlipidemia, GERD, implantable cardiac pacemaker/defibrillator, distress vitals are unremarkable. Patient states I went to [facility] and they told me to come to the emergency department. They did not even take my blood pressure anything . Please note that above description of symptoms, in this electronic medical record under categorization of recalled from ER triage doctor by RN are reflective of an initial nursing assessment, however, is not reflective of my full history and physical exam that was personally taken and clarified. Consequentially, this preceding description of symptoms, which may include the patient's categorized chief complaint in the EMR, do not reflect my personal clinical impression, and the ultimate description of history of present illness and patient stated complaints should be deferred to this section of the note. Unless stated otherwise or congruent with this section of the note, additional signs, symptoms, or incongruence should be interpreted as inaccurate with my clinical impression. Onset (ago): hour(s) Related Data Home Medications ?Medication ?Instructions ?Recorded ?Confirmed aspirin 81 mg tablet,delayed 81 mg PO DAILY heart heal th 01/12/21 12/30/24 release (Adult Low Dose Aspirin) cetirizine 10 mg tablet 10 mg PO DAILY PRN 01/21/24 12/30/24 psyllium husk 0.4 gram capsule 0.4 g PO DAILY 01/21/24 12/30/24 (Metamucil) omeprazole 20 mg capsule,delayed 20 mg PO DAILY PRN 12/30/24 release duloxetine 30 mg capsule,delayed 30 mg PO ONCE 4 12/30/24 release memantine 5 mg tablet 5 mg PO ONCE 06/17/24 boric acid 600 mg vaginal mg vaginal 11/05/24 12/30/24 suppository rosuvastatin 5 mg tablet 5 mg PO DAILY 11/11/2412/30 clopidogrel 75 mg tablet 75 mg PO ONCE 12/02/2412/30 cranberry 500 mg capsule 500 mg PO BID 12/15/2412/30 inulin 1.7 gram chewable tablet 1.7 g PO DAILY 5 12/30/24 (Fiber Gummies) Previous Rx's ?Medication ?Instructions ?Recorded alprazolam 0.5 mg tablet 0.5 mg PO HS anxiety #30 tab s 09/09/23 losartan 50 mg tablet See Rx Instructions .Route 0 12/23/23 .COMPLEX #30 tabs levothyroxine 50 mcg tablet 50 mcg PO DAILY hypothyroi dism 30 12/25/23 days #30 tabs spironolactone 25 mg tablet 25 mg PO .COMPLEX #30 tabs 01/21/24 (Aldactone) terconazole 0.8 % vaginal cream 1 appful vaginal HS 3 days #20 05/25/24 grams estradiol 0.01% (0.1 mg/gram) 1 appful vaginal DAILY # 42.5 grams 11/16/24 vaginal cream (Estrace) estradiol 10 mcg vaginal tablet 10 mcg vaginal .COMPLE X 30 days 12/07/24 (Vagifem) #30 tabs metoprolol succinate 25 mg 12.5 mg (1/2 x 25 mg) PO QD AY #90 12/30/24 tablet,extended release 24 hr tabs sodium,potassium,mag sulfates 17.5 See Rx Instructions PO .COMPLEX 02/11/25 gram-3.13 gram-1.6 gram oral soln #354 mL (Suprep Bowel Prep Kit) Allergies Allergy/AdvReac Type Severity Reaction Status Date / Time sulfamethoxazole (From Allergy Intermediate Hives Verified 12/30/24 13:30 Bactrim) trimethoprim (From Bactrim) Allergy Intermediate Hives Verified 12/30/24 13:30 codeine (CODEINE) Allergy Mild Gastrointestinal Verified 12/30/24 13:30 Upset [facility] Disclaimer: The information contained in this section may have been updated after the patient was seen, as this information can be updated by other users. Medical History (Updated 02/18/25 @ 14:50 by BENJAMIN Osorio) Mixed hyperlipidemia History of pacemaker Paroxysmal A-fib Edema Hot flashes Grief Normal colonoscopy Vaginitis Abnormal electrocardiogram [ECG] [EKG] UTI (urinary tract infection) Perianal pruritus Dysuria GERD (gastroesophageal reflux disease) Family history of ischemic heart disease Heart murmur HLD (hyperlipidemia) HTN (hypertension) Aortic stenosis Diastolic dysfunction Surgical History History of heart surgery Hx of hysterectomy Hx laparoscopic cholecystectomy Family History Other No significant family history Social History Smoking Status: Never smoker second hand exposure: No alcohol intake: never substance use type: denies use current occupational status: retired Travel in the last 8 weeks?: Inside the [facility] household members: none housing: house current occupational exposures/hazards: No caffeine: Yes Have you lived/traveled outside US in past 30 days?: No Contact w/someone who lives/traveled outside US past 30 days?: No Exposure to someone with infectious disease in past 14 days?: No Do you have a fever (greater than 100.4 F or 38 C)?: No Have you tested positive for COVID-19?: No Exposed to someone with COVID-19 in past 14 days?: No Do you have a sore throat?: No Do you have a cough?: No Do you have any weakness?: No Do you have any diarrhea?: No Are you experiencing any unusual bleeding?: No Do you have any muscle aches/pain?: No Do you have any abdominal pain?: No Are you experiencing loss of taste or smell?: No Other Medical History Have you received the Flu Vaccine for this season: No Have you received the Pneumonia Vaccine: Yes ROS Obtained: Yes All systems reviewed & no additional complaints except as documented Physical Exam General General appearance: alert and in no apparent distress Comment: Alert oriented answers questions and follows commands Head Head exam: atraumatic and normocephalic Eye Eye exam: Present PERRL and EOMI ENT ENT exam: Present mucous membranes moist Neck Neck exam: Present normal inspection Chest Chest inspection: Present normal inspection and symmetric chest wall rise Respiratory Respiratory exam: Present normal lung sounds bilaterally; Absent respiratory distress, wheezes or stridor Cardiovascular Cardiovascular exam: Present regular rate and normal rhythm Abdominal Exam Abdominal exam: Present soft, hernia and scar; Absent tenderness, guarding, rebound or rigidity Comment: Hernia right periumbilical region, with some healing ecchymosis Extremities Exam Extremities exam: Present normal inspection Neurological Exam Neurological exam: Present alert and oriented X3 Psychiatric Psychiatric exam: Present normal affect Skin Skin exam: Present warm and dry Medical Decision Making Medical Records Medical records reviewed: Yes I reviewed the patient's medical records. Screening: Per USPSTF and CDC recommendations, given the prevalence of disease in our region, it is our hospital?s policy to screen for HIV and viral Hepatitis for all patients aged 18 and over and those with ongoing risk factors. Marco Inquiry Pt receiving controlled substance: No Marco was queried for this patient: No Vital Signs: 02/18/25 13:15 02/18/25 13:15 02/18/25 13:30 Temperature 97.9 F 97.9 F Temperature Source Oral Oral Pulse Rate 78 68 Pulse Rate [Right] 78 Respiratory Rate 18 18 Blood Pressure 149/85 H 180/87 H Blood Pressure [Left Arm] 149/85 H Blood Pressure Mean Blood Pressure Mean [Left Arm] 106 02 Sat by Pulse Oximetry 98 98 97 Oxygen Delivery Method Room Air Room Air 02/18/25 14:01 Temperature Temperature Source Pulse Rate Pulse Rate [Right] Respiratory Rate Blood Pressure 163/81 H Blood Pressure [Left Arm] Blood Pressure Mean 108 Blood Pressure Mean [Left Arm] 02 Sat by Pulse Oximetry Oxygen Delivery Method Lab Data Lab results reviewed: Yes I reviewed the patient's lab results. Lab Results 02/18/25 13:00: Sodium 140, Potassium 4.0, Chloride 108 H, Carbon Dioxide 23, Anion Gap 13.0, BUN 15, Creatinine 0.70, Estimated Creat Clear 83, Estimated GFR 83, Est GFR ( Amer) 100, Glucose 104 H, Calcium 9.4, Total Bilirubin 0.8, AST 47 H, ALT 21, Alkaline Phosphatase 87, Troponin I < 0.01, NT-Pro-B Natriuret Pep 268 H, Total Protein 8.0, Albumin 4.8, Globulin 3.2, Albumin/Globulin Ratio 1.5, Lipase 153 02/18/25 13:19: Urine Color Yellow, Urine Appearance Slightly cloudy, Urine pH 6.0, Ur Specific [place] 1.010, Urine Protein Negative, Urine Glucose (UA) Negative, Urine Ketones Negative, Urine Blood Negative, Urine Nitrate Negative, Urine Bilirubin Negative, Urine Urobilinogen 0.2, Ur Leukocyte Esterase Negative, Urine RBC None, Urine WBC Occasional, Ur Squamous Epith Cells 3-5, Urine Bacteria Trace 02/18/25 13:35: WBC 7.2, RBC 4.17 L, Hgb 12.0 L, Hct 37.0, MCV 88.7, MCH 28.8, MCHC 32.4, RDW 15.3, Plt Count 296, MPV 9.3, Neut % (Auto) 65.2, Lymph % (Auto) 22.5, [place] % (Auto) 9.6 H, Eos % (Auto) 1.7, Baso % (Auto) 0.7, Neut # (Auto) 4.7, Lymph # (Auto) 1.6, [place] # (Auto) 0.7, Eos # (Auto) 0.1, Baso # (Auto) 0.1 02/18/25 13:35 02/18/25 13:00 Orders (Tests/Meds): ORDERS Category Date Time Status Complete Blood Count Auto Diff Stat Lab 02/18/25 13:35 Completed Comprehensive Metabolic Panel Stat Lab 02/18/25 13:00 Completed Lipase Stat Lab 02/18/25 13:00 Completed NT Pro Brain Natriuretic Pep. Stat Lab 02/18/25 13:00 Completed Troponin I Q3H Lab 02/18/25 16:30 Ordered Troponin I Q3H Lab 02/18/25 19:30 Ordered Troponin I Stat Lab 02/18/25 13:00 Completed Urinalysis and Microscopic Stat Lab 02/18/25 13:19 Completed Medical Decision Narrative: 69-year-old female presents emergency department with multiple vague complaints, been going on for quite some time, will brings her in the emerged from today is some lightheadedness fatigue malaise started today as well as some foul-smelling urine and urinary frequency differential diagnosis include but not limited to acute UTI, cardiac arrhythmia, electrolyte disturbance, hypovolemia, acute dehydration, medication noncompliance, anxiety reaction, acute pyelonephritis among others. I discussed this patient's case with the attending physician Will obtain basic laboratory studies, EKG, lipase, proBNP, troponin, urinalysis CMP is unremarkable with the exception of minimally elevated AST at 47. BNP is mildly elevated at 268 Troponin is within normal limits at less than 0.01 UA is unremarkable negative nitrites negative leukocyte Estrace. CBC unremarkable Microscopic analysis of the patient's urine shows occasional WBCs, 3-5 epithelial cells and trace bacteria. Reexamination of the patient at approximately 2:43 PM, patient is resting comfortably in bed, has remained hemodynamically stable throughout her time in the emergency department, has no other acute complaints, discussed all results with the patient at the bedside, patient is cleared to be discharged home to self-care, we did send interrogation for the patient's [place] pacemaker/defibrillator, will not have results back in the in the next few hours, patient would like to follow-up with his I think this is appropriate, patient has no other acute symptomatology, patient is clear to be discharged home to self-care. Patient voiced understanding and agreement with the current treatment plan/discharge plan. Follow-up with PCP, GI, and cardiology. Critical Care Critical Care Time Critical Care Time: No
[2025-02-18 13:31] LABS: Lipase 153 U/L (23-300)
[2025-02-18 13:33] LABS: Alanine Aminotransferase 21 U/L (12-78); Albumin/Globulin Ratio 1.5 (1.1-1.8); Alkaline Phosphatase 87 U/L (38-126); Anion Gap 13.0 mEq/L (5-15); Aspartate Amino Transferase 47 U/L (14-36); Bilirubin,Total 0.8 mg/dl (0.2-1.3); Blood Urea Nitrogen 15 mg/dl (7-17); Carbon Dioxide 23 mmol/L (22.0-30.0); Creatinine Clearance Estimated 83 mL/min (50-200); Creatinine,Serum 0.70 mg/dl (0.52-1.04); Estimated Glomerular Filt Rate 83 ml/min (>60); GFR (African American) 100 ML/MIN (>60); Globulin 3.2 g/dL (1.3-3.2); Total Protein,Serum 8.0 g/dl (6.3-8.2)
[2025-02-18 13:34] LABS: Calcium 9.4 mg/dl (8.4-10.2); Glucose 104 mg/dl (74-100)
--- OUTSIDE RECORDS SUMMARY | 2025-02-18 13:42 | XMS_ITS | Encounter Summary ---
Author Organization Healthcare Address [address] [place] [address] Care Team Providers Care Facsimile Machine Operator Name Role Phone Caryn Guevara IVANA Primary Care Provider [phone] Encounter Details Date Type Department Care Team (Late st Contact Info) Description 01/13/2025 Telephone Cardiac Imaging [address] [place] [address] Danya De La Rosa Social History Tobacco [...] any time in the past 12 m [facility], were you homeless or living in [...] at all 01/13/2025 2: 12 PM EDT [facility] iLndsay Feeling bad about yourself - or that [...] clinic. We spoke [facility] and they picking machine operator remotes. Cardiology notified device clinic 01/13 patient would like to transfer [facility] remotes to Dr. Fausto Arteaga's office at [facility] Specialty Clinic: [phone]. We called [facility] with notification we changed Randal status: transferred to another clinic. Call [facility] Heart device clinic at [phone] for assistance. Thank you. documented in this [...] documented as of this encounter Care Teams Facsimile Machine Operator Relationship Specialty Start Date End Date Caryn Guevara APRN [address] [place] [address] PCP - General 09/09/24 documented as of this encounter
--- OUTSIDE RECORDS SUMMARY | 2025-02-18 13:42 | XMS_ITS | Encounter Summary ---
Author Organization Healthcare Address [address] [place] [address] Care Team Providers Care Tool Maker Name Role Phone Catalino Zuñiga MD Primary Care Provider Caryn Robertson APRN Primary Care Provider Encounter Details Date Type Department Care Team (Late st Contact Info) Description 02/19/2023 Ophth Exam [facility] [address] [place] [address] Raymon Abel MD [address] [place] [id number] Social History Tobacco Use Types Packs/Day [...] on filedocumented in this encounter Care Teams Tool Maker Relationship Specialty Start Date End Date Catalino Zuñiga MD PCP - General Family Medicine 02/19/23 09/08/24 Caryn Guevara APRN [address] [place] [address] PCP - General 09/09/24 documented as of this encounter
--- OUTSIDE RECORDS SUMMARY | 2025-02-18 13:42 | XMS_ITS | Clinical Summary ---
Author Organization [facility] Address [address] [place] [address] Care Team Providers Care Sign Painter Helper Name Role Phone Caryn Guevara IVANA Primary Care Provider [phone] Allergies Active Allergy Reactions Criticality Noted Date [...] Do not crush or chew. 90 tablet Active Additional Information Patient not taking.Reported on 01/13/2025 traZODone (Desyrel) 50 MG tablet Take 1 tablet by mouth nightly. Active metoprolol succinate XL (Toprol-XL) 25 MG 24 hr tablet Take 1 tablet by mouth daily. Active omeprazole (PriLOSEC) [address] capsule Take 1 capsule by mouth as needed. Active estradiol (Estrace) 0.1 MG/GM vaginal cream Insert 2 g into the vagina daily. Active rosuvastatin (Crestor) 5 MG tablet Take 1 tablet by mouth nightly. Active Active Problems Problem Noted Date Diagnosed Date HOCM (hypertrophic obstructive cardiomyopathy) 0 09/09/2024 Encounters Date Type Department Care Team Description 01/13/2025 4:25 PM EDT - 01/13/2025 11:59 PM EDT Hospital Encounter Cardiac Imaging [address] [place] [address] ICD (implantable cardioverter-defibri llator) in place Discharge Disposition: Home or Self Care 01/13/2025 2:30 PM EDT Office Visit [facility] [place] [address] [place] [address] Patrice Gómez MD HOCM (hypertrophic obstructive cardiomyopathy) (CMS/HCC) (Primary Dx); AV block, complete (CMS/HCC) 01/13/2025 Telephone Cardiac Imaging [address] [place] [address] Danya De La Rosa 01/13/2025 Travel from Last 3 Months Immunizations Immunization [...] the past 12 months has th e [employer], gas, oil, or water company threatened to [...] Screening 1999 [facility]-Breast Cancer Screening 06/01/2019 06/01/2017 [id number] Vaccine ( season) 2024 03/20/2022, 01/19/2022, 03/02/2021, [...] this topic Medical Devices Implanted Type Area Deputy City Clerk Device Identifier Shelf Expiration Date Model / Serial / Lot Pacemaker Icd [place] - [id number] Implanted:Qty: 1 on 10/12/2024 by Patrice Gómez MD at [facility] [id number] 05/30/2026 [id number] / [id number] / [id number] Lead Pacing Ultipace 52cm - [id number] Implanted:Qty: 1 on 10/12/2024 by Patrice Gómez MD at [facility] [employer]-[id number] 07/31/2027 [id number] / [id number] / [id number] Lead Defib Durata Sj4 7122q/65 - [id number] Implanted:Qty: 1 on 10/12/2024 by Patrice Gómez MD at [facility] [employer] [facility]-[id number] 06/30/2027 7122Q/65 / [id number] / [id number] Procedures Procedure Name Priority Date/Time Associated Diagnosis Comments CARDIAC DEVICE CHECK - REMOTE - ICD Routine 01/13/2025 5:28 PM EDT ICD (implantable cardioverter-defibr illator) in place from Last 3 Months Results * CARDIAC DEVICE CHECK - REMOTE - ICD (01/13/2025 5:28 PM EDT) BSA 2.2 m2 PACEART Anatomical Region Laterality Modality Other Narrative 01/14/2025 12:57 PM EDT [facility] - Device Clinic Remote CIED Report Name: Rebeca Marcello Date: 01/14/2025 : 1955 Age: 69 y.o. [...] vendor report in Media for further details Bernie Grayson [address] PATCHER CV IMPLANTABLE CARDIAC DEV ICE PROCEDURES Final Result from Last 3 Months Insurance [facility] MEDICARE Advance Directives * Full Code (Latest Code Status on File) Date Activated Date Inactivated Comments 10/09/2024 1:49 PM 10/13/2024 5:12 PM Care Teams Sign Painter Helper Relationship Specialty Start Date End Date Caryn Guevara APRN [address] [place] [phone] PCP - General 09/09/24
--- OUTSIDE RECORDS SUMMARY | 2025-02-18 13:42 | XMS_ITS | Encounter Summary ---
Author Organization Healthcare Address [address] [place] [address] Care Team Providers Care Truck Striker Name Role Phone Caryn Guevara IVANA Primary Care Provider [phone] Encounter Details Date Type Department Care Team [...] any time in the past 12 m [facility], were you homeless or living in a [place] [facility] [place] facility (including now)? No 10/12/2024 Utilities Answer Date [...] documented as of this encounter Care Teams Truck Striker Relationship Specialty Start Date End Date Caryn Guevara APRN [address] [place] [address] PCP - General 09/09/24 documented as of this encounter
--- OUTSIDE RECORDS SUMMARY | 2025-02-18 13:43 | XMS_ITS | Patient Health Record ---
Author Organization [facility] Address [address] [facility] [address] [place] [address] Care Team Providers Care Fish Cleaner Name Role Phone Charles Hopkins Primary Care [...] review and pick correct strength-formulat ion from HDmessaging options. If intended option is not shown, [...] W/U Status Risk Notes Problem Allergic rhinitis (12879723) Other allergic rhinitis (J30.89) Active confirmed Problem Anxiety (10117593) Anxiety (F41.9) Active confirmed Problem Essential hypertension (71485922) Essential hypertension (I10) Active confirmed Problem Seasonal allergy (534577504) Seasonal allergies (J30.2) Active confirmed Problem Acquired hypothyroidism (309458859) Acquired hypothyroidism (E03.9) Active confirmed Problem Insomnia disorder related to another mental disorder (33803586) Psychophysiological insomnia (F51.04) Active confirmed Problem Obstructive sleep apnea syndrome (95937778) MORALES (obstructive sleep apnea) (G47.33) Active confirmed Problem Movement disorder (90395715) Movement disorder (G25.9) Active confirmed Problem Akathisia (276587718) Akathisia (G25.71) Active confirmed Encounters Encounter Location Date Provider Diagnosis [facility] [address] [place] [address] 10/03/2024 Provider Migration Plan Of Treatment Pending Test Test Name Order Date Urinalysis 09/22/2021 C-CMP 08/01/2020 C-LIPID PANEL 08/01/2020 C-THYROID PROFILE 08/01/2020 M-Thyroid Stimulating Hormone 07/10/2021 Insurance Providers Payer Name Payer Address Payer Phone Subscriber Number Group Number Insured Name Patient Relationship to Insured Coverage Start Date Coverage End Date [employer] Medicare [employer]vantage [address] [address] [place] [address] [id number] Rebeca Armendariz Self - patient is the insured Medications Administered Medication Instructions Date of Administration Dosage Notes Dexamethasone 4mg Injection 12/07/2021 4 mg Medical (General) History Medical History History ICD Code Hypothyroidism HLD HTN MORALES Murmur with aortic calcification Surgical History Surgery Date(Month/Year) cholecystectomy hemorrhoidectomy right eye Hospitalization History Reason Date(Month/Year) above
--- OUTSIDE RECORDS SUMMARY | 2025-02-18 13:43 | XMS_ITS | Clinical Summary ---
Author Organization [facility] Address [address] [place] [address] Phone Care Team Providers Care Copy And Print Associate Name Role Phone Unavailable Primary Care Provider [...] Impressions 06/06/2017 7:19 AM EST : Negative ([id number]) ~ RECOMMENDATION: Routine screening mammogram in 1 [...]
--- OUTSIDE RECORDS SUMMARY | 2025-02-18 13:43 | XMS_ITS | Encounter Summary ---
Author Organization [facility] Address [address] [place] [address] Care Team Providers Care Engineering Designer Name Role Phone Caryn Guevara APRN Primary Care Provider [phone] Encounter Details Date Type Department Care Team (Late st Contact Info) Description 10/12/2024 Lab Requisition [facility] [address] [place] [address] Alberto Ford MD [address] [facility] [address] [place] [address] Encounter for general adult medical [...] any time in the past 12 m [facility], were you homeless or living in [...] at day 1 10/13/2024 8:58 AM EDT [facility] Swab (Nares and Ayanna Rectal) 10/12/2024 10/12/2024 12:04 PM EDT us Alberto Ford MD LAB MICROBIOLOGY - GEN ERAL ORDERABLES Final Result [facility] [address] [place] [address] documented in this encounter Visit Diagnoses Diagnosis [...] documented as of this encounter Care Teams Engineering Designer Relationship Specialty Start Date End Date Caryn Guevara, IVANA [address] [place] [address] PCP - General 09/09/24 documented as of this encounter
[2025-02-18 13:44] LABS: NT Pro Brain Natriuretic Pep. 268 pg/mL (0-125)
[2025-02-18 13:45] LABS: Microscopic, Urine URINE MICROSCOPIC (MICROSCOPIC)
[2025-02-18 13:46] LABS: Hematocrit 37.0 % (37.0-47.0); Hemoglobin 12.0 g/dL (12.2-16.2); Immature Granulocytes % 0.3 %; Mean Corpuscular HGB Conc 32.4 g/dL (31.8-35.4); Mean Corpuscular Hemoglobin 28.8 pg (27.0-31.2); Mean Corpuscular Volume 88.7 fl (81-99); Nucleated Red Blood Cells % 0 %; Platelet Count 296 K/mm3 (142-424); Red Blood Count 4.17 M/mm3 (4.20-5.40); Red Cell Distribution Width-SD 49.6 fL; White Blood Count 7.2 K/mm3 (4.8-10.8)
[2025-02-18 13:48] LABS: Troponin I < 0.01 ng/ml (0.00-0.034)
[2025-02-18 13:53] LABS: Bilirubin,Urine Negative (Negative); Color,Urine YELLOW (Yellow); Glucose,Urine (UA) Negative (Negative); Ketones,Urine Negative (Negative); Leukocyte Esterase,Urine Negative (Negative); PH,Urine 6.0 (5.0-8.5); Protein,Urine Negative (Negative); Specific Gravity, Urine 1.010 (1.005-1.030); Urobilinogen,Urine 0.2 EU/dl (0.2)
[2025-02-18 14:01] VITALS: BP 163/81
--- NOTE | 2025-02-18 14:05 | PC.NURSE ---
pacemaker interrogated at bedside. waiting on faxed report from pacemaker company.
[2025-02-18 14:17] LABS: Bacteria,Urine Trace /lpf; WBC,Urine Occasional #/hpf (0-3)
--- NOTE | 2025-02-18 14:52 | PC.NURSE ---
SPOKE WITH LESA AT [facility]. PACEMAKER TRANSMISSION RELAYED TO PHYSICIAN
[2025-02-18 14:56] VITALS: BP 129/71; PULSE 72; RESP 18; TEMP 36.3; O2SAT 97
== END 2025-02-18 15:03 | disposition home or self-care (01) ==
PROVIDERS: Physician Assistant; Emergency Provider Student in an Organized Health Care Education/Training Program; PCP Nurse Practitioner Family
DX: R42 Dizziness and giddiness (principal); R35.0 Frequency of micturition; I48.0 Paroxysmal atrial fibrillation; I10 Essential (primary) hypertension; E78.5 Hyperlipidemia, unspecified; Z95.0 Presence of cardiac pacemaker
CPT/HCPCS: 80053; 81001; 83690; 83880; 84484; 85025; 93005; 99284

== ENCOUNTER 2025-02-25 08:41 | Day surgery (SDC) | payer MEDICARE, SELFPAY ==
[2025-02-23 14:04] VITALS: BMI 34.4
--- NOTE | 2025-02-24 15:27 | EXP.HP ---
History of Present Illness *Admission Date: 02/25/25 *History of present illness: Mrs. Armendariz is a 69-year-old female who is here for screening/surveillance colonoscopy. She did have a colonoscopy in 2020 and had 4 polyps (tubular adenomas x 4) removed. The patient has had some bright red rectal bleeding possibly attributable to hemorrhoids. She also has had some bloating and gassiness and does have lactose intolerance. The examination is deemed medically necessary for screening/surveillance colonoscopy. The patient has been seen, interviewed and examined prior to the procedure by both myself and the anesthesia provider. [facility] Disclaimer: The information contained in this section may have been updated after the patient was seen, as this information can be updated by other users. Medical History Mixed hyperlipidemia History of pacemaker Paroxysmal A-fib Edema Hot flashes Grief Normal colonoscopy Vaginitis Abnormal electrocardiogram [ECG] [EKG] UTI (urinary tract infection) Perianal pruritus Dysuria GERD (gastroesophageal reflux disease) Family history of ischemic heart disease Heart murmur HLD (hyperlipidemia) HTN (hypertension) Aortic stenosis Diastolic dysfunction Surgical History History of heart surgery Hx of hysterectomy Hx laparoscopic cholecystectomy Family History Other No significant family history Social History (Updated 02/25/25 @ 09:35 by Shannan Alex RN) Smoking Status: Never smoker second hand exposure: No alcohol intake: never substance use type: denies use current occupational status: retired Travel in the last 8 weeks?: None household members: none housing: house current occupational exposures/hazards: No caffeine: Yes Have you lived/traveled outside US in past 30 days?: No Contact w/someone who lives/traveled outside US past 30 days?: No Exposure to someone with infectious disease in past 14 days?: No Do you have a fever (greater than 100.4 F or 38 C)?: No Have you tested positive for COVID-19?: No Exposed to someone with COVID-19 in past 14 days?: No Do you have a sore throat?: No Do you have a cough?: No Do you have any weakness?: No Are you experiencing any nausea/vomitting?: No Do you have any diarrhea?: No Are you experiencing any unusual bleeding?: No Do you have any muscle aches/pain?: No Do you have any abdominal pain?: No Are you experiencing loss of taste or smell?: No Other Medical History Have you received the Flu Vaccine for this season: No Have you received the Pneumonia Vaccine: Yes Review of Systems Review of Systems Review of systems (narrative): Negative *Cardiovascular Comments: Negative *Gastrointestinal Comments: Negative *Genitourinary Comments: Negative *Musculoskeletal Comments: Negative *Neurologic Comments: Negative Meds Home Medications and Allergies Home Medications ?Medication ?Instructions ?Recorded ?Confirmed ?Type aspirin 81 mg tablet,delayed 81 mg PO DAILY heart health 01/12/21 02/23/25 History release (Adult Low Dose Aspirin) alprazolam 0.5 mg tablet 0.5 mg PO HS anxiety #30 tabs 09/09/23 02/23/25 Rx losartan 50 mg tablet See Rx Instructions .Route 12/23/23 02/25/25 Rx .COMPLEX #30 tabs levothyroxine 50 mcg tablet 50 mcg PO DAILY hypothyroidism 30 12/25/23 02/25/25 Rx days #30 tabs cetirizine 10 mg tablet 10 mg PO DAILY 01/21/24 02/23/25 History spironolactone 25 mg tablet 25 mg PO .COMPLEX #30 tabs 01/21/24 02/25/25 Rx (Aldactone) omeprazole 20 mg capsule,delayed 20 mg PO DAILY 05/25/24 02/25/25 History release terconazole 0.8 % vaginal cream 1 appful vaginal HS 3 days #20 05/25/24 02/25/25 Rx grams memantine 5 mg tablet 5 mg PO ONCE 06/17/24 02/25/25 History boric acid 600 mg vaginal 600 mg vaginal NEEDED PRN 11/05/24 02/23/25 History suppository vaginal health rosuvastatin 5 mg tablet 5 mg PO DAILY 11/11/24 02/25/25 History estradiol 0.01% (0.1 mg/gram) 1 appful vaginal DAILY #42.5 grams 11/16/24 02/23/25 Rx vaginal cream (Estrace) clopidogrel 75 mg tablet 75 mg PO DAILY 12/02/24 02/23/25 History estradiol 10 mcg vaginal tablet 10 mcg vaginal .COMPLEX 30 days 12/07/24 02/23/25 Rx (Vagifem) #30 tabs cranberry 500 mg capsule 500 mg PO BID 12/15/24 02/23/25 History metoprolol succinate 25 mg 12.5 mg (1/2 x 25 mg) PO QDAY #90 12/30/24 02/25/25 Rx tablet,extended release 24 hr tabs sodium,potassium,mag sulfates 17.5 See Rx Instructions PO .COMPLEX 02/11/25 Rx gram-3.13 gram-1.6 gram oral soln #354 mL (Suprep Bowel Prep Kit) methylcellulose (with sugar) oral 1 ea PO DAILY 02/23/25 02/25/25 History powder packet New Prescriptions to Start Prescriptions: Allergies Allergy/AdvReac Type Severity Reaction Status Date / Time sulfamethoxazole (From Allergy Intermediate Hives Verified 02/25/25 09:35 Bactrim) trimethoprim (From Bactrim) Allergy Intermediate Hives Verified 02/25/25 09:35 codeine (CODEINE) Allergy Mild Gastrointestinal Verified 02/25/25 09:35 Upset Exam Data for Last 24 hours I & O for Last 24 hours: Intake & Output 02/21/25 02/22/25 02/23/25 02/24/25 23:59 23:59 23:59 23:59 Weight 220 lb *Routine HEENT Exam Head: Present normocephalic Eye: Present EOMI and PERRL ENT: Present mucous membranes moist *Routine Neck Exam Neck: Present supple *Routine Respiratory Exam Respiratory: Present CTA bilaterally *Routine Cardiovascular Exam Cardiovascular: Present RRR *Routine Abdominal Exam Abdominal: Present soft and normoactive bowel sounds; Absent tenderness *Routine Rectal Exam Rectal:: deferred *Routine Genitalia Exam Genitalia:: deferred *Routine Extremities Exam Extremities: Absent cyanosis, clubbing or edema *Routine Skin Exam Skin: Present warm; Absent rash *Routine Neurological Exam Neurological: Present alert and oriented X3 Assessment and Plan *Assessment and plan (1) History of adenomatous polyp of colon: Status: Acute Category: Medical Code(s): Z86.0101 - Personal history of adenomatous and serrated colon polyps (2) Belching: Status: Acute Category: Medical Code(s): R14.2 - Eructation (3) Bloating: Status: Acute Category: Medical Code(s): R14.0 - Abdominal distension (gaseous) (4) Flatulence: Status: Acute Category: Medical Code(s): R14.3 - Flatulence (5) Lactose intolerance: Status: Acute Category: Medical Code(s): E73.9 - Lactose intolerance, unspecified Plan A/P: 1. Personal history of adenomatous colon polyps is the preprocedural diagnosis. The patient will be anesthetized/sedated using MAC sedation. The patient has been seen and examined. Cardiac and lung assessment prior to the examination is stable. Proceed with planned screening/surveillance colonoscopy.
[2025-02-25 09:25] VITALS: BP 144/69; PULSE 74; RESP 16; TEMP 36.2; O2SAT 97; BMI 34.4
[2025-02-25] MEDS: LACTATED RINGERS 1000ML 1,000 ML 50 ML IV (09:44)
--- NOTE | 2025-02-25 10:12 | P.PNANES_ITS ---
[facility] Disclaimer: The information contained in this section may have been updated after the patient was seen, as this information can be updated by other users. Medical History Mixed hyperlipidemia History of pacemaker Paroxysmal A-fib Edema Hot flashes Grief Normal colonoscopy Vaginitis Abnormal electrocardiogram [ECG] [EKG] UTI (urinary tract infection) Perianal pruritus Dysuria GERD (gastroesophageal reflux disease) Family history of ischemic heart disease Heart murmur HLD (hyperlipidemia) HTN (hypertension) Aortic stenosis Diastolic dysfunction Surgical History History of heart surgery Hx of hysterectomy Hx laparoscopic cholecystectomy Family History Other No significant family history Social History (Updated 02/25/25 @ 09:35 by Shannan Alex RN) Smoking Status: Never smoker second hand exposure: No alcohol intake: never substance use type: denies use current occupational status: retired Travel in the last 8 weeks?: None household members: none housing: house current occupational exposures/hazards: No caffeine: Yes Have you lived/traveled outside US in past 30 days?: No Contact w/someone who lives/traveled outside US past 30 days?: No Exposure to someone with infectious disease in past 14 days?: No Do you have a fever (greater than 100.4 F or 38 C)?: No Have you tested positive for COVID-19?: No Exposed to someone with COVID-19 in past 14 days?: No Do you have a sore throat?: No Do you have a cough?: No Do you have any weakness?: No Are you experiencing any nausea/vomitting?: No Do you have any diarrhea?: No Are you experiencing any unusual bleeding?: No Do you have any muscle aches/pain?: No Do you have any abdominal pain?: No Are you experiencing loss of taste or smell?: No [facility] Anesthesia Checklist Patient Identification Patient Identification: Arm Band Structural Data Admitted From: Home Planned Operative Procedure/s: Colonoscopy Consent for Planned Operative Procedure(s) Verified: Yes Verified Documents: Surgical Consent and History and Physical NPO Status Verified Time NPO: 06:45 (finished prep) Additional verifications Anesthesia Reactions: No Hx Blood Transfusions: No Airway Assessment Mallampati Score:: Class II C-Spine Mobility Assessed: Yes TMJ Mobility Assessed: Yes Dentition: Good Dentition Neurological Assessment Level of Consciousness: Awake, Alert and Appropriate Anesthesia Plan Anesthesia Risk discussed: Yes Anesthesia Plan: Verified ASA Class: III Anesthesia Type: General
--- NOTE | 2025-02-25 10:27 | P.PCN_ITS ---
[facility] Procedure Note Date: 02/25/25 Time: 10:50 Procedure Note:: Colonoscopy Procedure Report: Colonoscopy with hemorrhoid band ligation Endoscopist: Tim Paulino II, MD Referring physician: JANE Morrow Date of Procedure: February 25, 2025 Equipment: Olympus [id number] adult colonoscope Sedation: MAC sedation Indication: Mrs. Armnedariz is a 69-year-old female who is here for screening/surveillance colonoscopy. She did have a colonoscopy with dc in 2020 and had 4 polyps (tubular adenomas x 4) removed. She also had extensive diverticulosis. The patient has had some bright red rectal bleeding possibly attributable to hemorrhoids. The patient is on Plavix. She also has had some bloating and gassiness and does have lactose intolerance. The patient was having more gassiness and continues to have some bloating. She went from taking Citrucel Gummies to Citrucel powder. She still feels constipated. Yesterday, she did pass a blood clot. Procedure: Prior to the procedure, a history and physical exam was performed, and patient's medications and allergies were reviewed. The risks, benefits and alternatives of the sedation and procedure were discussed with the patient. All questions were answered and informed consent was obtained. The patient was brought to the procedure room. Patient identification and proposed procedure were verified by the physician and the nurse. The patient was placed in a left lateral decubitus position and the scope was passed under direct vision. Throughout the procedure, the patient's blood pressure, pulse, and oxygen saturations were monitored continuously. The colonoscopy was accomplished without difficulty. The patient tolerated the procedure well. Findings: On digital rectal examination there was normal rectal tone. There were no external hemorrhoids. The colonoscope was introduced through the anal canal to the rectum and advanced to the cecum. The ileocecal valve and appendiceal orifice were identified. The scope was advanced a short distance into the ileum which appeared grossly normal. The scope was then withdrawn into the colon. The cecum, ascending and transverse colon and mucosa were grossly normal. There were scattered extensively diverticuli throughout the colon but more predominantly in the descending and sigmoid colon (LEFT colon). The rectum itself was normal. Upon retroflexion within the rectum there were grade 2-3 internal hemorrhoids. 3 columns of hemorrhoids were banded using 3 bands with excellent ligation effect. The preparation was excellent throughout with [place] Preparation Score of 9. The cecal time was 12 minutes. Impression: 1. Extensive pandiverticulosis 2. Grade 2-3 internal hemorrhoids status post band ligation x 3 Plan: I would recommend that the patient take the combined fiber bowel regimen (MiraLAX powder 17 g plus Citrucel powder (1 tablespoon) mixed in 8 to 10 ounces of juice or water by mouth every morning. Based on her history of adenomatous colon polyps, would recommend repeat screening/surveillance colonoscopy in 5 years.
[2025-02-25 10:59] VITALS: BP 93/47; PULSE 64; RESP 14; TEMP 36.2; O2SAT 96
[2025-02-25 11:09] VITALS: BP 90/55; PULSE 64; RESP 18; O2SAT 95
[2025-02-25 11:19] VITALS: BP 129/81; PULSE 61; RESP 16; O2SAT 96
[2025-02-25 11:29] VITALS: BP 137/81; PULSE 65; RESP 18; O2SAT 99
[2025-02-25] MEDS: OXYCODONE 5MG W/APAP 325MG TABLET 1.5 EACH PO (11:30)
== END 2025-02-25 11:45 | disposition home or self-care (01) ==
PROVIDERS: PCP Nurse Practitioner Family; Visit Provider Internal Medicine Gastroenterology
PROC: 0DJD8ZZ Inspection of Lower Intestinal Tract, Via Natural or Artificial Opening Endoscopic (ICD-10-PCS; CPT 45378; principal; 2025-02-25 10:30)
DX: Z12.11 Encounter for screening for malignant neoplasm of colon (principal); K64.1 Second degree hemorrhoids; K64.2 Third degree hemorrhoids; K57.30 Diverticulosis of large intestine without perforation or abscess without bleeding; E73.9 Lactose intolerance, unspecified; E78.5 Hyperlipidemia, unspecified; K21.9 Gastro-esophageal reflux disease without esophagitis; I10 Essential (primary) hypertension; Z79.82 Long term (current) use of aspirin; Z86.0101 Personal history of adenomatous and serrated colon polyps; Z88.2 Allergy status to sulfonamides; Z88.6 Allergy status to analgesic agent
CPT/HCPCS: 45398; C1889; J2003; J2704; J7120

== ENCOUNTER 2025-04-30 10:24 | Outpatient (CLI) | payer MEDICARE, SELFPAY ==
--- OUTSIDE RECORDS SUMMARY | 2024-10-03 16:30 | XMS_ITS ---
Author Organization [facility] Address [address] [place] [address] Care Team Providers Care Layaway Clerk Name Role Phone Charles Hopkins Primary Care Provider [phone] Migration, Provider Unavailable Unavailable REASON FOR VISIT Multum To Medispan Conversion Encounter Medications Medication SIG (Take, Route, Frequency, Duration) Notes Start Date End Date Status Vitamin D3 1250 MCG 1 CAP(S) ORALLY ONCE A WEEK; Duration: 30 DAY(S) *Please review and pick correct strength-formulat ion from Medispan options. If intended option is not shown, discontinue and re-order from Quick Search* Active Levothyroxine Sodium 50 MCG 1 tab(s) orally once a day; Duration: 30 day(s) Active Nortriptyline HCl 75 MG 1 cap(s) orally once a day (at bedtime); Duration: 30 day(s) 05/08/2022 Active ALPRAZolam 0.5 MG 1 tab(s) orally nightly PRN; Duration: 30 day(s) 05/04/2022 Active Paxil 20 MG 1 tab(s) orally once a day; Duration: 30 day(s) 07/31/2021 Active Lisinopril 5 MG 1 tab(s) orally once a day; Duration: 90 days Active Omeprazole 20 MG 1 cap(s) orally once a day; Duration: 30 day(s) 11/23/2021 Active Magnesium Oxide 400 MG 1 tab(s) orally twice daily; Duration: 30 days 10/31/2021 Active Aspirin 81 MG 1 tab(s) orally once a day; Duration: 30 day(s) Active Crestor 20 MG 1 tab(s) orally once a day; Duration: 30 day(s) 07/03/2021 Active ZOFRAN *Please review for potential replacement for e-prescription and drug interaction check* Active Vitamin C 500 MG 1 tab(s) orally once a day; Duration: 30 day(s) Active Estradiol 0.1 MG/GM as directed intravaginally 3 times a week; Duration: 30 day(s) Active Encounters Encounter Location Date Provider Diagnosis [facility] [address] [place] [address] 10/03/2024 Provider Migration Plan Of Treatment Medication Medication Name Sig Start Date Stop Date Notes Levothyroxine Sodium 50 MCG 1 tab(s) ora lly once a day; Duration: 30 day(s) Progress Notes * Rebeca BURKETT CDOB:[birth year] (69 yo F)Acc No.[id number]:10/03/2024 Patient: Sterling FEROZLUISRebeca Provider: Leisa pollock Migration :1955 A ge:69 Y S ex:Female Date:10/03/2024 Address:[address] [place] [id number] Pcp:Charles Hopkins Subjective: * Chief Complaints: * 1 . Multum To Medispan Conversion Encounter. * Medical History: * Medications: T aking Vitamin C 500 MG Tablet 1 tab(s) orally once a day , Taking ZOFRAN , Notes to Pharmacist: *Please review for potential replacement for e-prescription and drug interaction check*, Taking Estradiol 0.1 MG/GM Cream as directed intravaginally 3 times a week , Taking Aspirin 81 MG Tablet Delayed Release 1 tab(s) orally once a day , Taking Crestor 20 MG Tablet 1 tab(s) orally once a day , Taking Magnesium Oxide 400 MG Tablet 1 tab(s) orally twice daily , Taking Omeprazole 20 MG Capsule Delayed Release 1 cap(s) orally once a day , Taking Lisinopril 5 MG Tablet 1 tab(s) orally once a day , Taking Vitamin D3 1250 MCG CAPSULE 1 CAP(S) ORALLY ONCE A WEEK , Notes to Pharmacist: *Please review and pick correct strength-formulation from Medispan options. If intended option is not shown, discontinue and re-order from Quick Search*, Taking Paxil 20 MG Tablet 1 tab(s) orally once a day , Taking ALPRAZolam 0.5 MG Tablet 1 tab(s) orally nightly PRN , Taking Nortriptyline HCl 75 MG Capsule 1 cap(s) orally once a day (at bedtime) Objective: * Vitals: Assessment: Plan: * Treatment: * * Electronic signature of Jay staley Migration on 05/03/2025 at 10:37 AM EST Sign off status: Pending * Provider: Leisa pollock Migration Date: 0 10/03/2024 Generated for Demetrius kirby/Miya/Drew on: 1 07/03/2024 10:37 AM EST
--- OUTSIDE RECORDS SUMMARY | 2025-05-03 10:37 | XMS_ITS | Encounter Summary ---
Author Organization Healthcare Address [address] [place] [address] Care Team Providers Care Motion Picture Photographer Name Role Phone Catalino Zuñiga MD Primary Care Provider Caryn Robertson APRN Primary Care Provider [phone] Encounter Details Date Type Department Care Team (Late st Contact Info) Description 02/19/2023 Ophth Exam [facility] [address] [place] [address] Raymon Abel MD [address] [place] [address] Social History Tobacco Use Types [...] 6. Suicidal Behavior (Lifetime) No 3:35 AM APIRLT Rossy Glover RN documented as of this encounter Plan of Treatment Not on file documented as of this encounter Visit Diagnoses Not on filedocumented in this encounter Care Teams Motion Picture Photographer Relationship Specialty Start Date End Date Catalino Zuñiga MD PCP - General Family Medicine 02/19/23 09/08/24 Caryn Guevara APRN [address] [place] [address] PCP - General 09/09/24 documented as of this encounter
--- OUTSIDE RECORDS SUMMARY | 2025-05-03 10:37 | XMS_ITS | Patient Health Record ---
Author Organization [facility] Address [address] [place] [address] Care Team Providers Care On Site Wastewater Systems Technician Name Role Phone Charles Hopkins Primary [...] review and pick correct strength-formulat ion from [employer] options. If intended option is not shown, [...] W/U Status Risk Notes Problem Allergic rhinitis (55938345) Other allergic rhinitis (J30.89) Active confirmed Problem Anxiety (35720637) Anxiety (F41.9) Active confirmed Problem Essential hypertension (62421298) Essential hypertension (I10) Active confirmed Problem Seasonal allergy (302120256) Seasonal allergies (J30.2) Active confirmed Problem Acquired hypothyroidism (757359050) Acquired hypothyroidism (E03.9) Active confirmed Problem Insomnia disorder related to another mental disorder (08896795) Psychophysiological insomnia (F51.04) Active confirmed Problem Obstructive sleep apnea syndrome (55857997) MORALES (obstructive sleep apnea) (G47.33) Active confirmed Problem Movement disorder (88825931) Movement disorder (G25.9) Active confirmed Problem Akathisia (555721458) Akathisia (G25.71) Active confirmed Encounters Encounter Location Date Provider Diagnosis [facility] [address] [place] [address] 10/03/2024 Provider Migration Plan Of Treatment Pending Test Test Name Order Date Urinalysis 09/22/2021 C-CMP 08/01/2020 C-LIPID PANEL 08/01/2020 C-THYROID PROFILE 08/01/2020 M-Thyroid Stimulating Hormone 07/10/2021 Insurance Providers Payer Name Payer Address Payer Phone Subscriber Number Group Number Insured Name Patient Relationship to Insured Coverage Start Date Coverage End Date [employer] Medicare Advantage [address] [address] [place] [address] [id number] Rebeca Armendariz Self - patient is the insured Medications Administered Medication Instructions Date of Administration Dosage Notes Dexamethasone 4mg Injection 12/07/2021 4 mg Medical (General) History Medical History History ICD Code Hypothyroidism HLD HTN MORALES Murmur with aortic calcification Surgical History Surgery Date(Month/Year) cholecystectomy hemorrhoidectomy right eye Hospitalization History Reason Date(Month/Year) above
--- OUTSIDE RECORDS SUMMARY | 2025-05-03 10:37 | XMS_ITS | Encounter Summary ---
Author Organization Healthcare Address [address] [place] [address] Care Team Providers Care Otolaryngology Rep Name Role Phone Caryn Guevara APRN Primary Care Provider [phone] Encounter Details Date Type Department Care Team (Late st Contact Info) Description 10/12/2024 Lab Requisition [facility] [address] [place] [address] Alberto Ford MD [address] [facility] [address] [place] [address] Encounter for general adult medical [...] any time in the past 12 [facility], were you homeless or living [...] Final Result [facility] [address] [place] [address] documented in this encounter Visit Diagnoses Diagnosis [...] documented as of this encounter Care Teams Otolaryngology Rep Relationship Specialty Start Date End Date Caryn Guevara, IVANA [address] [place] [address] PCP - General 09/09/24 documented as of this encounter
--- OUTSIDE RECORDS SUMMARY | 2025-05-03 10:37 | XMS_ITS | Clinical Summary ---
Author Organization [employer] ([place], [place], [place], [place], [place]) Address [address] [place] [address] Care Team Providers Care Head Cd Reactor Operator Name Role Phone Catalino Zuñiga MD Primary Care Provider [phone] Allergies Active Allergy Reactions Criticality Noted Date [...] Date James rded Speak language other than Tanzanian at home Not on file 07/18/2023 Want [...] 03/15/2010, 03/20/1999 Medicare Initial AWV [id number] 12/31/2023 Tobacco Cessation Counseling and Screening (12+) 05/07/2024 05/07/2023 Falls Risk Screening 07/01/2024 COVID-19 VACCINE (6 - 2024-2 6 season) 2025 03/20/2022, 01/19/2022, 03/02/2021, Additional history exists Influenza Vaccine (#1) 2025 , 03/22/2021, 04/22/2020, Additional history exists Respiratory Syncytial Virus (RSV) Adult or (1 - 1-dose 75+ series) 2029 Pneumococcal 50+ years Completed 04/29/2023 Insurance [place] [id number] [employer] MED[employer] HMO Advance Directives For more information, please contact: [phone] * Full Code (Latest Code Status on File) Date Activated Date Inactivated Comments 05/07/2023 12:58 PM 05/09/2023 11:38 AM * Full Code Date Activated Date Inactivated Comments 05/07/2023 9:16 AM 05/07/2023 12:58 PM Care Teams Head Cd Reactor Operator Relationship Specialty Start Date End Date Catalino Zuñiga MD [address] [place] [address] [place] [address] PCP - General Family Medicine 03/07/23
--- OUTSIDE RECORDS SUMMARY | 2025-05-03 10:37 | XMS_ITS | Referral Summary ---
Author Organization [employer] ([place], [place], [place], [place], [place]) Address [address] [place] [address] Care Team Providers Care Dragline Operator Name Role Phone Catalino Zuñiga MD Primary Care Provider [phone] Allergies Active Allergy Reactions Criticality Noted Date [...] Date James rded Speak language other than Anguill[place] at home Not on file 07/18/2023 Want [...] Advance Directives For more information, please contact: [phone] * Full Code (Latest Code Status on File) Date Activated Date Inactivated Comments 05/07/2023 12:58 PM 05/09/2023 11:38 AM * Full Code Date Activated Date Inactivated Comments 05/07/2023 9:16 AM 05/07/2023 12:58 PM Care Teams Dragline Operator Relationship Specialty Start Date End Date Catalino Zuñiga MD [address] [place] [address] PCP - General Family Medicine 03/07/23
--- OUTSIDE RECORDS SUMMARY | 2025-05-03 10:37 | XMS_ITS | Encounter Summary ---
Author Organization [employer] ([place], [place], [place], [place], [place]) Address [address] [place] [address] Care Team Providers Care Pediatric Neurologist Name Role Phone Catalino Zuñiga MD Primary Care Provider [phone]- [phone] Reason for Referral * Other (Routine) - Closed Specialty Diagnoses / Procedures Referred By Marisabel t Referred To Contact Diagnoses Essential hypertension Procedures ECG 12 lead Devan Horner MD [address] [place] [address] [place] [address] Phone: tel: fax: Referral ID Status Reason Start Date Expiration Date Visits Re quested Visits Authorized [id number] Closed 05/06/2023 11/02/2023 1 1 * Diagnostic X-Ray (Routine) - Closed Specialty Diagnoses / Procedures Referred By Marisabel fontanez Referred To Contact Diagnoses Essential hypertension Procedures XR chest 2 views Devan Horner MD [address] [place] [address] [place] [address] Phone: tel: fax: Referral ID Status Reason Start Date Expiration Date Visits Re quested Visits Authorized [id number] Closed 05/06/2023 11/02/2023 1 1 Encounter Details Date Type Department Care Team (Late st Contact Info) Description 05/06/2023 Surgery [facility] TURNSTILE COLLECTOR Surgery 1 [place] [address] Devan Horner MD [address] [place] [address] [place] [address] Incompetence of pubocervical tissue (Primary [...] ABO/Rh A POSITIVE 05/06/2023 11:07 AM EST [facility] BLOOD [facility] ([place]) Antibody Screen NEGATIVE 05/06/2023 11:07 AM EST [facility] BLOOD [facility] [place] HISTCHK HIST CHECK PERFORMED 05/06/2023 11:07 AM EST [facility] ([place]) Blood Venipuncture / Unknown 05/06/2023 10:52 AM EST 05/06/2023 11:04 AM EST us Devan Horner MD [facility] BLOOD BANK TEST ORDERABLES Edited Result - Final [facility] ([place]) [address] [place] [address], [facility] [phone] * (ABNORMAL) Basic Metabolic Panel (05/06/2023 10:52 AM EST) Sodium 139 136 - 145 meq/L 05/06/2023 11:07 AM [facility] Potassium 4.0 3.5 - 5.1 meq/L 05/06/2023 11:07 AM [facility] Chloride 105 98 - 107 meq/L 05/06/2023 11:07 AM [facility] CO2 29 21 - 32 meq/L 05/06/2023 11:07 AM [facility] Anion Gap 9(L) 05/06/2023 11:07 AM [facility] BUN 8 7 - 18 mg/dL 05/06/2023 11:07 AM [facility] Creatinine 1.01 0.55 - 1.10 mg/dL 05/06/2023 11:07 AM [facility] BUN/Creatinine 8 05/06/2023 11:07 AM [facility] Glucose 108(H) 70 - 99 mg/dL 05/06/2023 11:07 AM [facility] Calcium 9.1 8.5 - 10.1 mg/dL 05/06/2023 11:07 AM [facility] Osmolality Calc 276.4 11:07 AM [facility] eGFR (mL/min/1.73m2) >60 >=60 mL/min/1.7 3m2 05/06/2023 11:07 AM [facility] Comment:eGFR of <60 suggests chronic kidney disease if found over a 3 month period of time. eGFR <15 indicates renal failure. Blood Venipuncture / Unknown 05/06/2023 10:52 AM EST 05/06/2023 10:56 AM EST us Devan Horner MD LAB BLOOD ORDERABLES Final Resu lt [facility] [address] [place] [address], [facility] [phone] * (ABNORMAL) CBC with automated diff (05/06/2023 10:52 AM EST) WBC 4.7(L) 4.8 - 10.8 K/ L 05/06/2023 11:16 AM [facility] RBC 4.66 3.50 - 5.20 M/ L 05/06/2023 11:16 AM [facility] Hemoglobin 13.5 11.7 - 15.8 GM/DL 05/06/2023 11:16 AM [facility] Hematocrit 41.8 35.0 - 47.0 % 05/06/2023 11:16 AM [facility] MCV 90 81 - 101 fL 05/06/2023 11:16 AM [facility] MCH 29.0 27.0 - 34.0 pg 05/06/2023 11:16 AM [facility] MCHC 32.3 32.0 - 36.0 GM/DL 05/06/2023 11:16 AM [facility] RDW 15.4(H) 11.5 - 14.5 % 05/06/2023 11:16 AM [facility] Platelets 271 150 - 400 K/CU MM 05/06/2023 11:16 AM [facility] MPV 9.7 9.4 - 12.4 fL 05/06/2023 11:16 AM [facility] Nucleated Red Blood Cell 0.0 0 - 0.2 % 05/06/2023 11:16 AM [facility] % Neutros 52 37 - 80 % 05/06/2023 11:16 AM [facility] % Lymphs 30 10 - 50 % 05/06/2023 11:16 AM [facility] % Monos 12 5 - 13 % 05/06/2023 11:16 AM EST [facility] % Eos 5 0 - 7 % 05/06/2023 11:16 AM EST [facility] % Baso 1 0 - 3 % 05/06/2023 11:16 AM EST [facility] NRBC Absolute 0.00 0 - 0.12 K/ul 05/06/2023 11:16 AM EST [facility] # Neutros 2.46 2.00 - 6.90 K/ L 05/06/2023 11:16 AM EST [facility] # Lymphs 1.41 0.60 - 3.40 K/ L 05/06/2023 11:16 AM EST [facility] # Monos 0.55 0.00 - 0.90 K/ L 05/06/2023 11:16 AM EST [facility] # Eos 0.25 0.00 - 0.70 K/ L 05/06/2023 11:16 AM EST [facility] # Baso 0.04 0.00 - 0.20 K/ L 05/06/2023 11:16 AM EST [facility] % Imm Grans 0.20(H) 0.00 - 0.00 % 05/06/2023 11:16 AM [facility] # IG 0.01(H) 0.00 - 0.00 K/uL 05/06/2023 11:16 AM EST [facility] Blood Venipuncture / Unknown 05/06/2023 10:52 AM EST 05/06/2023 10:57 AM EST Narrative [facility] - 05/06/2023 11:16 AM EST [...] BLOOD ORDERABLES Final Resu lt [facility] [address] [id number], [facility] [phone] * XR chest 2 views (05/06/2023 10:33 [...] hypertension documented in this encounter Care Teams Pediatric Neurologist Relationship Specialty Start Date End Date Catalino Zuñiga MD [address] [place] [address] PCP - General Family Medicine 03/07/23 documented as of this encounter
--- OUTSIDE RECORDS SUMMARY | 2025-05-03 10:37 | XMS_ITS | Clinical Summary ---
Author Organization [facility] Address [address] [place] [address] Care Team Providers Care Lab Instructor Name Role Phone Caryn Guevara IVANA Primary Care Provider [phone] Allergies Active Allergy Reactions Criticality Noted Date [...] Date HOCM (hypertrophic obstructive cardiomyopathy) 0 09/09/2024 Immunizations Immunization Administration Dates Next Due Influenza, [...] money to buy more. Never true 10/13/19 Within the past 12 months, t he [...] any time in the past 12 m [facility], were you homeless or living in a fdc (including now)? No 10/12/2024 Utilities Answer Date [...] Screening 1999 [facility]-Breast Cancer Screening 06/01/2019 06/01/2017 [id number] Vaccine ( season) 2025 03/20/2022, 01/19/2022, 03/02/2021, Additional history exists [facility]-Influenza [...] this topic Medical Devices Implanted Type Area Assistant Counsel Device Identifier Shelf Expiration Date Model / Serial / Lot Pacemaker Icd [address] - [id number] Implanted:Qty: 1 on 10/12/2024 by Patrice Gómez MD at [facility]-[id number] 05/30/2026 [id number] / [id number] / [id number] Lead Pacing Ultipace 52cm - [id number] Implanted:Qty: 1 on 10/12/2024 by Patrice Gómez MD at [facility] [employer]-[id number] 07/31/2027 [id number] / [id number] / [id number] Lead Defib Durata Sj4 7122q/65 - [id number] Implanted:Qty: 1 on 10/12/2024 by Patrice Gmóez MD at [facility] [employer]-[id number] 06/30/2027 7122Q/65 / [id number] / [id number] Insurance Advance Directives * Full Code (Latest Code Status on File) Date Activated Date Inactivated Comments 10/09/2024 1:49 PM 10/13/2024 5:12 PM Care Teams Lab Instructor Relationship Specialty Start Date End Date Caryn Guevara, IVANA [address] [place] [address] PCP - General 09/09/24
--- OUTSIDE RECORDS SUMMARY | 2025-05-03 10:37 | XMS_ITS | Clinical Summary ---
Author Organization [facility] Address [address] [place] [address] Phone Care Team Providers Care Armature [employer] Name Role Phone Unavailable Primary Care Provider [...] Impressions 06/06/2017 7:19 AM EST : Negative ([id number]) ~ RECOMMENDATION: Routine screening mammogram in 1 [...] the most recent being outside studies from [facility] dated 06-21-16, 05-30-15 and 04-20-14. ~ Lory Rahman APRN IMG MAMMOGRAPHY ORDERABLES Final Result from Last 3 Months or Most Recently Relevant to Health Maintenance Insurance [facility] [id number]
== END 2025-04-30 23:59 ==
LOC: LAB.DROPOF 05-03 10:25
PROVIDERS: PCP Nurse Practitioner Family; Visit Provider Nurse Practitioner
DX: R35.0 Frequency of micturition (principal)
CPT/HCPCS: 87086

== ENCOUNTER 2025-04-30 11:09 | Emergency (ER) | payer MEDICARE, SELFPAY ==
--- OUTSIDE RECORDS SUMMARY | 2025-04-30 11:15 | XMS_ITS | Clinical Summary ---
Author Organization [facility] Address [address] [place] [address] Phone Care Team Providers Care Lap Regulator Name Role Phone Unavailable Primary Care Provider [...] 06/01/2017 Bone Density Screening 2019 COVID-19 Vaccine (2024-2 6 season) 2025 Influenza Vaccine (#1) 2025 Hepatitis B Vaccine [...] Impressions 06/06/2017 7:19 AM EST : Negative ([id number]) ~ RECOMMENDATION: Routine screening mammogram in 1 [...] the most recent being outside studies from [facility] dated 06-21-16, 05-30-15 and 04-20-14. ~ Lory Rahman APRN IMG MAMMOGRAPHY ORDERABLES Final Result from Last 3 Months or Most Recently Relevant to Health Maintenance Insurance [facility] [id number]
[2025-04-30 11:20] VITALS: BP 148/72; PULSE 92; O2SAT 95
[2025-04-30 11:21] VITALS: BP 148/72; PULSE 88; RESP 16; TEMP 36.6; O2SAT 96; BMI 33.4
[2025-04-30 11:29] LABS: Microscopic, Urine URINE MICROSCOPIC (MICROSCOPIC)
[2025-04-30 11:30] VITALS: BP 142/68; PULSE 80; O2SAT 95
[2025-04-30 11:33] LABS: Bilirubin,Urine Negative (Negative); Color,Urine YELLOW (Yellow); Glucose,Urine (UA) Negative (Negative); Ketones,Urine Negative (Negative); Leukocyte Esterase,Urine Negative (Negative); PH,Urine 6.0 (5.0-8.5); Protein,Urine Negative (Negative); Specific Gravity, Urine 1.010 (1.005-1.030); Urobilinogen,Urine 0.2 EU/dl (0.2)
--- NOTE | 2025-04-30 11:36 | XR_ITS ---
FINAL REPORT CLINICAL HISTORY: Dizziness COMPARISON: 02/02/2025 FINDINGS: The heart size is normal. The mediastinum is normal. Left-sided pacer is present. There is no focal infiltrate or edema. There are no pleural effusions. There is no pneumothorax. There is no osseous abnormality. IMPRESSION: No acute cardiopulmonary process Reviewed, Interpreted and Dictated by Kan Farris MD Transcribed by Melvi White Authenticated and [facility]
--- NOTE | 2025-04-30 11:37 | ECG_ITS ---
APPROVED REPORT Exam: Resting ECG HR:83 bpm ECG Measurements Heart Rate 83 AXES GA 216 P 65 QRSd 166 QRS -64 QT 419 T 70 QTc 458 Conclusion SINUS RHYTHM WITH FIRST DEGREE AV BLOCK RIGHT BUNDLE BRANCH BLOCK [120+ ms QRS DURATION, UPRIGHT V1, 40+ ms S IN I/aVL/V4/V5/V6] LEFT ANTERIOR FASCICULAR BLOCK [QRS AXIS <= -45, QR IN I, RS IN II] LEFT VENTRICULAR HYPERTROPHY AND ST-T CHANGE [VOLTAGE CRITERIA PLUS ST/T ABNORMALITY] POSSIBLE SEPTAL MYOCARDIAL INFARCTION , OF INDETERMINATE AGE [30 ms Q WAVE IN V1/V2] ABNORMAL ECG UNCONFIRMED REPORT Normal sinus rhythm. First-degree AV block. Right bundle branch block. No ST elevation or depression Electronically signed by : MIGDALIA UREÑA, 04/30/2025 13:47:21
--- NOTE | 2025-04-30 11:38 | HMH.EDGENADL ---
Discharge Plan Disposition Patient Disposition: Home, Self-Care Prescriptions Prescriptions: New phenazopyridine [Pyridium] 100 mg tablet 100 mg PO TID PRN (Reason: pain) Qty: 6 0RF meclizine 25 mg tablet 25 mg PO BID PRN (Reason: dizziness) Qty: 20 0RF No Action aspirin [Adult Low Dose Aspirin] 81 mg tablet,delayed release (DR/EC) 81 mg PO DAILY memantine 5 mg tablet 5 mg PO BID Patient Comments: TAKE 1 TABLET 1 TIME EACH DAY AT BEDTIME FOR 7 DAYS. THEN, TAKE 1 TABLET 2 TIMES EACH DAY rosuvastatin 5 mg tablet 5 mg PO DAILY Patient Comments: TAKE ONE TABLET BY MOUTH EVERY DAY AT BEDTIME FOR cholesterol estradiol [Vagifem] 10 mcg tablet 10 mcg vaginal .COMPLEX 30 Days Qty: 30 5RF Rx Instructions: 10 mcg vaginally daily x 2 weeks and then twice weekly; clopidogrel 75 mg tablet 75 mg PO DAILY Qty: 90 3RF cetirizine 10 mg tablet 10 mg PO DAILY spironolactone [Aldactone] 25 mg tablet 25 mg PO .COMPLEX Qty: 30 2RF Rx Instructions: 25 mg orally on Saturday, saturday and fridays; omeprazole 20 mg capsule,delayed release(DR/EC) 20 mg PO DAILY Patient Comments: TAKE 1 CAPSULE 1 TIME EACH DAY NEEDED terconazole 0.8 % cream 1 appful vaginal HS 3 Days Qty: 20 0RF boric acid 600 mg suppository 600 mg vaginal NEEDED PRN (Reason: vaginal health ) estradiol [Estrace] 0.01 % (0.1 mg/gram) cream 1 appful vaginal DAILY Qty: 42.5 6RF Rx Instructions: Daily finger technique as I described to the patient and then three times weekly thereafter metoprolol succinate 25 mg tablet extended release 24 hr 12.5 mg PO QDAY Qty: 90 3RF alprazolam 0.5 mg tablet 0.5 mg PO HS Qty: 30 2RF losartan 50 mg tablet See Rx Instructions .ROUTE .COMPLEX Qty: 30 2RF Dose Instruction: TAKE 1 TABLET 1 TIME EACH DAY Rx Instructions: TAKE 1 TABLET 1 TIME EACH DAY levothyroxine 50 mcg tablet 50 mcg PO DAILY 30 Days Qty: 30 2RF hydrocortisone acetate [Anusol-HC] 25 mg suppository 25 mg WV HS Qty: 12 6RF Rx Instructions: Please insert 1 suppository per rectum nightly x 3 days and then as needed for hemorrhoidal bleeding methylcellulose (with sugar) Powder In Packet 1 ea PO DAILY nitroglycerin 0.4 % (w/w) ointment 1 inch WV BID PRN (Reason: Anorectal spasm) Qty: 30 0RF Rx Instructions: Please use 1/2-1 edge per rectum twice daily as needed anorectal spasm after hemorrhoid banding Referrals Follow up/Referrals: Caryn Guevara APRN [Primary Care Provider, Medical] - See instructions Activity Restrictions/Add. Instructions Additional Instructions/Restrictions: You are being prescribed Pyridium for burning with urination. Take this as prescribed. You are also being prescribed meclizine to help with your dizziness. Take this as needed as prescribed as well. I do encourage you to follow-up with your primary care doctor and your impregnation operator if your symptoms continue. If you develop any new or worsening symptoms, or if you become concerned for your health for any reason, return to the emergency department for evaluation Clinical Impressions Clinical Impression: Dysuria, Vertigo Instructions Patient Instructions: DI for Urinary Tract Infection (UTI), DI for Urinary Tract Infection in Children Print Language Print Language: Turkish Discharge ED Provider: Lico Sewell General Adult HPI General Chief complaint: Urogenital-Female Stated complaint: burning while urinating, dizziness, light headed Time Seen by Provider: 04/30/25 11:26 Mode of Arrival: Ambulatory Source of Information: Patient Description of Symptoms (Recalled from ER Triage Doc. by RN): patient states she has been burning with urination and frequently going. she is also dizzy and lightheaded. she reports these symptoms started lastnight History of Present Illness HPI narrative: Rebeca Armendariz is a 69F with a history of HTN, hyperlipidemia, UTI, GERD, pacemaker who presents to the emergency department for complaints of burning with urination and dizziness. Patient states that starting yesterday, she has had burning with urination but denies any significant abdominal pain. She states that she has had urinary tract infections in the past and this feels similar. She does state that she feels dizzy but denies any chest pain or shortness of breath. She denies any fevers, vomiting or diarrhea. She was seen at urgent treatment was told that she did not have a urinary tract infection and was told to come here. Related Data Home Medications ?Medication ?Instructions ?Recorded ?Confirmed aspirin 81 mg tablet,delayed 81 mg PO DAILY heart health 01/12/21 04/30/25 release (Adult Low Dose Aspirin) cetirizine 10 mg tablet 10 mg PO DAILY 01/21/24 04/30/25 omeprazole 20 mg capsule,delayed 20 mg PO DAILY 05/25/24 04/30/25 release boric acid 600 mg vaginal 600 mg vaginal NEEDED PRN 11/05/24 04/30/25 suppository vaginal health rosuvastatin 5 mg tablet 5 mg PO DAILY 11/11/24 04/30/25 methylcellulose (with sugar) oral 1 ea PO DAILY 02/23/25 04/30/25 powder packet memantine 5 mg tablet 5 mg PO BID 04/15/25 04/30/25 Previous Rx's ?Medication ?Instructions ?Recorded alprazolam 0.5 mg tablet 0.5 mg PO HS anxiety #30 tabs 09/09/23 losartan 50 mg tablet See Rx Instructions .Route 12/23/23 .COMPLEX #30 tabs levothyroxine 50 mcg tablet 50 mcg PO DAILY hypothyroidism 30 12/25/23 days #30 tabs spironolactone 25 mg tablet 25 mg PO .COMPLEX #30 tabs 01/21/24 (Aldactone) terconazole 0.8 % vaginal cream 1 appful vaginal HS 3 days #20 05/25/24 grams estradiol 0.01% (0.1 mg/gram) 1 appful vaginal DAILY #42.5 grams 11/16/24 vaginal cream (Estrace) estradiol 10 mcg vaginal tablet 10 mcg vaginal .COMPLEX 30 days 12/07/24 (Vagifem) #30 tabs metoprolol succinate 25 mg 12.5 mg (1/2 x 25 mg) PO QDAY #90 12/30/24 tablet,extended release 24 hr tabs nitroglycerin 0.4 % (w/w) rectal 1 inch WV BID PRN Anorectal spasm 02/25/25 ointment #30 grams clopidogrel 75 mg tablet 75 mg PO DAILY #90 tabs 03/02/25 hydrocortisone acetate 25 mg 25 mg WV HS #12 ea 03/31/25 rectal suppository (Anusol-HC) meclizine 25 mg tablet 25 mg PO BID PRN dizziness #20 tabs 04/30/25 phenazopyridine 100 mg tablet 100 mg PO TID PRN pain 6 doses #6 04/30/25 (Pyridium) tabs Allergies Allergy/AdvReac Type Severity Reaction Status Date / Time sulfamethoxazole (From Allergy Intermediate Hives Verified 04/30/25 08:07 Bactrim) trimethoprim (From Bactrim) Allergy Intermediate Hives Verified 04/30/25 08:07 codeine (CODEINE) Allergy Mild Gastrointestinal Verified 04/30/25 08:07 Upset [facility] Disclaimer: The information contained in this section may have been updated after the patient was seen, as this information can be updated by other users. Medical History Dizziness Sleep apnea Intolerance to BiPAP/CPAP History of thyroid disease History of hypertension History of anxiety History of sleep apnea Mixed hyperlipidemia History of pacemaker 2024 Paroxysmal A-fib Edema Hot flashes Grief Normal colonoscopy Vaginitis Abnormal electrocardiogram [ECG] [EKG] UTI (urinary tract infection) Perianal pruritus Dysuria GERD (gastroesophageal reflux disease) Family history of ischemic heart disease Heart murmur HLD (hyperlipidemia) HTN (hypertension) Aortic stenosis Diastolic dysfunction Surgical History History of heart surgery pacemaker 2024 Hx of hysterectomy Hx laparoscopic cholecystectomy Family History Other Cancer Coronary artery disease Social History Smoking Status: Never smoker second hand exposure: No alcohol intake: never substance use type: denies use current occupational status: retired Travel in the last 8 weeks?: None household members: none housing: house current occupational exposures/hazards: No caffeine: Yes Have you lived/traveled outside US in past 30 days?: No Contact w/someone who lives/traveled outside US past 30 days?: No Exposure to someone with infectious disease in past 14 days?: No Do you have a fever (greater than 100.4 F or 38 C)?: No Have you tested positive for COVID-19?: No Exposed to someone with COVID-19 in past 14 days?: No Do you have a sore throat?: No Do you have a cough?: No Do you have any weakness?: No Do you have any diarrhea?: No Are you experiencing any unusual bleeding?: No Do you have any muscle aches/pain?: No Do you have any abdominal pain?: No Are you experiencing loss of taste or smell?: No Other Medical History Have you received the Flu Vaccine for this season: No Have you received the Pneumonia Vaccine: Yes ROS Obtained: Yes Systems reviewed as appropriate & no additional complaints except as documented Physical Exam General General appearance: alert and in no apparent distress Head Head exam: atraumatic Eye Eye exam: Present normal appearance ENT ENT exam: Present normal external ear exam Neck Neck exam: Present full ROM Chest Chest inspection: Present symmetric chest wall rise Respiratory Respiratory exam: Present normal lung sounds bilaterally; Absent respiratory distress Cardiovascular Cardiovascular exam: Present regular rate and normal rhythm Abdominal Exam Abdominal exam: Present soft; Absent distention, tenderness, guarding or rigidity Extremities Exam Extremities exam: Present normal inspection Back Exam Back exam: Present normal inspection Neurological Exam Neurological exam: Present alert and oriented X3 Psychiatric Psychiatric exam: Present normal affect Skin Skin exam: Present warm and dry Medical Decision Making Medical Records Screening: Per USPSTF and CDC recommendations, given the prevalence of disease in our region, it is our hospital?s policy to screen for HIV and viral Hepatitis for all patients aged 18 and over and those with ongoing risk factors. Marco Inquiry Pt receiving controlled substance: No Vital Signs: 04/30/25 11:20 04/30/25 11:21 04/30/25 11:30 Temperature 97.8 F Temperature Source Oral Pulse Rate 92 H 80 Pulse Rate [Right Radial] 88 Respiratory Rate 16 Blood Pressure 148/72 H 142/68 H Blood Pressure [Right Arm] 148/72 H Blood Pressure Mean [Right Arm] 97 Blood Pressure Source [Right Arm] Automatic Cuff Blood Pressure Position [Right Arm] Supine 02 Sat by Pulse Oximetry 95 96 95 Oxygen Delivery Method Room Air Room Air Room Air 04/30/25 12:15 Temperature Temperature Source Pulse Rate 87 Pulse Rate [Right Radial] Respiratory Rate Blood Pressure 149/92 H Blood Pressure [Right Arm] Blood Pressure Mean [Right Arm] Blood Pressure Source [Right Arm] Blood Pressure Position [Right Arm] 02 Sat by Pulse Oximetry 97 Oxygen Delivery Method Room Air Lab Data Lab Results 04/30/25 11:12: Urine Color Yellow, Urine Appearance Clear, Urine pH 6.0, Ur Specific Jensen 1.010, Urine Protein Negative, Urine Glucose (UA) Negative, Urine Ketones Negative, Urine Blood Negative, Urine Nitrate Negative, Urine Bilirubin Negative, Urine Urobilinogen 0.2, Ur Leukocyte Esterase Negative, Urine RBC None, Urine WBC None, Ur Squamous Epith Cells 50-100, Urine Bacteria Trace 04/30/25 11:49: WBC 8.4, RBC 4.13 L, Hgb 11.8 L, Hct 36.3 L, MCV 87.9, MCH 28.6, MCHC 32.5, RDW 15.1, Plt Count 293, MPV 9.5, Neut % (Auto) 74.3, Lymph % (Auto) 16.2, Bureau % (Auto) 7.6, Eos % (Auto) 1.1, Baso % (Auto) 0.6, Neut # (Auto) 6.2, Lymph # (Auto) 1.4, Bureau # (Auto) 0.6, Eos # (Auto) 0.1, Baso # (Auto) 0.1, Sodium 136, Potassium 3.7, Chloride 103, Carbon Dioxide 27, Anion Gap 9.7, BUN 11, Creatinine 0.70, Estimated Creat Clear 82, Estimated GFR 83, Est GFR ( Amer) 100, Glucose 141 H, Calcium 8.8, Total Bilirubin 0.7, AST 36, ALT 22, Alkaline Phosphatase 74, Troponin I < 0.01, NT-Pro-B Natriuret Pep 175 H, Total Protein 8.1, Albumin 5.2 H, Globulin 2.9, Albumin/Globulin Ratio 1.8 04/30/25 11:49 04/30/25 11:49 Orders (Tests/Meds): ED MEDICATIONS Discontinued Medications Generic Name Dose Route Start Last Admin Trade Name Freq PRN Reason Stop Dose Admin Meclizine HCl 25 mg 04/30/25 11:36 04/30/25 11:43 Meclizine 25mg Tablet PO 04/30/25 11:37 25 mg ONCE ONE Administration ORDERS Category Date Time Status CXR --portable [XR chest portable] Stat Exams 04/30/25 11:36 Taken BNP [NT Pro Brain Natriuretic Pep.] Stat Lab 04/30/25 11:49 Completed CBC w/Auto Diff [Complete Blood Count Auto Diff] Stat Lab 04/30/25 11:49 Completed CMP [Comprehensive Metabolic Panel] Stat Lab 04/30/25 11:49 Completed HIV Combo Stat Lab 04/30/25 11:49 Received Hepatitis C Ab Qual. W/ RFX Stat Lab 04/30/25 11:49 Received Troponin I Q3H Lab 04/30/25 14:45 Ordered Troponin I Q3H Lab 04/30/25 17:45 Ordered Troponin I Stat Lab 04/30/25 11:49 Completed UA [Urinalysis and Microscopic] Stat Lab 04/30/25 11:12 Completed EKG Request [ECG Request] Stat Y 04/30/25 11:37 Ordered ECG Data Tracing #1: I reviewed this ECG and interpreted as documented below: Normal sinus rhythm with first-degree AV block. Right bundle branch block. No ST elevation or depression. QTc of 458. Unchanged from prior EKG Medical Decision Narrative: Rebeca Armendariz is a 69F with a history of HTN, hyperlipidemia, UTI, GERD, pacemaker who presents to the emergency department for complaints of burning with urination and dizziness. Patient states that starting yesterday, she has had burning with urination but denies any significant abdominal pain. She states that she has had urinary tract infections in the past and this feels similar. She does state that she feels dizzy but denies any chest pain or shortness of breath. She denies any fevers, vomiting or diarrhea. She was seen at urgent treatment was told that she did not have a urinary tract infection and was told to come here. Patient does state that she is on estrogen cream and pills for vaginal itching and is followed by gynecology, who prescribes that medication. On arrival, patient is hemodynamically stable, in no acute distress, afebrile, maintaining appropriate oxygen saturation on room air. Physical exam, stated above, revealed overall well-appearing female in no distress. She is alert and answer questions appropriately. No focal neurological deficits. Abdomen is soft, nontender nondistended. Cardiopulmonary exam without murmurs, rubs. No wheezing, rales or rhonchi. Differential diagnosis includes, but is not limited to: Urinary tract infection, vaginal atrophy, electrolyte derangement, cardiac arrhythmia, pneumonia, ACS, among others. The most morbid conditions were considered and workup was based on these. Patient's workup in the emergency department included: CBC with differential, CMP, troponin, BNP, urinalysis, chest x-ray, EKG. Patient was administered 25 mg of meclizine. Patient's urinalysis without evidence of infection. There are significant amount of squamous epithelial cells indicating contamination, however no nitrates, no leukocyte esterase, no white blood cells and no RBCs, making urinary tract infection significantly less likely. Chest x-ray interpreted by me personally. Cardiomegaly with pacemaker in left anterior chest wall. No focal consolidations, pneumothorax, or pleural effusions. It appears similar to previous chest x-rays. See final radiology report for details. Initial troponin less than 0.01. NT proBNP stable at 175. No electrolyte derangements, stable low hemoglobin at 11.8, hematocrit of 36.3. White blood cell count normal at 8.4. EKG without evidence of ischemia and appears similar to previous EKGs. I have low suspicion for cardiac etiology for patient's symptoms. On reassessment, patient states that she has had improvement in her dizziness with the meclizine. She does note that she was diagnosed with vertigo in the past and was on medications previously. I do feel that she would benefit from a course of meclizine for vertigo type symptoms. She did state that her left ear has been bothering her recently and I evaluated the ear and tympanic membrane is clear without bulging or erythema. There is some earwax in the ear, however it is not excessive or occluding the canal. No evidence of otitis media or externa. Will also prescribe patient a course of Pyridium given her dysuria, however I do feel that patient's symptomatology is likely related to her vaginal atrophy and less likely to be urinary in nature given she is having vaginal itching along with it and states that she intermittently will use the estrogen cream and only take half of her estrogen pill due to fear of developing breast cancer. I encouraged her to follow-up with her primary care doctor as well as impregnation operator. Return precautions were given. All questions were answered. She demonstrated understanding and was in agreement this plan. She was then discharged from the emergency department in stable condition. Critical Care Critical Care Time Critical Care Time: No
[2025-04-30] MEDS: MECLIZINE 25MG TABLET 25 MG PO (11:43)
[2025-04-30 11:52] LABS: Bacteria,Urine Trace /lpf; Squamous Epithelial Cell,Urine 50-100 #/hpf (0-5)
--- NOTE | 2025-04-30 11:52 | PC.NURSE ---
portable xray at bedside
[2025-04-30 11:57] LABS: Hematocrit 36.3 % (37.0-47.0); Hemoglobin 11.8 g/dL (12.2-16.2); Immature Granulocytes % 0.2 %; Mean Corpuscular HGB Conc 32.5 g/dL (31.8-35.4); Mean Corpuscular Hemoglobin 28.6 pg (27.0-31.2); Mean Corpuscular Volume 87.9 fl (81-99); Nucleated Red Blood Cells % 0 %; Platelet Count 293 K/mm3 (142-424); Red Blood Count 4.13 M/mm3 (4.20-5.40); Red Cell Distribution Width-SD 48.1 fL; White Blood Count 8.4 K/mm3 (4.8-10.8)
[2025-04-30 12:06] LABS: Albumin Level 5.2 g/dl (3.5-5.0); Chloride 103 mmol/L (98-107); Potassium 3.7 mmoL/L (3.5-5.1); Sodium 136 mmol/L (136-145)
[2025-04-30 12:09] LABS: Alanine Aminotransferase 22 U/L (12-78); Albumin/Globulin Ratio 1.8 (1.1-1.8); Alkaline Phosphatase 74 U/L (38-126); Anion Gap 9.7 mEq/L (5-15); Aspartate Amino Transferase 36 U/L (14-36); Bilirubin,Total 0.7 mg/dl (0.2-1.3); Blood Urea Nitrogen 11 mg/dl (7-17); Calcium 8.8 mg/dl (8.4-10.2); Carbon Dioxide 27 mmol/L (22.0-30.0); Creatinine Clearance Estimated 82 mL/min (50-200); Creatinine,Serum 0.70 mg/dl (0.52-1.04); Estimated Glomerular Filt Rate 83 ml/min (>60); GFR (African American) 100 ML/MIN (>60); Globulin 2.9 g/dL (1.3-3.2); Glucose 141 mg/dl (74-100); Total Protein,Serum 8.1 g/dl (6.3-8.2)
[2025-04-30 12:15] VITALS: BP 149/92; PULSE 87; O2SAT 97
[2025-04-30 12:19] LABS: NT Pro Brain Natriuretic Pep. 175 pg/mL (0-125)
[2025-04-30 12:22] LABS: Troponin I < 0.01 ng/ml (0.00-0.034)
[2025-04-30 12:56] VITALS: BP 141/74; PULSE 82; RESP 16; TEMP 36.6; O2SAT 97
[2025-04-30 13:04] VITALS: BP 141/74; PULSE 82; RESP 15; TEMP 36.6; O2SAT 97
[2025-04-30 13:39] LABS: Hepatitis C Ab Qual. W/ RFX NEGATIVE (Negative)
== END 2025-04-30 13:05 | disposition home or self-care (01) ==
PROVIDERS: Emergency Provider Student in an Organized Health Care Education/Training Program; PCP Nurse Practitioner Family
DX: R30.0 Dysuria (principal); R42 Dizziness and giddiness; I48.0 Paroxysmal atrial fibrillation; I45.10 Unspecified right bundle-branch block; I10 Essential (primary) hypertension; E78.5 Hyperlipidemia, unspecified; Z86.79 Personal history of other diseases of the circulatory system; Z95.0 Presence of cardiac pacemaker
CPT/HCPCS: 71045; 80053; 81001; 83880; 84484; 85025; 86803; 87389; 93005; 99284; 99285

== ENCOUNTER → 2025-05-04 19:18 | Outpatient (CLI) | payer MEDICARE, SELFPAY ==
--- OUTSIDE RECORDS SUMMARY | 2024-10-03 16:30 | XMS_ITS ---
Author Organization [facility] Address [address] [place] [address] Care Team Providers Care Behavioral Technician Name Role Phone Charles Hopkins Primary Care Provider Migration, Provider Unavailable Unavailable REASON FOR VISIT [...] Active Encounters Encounter Location Date Provider Diagnosis [facility] [address] [place] [address] 10/03/2024 Provider Migration Plan Of Treatment Medication Medication Name Sig Start Date Stop Date Notes Levothyroxine Sodium 50 MCG 1 tab(s) ora lly once a day; Duration: 30 day(s) Progress Notes * Rebeca BURKETT CDOB:[birth year] (69 yo F)Acc No.[id number]:10/03/2024 Patient: Sterling FEROZLUISRebeca Provider: Leisa pollock Migration :1955 A ge:69 Y S ex:Female Date:10/03/2024 Address:[address] [place] [phone] Pcp:Charles Hopkins Subjective: * Chief Complaints: * [...] Electronic signature of Jay staley Migration on 05/04/2025 at 07:21 PM EST Sign off status: Pending * Provider: Leisa pollock Migration Date: 0 10/03/2024 Generated for Demetrius kirby/Miya/Drew on: 1 07/04/2024 07:21 PM EST
--- OUTSIDE RECORDS SUMMARY | 2025-05-04 19:21 | XMS_ITS | Patient Health Record ---
Author Organization [facility] Address [address] [facility] [address] [facility] [address] [place] [address] Care Team Providers Care Bedspread Folder Name Role Phone Charles Hopkins Primary Care [...] review and pick correct strength-formulat ion from Adrenaline Mobility options. If intended option is not shown, [...] W/U Status Risk Notes Problem Allergic rhinitis (73863913) Other allergic rhinitis (J30.89) Active confirmed Problem Anxiety (77798124) Anxiety (F41.9) Active confirmed Problem Essential hypertension (37384403) Essential hypertension (I10) Active confirmed Problem Seasonal allergy (957052865) Seasonal allergies (J30.2) Active confirmed Problem Acquired hypothyroidism (364189186) Acquired hypothyroidism (E03.9) Active confirmed Problem Insomnia disorder related to another mental disorder (41227827) Psychophysiological insomnia (F51.04) Active confirmed Problem Obstructive sleep apnea syndrome (56765763) MORALES (obstructive sleep apnea) (G47.33) Active confirmed Problem Movement disorder (32469120) Movement disorder (G25.9) Active confirmed Problem Akathisia (686376836) Akathisia (G25.71) Active confirmed Encounters Encounter Location Date Provider Diagnosis [facility] [address] [place] [address] 10/03/2024 Provider Migration Plan Of Treatment Pending Test Test Name Order Date Urinalysis 09/22/2021 C-CMP 08/01/2020 C-LIPID PANEL 08/01/2020 C-THYROID PROFILE 08/01/2020 M-Thyroid Stimulating Hormone 07/10/2021 Insurance Providers Payer Name Payer Address Payer Phone Subscriber Number Group Number Insured Name Patient Relationship to Insured Coverage Start Date Coverage End Date [employer] Medicare Advantage [address] [address] [place] [address] [phone] [id number] Rebeca Armendariz Self - patient is the insured Medications Administered Medication Instructions Date of Administration Dosage Notes Dexamethasone 4mg Injection 12/07/2021 4 mg Medical (General) History Medical History History ICD Code Hypothyroidism HLD HTN MORALES Murmur with aortic calcification Surgical History Surgery Date(Month/Year) cholecystectomy hemorrhoidectomy right eye Hospitalization History Reason Date(Month/Year) above
--- OUTSIDE RECORDS SUMMARY | 2025-05-04 19:21 | XMS_ITS | Referral Summary ---
Author Organization [employer] ([place], [place], [place], [place], [place]) Address [address] [place] [address] Care Team Providers Care Medical Photographer Name Role Phone Catalino Zuñiga MD Primary Care Provider [phone] Allergies Active Allergy Reactions Criticality Noted Date [...] Date James rded Speak language other than Botswanan at home Not on file 07/18/2023 Want [...] Advance Directives For more information, please contact: [phone] * Full Code (Latest Code Status on File) Date Activated Date Inactivated Comments 05/07/2023 12:58 PM 05/09/2023 11:38 AM * Full Code Date Activated Date Inactivated Comments 05/07/2023 9:16 AM 05/07/2023 12:58 PM Care Teams Medical Photographer Relationship Specialty Start Date End Date Catalino Zuñiga MD [address] [place] [address] PCP - General Family Medicine 03/07/23
--- OUTSIDE RECORDS SUMMARY | 2025-05-04 19:21 | XMS_ITS | Clinical Summary ---
Author Organization [facility] Address [address] [place] [address] Care Team Providers Care Cadet Deck Name Role Phone Caryn Guevara IVANA Primary Care Provider [phone] Allergies Active Allergy Reactions Criticality Noted Date [...] any time in the past 12 m [facility], were you homeless or living in a jail (including now)? No 10/12/2024 Utilities Answer Date [...] Screening 1999 [facility]-Breast Cancer Screening 06/01/2019 06/01/2017 [id number] Vaccine ( season) 2025 03/20/2022, 01/19/2022, 03/02/2021, [...] this topic Medical Devices Implanted Type Area Product Development Assistant Device Identifier Shelf Expiration Date Model / Serial / Lot Pacemaker Icd [address] - [id number] Implanted:Qty: 1 on 10/12/2024 by Patrice Gómez MD at [facility]-[id number] 05/30/2026 [id number] / [id number] / [id number] Lead Pacing Ultipace 52cm - [id number] Implanted:Qty: 1 on 10/12/2024 by Patrice Gómez MD at [facility] [employer]-[id number] 07/31/2027 [id number] / [id number] / [id number] Lead Defib Durata Sj4 7122q/65 - [id number] Implanted:Qty: 1 on 10/12/2024 by Patrice Gómez MD at [facility] [employer]-[id number] 06/30/2027 7122Q/65 / [id number] / [id number] Insurance Advance Directives * Full Code (Latest Code Status on File) Date Activated Date Inactivated Comments 10/09/2024 1:49 PM 10/13/2024 5:12 PM Care Teams Cadet Deck Relationship Specialty Start Date End Date Caryn Guevara, IVANA [address] [place] [address] PCP - General 09/09/24
--- OUTSIDE RECORDS SUMMARY | 2025-05-04 19:21 | XMS_ITS | Clinical Summary ---
Author Organization [employer] ([place], [place], [place], [place], [place]) Address [address] [place] [address] Care Team Providers Care Lockstitch Lining Maker Name Role Phone Catalino Zuñiga MD Primary Care Provider [phone] Allergies Active Allergy Reactions Criticality Noted Date [...] Date James rded Speak language other than Omani at home Not on file 07/18/2023 Want [...] 50+ years Completed 04/29/2023 Insurance [place] [id number] [place] [address] Advance Directives For more information, please contact: [phone] * Full Code (Latest Code Status on File) Date Activated Date Inactivated Comments 05/07/2023 12:58 PM 05/09/2023 11:38 AM * Full Code Date Activated Date Inactivated Comments 05/07/2023 9:16 AM 05/07/2023 12:58 PM Care Teams Lockstitch Lining Maker Relationship Specialty Start Date End Date Catalino Zuñiga MD [address] [place] [address] PCP - General Family Medicine 03/07/23
--- OUTSIDE RECORDS SUMMARY | 2025-05-04 19:21 | XMS_ITS | Encounter Summary ---
Author Organization [facility] Address [address] [place] [address] Care Team Providers Care Insurance Processing Clerk Name Role Phone Caryn Guevara APRN Primary Care Provider [phone] Encounter Details Date Type Department Care Team (Late st Contact Info) Description 10/12/2024 Lab Requisition [facility] [address] [place] [address] Alberto Ford MD [address] [facility] [address] [place] [address] Encounter for general adult medical [...] at day 1 10/13/2024 8:58 AM EDT [facility] Swab (Nares and Ayanna Rectal) 10/12/2024 10/12/2024 12:04 PM EDT us Alberto Ford MD LAB MICROBIOLOGY - GEN ERAL ORDERABLES Final Result [facility] [address] [place] [address] documented in this encounter Visit Diagnoses Diagnosis [...] documented as of this encounter Care Teams Insurance Processing Clerk Relationship Specialty Start Date End Date Caryn Guevara, IVANA [address] [place] [address] PCP - General 09/09/24 documented as of this encounter
--- OUTSIDE RECORDS SUMMARY | 2025-05-04 19:21 | XMS_ITS | Encounter Summary ---
Author Organization [facility] Address [address] [place] [address] Care Team Providers Care Room Service Server Name Role Phone Catalino Zuñiga MD Primary Care Provider Caryn Robertson APRN Primary Care Provider [phone] Encounter Details Date Type Department Care Team (Late st Contact Info) Description 02/19/20[address] [facility] [address] [place] [address] Raymon Abel MD [address] [place] [address] Social History Tobacco Use Types Packs/Day [...] on filedocumented in this encounter Care Teams Room Service Server Relationship Specialty Start Date End Date Catalino Zuñiga MD PCP - General Family Medicine 02/19/23 09/08/24 Caryn Guevraa APRN [address] [place] [address] PCP - General 09/09/24 documented as of this encounter
--- OUTSIDE RECORDS SUMMARY | 2025-05-04 19:21 | XMS_ITS | Encounter Summary ---
Author Organization [employer] ([place], [place], [place], [place], [place]) Address [address] [place] [address] Care Team Providers Care Park Recreation Manager Name Role Phone Catalino Zuñiga MD Primary Care Provider [phone] Reason for Referral * Other (Routine) - Closed Specialty Diagnoses / Procedures Referred By Marisabel t Referred To Contact Diagnoses Essential hypertension Procedures ECG 12 lead Devan Horner MD [address] [place] [address] [place] [address] Phone: tel: fax: Referral ID Status Reason Start Date Expiration Date Visits Re quested Visits Authorized [id number] Closed 05/06/2023 11/02/2023 1 1 * Diagnostic X-Ray (Routine) - Closed Specialty Diagnoses / Procedures Referred By Marisabel fontanez Referred To Contact Diagnoses Essential hypertension Procedures XR chest 2 views Devan Horner MD [address] [place] [address] [place] [address] Phone: tel: fax: Referral ID Status Reason Start Date Expiration Date Visits Re quested Visits Authorized [id number] Closed 05/06/2023 11/02/2023 1 1 Encounter Details Date Type Department Care Team (Late st Contact Info) Description 05/06/2023 Surgery [facility] 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 Surgery [address] [place] [address] Devan Horner MD [address] [place] [address] [place] [address] Incompetence of pubocervical tissue (Primary [...] ABO/Rh A POSITIVE 05/06/2023 11:07 AM EST [facility] BLOOD [facility] ([place]) Antibody Screen NEGATIVE 05/06/2023 11:07 AM EST [facility] BLOOD [facility] ([place]) HISTCHK HIST CHECK PERFORMED 05/06/2023 11:07 AM EST [facility] ([place]) Blood Venipuncture / Unknown 05/06/2023 10:52 AM EST 05/06/2023 11:04 AM EST us Devan Horner MD [facility] BLOOD BANK TEST ORDERABLES Edited Result - Final [facility] ([place]) [address] [place] [address], [facility] [phone] * (ABNORMAL) Basic Metabolic Panel (05/06/2023 10:52 AM EST) Sodium 139 136 - 145 meq/L 05/06/2023 11:07 AM [facility] Potassium 4.0 3.5 - 5.1 meq/L 05/06/2023 11:07 AM [facility] Chloride 105 98 - 107 meq/L 05/06/2023 11:07 AM [facility] CO2 29 21 - 32 meq/L 05/06/2023 11:07 AM [facility] Anion Gap 9(L) 05/06/2023 11:07 AM [facility] BUN 8 7 - 18 mg/dL 05/06/2023 11:07 AM [facility] Creatinine 1.01 0.55 - 1.10 mg/dL 05/06/2023 11:07 AM [facility] BUN/Creatinine 8 05/06/2023 11:07 AM [facility] Glucose 108(H) 70 - 99 mg/dL 05/06/2023 11:07 AM [facility] Calcium 9.1 8.5 - 10.1 mg/dL 05/06/2023 11:07 AM [facility] Osmolality Calc 276.4 11:07 AM [facility] eGFR (mL/min/1.73m2) >60 >=60 mL/min/1.7 3m2 05/06/2023 11:07 AM [facility] Comment:eGFR of <60 suggests chronic kidney disease if found over a 3 month period of time. eGFR <15 indicates renal failure. Blood Venipuncture / Unknown 05/06/2023 10:52 AM EST 05/06/2023 10:56 AM EST us Devan Horner MD LAB BLOOD ORDERABLES Final Resu lt [facility] [address] [place] [address], [facility] [phone] * (ABNORMAL) CBC with automated diff (05/06/2023 10:52 AM EST) WBC 4.7(L) 4.8 - 10.8 K/ L 05/06/2023 11:16 AM [facility] RBC 4.66 3.50 - 5.20 M/ L 05/06/2023 11:16 AM [facility] Hemoglobin 13.5 11.7 - 15.8 GM/DL 05/06/2023 11:16 AM [facility] Hematocrit 41.8 35.0 - 47.0 % 05/06/2023 11:16 AM [facility] MCV 90 81 - 101 fL 05/06/2023 11:16 AM [facility] MCH 29.0 27.0 - 34.0 pg 05/06/2023 11:16 AM [facility] MCHC 32.3 32.0 - 36.0 GM/DL 05/06/2023 11:16 AM [facility] RDW 15.4(H) 11.5 - 14.5 % 05/06/2023 11:16 AM [facility] Platelets 271 150 - 400 K/CU MM 05/06/2023 11:16 AM [facility] MPV 9.7 9.4 - 12.4 fL 05/06/2023 11:16 AM [facility] Nucleated Red Blood Cell 0.0 0 - 0.2 % 05/06/2023 11:16 AM [facility] % Neutros 52 37 - 80 % 05/06/2023 11:16 AM [facility] % Lymphs 30 10 - 50 % 05/06/2023 11:16 AM [facility] % Monos 12 5 - 13 % 05/06/2023 11:16 AM EST [facility] % Eos 5 0 - 7 % 05/06/2023 11:16 AM EST [facility] % Baso 1 0 - 3 % 05/06/2023 11:16 AM EST [facility] NRBC Absolute 0.00 0 - 0.12 K/ul 05/06/2023 11:16 AM EST [facility] # Neutros 2.46 2.00 - 6.90 K/ L 05/06/2023 11:16 AM EST [facility] # Lymphs 1.41 0.60 - 3.40 K/ L 05/06/2023 11:16 AM EST [facility] # Monos 0.55 0.00 - 0.90 K/ L 05/06/2023 11:16 AM EST [facility] # Eos 0.25 0.00 - 0.70 K/ L 05/06/2023 11:16 AM EST [facility] # Baso 0.04 0.00 - 0.20 K/ L 05/06/2023 11:16 AM EST [facility] % Imm Grans 0.20(H) 0.00 - 0.00 % 05/06/2023 11:16 AM [facility] # IG 0.01(H) 0.00 - 0.00 K/uL 05/06/2023 11:16 AM EST [facility] Blood Venipuncture / Unknown 05/06/2023 10:52 AM EST 05/06/2023 10:57 AM EST Narrative [facility] - 05/06/2023 11:16 AM EST [...] BLOOD ORDERABLES Final Resu lt [facility] [address] [id number], [facility] [phone] * XR chest 2 views (05/06/2023 10:33 [...] hypertension documented in this encounter Care Teams Park Recreation Manager Relationship Specialty Start Date End Date Catalino Zuñiga MD [address] [place] [address] PCP - General Family Medicine 03/07/23 documented as of this encounter
== END ==
LOC: SL 19:19
PROVIDERS: PCP Nurse Practitioner Family; Visit Provider Specialist
DX: G47.30 Sleep apnea, unspecified (principal)

== ENCOUNTER 2025-06-01 14:09 | Outpatient (CLI) | payer MEDICARE, SELFPAY ==
[2025-06-01 14:58] LABS: Hematocrit 37.4 % (37.0-47.0); Hemoglobin 12.3 g/dL (12.2-16.2); Immature Granulocytes % 0.2 %; Mean Corpuscular HGB Conc 32.9 g/dL (31.8-35.4); Mean Corpuscular Hemoglobin 29.0 pg (27.0-31.2); Mean Corpuscular Volume 88.2 fl (81-99); Nucleated Red Blood Cells % 0 %; Platelet Count 270 K/mm3 (142-424); Red Blood Count 4.24 M/mm3 (4.20-5.40); Red Cell Distribution Width-SD 51.8 fL; White Blood Count 6.1 K/mm3 (4.8-10.8)
[2025-06-01 15:36] LABS: Anion Gap 10.7 mEq/L (5-15); Blood Urea Nitrogen 14 mg/dl (7-17); Calcium 9.7 mg/dl (8.4-10.2); Carbon Dioxide 25 mmol/L (22.0-30.0); Chloride 103 mmol/L (98-107); Creatinine,Serum 0.80 mg/dl (0.52-1.04); Estimated Glomerular Filt Rate 71 ml/min (>60); GFR (African American) 86 ML/MIN (>60); Glucose 138 mg/dl (74-100); Magnesium 2.2 mg/dl (1.6-2.3); Potassium 3.7 mmoL/L (3.5-5.1); Sodium 135 mmol/L (136-145)
== END 2025-06-01 23:59 | disposition home or self-care (01) ==
LOC: LAB 14:10
PROVIDERS: PCP Student in an Organized Health Care Education/Training Program; Visit Provider Internal Medicine
DX: E78.2 Mixed hyperlipidemia (principal); I10 Essential (primary) hypertension
CPT/HCPCS: 36415; 80048; 83735; 85025

== ENCOUNTER 2025-06-09 11:30 | Outpatient (CLI) | payer MEDICARE, SELFPAY ==
--- NOTE | 2025-06-09 13:00 | CA_ITS ---
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, Murmur 2D Dimensions IVSd 1.35 cm F: 0.6-1.0 LVEF (Visual) 73.50 % PWd 1.23 cm F: 0.6 - 1.0 LA Volume 57.10 mL LVDd 4.31 cm F: 3.9 - 5.3 LA Volume Index [id number] mL/m2 (M/F) 16-34 LVDs 2.49 cm F: 2.2 - 3.5 Left Atrium 3.83 cm F: 2.7 - 3.8 M-Mode Dimensions RVDd 3.02 cm (0.9-2.6) LA Diam 3.91 cm (1.9-4.0) LVDd 4.47 cm (3.5-5.7) LVDs 2.54 cm (3.5-5.7) IVSd 1.49 cm (0.6-1.1) PWd 1.29 cm (0.6-1.1) EF (Teich) 74.50% EPSs 0.97 cm FS 43.20% EDV (Teich) 91.00 mL TAPSE 1.43 (<1.7) ESV (Teich) 23.20 mL LV Diastology E Decel Time 243 (160-240 msec) E/A Ratio 0.87 MED A' 11.60 cm/s LAT A' 12.00 cm/s Aortic Valve KESHIA Index 0.97 cm2/m2 AoV Peak Neville. 227.0 (50-130 cm/s) AO Peak GR. 20.50 mmHg AO Mean GR. 10.50 (<5 mmHg) AO VTI 46.6 (18-25 cm) KESHIA (VTI) 2.13 (2.5-4.5 cm2) Mitral Valve MV A Velocity 115.0 (40-130 cm/s) E/A Ratio 0.87 MV Mean Gr. 3.20 (<2mmHg) Pulmonary Valve PV Peak Velocity 98.0 (50-150 cm/s) Left Ventricle Known HTN. The left ventricle is normal size. Left ventricular systolic function is normal. The left ventricular ejection fraction is within the normal range. There is increased left ventricular wall thickness. There is no evidence of LVOT obstruction at rest or with Valsalva. Hypokinesis of the basal septal LV wall, consistent with prior history of alcohol septal ablation. The left ventricular diastolic function is indeterminate. LVEF is 55% Right Ventricle The right ventricle is normal size. The right ventricular systolic function is normal. Atria Left atrium is mildly dilated. Right atrium is mildly dilated. There is no color Doppler evidence of interatrial shunt. Aortic Valve The aortic valve is mildly thickened. Aortic sclerosis, but no hemodynamically significant aortic valvular stenosis. Trace aortic regurgitation is present. Mitral Valve The mitral valve is normal in structure. No evidence of mitral valve stenosis. Trace mitral regurgitation is present. Tricuspid Valve The tricuspid valve leaflets are thin and pliable. Trace tricuspid regurgitation. There is insufficient TR jet to estimate RVSP. Pulmonic Valve The pulmonary valve is grossly normal in structure. Trace pulmonic valve regurgitation is present. Great Vessels The aortic root is normal in size. IVC is normal in size and collapses >50% with inspiration. Pericardium There is no pericardial effusion. Other Information Study Quality: Fair Conclusion Known history of HCM. Normal biventricular systolic function. Hypokinesis of the basal septal LV wall, consistent with prior history of alcohol septal ablation. No evidence of LVOT obstruction at rest or with Valsalva. No significant valvular stenosis or regurgitation. Electronically signed by : Lorenza Arteaga MD 06/15/2025 13:15:41
== END 2025-06-09 23:59 | disposition home or self-care (01) ==
LOC: RT 11:31
PROVIDERS: PCP Student in an Organized Health Care Education/Training Program; Visit Provider Internal Medicine
DX: I42.1 Obstructive hypertrophic cardiomyopathy (principal); E78.2 Mixed hyperlipidemia; I10 Essential (primary) hypertension; I48.0 Paroxysmal atrial fibrillation; R25.3 Fasciculation; R93.1 Abnormal findings on diagnostic imaging of heart and coronary circulation; R01.1 Cardiac murmur, unspecified; Z98.890 Other specified postprocedural states
CPT/HCPCS: 93306